=== PATIENT | male | born 1935 | race Caucasian/White ===

== ENCOUNTER → 2017-09-01 14:10 | Outpatient (CLI) | payer MEDICARE, BC, OTHER, SELFPAY | PROVIDERS: Family Provider Family Medicine Geriatric Medicine; PCP Family Medicine Geriatric Medicine; Visit Provider Family Medicine Geriatric Medicine | DX: R50.9 Fever, unspecified (principal) | CPT/HCPCS: 87633 ==

== ENCOUNTER → 2017-11-22 16:39 | Outpatient (CLI) | payer MEDICARE, BC, OTHER, SELFPAY | PROVIDERS: Family Provider Family Medicine Geriatric Medicine; PCP Family Medicine Geriatric Medicine; Visit Provider Family Medicine Geriatric Medicine | DX: J01.90 Acute sinusitis, unspecified (principal) | CPT/HCPCS: 87633 ==

== ENCOUNTER → 2017-12-08 14:29 | Outpatient (CLI) | payer MEDICARE, BC, OTHER, SELFPAY ==
[2017-12-08 17:02] LABS: Absolute Lymphocyte Count 1.64 X10^3/ul (0.83-4.51); Absolute Neutrophil Count 9.6 X10^3/uL (2.0-7.7); Basophil# 0.01 X10^3/uL; Basophil% 0.1 % (0-1); Eosinophils% 0.8 % (0-5); Hematocrit 41.6 % (40-54); Hemoglobin 13.4 g/dl (13.0-16.5); Lymphocyte # 1.64 X10^3/ul (4.0); Lymphocyte % 13.5 % (19-41); Mean Corp Hgb Conc 32.2 g/gl (32-36); Mean Corpuscular Hgb 31.5 pg (27.0-32.0); Mean Corpuscular Volume 97.7 fL (80-94); Mean Platelet Vol. 10.6 fl (6.2-12.0); Monocyte# 0.81 X10^3/uL; Monocyte% 6.7 % (0-10); Neutrophil # 9.55 X10^3/uL (2.7-7.7); Neutrophil % 78.7 % (47-70); Platelet Count 267 K/mm3 (150-450); RBC Distribution Width CV 14.9 % (11.6-14.6); RBC Distribution Width SD 51.2 fl (35.1-43.9); Red Blood Count 4.26 M/mm3 (4.6-6.2); White Blood Count 12.1 K/mm3 (4.4-11.0)
[2017-12-08 17:03] LABS: POSITIVE COUNT NO; POSITIVE DIFFERENTIAL NO; POSITIVE MORPHOLOGY NO
[2017-12-08 17:27] LABS: ALB/GLOB Ratio 0.8 RATIO (0.9-2.4); AST(SGOT) 31 U/L (15-37); Alanine Aminotransfer ALT/SGPT 46 U/L (16-61); Albumin, Serum 3.2 g/dL (3.2-5.0); Alkaline Phosphatase 54 U/L (45-117); Anion Gap 7 (5-15); BUN 33 mg/dL (7-18); BUN/Creat Ratio 30.6 RATIO (10-20); Calcium,Total 8.9 mg/dL (8.5-10.1); Chloride 106 mmol/L (98-107); Creatinine, Serum 1.08 mg/dL (0.70-1.30); EST Glomerular Filtration Rate 70 mL/min (>60); Est Glom Filt Rate - Afr Amer 84 mL/min (>60); Glucose 128 mg/dL (74-106); Potassium 5.3 mmol/L (3.5-5.1); Protein, Total 7.2 g/dL (6.4-8.2); Sodium Level 141 mmol/L (136-145); Thyroid Stim Hormone (TSH) 1.91 uIU/mL (0.358-3.74)
[2017-12-08 17:55] LABS: Vitamin D,25 Hydroxy 24.8 ng/mL (29.95-100.01)
== END ==
PROVIDERS: Family Provider Family Medicine Geriatric Medicine; PCP Family Medicine Geriatric Medicine; Visit Provider Family Medicine Geriatric Medicine
DX: I10 Essential (primary) hypertension (principal); E55.9 Vitamin D deficiency, unspecified
CPT/HCPCS: 36415; 80053; 82306; 84443; 85025

== ENCOUNTER → 2017-12-20 09:27 | Outpatient (CLI) | payer MEDICARE, BC, OTHER, SELFPAY ==
[2017-12-20 12:45] LABS: Anion Gap 6 (5-15); BUN 23 mg/dL (7-18); BUN/Creat Ratio 20.2 RATIO (10-20); Calcium,Total 9.2 mg/dL (8.5-10.1); Chloride 106 mmol/L (98-107); Creatinine, Serum 1.14 mg/dL (0.70-1.30); EST Glomerular Filtration Rate 65 mL/min (>60); Est Glom Filt Rate - Afr Amer 79 mL/min (>60); Glucose 148 mg/dL (74-106); Potassium 5.4 mmol/L (3.5-5.1); Sodium Level 143 mmol/L (136-145)
== END ==
PROVIDERS: Family Provider Family Medicine Geriatric Medicine; PCP Family Medicine Geriatric Medicine; Visit Provider Family Medicine Geriatric Medicine
DX: E87.6 Hypokalemia (principal)
CPT/HCPCS: 36415; 80048

== ENCOUNTER → 2018-04-07 13:47 | Outpatient (CLI) | payer MEDICARE, BC, OTHER, SELFPAY ==
[2018-04-07 17:37] LABS: ALB/GLOB Ratio 0.8 RATIO (0.9-2.4); AST(SGOT) 30 U/L (15-37); Alanine Aminotransfer ALT/SGPT 33 U/L (16-61); Albumin, Serum 3.5 g/dL (3.2-5.0); Alkaline Phosphatase 65 U/L (45-117); Anion Gap 9 (5-15); BUN 19 mg/dL (7-18); BUN/Creat Ratio 15.8 RATIO (10-20); Chloride 101 mmol/L (98-107); EST Glomerular Filtration Rate 62 mL/min (>60); Est Glom Filt Rate - Afr Amer 74 mL/min (>60); Globulin 4.6 g/dL (2.2-4.2); Glucose 99 mg/dL (74-106); Potassium 4.6 mmol/L (3.5-5.1); Protein, Total 8.1 g/dL (6.4-8.2); Sodium Level 136 mmol/L (136-145); Thyroid Stim Hormone (TSH) 5.07 uIU/mL (0.358-3.74)
[2018-04-07 18:37] LABS: Absolute Lymphocyte Count 2.36 X10^3/ul (0.83-4.51); Absolute Neutrophil Count 6.6 X10^3/uL (2.0-7.7); Basophil# 0.03 X10^3/uL; Basophil% 0.3 % (0-1); Eosinophil# 0.16 X10^3/uL; Eosinophils% 1.6 % (0-5); Hematocrit 43.1 % (40-54); Hemoglobin 13.7 g/dl (13.0-16.5); Lymphocyte # 2.36 X10^3/ul (4.0); Lymphocyte % 23.6 % (19-41); Mean Corp Hgb Conc 31.8 g/gl (32-36); Mean Corpuscular Hgb 31.7 pg (27.0-32.0); Mean Corpuscular Volume 99.8 fL (80-94); Mean Platelet Vol. 10.7 fl (6.2-12.0); Monocyte# 0.79 X10^3/uL; Monocyte% 7.9 % (0-10); Neutrophil # 6.63 X10^3/uL (2.7-7.7); Neutrophil % 66.4 % (47-70); POSITIVE COUNT NO; POSITIVE DIFFERENTIAL NO; POSITIVE MORPHOLOGY NO; Platelet Count 237 K/mm3 (150-450); RBC Distribution Width SD 54.2 fl (35.1-43.9); Red Blood Count 4.32 M/mm3 (4.6-6.2)
[2018-04-07 20:16] LABS: BNP,B-Type NATRIURETIC PEPTIDE 339.5 pg/mL (0-100)
== END ==
PROVIDERS: Family Provider Family Medicine Geriatric Medicine; PCP Family Medicine Geriatric Medicine; Visit Provider Family Medicine Geriatric Medicine
DX: R60.0 Localized edema (principal); R06.02 Shortness of breath; R60.9 Edema, unspecified
CPT/HCPCS: 36415; 80053; 83880; 84443; 85025; 93970

== ENCOUNTER → 2018-05-26 16:18 | Outpatient (CLI) | payer MEDICARE, BC, OTHER, SELFPAY ==
[2018-05-26 18:06] LABS: ALB/GLOB Ratio 0.8 RATIO (0.9-2.4); AST(SGOT) 35 U/L (15-37); Alanine Aminotransfer ALT/SGPT 32 U/L (16-61); Albumin, Serum 3.4 g/dL (3.2-5.0); Alkaline Phosphatase 70 U/L (45-117); Anion Gap 7 (5-15); BUN 24 mg/dL (7-18); BUN/Creat Ratio 18.3 RATIO (10-20); Calcium,Total 8.9 mg/dL (8.5-10.1); Chloride 103 mmol/L (98-107); Creatinine, Serum 1.31 mg/dL (0.70-1.30); EST Glomerular Filtration Rate 56 mL/min (>60); Est Glom Filt Rate - Afr Amer 67 mL/min (>60); Globulin 4.2 g/dL (2.2-4.2); Glucose 132 mg/dL (74-106); Potassium 5.4 mmol/L (3.5-5.1); Protein, Total 7.6 g/dL (6.4-8.2); Sodium Level 140 mmol/L (136-145); Thyroid Stim Hormone (TSH) 4.14 uIU/mL (0.358-3.74)
[2018-05-26 18:14] LABS: Hematocrit 40.8 % (40-54); Mean Corp Hgb Conc 31.9 g/gl (32-36); Mean Corpuscular Hgb 31.3 pg (27.0-32.0); Mean Corpuscular Volume 98.3 fL (80-94); POSITIVE COUNT NO; POSITIVE DIFFERENTIAL NO; POSITIVE MORPHOLOGY NO; Platelet Count 205 K/mm3 (150-450); RBC Distribution Width CV 14.9 % (11.6-14.6); RBC Distribution Width SD 52.4 fl (35.1-43.9); Red Blood Count 4.15 M/mm3 (4.6-6.2); White Blood Count 8.8 K/mm3 (4.4-11.0)
[2018-05-26 18:15] LABS: Absolute Lymphocyte Count 1.94 X10^3/ul (0.83-4.51); Absolute Neutrophil Count 5.6 X10^3/uL (2.0-7.7); Basophil# 0.04 X10^3/uL; Basophil% 0.5 % (0-1); Eosinophil# 0.22 X10^3/uL; Eosinophils% 2.5 % (0-5); Lymphocyte # 1.94 X10^3/ul (4.0); Lymphocyte % 21.9 % (19-41); Monocyte# 1.06 X10^3/uL; Neutrophil # 5.56 X10^3/uL (2.7-7.7); Neutrophil % 62.9 % (47-70)
== END ==
PROVIDERS: Family Provider Family Medicine Geriatric Medicine; PCP Family Medicine Geriatric Medicine; Visit Provider Family Medicine Geriatric Medicine
DX: I50.9 Heart failure, unspecified (principal)
CPT/HCPCS: 36415; 80053; 84443; 85025

== ENCOUNTER → 2018-05-29 11:50 | Outpatient (CLI) | payer MEDICARE, BC, OTHER, SELFPAY ==
[2018-05-29 12:43] LABS: Anion Gap 5 (5-15); BUN 21 mg/dL (7-18); BUN/Creat Ratio 18.9 RATIO (10-20); Calcium,Total 8.8 mg/dL (8.5-10.1); Chloride 106 mmol/L (98-107); Creatinine, Serum 1.11 mg/dL (0.70-1.30); EST Glomerular Filtration Rate 67 mL/min (>60); Est Glom Filt Rate - Afr Amer 81 mL/min (>60); Glucose 108 mg/dL (74-106); Potassium 4.3 mmol/L (3.5-5.1); Sodium Level 142 mmol/L (136-145)
== END ==
PROVIDERS: Family Provider Family Medicine Geriatric Medicine; PCP Family Medicine Geriatric Medicine; Visit Provider Family Medicine Geriatric Medicine
DX: E87.6 Hypokalemia (principal)
CPT/HCPCS: 36415; 80048

== ENCOUNTER → 2018-06-02 10:57 | Outpatient (CLI) | payer MEDICARE, BC, OTHER, SELFPAY ==
[2018-06-02 13:14] LABS: Digoxin Level 0.49 ng/mL (0.80-2.00)
== END ==
PROVIDERS: Family Provider Family Medicine Geriatric Medicine; PCP Family Medicine Geriatric Medicine; Visit Provider Family Medicine Geriatric Medicine
DX: E03.9 Hypothyroidism, unspecified (principal); F05 Delirium due to known physiological condition; F22 Delusional disorders
CPT/HCPCS: 36415; 80162

== ENCOUNTER → 2018-06-21 14:46 | Outpatient (CLI) | payer MEDICARE, BC, OTHER, SELFPAY ==
[2018-06-21 17:33] LABS: Anion Gap 7 (5-15); BUN 24 mg/dL (7-18); BUN/Creat Ratio 19.5 RATIO (10-20); Calcium,Total 8.8 mg/dL (8.5-10.1); Chloride 105 mmol/L (98-107); Creatinine, Serum 1.23 mg/dL (0.70-1.30); EST Glomerular Filtration Rate 60 mL/min (>60); Est Glom Filt Rate - Afr Amer 72 mL/min (>60); Glucose 109 mg/dL (74-106); Potassium 4.3 mmol/L (3.5-5.1); Sodium Level 138 mmol/L (136-145)
== END ==
PROVIDERS: Family Provider Family Medicine Geriatric Medicine; PCP Family Medicine Geriatric Medicine; Visit Provider Family Medicine Geriatric Medicine
DX: E87.5 Hyperkalemia (principal)
CPT/HCPCS: 36415; 80048

== ENCOUNTER → 2018-07-01 11:12 | Outpatient (CLI) | payer MEDICARE, BC, OTHER, SELFPAY ==
[2018-07-01 12:16] LABS: Absolute Lymphocyte Count 1.15 X10^3/ul (0.83-4.51); Absolute Neutrophil Count 4.8 X10^3/uL (2.0-7.7); Basophil# 0.03 X10^3/uL; Basophil% 0.4 % (0-1); Eosinophil# 0.23 X10^3/uL; Eosinophils% 3.3 % (0-5); Hematocrit 37.2 % (40-54); Hemoglobin 11.9 g/dl (13.0-16.5); Lymphocyte # 1.15 X10^3/ul (4.0); Lymphocyte % 16.7 % (19-41); Mean Corpuscular Hgb 30.1 pg (27.0-32.0); Mean Corpuscular Volume 94.2 fL (80-94); Mean Platelet Vol. 10.3 fl (6.2-12.0); Monocyte# 0.64 X10^3/uL; Monocyte% 9.3 % (0-10); Neutrophil # 4.82 X10^3/uL (2.7-7.7); Neutrophil % 70.2 % (47-70); Platelet Count 234 K/mm3 (150-450); RBC Distribution Width CV 14.9 % (11.6-14.6); RBC Distribution Width SD 49.8 fl (35.1-43.9); Red Blood Count 3.95 M/mm3 (4.6-6.2); White Blood Count 6.9 K/mm3 (4.4-11.0)
[2018-07-01 12:26] LABS: POSITIVE COUNT NO; POSITIVE DIFFERENTIAL NO; POSITIVE MORPHOLOGY NO
[2018-07-01 12:30] LABS: Vitamin D,25 Hydroxy 26.6 ng/mL (29.95-100.01)
[2018-07-01 12:44] LABS: ALB/GLOB Ratio 0.7 RATIO (0.9-2.4); AST(SGOT) 26 U/L (15-37); Alanine Aminotransfer ALT/SGPT 26 U/L (16-61); Albumin, Serum 3.3 g/dL (3.2-5.0); Alkaline Phosphatase 82 U/L (45-117); Anion Gap 8 (5-15); BUN 26 mg/dL (7-18); BUN/Creat Ratio 19.8 RATIO (10-20); Calcium,Total 9.1 mg/dL (8.5-10.1); Chloride 103 mmol/L (98-107); Creatinine, Serum 1.31 mg/dL (0.70-1.30); EST Glomerular Filtration Rate 56 mL/min (>60); Est Glom Filt Rate - Afr Amer 67 mL/min (>60); Globulin 4.8 g/dL (2.2-4.2); Glucose 98 mg/dL (74-106); Potassium 4.3 mmol/L (3.5-5.1); Protein, Total 8.1 g/dL (6.4-8.2); Sodium Level 139 mmol/L (136-145); Thyroid Stim Hormone (TSH) 2.79 uIU/mL (0.358-3.74)
--- OUTSIDE RECORDS SUMMARY | 2018-08-26 09:14 | XMS RPT_ITS ---
:1935 Author Organization OHIP Support Name Relationship Address Phone JACKIE FERREIRA Unavailable [address] + [place] [address] R Unavailable Unavailable Unavailable PB, ABHI Unavailable [address] + [place] [address] PINNICKS, JACKIE Unavailable Unavailable + PINNICKS, JACKIE Unavailable Unavailable + PINNICKS, JACKIE Unavailable [address] + [place] [address] R Unavailable Unavailable Unavailable PB, ABHI Unavailable [address] + [place] [address] PINNICKS, JACKIE Unavailable [address] + [place] [address] R Unavailable Unavailable Unavailable PB, ABHI Unavailable [address] + [place] [address] PINNICKS, JACKIE Unavailable Unavailable + PINNICKS, JACKIE Unavailable Unavailable + PINNICKS, JACKIE Unavailable [address] + [place] [address] R Unavailable Unavailable Unavailable PB, ABHI Unavailable [address] + [place] [address] PINNICKS, JACKIE Unavailable [address] + [place] [address] R Unavailable Unavailable Unavailable PB, ABHI Unavailable [address] + [place] [address] PINNICKS, JACKIE Unavailable [address] + [place] [address] R Unavailable Unavailable Unavailable PB, ABHI Unavailable [address] + [place] [address] PINNICKS, JACKIE Unavailable Unavailable + PINNICKS, JACKIE Unavailable Unavailable + PINNICKS, JACKIE Unavailable [address] + [place] [address] R Unavailable Unavailable Unavailable PB, ABHI Unavailable [address] + [place] [address] PINNICKS, JACKIE Unavailable [address] + [place] [address] R Unavailable Unavailable Unavailable PB, ABHI Unavailable [address] + [place] [address] PINNICKS, JACKIE Unavailable [address] + [place] [address] R Unavailable Unavailable Unavailable PB, ABHI Unavailable [address] + [place] [address] PINNICKS, JACKIE Unavailable [address] + [place] [address] R Unavailable Unavailable Unavailable PB, ABHI Unavailable [address] + [place] [address] PINNICKS, JACKIE Unavailable Unavailable + PINNICKS, JACKIE Unavailable Unavailable + PINNICKS, JACKIE Unavailable [address] + [place] [address] R Unavailable Unavailable Unavailable PB, ABHI Unavailable [address] + [place] [address] Care Team Providers Name Role Phone BANG ROSE, DR. MONTE Primary Care Unavailable FISH MARKETING SALES CONSULTANT BEATRICE Attending Unavailable BABAR RUIZ MD Referring Unavailable FISH MICHELA BEATRICE Attending Unavailable BANG ROSE, DR. MONTE Primary Care Unavailable FISH MICHELA BEATRICE Attending Unavailable BANG ROSE, DR. MONTE Primary Care Unavailable FISH MARKETING SALES CONSULTANT BEATRICE Attending Unavailable BANG ROSE, DR. MONTE Primary Care Unavailable FISH MARKETING SALES CONSULTANT BEATRICE Attending Unavailable BANG ROSE, DR. ALEC-CHI Primary Care Unavailable FISH MARKETING SALES CONSULTANT, BEATRICE Attending Unavailable BANG ROSE, DR. MICHAEL-LIAT Primary Care Unavailable Bang, Alec Chi Attending Unavailable Bang, Alec Chi Referring Unavailable Bang, Alec Chi Primary Care Unavailable Bang, Alec Chi Attending Unavailable Bang, Alec Chi Primary Care Unavailable Bang, Alec Chi Attending Unavailable Bang, Alec Chi Primary Care Unavailable Bang, Alec Chi Attending Unavailable Bang, Alec Chi Primary Care Unavailable Bang, Alec Chi Attending Unavailable Bang, Alec Chi Referring Unavailable Bang, Alec Chi Primary Care Unavailable Bang, Alec Chi Attending Unavailable Bang, Alec Chi Primary Care Unavailable Bang, Alec Chi Attending Unavailable Bang, Alec Chi Primary Care Unavailable Bang, Alec Chi Attending Unavailable Bang, Alec Chi Primary Care Unavailable Bang, Alec Chi Attending Unavailable Bang, Alec Chi Primary Care Unavailable Bang, Alec Chi Attending Unavailable Bang, Alec Chi Primary Care Unavailable Bang, Alec Chi Attending Unavailable Bang, Alec Chi Primary Care Unavailable PROBLEMS PROBLEMS DATE TYPE CONDITION / CODE ATTENDING STATUS SOURCE 05/27/2018 Unknown E87.6 - Bang, Alec Chi Active [facility] Hypokalemia / Community E87.6(ICD-10) Hospital Repository 05/26/2018 Unknown I50.9 - Heart Bang, Alec Chi Active [facility]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, Community unspecified / Hospital I50.9(ICD-10) Repository 09/01/2017 Unknown R50.9 - Fever, Bang, Alec Chi Active [facility] unspecified / Community R50.9(ICD-10) Hospital Repository PROCEDURES PROCEDURES No Procedure Records FoundRESULTS RESULTS CBC W/DIFF, AUTOMATED Collected: 07/01/2018 Status: F Source: [place] 11:15 AM REPLACED BY [facility] REPOSITORY TYPE CODE TESTS RESULT OUT OF RANGE REFERENCE UNITS LAB L100.1000 4.4-11.0 K/mm3 Normal WBC 6.9 LAB L100.1200 4.6-6.2 M/mm3 Low RBC 3.95 LAB L100.1300 13.0-16.5 g/dl Low HGB 11.9 LAB L100.1400 40-54 % Low HCT 37.2 LAB L100.1500 80-94 fL High MCV 94.2 LAB L100.1600 27.0-32.0 pg Normal MCH 30.1 LAB L100.1700 32-36 g/gl Normal MCHC 32.0 LAB L100.1810 11.6-14.6 % High RDW CV 14.9 LAB L100.1820 35.1-43.9 fl High RDW SD 49.8 LAB L100.1900 150-450 K/mm3 Normal PLT 234 LAB L100.2000 6.2-12.0 fl Normal MPV 10.3 LAB L100.2100 47-70 % High NEUT% 70.2 LAB L100.2200 19-41 % Low LY% 16.7 LAB L100.2300 0-10 % Normal MONO% 9.3 LAB L100.2400 0-5 % Normal EO% 3.3 LAB L100.2500 0-1 % Normal BASO% 0.4 LAB L100.2550 0.0-0.9 % Normal IM GRAN % 0.100 Result Comment: IG% - Immature Granulocytes (promyelocytes, myelocytes and metamyelocytes) > 1% indicates that a LEFT SHIFT is Present. LAB L100.2620 2.0-7.7 X10 3/uL Normal Absolute Neut 4.8 LAB L100.2720 0.83-4.51 X10 3/ul Normal Absolute Lymph 1.15 Performed By: #### L100.0100 #### [facility] [address] [place], [place], [address] VITAMIN D,25 HYDROXY Collected: 07/01/2018 Status: F Source: [place] 11:15 AM [facility] REPOSITORY TYPE CODE TESTS RESULT OUT OF REFERENCE UNITS RANGE LAB L506.1000 29.95-100.01 ng/mL Low Vitamin D 26.6 25-OH Result Comment: Vitamin D 25(OH) Status Range Deficiency <20 ng/mL (50nmol/L) Insuffciency 20 - 30 ng/mL (50 - 75 nmol/L) Sufficiency 30 - 100 ng/mL (75 - 250 nmol/L) Toxicity >100 ng/mL (>250 nmol/L) Performed By: #### L506.1000 #### [facility] [address] [place], [address] COMPREHENSIVE METABOLIC Collected: 07/01/2018 Status: F Source: [facility] 11:15 AM [facility] REPOSITORY TYPE CODE TESTS RESULT OUT OF RANGE REFERENCE UNITS LAB L501.0100 74-106 mg/dL Normal GLU 98 Result Comment: Please note revised GLUCOSE reference range effective 2017. LAB L501.1000 7-18 mg/dL High BUN 26 LAB L501.1100 0.70-1.30 mg/dL High CREAT,SERUM 1.31 Result Comment: The validity of the calculated GFR AND GFRAA in patients over 70 years has not been determined. Clinical correlation is essential. LAB L501.1110 >60 mL/min Low EST GFR 56 Result Comment: Non- GFR Calc LAB L501.1115 >60 mL/min Normal EST GFR - AA 67 Result Comment: GFR Calc LAB L501.1300 10-20 RATIO Normal BUN/CRE 19.8 LAB L501.1500 6.4-8.2 g/dL T Normal PROT 8.1 LAB L501.1800 3.2-5.0 g/dL Normal ALB 3.3 LAB L501.1950 2.2-4.2 g/dL High GLOB 4.8 LAB L501.2000 0.9-2.4 RATIO Low A/G 0.7 LAB L501.2200 8.5-10.1 mg/dL CA Normal 9.1 LAB L501.4100 15-37 U/L Normal AST 26 LAB L501.4305 45-117 U/L Normal ALK P 82 LAB L501.4405 16-61 U/L Normal ALT 26 LAB L501.4600 0.20-1.00 mg/dL T Normal BILI 0.40 LAB L501.5300 136-145 mmol/L NA Normal 139 LAB L501.5600 3.5-5.1 mmol/L K Normal 4.3 LAB L501.5900 98-107 mmol/L CL Normal 103 LAB L501.6100 21.0-32.0 mmol/L Normal CO2 28.0 LAB L501.6200 5-15 Normal GAP 8 Performed By: #### L500.4050, L501.9520 #### [facility] [address] [place], [address] THYROID STIM HORMONE Collected: 07/01/2018 Status: F Source: [place] (TSH) 11:15 AM [facility] REPOSITORY TYPE CODE TESTS RESULT OUT OF RANGE REFERENCE UNITS LAB L501.9520 0.358-3.74 uIU/mL Normal TSH 2.79 Performed By: #### L500.4050, L501.9520 #### [facility] [address] [place], [address] CT HEAD OR BRAIN W/O Observed: 06/24/2018 Status: F Source: [facility] CONTRAST 10:45 AM [facility] REPOSITORY ORIGINAL Head CT, 06/24/2018 10:48 AM INDICATION: CHANGE IN MENTAL STATUS COMPARISON: No TECHNIQUE: Routine non-contrast head CT. This exam was performed according to our departmental dose optimization program, and includes the following measures where applicable: automated exposure control, adjustment of the mAs and/or kVp accord ing to patient size and/or exam, and an iterative reconstruction algorithm. FINDINGS: The ventricles and sulci are mildly to moderately enlarged. There is no shift of midline structures. There are no abnormal intra or extra-axial fluid collections. There is moderate irregular d ecreased attenuation in the white matter of the reveles radiata and centrum semiovale. Robledo-white matter differentiation is maintained. The paranasal sinuses and mastoid air cells are clear. The calvaria and the bones of the base of the skull are intact. IMPRESSION: Volume loss and white matter changes; no acute findings. Interpreted By: Papito Davenport MD Preliminary Report By: Papito Davenport MD Electronically Signed By: Papito Davenport MD Dictated Date: 06/24/2018 10:49:15 AM Prelim Date: 06/24/2018 10:49:15 AM Sign Date: 06/24/2018 10:50:13 AM BASIC METABOLIC Collected: 06/21/2018 Status: F Source: [place] PROFILE (BMP) 2:47 PM [facility] REPOSITORY TYPE CODE TESTS RESULT OUT OF RANGE REFERENCE UNITS LAB L501.0100 74-106 mg/dL High GLU 109 Result Comment: Fasting Glucose result from 100 to 125 mg/dL suggests IMPAIRED HOMEOSTASIS per A.D.A. criteria. Please note revised GLUCOSE reference range effective 2017. LAB L501.1000 7-18 mg/dL High BUN 24 LAB L501.1100 0.70-1.30 mg/dL Normal CREAT,SERUM 1.23 Result Comment: The validity of the calculated GFR AND GFRAA in patients over 70 years has not been determined. Clinical correlation is essential. LAB L501.1110 >60 mL/min Normal EST GFR 60 Result Comment: Non- GFR Calc LAB L501.1115 >60 mL/min Normal EST GFR - AA 72 Result Comment: GFR Calc LAB L501.1300 10-20 RATIO Normal BUN/CRE 19.5 LAB L501.2200 8.5-10.1 mg/dL CA Normal 8.8 LAB L501.5300 136-145 mmol/L NA Normal 138 LAB L501.5600 3.5-5.1 mmol/L K Normal 4.3 Result Comment: Slight Hemolysis, Result may be falsely increased. LAB L501.5900 98-107 mmol/L Normal CL 105 LAB L501.6100 21.0-32.0 mmol/L Normal CO2 26.0 LAB L501.6200 5-15 Normal 7 GAP Performed By: #### L500.2500 #### [facility] [address], [place], [address] DIGOXIN LEVEL Collected: 06/02/2018 Status: F Source: [place] 11:05 AM [facility] REPOSITORY TYPE CODE TESTS RESULT OUT OF RANGE REFERENCE UNITS LAB L501.7510 0.80-2.00 ng/mL Low DIG 0.49 Performed By: #### L501.7510 #### [facility] [address] [place], [address] AMIOD Collected: 05/30/2018 Status: F Source: [facility] 11:49 AM [facility] REPOSITORY TYPE CODE TESTS RESULT OUT OF REFERENCE UNITS RANGE LAB DESAM(STEFANIA 1.5-2.5 UG/ML NC) Desethylamiodarone Low 0.5 Result Comment: Reference ranges and high/low indicator flags are provided as general guidelines only. The treating physician must determine appropriate target levels/dosing based on the specific clinical situation. Performed By: [facility] [address] [place] [address] Typewriter Tester: Michael Schuler#: [id number] Phone#: LAB AM(LOINC) 1.5-2.5 UG/ML Amiodarone Low Lvl 0.5 Result Comment: Reference ranges and high/low indicator flags are provided as general guidelines only. The treating physician must determine appropriate target levels/dosing based on the specific clinical situation. This test was developed and its performance characteristics determined by [facility] [place] ([facility]). It has not been cleared or approved by the FDA. -[facility] is regulated under CLIA as qualified to perform high-complexity testing. This test is used for clinical purposes. It should not be regarded as investigational or for research. Performed By: [facility] [address] [place] [address] Typewriter Tester: Cherie Gomez M.D. CLIA#: [id number] Phone#: Performed By: #### AMIOD #### [facility] [address] [address] BASIC METABOLIC Collected: 05/29/2018 Status: F Source: [place] PROFILE ([facility]) 11:59 AM [facility] REPOSITORY TYPE CODE TESTS RESULT OUT OF RANGE REFERENCE UNITS LAB L501.0100 74-106 mg/dL High GLU 108 Result Comment: Fasting Glucose result from 100 to 125 mg/dL suggests IMPAIRED HOMEOSTASIS per A.D.A. criteria. Please note revised GLUCOSE reference range effective 2017. LAB L501.1000 7-18 mg/dL High BUN 21 LAB L501.1100 0.70-1.30 mg/dL Normal CREAT,SERUM 1.11 Result Comment: The validity of the calculated GFR AND GFRAA in patients over 70 years has not been determined. Clinical correlation is essential. LAB L501.1110 >60 mL/min Normal EST GFR 67 Result Comment: Non- GFR Calc LAB L501.1115 >60 mL/min Normal EST GFR - AA 81 Result Comment: GFR Calc LAB L501.1300 10-20 RATIO Normal BUN/CRE 18.9 LAB L501.2200 8.5-10.1 mg/dL CA Normal 8.8 LAB L501.5300 136-145 mmol/L NA Normal 142 LAB L501.5600 3.5-5.1 mmol/L K Normal 4.3 LAB L501.5900 98-107 mmol/L CL Normal 106 LAB L501.6100 21.0-32.0 mmol/L Normal CO2 31.0 LAB L501.6200 5-15 Normal GAP 5 Performed By: #### L500.2500 #### [facility] [address] [place], [address] COMPREHENSIVE METABOLIC Collected: 05/26/2018 Status: F Source: [place] [facility] 4:19 PM [facility] REPOSITORY TYPE CODE TESTS RESULT OUT OF RANGE REFERENCE UNITS LAB L501.0100 74-106 mg/dL High GLU 132 Result Comment: Fasting Glucose result greater than or equal to 126 mg/dL suggests DIABETES MELLITUS per A.D.A. criteria. Please note revised GLUCOSE reference range effective 2017. LAB L501.1000 7-18 mg/dL High BUN 24 LAB L501.1100 0.70-1.30 mg/dL High CREAT,SERUM 1.31 Result Comment: The validity of the calculated GFR AND GFRAA in patients over 70 years has not been determined. Clinical correlation is essential. LAB L501.1110 >60 mL/min Low EST GFR 56 Result Comment: Non- GFR Calc LAB L501.1115 >60 mL/min Normal EST GFR - AA 67 Result Comment: GFR Calc LAB L501.1300 10-20 RATIO Normal BUN/CRE 18.3 LAB L501.1500 6.4-8.2 g/dL T Normal PROT 7.6 LAB L501.1800 3.2-5.0 g/dL Normal ALB 3.4 LAB L501.1950 2.2-4.2 g/dL Normal GLOB 4.2 LAB L501.2000 0.9-2.4 RATIO Low A/G 0.8 LAB L501.2200 8.5-10.1 mg/dL CA Normal 8.9 LAB L501.4100 15-37 U/L Normal AST 35 LAB L501.4305 45-117 U/L Normal ALK P 70 LAB L501.4405 16-61 U/L Normal ALT 32 LAB L501.4600 0.20-1.00 mg/dL T Normal BILI 0.40 LAB L501.5300 136-145 mmol/L NA Normal 140 LAB L501.5600 3.5-5.1 mmol/L High K 5.4 LAB L501.5900 98-107 mmol/L CL Normal 103 LAB L501.6100 21.0-32.0 mmol/L Normal CO2 30.0 LAB L501.6200 5-15 Normal GAP 7 Performed By: #### L500.4050, L501.9520 #### [facility] [address] [facility] [place], [place], [address] THYROID STIM HORMONE Collected: 05/26/2018 Status: F Source: [place] (TSH) 4:19 PM [facility] REPOSITORY TYPE CODE TESTS RESULT OUT OF RANGE REFERENCE UNITS LAB L501.9520 0.358-3.74 uIU/mL High TSH 4.14 Performed By: #### L500.4050, L501.9520 #### [facility] [address] [place], [address] CBC W/DIFF, AUTOMATED Collected: 05/26/2018 Status: F Source: [place] 4:19 PM [facility] REPOSITORY TYPE CODE TESTS RESULT OUT OF RANGE REFERENCE UNITS LAB L100.1000 4.4-11.0 K/mm3 Normal WBC 8.8 LAB L100.1200 4.6-6.2 M/mm3 Low RBC 4.15 LAB L100.1300 13.0-16.5 g/dl Normal HGB 13.0 LAB L100.1400 40-54 % Normal HCT 40.8 LAB L100.1500 80-94 fL High MCV 98.3 LAB L100.1600 27.0-32.0 pg Normal MCH 31.3 LAB L100.1700 32-36 g/gl Low MCHC 31.9 LAB L100.1810 11.6-14.6 % High RDW CV 14.9 LAB L100.1820 35.1-43.9 fl High RDW SD 52.4 LAB L100.1900 150-450 K/mm3 Normal PLT 205 LAB L100.2000 6.2-12.0 fl Normal MPV 11.0 LAB L100.2100 47-70 % Normal NEUT% 62.9 LAB L100.2200 19-41 % Normal LY% 21.9 LAB L100.2300 0-10 % High MONO% 12.0 LAB L100.2400 0-5 % Normal EO% 2.5 LAB L100.2500 0-1 % Normal BASO% 0.5 LAB L100.2550 0.0-0.9 % Normal IM GRAN % 0.200 Result Comment: IG% - Immature Granulocytes (promyelocytes, myelocytes and metamyelocytes) > 1% indicates that a LEFT SHIFT is Present. LAB L100.2620 2.0-7.7 X10 3/uL Normal Absolute Neut 5.6 LAB L100.2720 0.83-4.51 X10 3/ul Normal Absolute Lymph 1.94 Performed By: #### L100.0100 #### [facility] [address] [place], [address] PRO Collected: 05/10/2018 Status: F Source: [facility] 11:20 AM [facility] REPOSITORY TYPE CODE TESTS RESULT OUT OF REFERENCE UNITS RANGE LAB PT(LOINC) 9.3-14.6 seconds Protime High 18.1 LAB INR(LOINC) 0.9-1.2 ratio PT High International 1.8 Ratio Result Comment: Standard Dose 2.0 - 3.0 High Dose 2.5 - 3.5 The recommended therapeutic range for oral anticoagulant therapy is: LOW RISK: Prophylaxis of venous thrombosis INR: 2.0 - 3.0 Treatment of pulmonary embolism 2.0 - 3.0 Prevention of systemic embolism 2.0 - 3.0 HIGH RISK: Mechanical prosthetic valves 2.5 - 3.5 Performed By: #### PRO #### [address] [place], [place] [address] VENOUS DUPLEX LOWER Observed: 04/08/2018 Status: F Source: [place] EXTREMITY 6:07 PM [facility] REPOSITORY [facility] [address] [place] [address] Venous Duplex US - Isidro Extrem 04/07/18 1352 MR#: [id number] Acct: [id number] Name: SIRI FERREIRA Rep #: [id number] : [id number] 82 From: Randall Koroma MD Attending Dr: Bang BENITEZ,Alec Ayala Status: REG CLI Ordering Dr: Alec Luna MD Date: 04/07/18 Location: CVS Sex: M C Admitted: Reason For Study: EDEMA RIGHT LEFT GSV is normal. GSV is normal. CFV is compressible, spontaneous, competent CFV is compressible, spontaneous, competent, and demonstrates pulsatile venous flow. and demonstrates pulsatile venous flow. FV is compressible, spontaneous, competent FV is compressible, spontaneous, competent and demonstrates pulsatile venous flow. and demonstrates pulsatile venous flow. POP V is compressible, spontaneous, POP V is compressible, spontaneous, phasic, competent and demonstrates pulsatile venous competent and demonstrates normal flow. augmentation. T/P Trunk is compressible. T/P Trunk is compressible. PTV is compressible. PTV is compressible. RT PerV is compressible. LT PerV is compressible. Procedure Exam performed in department. A preliminary report was called and/or faxed to Dr. Luna. Interpretation Summary Deep veins of the lower extremities are bilaterally patent and compressible segmentally. There is no evidence of deep vein thrombosis on either side. Valvular competence appears intact within the proximal deep venous systems bilaterally. The greater saphenous veins appear bilaterally patent and compressible segmentally. Pulsatile flow is noted in the deep venous system bilaterally, which may be indicative of elevated central venous pressure (i.e. congestive heart failure, tricuspid valve insufficiency, etc.). Clinical correlation is advised. Ordering Physician: Alec Luna Referring Physician: Alec Luna Chi Performed By: Neeta Regan RVT and Student 04/08/18 180 Date Randall Koroma MD CC: Alec Luna MD Date Dictated: 04/07/18 1352 Date Transcribed: 04/08/181805 Adobe Block Maker: Signed COMPREHENSIVE METABOLIC Collected: 04/07/2018 Status: F Source: [place] PROFIL 2:20 PM [facility] REPOSITORY TYPE CODE TESTS RESULT OUT OF RANGE REFERENCE UNITS LAB L501.0100 74-106 mg/dL Normal GLU 99 Result Comment: Please note revised GLUCOSE reference range effective 2017. LAB L501.1000 7-18 mg/dL High BUN 19 LAB L501.1100 0.70-1.30 mg/dL Normal CREAT,SERUM 1.20 Result Comment: The validity of the calculated GFR AND GFRAA in patients over 70 years has not been determined. Clinical correlation is essential. LAB L501.1110 >60 mL/min Normal EST GFR 62 Result Comment: Non- GFR Calc LAB L501.1115 >60 mL/min Normal EST GFR - AA 74 Result Comment: GFR Calc LAB L501.1300 10-20 RATIO Normal BUN/CRE 15.8 LAB L501.1500 6.4-8.2 g/dL T Normal PROT 8.1 LAB L501.1800 3.2-5.0 g/dL Normal ALB 3.5 LAB L501.1950 2.2-4.2 g/dL High GLOB 4.6 LAB L501.2000 0.9-2.4 RATIO Low A/G 0.8 LAB L501.2200 8.5-10.1 mg/dL CA Normal 9.0 LAB L501.4100 15-37 U/L Normal AST 30 LAB L501.4305 45-117 U/L Normal ALK P 65 LAB L501.4405 16-61 U/L Normal ALT 33 LAB L501.4600 0.20-1.00 mg/dL T Normal BILI 0.40 LAB L501.5300 136-145 mmol/L NA Normal 136 LAB L501.5600 3.5-5.1 mmol/L K Normal 4.6 LAB L501.5900 98-107 mmol/L CL Normal 101 LAB L501.6100 21.0-32.0 mmol/L Normal CO2 26.0 LAB L501.6200 5-15 Normal GAP 9 Performed By: #### L500.4050, L501.9520 #### [facility] [address] [place], [place], [address] THYROID STIM HORMONE Collected: 04/07/2018 Status: F Source: [place] (TSH) 2:20 PM [facility] REPOSITORY TYPE CODE TESTS RESULT OUT OF RANGE REFERENCE UNITS LAB L501.9520 0.358-3.74 uIU/mL High TSH 5.07 Performed By: #### L500.4050, L501.9520 #### [facility] [address] [place], [address] CBC W/DIFF, AUTOMATED Collected: 04/07/2018 Status: F Source: [place] 2:20 PM [facility] REPOSITORY TYPE CODE TESTS RESULT OUT OF RANGE REFERENCE UNITS LAB L100.1000 4.4-11.0 K/mm3 Normal WBC 10.0 LAB L100.1200 4.6-6.2 M/mm3 Low RBC 4.32 LAB L100.1300 13.0-16.5 g/dl Normal HGB 13.7 LAB L100.1400 40-54 % Normal HCT 43.1 LAB L100.1500 80-94 fL High MCV 99.8 LAB L100.1600 27.0-32.0 pg Normal MCH 31.7 LAB L100.1700 32-36 g/gl Low MCHC 31.8 LAB L100.1810 11.6-14.6 % High RDW CV 15.0 LAB L100.1820 35.1-43.9 fl High RDW SD 54.2 LAB L100.1900 150-450 K/mm3 Normal PLT 237 LAB L100.2000 6.2-12.0 fl Normal MPV 10.7 LAB L100.2100 47-70 % Normal NEUT% 66.4 LAB L100.2200 19-41 % Normal LY% 23.6 LAB L100.2300 0-10 % Normal MONO% 7.9 LAB L100.2400 0-5 % Normal EO% 1.6 LAB L100.2500 0-1 % Normal BASO% 0.3 LAB L100.2550 0.0-0.9 % Normal IM GRAN % 0.200 Result Comment: IG% - Immature Granulocytes (promyelocytes, myelocytes and metamyelocytes) > 1% indicates that a LEFT SHIFT is Present. LAB L100.2620 2.0-7.7 X10 3/uL Normal Absolute Neut 6.6 LAB L100.2720 0.83-4.51 X10 3/ul Normal Absolute Lymph 2.36 Performed By: #### L100.0100 #### [facility] [address] [place], [address] BNP,B-TYPE NATRIURETIC Collected: 04/07/2018 Status: F Source: [place] PEPTIDE 2:20 PM [facility] REPOSITORY TYPE CODE TESTS RESULT OUT OF RANGE REFERENCE UNITS LAB L503.6620 0-100 pg/mL High B-TYPE 339.5 ROLANDO PEP Performed By: #### L503.6620 #### [facility] [address] [place], [address] PRO Collected: 03/22/2018 Status: F Source: LACLEDE Evolv 11:24 AM [facility] REPOSITORY TYPE CODE TESTS RESULT OUT OF REFERENCE UNITS RANGE LAB PT(LOINC) 9.3-14.6 seconds Protime High 20.1 LAB INR(LOINC) 0.9-1.2 ratio PT High International 2.0 Ratio Result Comment: Standard Dose 2.0 - 3.0 High Dose 2.5 - 3.5 The recommended therapeutic range for oral anticoagulant therapy is: LOW RISK: Prophylaxis of venous thrombosis INR: 2.0 - 3.0 Treatment of pulmonary embolism 2.0 - 3.0 Prevention of systemic embolism 2.0 - 3.0 HIGH RISK: Mechanical prosthetic valves 2.5 - 3.5 Performed By: #### PRO #### [address] [address] PRO Collected: 03/15/2018 Status: F Source: MILLYSoukboard 10:30 AM [facility] REPOSITORY TYPE CODE TESTS RESULT OUT OF REFERENCE UNITS RANGE LAB PT(LOINC) 9.3-14.6 seconds Protime High 24.2 LAB INR(LOINC) 0.9-1.2 ratio PT High International 2.4 Ratio Result Comment: Standard Dose 2.0 - 3.0 High Dose 2.5 - 3.5 The recommended therapeutic range for oral anticoagulant therapy is: LOW RISK: Prophylaxis of venous thrombosis INR: 2.0 - 3.0 Treatment of pulmonary embolism 2.0 - 3.0 Prevention of systemic embolism 2.0 - 3.0 HIGH RISK: Mechanical prosthetic valves 2.5 - 3.5 Performed By: #### PRO #### [address] [address] PRO Collected: 03/07/2018 Status: F Source: [facility] 11:52 AM [facility] [place] REPOSITORY TYPE CODE TESTS RESULT OUT OF REFERENCE UNITS RANGE LAB PT(LOINC) 9.3-14.6 seconds Protime High 40.0 LAB INR(LOINC) 0.9-1.2 ratio PT High International 4.1 Ratio Result Comment: Standard Dose 2.0 - 3.0 High Dose 2.5 - 3.5 The recommended therapeutic range for oral anticoagulant therapy is: LOW RISK: Prophylaxis of venous thrombosis INR: 2.0 - 3.0 Treatment of pulmonary embolism 2.0 - 3.0 Prevention of systemic embolism 2.0 - 3.0 HIGH RISK: Mechanical prosthetic valves 2.5 - 3.5 Performed By: #### PRO #### [address] [address] PRO Collected: 02/15/2018 Status: F Source: [facility] 10:28 AM [facility] [place] REPOSITORY TYPE CODE TESTS RESULT OUT OF REFERENCE UNITS RANGE LAB PT(LOINC) 9.3-14.6 seconds Protime High 24.7 LAB INR(LOINC) 0.9-1.2 ratio PT High International 2.5 Ratio Result Comment: Standard Dose 2.0 - 3.0 High Dose 2.5 - 3.5 The recommended therapeutic range for oral anticoagulant therapy is: LOW RISK: Prophylaxis of venous thrombosis INR: 2.0 - 3.0 Treatment of pulmonary embolism 2.0 - 3.0 Prevention of systemic embolism 2.0 - 3.0 HIGH RISK: Mechanical prosthetic valves 2.5 - 3.5 Performed By: #### PRO #### [address] [address] BASIC METABOLIC Collected: 12/20/2017 Status: F Source: [place] PROFILE (BMP) 9:29 AM [facility] REPOSITORY TYPE CODE TESTS RESULT OUT OF RANGE REFERENCE UNITS LAB L501.0100 74-106 mg/dL High GLU 148 Result Comment: Fasting Glucose result greater than or equal to 126 mg/dL suggests DIABETES MELLITUS per A.D.A. criteria. Please note revised GLUCOSE reference range effective 2017. LAB L501.1000 7-18 mg/dL High BUN 23 LAB L501.1100 0.70-1.30 mg/dL Normal CREAT,SERUM 1.14 Result Comment: The validity of the calculated GFR AND GFRAA in patients over 70 years has not been determined. Clinical correlation is essential. LAB L501.1110 >60 mL/min Normal EST GFR 65 Result Comment: Non- GFR Calc LAB L501.1115 >60 mL/min Normal EST GFR - AA 79 Result Comment: GFR Calc LAB L501.1300 10-20 RATIO High BUN/CRE 20.2 LAB L501.2200 8.5-10.1 mg/dL CA Normal 9.2 LAB L501.5300 136-145 mmol/L NA Normal 143 LAB L501.5600 3.5-5.1 mmol/L High K 5.4 LAB L501.5900 98-107 mmol/L CL Normal 106 LAB L501.6100 21.0-32.0 mmol/L Normal CO2 31.0 LAB L501.6200 5-15 Normal GAP 6 Performed By: #### L500.2500 #### [facility] [address] [place], [address] PRO Collected: 12/16/2017 Status: F Source: [facility] 11:00 AM [facility] [place] REPOSITORY TYPE CODE TESTS RESULT OUT OF REFERENCE UNITS RANGE LAB PT(LOINC) 9.3-14.6 seconds Protime High 27.8 LAB INR(LOINC) 0.9-1.2 ratio PT High International 2.8 Ratio Result Comment: Standard Dose 2.0 - 3.0 High Dose 2.5 - 3.5 The recommended therapeutic range for oral anticoagulant therapy is: LOW RISK: Prophylaxis of venous thrombosis INR: 2.0 - 3.0 Treatment of pulmonary embolism 2.0 - 3.0 Prevention of systemic embolism 2.0 - 3.0 HIGH RISK: Mechanical prosthetic valves 2.5 - 3.5 Performed By: #### PRO #### [address] [address] CBC W/DIFF, AUTOMATED Collected: 12/08/2017 Status: F Source: [place] 2:34 PM [facility] REPOSITORY TYPE CODE TESTS RESULT OUT OF RANGE REFERENCE UNITS LAB L100.1000 4.4-11.0 K/mm3 High WBC 12.1 LAB L100.1200 4.6-6.2 M/mm3 Low RBC 4.26 LAB L100.1300 13.0-16.5 g/dl Normal HGB 13.4 LAB L100.1400 40-54 % Normal HCT 41.6 LAB L100.1500 80-94 fL High MCV 97.7 LAB L100.1600 27.0-32.0 pg Normal MCH 31.5 LAB L100.1700 32-36 g/gl Normal MCHC 32.2 LAB L100.1810 11.6-14.6 % High RDW CV 14.9 LAB L100.1820 35.1-43.9 fl High RDW SD 51.2 LAB L100.1900 150-450 K/mm3 Normal PLT 267 LAB L100.2000 6.2-12.0 fl Normal MPV 10.6 LAB L100.2100 47-70 % High NEUT% 78.7 LAB L100.2200 19-41 % Low LY% 13.5 LAB L100.2300 0-10 % Normal MONO% 6.7 LAB L100.2400 0-5 % Normal EO% 0.8 LAB L100.2500 0-1 % Normal BASO% 0.1 LAB L100.2550 0.0-0.9 % Normal IM GRAN % 0.200 Result Comment: IG% - Immature Granulocytes (promyelocytes, myelocytes and metamyelocytes) > 1% indicates that a LEFT SHIFT is Present. LAB L100.2620 2.0-7.7 X10 3/uL High Absolute Neut 9.6 LAB L100.2720 0.83-4.51 X10 3/ul Normal Absolute Lymph 1.64 Performed By: #### L100.0100 #### [facility] [address] [place], [address] COMPREHENSIVE METABOLIC Collected: 12/08/2017 Status: F Source: [facility] 2:34 PM [facility] REPOSITORY TYPE CODE TESTS RESULT OUT OF RANGE REFERENCE UNITS LAB L501.0100 74-106 mg/dL High GLU 128 Result Comment: Fasting Glucose result greater than or equal to 126 mg/dL suggests DIABETES MELLITUS per A.D.A. criteria. Please note revised GLUCOSE reference range effective 2017. LAB L501.1000 7-18 mg/dL High BUN 33 LAB L501.1100 0.70-1.30 mg/dL Normal CREAT,SERUM 1.08 Result Comment: The validity of the calculated GFR AND GFRAA in patients over 70 years has not been determined. Clinical correlation is essential. LAB L501.1110 >60 mL/min Normal EST GFR 70 Result Comment: Non- GFR Calc LAB L501.1115 >60 mL/min Normal EST GFR - AA 84 Result Comment: GFR Calc LAB L501.1300 10-20 RATIO High BUN/CRE 30.6 LAB L501.1500 6.4-8.2 g/dL T Normal PROT 7.2 LAB L501.1800 3.2-5.0 g/dL Normal ALB 3.2 LAB L501.1950 2.2-4.2 g/dL Normal GLOB 4.0 LAB L501.2000 0.9-2.4 RATIO Low A/G 0.8 LAB L501.2200 8.5-10.1 mg/dL CA Normal 8.9 LAB L501.4100 15-37 U/L Normal AST 31 LAB L501.4305 45-117 U/L Normal ALK P 54 LAB L501.4405 16-61 U/L Normal ALT 46 LAB L501.4600 0.20-1.00 mg/dL T Normal BILI 0.30 LAB L501.5300 136-145 mmol/L NA Normal 141 LAB L501.5600 3.5-5.1 mmol/L High K 5.3 LAB L501.5900 98-107 mmol/L CL Normal 106 LAB L501.6100 21.0-32.0 mmol/L Normal CO2 28.0 LAB L501.6200 5-15 Normal GAP 7 Performed By: #### L500.4050, L501.9520 #### [facility] [address] [place], [address] THYROID STIM HORMONE Collected: 12/08/2017 Status: F Source: [place] (TSH) 2:34 PM [facility] REPOSITORY TYPE CODE TESTS RESULT OUT OF RANGE REFERENCE UNITS LAB L501.9520 0.358-3.74 uIU/mL Normal TSH 1.91 Performed By: #### L500.4050, L501.9520 #### [facility] [address] [place], [address] VITAMIN D,25 HYDROXY Collected: 12/08/2017 Status: F Source: [place] 2:34 PM [facility] REPOSITORY TYPE CODE TESTS RESULT OUT OF REFERENCE UNITS RANGE LAB L506.1000 29.95-100.01 ng/mL Low Vitamin D 24.8 25-OH Result Comment: Vitamin D 25(OH) Status Range Deficiency <20 ng/mL (50nmol/L) Insuffciency 20 - 30 ng/mL (50 - 75 nmol/L) Sufficiency 30 - 100 ng/mL (75 - 250 nmol/L) Toxicity >100 ng/mL (>250 nmol/L) Performed By: #### L506.1000 #### [facility] [address] [place], [address] Observed: 11/22/2017 Status: F Source: [place] RESPIRATORY PANEL 4:20 PM [facility] MOLECULAR REPOSITORY RP PANEL Normal Reference Range = Not Detected ADENOVIRUS Not Detected HUMAN METAPHNEUMO Not Detected INFLUENZA A Not Detected INFLUENZA A (SUBTYPE H1) Not Detected INFLUENZA A (SUBTYPE H3) Not Detected INFLUENZA B Not Detected PARAINFLUENZA 1 Not Detected PARAINFLUENZA 2 Not Detected PARAINFLUENZA 3 Not Detected PARAINFLUENZA 4 Not Detected RHINOVIRUS Not Detected RSV A Not Detected RSV B Not Detected NAAT METHOD Testing was performed using nucleic acid amplification Performed By: #### M100.638 #### [facility] [address] [facility] [place], [address] PRO Collected: 11/17/2017 Status: F Source: [facility] 11:27 AM [facility] REPOSITORY TYPE CODE TESTS RESULT OUT OF REFERENCE UNITS RANGE LAB PT(LOINC) 9.8-13.5 seconds Protime High 26.9 LAB INR(LOINC) 0.9-1.2 ratio PT High International 2.6 Ratio Result Comment: Standard Dose 2.0 - 3.0 High Dose 2.5 - 3.5 The recommended therapeutic range for oral anticoagulant therapy is: LOW RISK: Prophylaxis of venous thrombosis INR: 2.0 - 3.0 Treatment of pulmonary embolism 2.0 - 3.0 Prevention of systemic embolism 2.0 - 3.0 HIGH RISK: Mechanical prosthetic valves 2.5 - 3.5 Performed By: #### PRO #### [address] [address] PRO Collected: 10/18/2017 Status: F Source: LACLEDE [facility] 10:51 AM [facility] REPOSITORY TYPE CODE TESTS RESULT OUT OF REFERENCE UNITS RANGE LAB PT(LOINC) 9.8-13.5 seconds Protime High 25.3 LAB INR(LOINC) 0.9-1.2 ratio PT High International 2.5 Ratio Result Comment: Standard Dose 2.0 - 3.0 High Dose 2.5 - 3.5 The recommended therapeutic range for oral anticoagulant therapy is: LOW RISK: Prophylaxis of venous thrombosis INR: 2.0 - 3.0 Treatment of pulmonary embolism 2.0 - 3.0 Prevention of systemic embolism 2.0 - 3.0 HIGH RISK: Mechanical prosthetic valves 2.5 - 3.5 Performed By: #### PRO #### [address] [address] PRO Collected: 09/14/2017 Status: F Source: MILLY [facility] 11:12 AM [facility] REPOSITORY TYPE CODE TESTS RESULT OUT OF REFERENCE UNITS RANGE LAB PT(LOINC) 9.8-13.5 seconds Protime High 29.9 LAB INR(LOINC) 0.9-1.2 ratio PT High International 2.9 Ratio Result Comment: Standard Dose 2.0 - 3.0 High Dose 2.5 - 3.5 The recommended therapeutic range for oral anticoagulant therapy is: LOW RISK: Prophylaxis of venous thrombosis INR: 2.0 - 3.0 Treatment of pulmonary embolism 2.0 - 3.0 Prevention of systemic embolism 2.0 - 3.0 HIGH RISK: Mechanical prosthetic valves 2.5 - 3.5 Performed By: #### PRO #### [address] [address] PRO Collected: 09/07/2017 Status: F Source: MILLYSoukboard 11:06 AM [facility] REPOSITORY TYPE CODE TESTS RESULT OUT OF REFERENCE UNITS RANGE LAB PT(LOINC) 9.8-13.5 seconds Protime High 34.6 LAB INR(LOINC) 0.9-1.2 ratio PT High International 3.4 Ratio Result Comment: Standard Dose 2.0 - 3.0 High Dose 2.5 - 3.5 The recommended therapeutic range for oral anticoagulant therapy is: LOW RISK: Prophylaxis of venous thrombosis INR: 2.0 - 3.0 Treatment of pulmonary embolism 2.0 - 3.0 Prevention of systemic embolism 2.0 - 3.0 HIGH RISK: Mechanical prosthetic valves 2.5 - 3.5 Performed By: #### PRO #### [address] [place], [place] [address] Observed: 09/01/2017 Status: F Source: [place] RESPIRATORY PANEL 2:19 PM [facility] MOLECULAR REPOSITORY Results called on 09/02/17-1003 by DCANNON to /NURSE LINE [phone]. RP PANEL Normal Reference Range = Not Detected RESULTS CALLED TO /MESSAGE 09/02/17 1004 Ama Brown. Copy of report sent to Infection Control Printer [id number] 09/02/17 1008 DCANNON. 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 [place], [place], [address] ALLERGIES ALLERGIES DATE TYPE / CODE NAME / CODE REACTION SEVERITY SOURCE 07/30/2013 Drug No Known Unknown [facility] Allergy/4160 Allergies/F00 Hospital 16699(SNOMED 5424327(RXNOR Repository CT) M) ENCOUNTERS ENCOUNTERS ADMIT/DISCHARGE ACCOUNT NUMBER ADMITTING ENCOUNTER LOCATION SOURCE CLASS 07/01/2018 [id number] Ambulatory [facility] Hospital ding:POLAB3 Repository 06/29/2018 [id number] Ambulatory BBuilding:RA Milly Nielsen [facility] Repository 06/24/2018/06/24/20 [id number] Ambulatory BBuilding:RA Milly Rahman [facility] Repository 06/21/2018 [id number] Ambulatory [facility] Hospital ding:POLAB3 Repository 06/15/2018 [id number] Ambulatory BBuilding: Milyl Nielsen [facility] Repository 06/02/2018 [id number] Ambulatory [facility] ding:POLAB3 Repository 05/30/2018/05/30/20 [id number] Ambulatory [address] ding:OLAB [facility] Repository 05/29/2018 [id number] Ambulatory [facility] ding:LAB.FUT Repository URE 05/27/2018 [id number] Ambulatory [facility] Hospital ding:LAB.FUT Repository URE 05/26/2018 [id number] Ambulatory [facility] ding:POLAB3 Repository 05/10/2018 [id number] Ambulatory BBuilding:LAMINE MillyFormerly [facility] Repository 04/07/2018 [id number] Ambulatory [facility] ding:CVS Repository 12/20/2017 [id number] Ambulatory [facility] ding:POLAB3 Repository 12/08/2017 [id number] Ambulatory [facility] Hospital ding:POLAB3 Repository 11/22/2017 [id number] Ambulatory [facility] ding:PSN Repository 11/17/2017 [id number] Ambulatory BBuilding:LAMINE [place] [facility] Repository 09/01/2017 [id number] Ambulatory [facility] ding:PSN Repository PAYERS PAYERS ENCOUNTER GUARANTOR PAYER SUBSCRIBER SOURCE 07/01/2018 Siri Deluna Primary [place] [id number] Insurance:MEDICARE PinnicksDOB: [facility] PART A olicy Number: [id number], [place] [id number] Repository [address]Jpl: (330) Date:2018-07-01 [phone] (HP) 07/01/2018 Secondary Siri W [place] [facility]EM[facility]olic[facility] HospitalnicksDOB: Community Number: [id number] Hospital [id number] Repository Date:8574-34-76[address], [place] [address]YK: 07/01/2018 Tertiary Siri W [place] Insurance:MUTUAL OF PinnicksDOB: [facility] Number: [id number] Hospital [id number] Repository Date:1856-11-31BSSPPP OF [place], [place] [address]AC: 07/01/2018 Tertiary NOT GIVENUNK [place] Insurance:SELF PAY [facility] Number: Effective Repository Date:2018-07-01 06/24/2018 [facility] PINNICKSDOB: Insurance:MEDICARE PINNICKSDOB: [facility] [id number] Repository [place] Number: CARINECARMITA [place] [id number] [place], [place] Date:2018-06-15 [place], [place] [address]Gvj: [phone] [id number] 365[address]Feb: (HP) Name:[facility] [phone] [facility] ()Tel: 000) [address] [address], [place] [phone] (WP) [address]SH: 06/24/2018 Secondary [facility] Insurance:MUTUAL OF PINNICKSDOB: [facility] [id number] Repository Number: MARIELY [id number] CIRCLE[place]LE Date:2018-06-15 [place], [place] 9451-27-98Wujt [address]Nqz: 330) Name:CMUTUAL [facility] [address] [place] ()Tel: [phone]: (WP) [phone] 06/24/2018 Tertiary [facility] Insurance:ANTHPAT BLUE PINNICKSDOB: [facility] [id number] Repository Number: MARIELY [id number] [place]CLE[place]LE Date:2018-06-15 - [place], [place] 3082-65-22Hoyb [address]Qhf: ([phone]) Name:[facility] [phone] 162326VowmohqPHILOMENA [place] ()Tel: [phone]: () [phone] 06/21/2018 Siri W Primary [place]i [place] [id number] Insurance:MEDICARE PinnicksDOB: Community [place] PART A BPolicy Number: [id number], [place] [id number] Repository [address]Lsa: (330) Date:2018-06-21 [phone] () 06/21/2018 Secondary Siri W [place] Insurance:ANTHEMPolicy PinnicksDOB: Community Number: [id number] Hospital [id number] Repository Date:7469-74-26[address] [place] [address]JM: 06/21/2018 Tertiary Siri W [place] Insurance:MUTUAL OF PinnicksDOB: Community [facility] Number: [id number] Hospital [id number] Repository Date:3619-52-40HNTORBELIZABETH CITY, [place] [address]WV: 06/21/2018 Tertiary NOT GIVENUNK [place] Insurance:SELF PAY [facility] Number: Effective Repository Date:2018-06-21 06/02/2018 Siri W Primary Siri W [place] [id number] Insurance:MEDICARE PinnicksDOB: Community [place] PART A BPolicy Number: [id number], [place] [id number] Repository [address]Pac: (330) Date:2018-04-22 [phone] () 06/02/2018 Secondary Siri W [place] Insurance:ANTHEMPolicy PinnicksDOB: Community Number: [id number] Hospital [id number] Repository Date:0160-68-76DT[address] [place] [address]AQ: 06/02/2018 Tertiary Siri W [place] Insurance:MUTUAL OF PinnicksDOB: [facility] Number: [id number] Hospital [id number] Repository Date:0136-06-60ZQTLAS OF N[place]KE[place], [place] [address]GN: 06/02/2018 Tertiary NOT GIVENUNK [place] Insurance:SELF PAY [facility] Hospital Number: Effective Repository Date:2018-04-22 05/30/2018 SIRI W Primary [facility] PINNICKSDOB: Insurance:MEDICARE PINNICKSDOB: [facility] PART BPolicy Number: [id number] Repository MARIELY [id number] MAR[place]CLE[place]LE Date:2018-05-30 - [facility], [place] 0572-21-48Agnk [place], [place] [address]Jet: ([phone]) Name:[facility] [address]Xpo: () [facility] [phone] ()Tel: [phone]: (WP) [phone] 05/30/2018 Secondary [facility] Insurance:MUTUAL OF PINNICKSDOB: [facility] [id number] Repository Number: MARIELY [id number] CIRCLEAPPLE Date:2018-05-30[place], [place] 8660-78-49Nydt [address]Ejq: (330) Name:CMUTUAL OF NANW[place]K [address] [place], [place] ()Tel: [phone]: (WP) [phone] 05/30/2018 Tertiary [facility] Insurance:ANTHEM BLUE PINNICKSDOB: [facility] [id number] Repository Number: MARIELY [id number] [place]CLE[place]LE Date:2018-05-30[place], [place] 0562-58-70Higu [address]Cei: (330) Name:[facility] [phone] [address], [place] ()Tel: [phone]: () [phone] 05/29/2018 Siri W Primary Siri W [place] [id number] Insurance:MEDICARE PinnicksDOB: Community [place] PART A BPolicy Number: [id number], [place] [id number] Repository [address]Nfg: (330) Date:2018-05-26 [phone] () 05/29/2018 Secondary Siri W [place] Insurance:ANTHEMPolicy PinnicksDOB: Community Number: [id number] Hospital [id number] Repository Date:3355-39-78[address] [address]WZ: 05/29/2018 Tertiary Siri W [place] Insurance:MUTUAL OF PinnicksDOB: [facility] Number: [id number] Hospital [id number] Repository Date:0075-38-47PEQVUQ OF [place], [place] [address]EC: 05/29/2018 Tertiary NOT GIVENUNK [place] Insurance:SELF PAY [facility] Hospital Number: Effective Repository Date:2018-05-26 05/27/2018 Siri W Primary Siri W [place] [id number] Insurance:MEDICARE PinnicksDOB: [facility] [place] CirApple PART A BPolicy Number: [id number], [place] [id number] Repository [address]Vhi: (330) Date:2018-05-27 [phone] () 05/27/2018 Secondary Siri [place] Insurance:ANTHEMPolicy PinnicksDOB: Community Number: [id number] Hospital [id number] Repository Date:9083-80-36[address], [place] [address]SS: 05/27/2018 Tertiary Siri W [place] Insurance:MUTUAL OF PinnicksDOB: [facility] Number: [id number] Hospital [id number] Repository Date:2987-76-86CZILZTCOLORADO SPRINGS, [place] [address]UQ: 05/27/2018 Tertiary NOT GIVENUNK [place] Insurance:SELF PAY [facility] Hospital Number: Effective Repository Date:2018-05-27 05/26/2018 Siri W Primary Siri W [place] [id number] Insurance:MEDICARE PinnicksDOB: [facility] [place] CirApple PART A BPolicy Number: [id number], [place] [id number] Repository [address]Cnf: 330) Date:2018-05-26 [phone] () 05/26/2018 Secondary Siri W [place] Insurance:ANTHEMPolicy PinnicksDOB: Community Number: [id number] Hospital [id number] Repository Date:9544-65-35EE[address] [address]KO: 05/26/2018 Tertiary Siri W [place] Insurance:MUTUAL OF PinnicksDOB: [facility] Number: [id number] Hospital [id number] Repository Date:6249-13-10WYZRFMELIZABETH CITY, [place] [address]OP: 05/26/2018 Tertiary NOT GIVENUNK [place] Insurance:SELF PAY [facility] Number: Effective Repository Date:2018-05-26 05/10/2018 SIRI W Primary [facility] PINNICKSDOB: Insurance:MEDICARE PINNICKSDOB: [facility] PART BPolicy Number: [id number] Repository [facility] [id number] [place] Date:2017-12-16 - [place], [place] 7494-78-92Wmkl[address] [place] [address]Qhp: ([phone]) Name:[facility] [address]Okd: () Administrators [facility] [phone] [address] [address]Acuekyugq, [place] ()Tel: [phone]: () [phone] 05/10/2018 Secondary [facility] Insurance:MUTUAL OF PINNICKSDOB: [facility] Number: [id number] Repository [id number] [place] Date:2017-12-16 [place] 0937-85-60[place], [place] Name:CMUTUAL OF NAN[place]K [address]Kfl: (854) SHONDA MANZANO [phone]: ([phone]) () [phone] (WP) 05/10/2018 Tertiary SIRI W [facility] Insurance:ANTHEM BLUE PINNICKSDOB: [facility] [id number] Repository Number: [facility] [id number] CIRCLE[place]LE Date:2017-12-16 [place], [place] 0469-56-19Jqot [address]Glg: (330) Name:[facility] [phone] [place] [address] ()Tel: [phone]: (WP) [phone] 04/07/2018 Siri W Primary Siri W [place] [id number] Insurance:MEDICARE PinnicksDOB: [facility] [place] CirApple PART A BPolicy Number: [id number], [place] [id number] Repository [address]Svm: (330) Date:2018-04-07 [phone] () 04/07/2018 Secondary Siri W [place] Insurance:ANTHEMPolicy PinnicksDOB: Community Number: [id number] Hospital [id number] Repository Date:0929-01-42CX[address] [address]TT: 04/07/2018 Tertiary Siri W [place] Insurance:MUTUAL OF PinnicksDOB: [facility] Number: [id number] Hospital [id number] Repository Date:0196-43-25ZMNIEQ OF [place] [address]WD: 04/07/2018 Tertiary NOT GIVENUNK [place] Insurance:SELF PAY [facility] Hospital Number: Effective Repository Date:2018-04-07 12/20/2017 Siri W Primary Siri W [place] [id number] Insurance:MEDICARE PinnicksDOB: Community [place] [facility] PART A BPolicy Number: [id number], [place] [id number] Repository [address]Kpd: (330) Date:2017-12-14 [phone] () 12/20/2017 Secondary Siri W [place] Insurance:ANTHEMPolicy PinnicksDOB: Community Number: [id number] Hospital [id number] Repository Date:0649-74-94TC [address] [place] [address]RV: 12/20/2017 Tertiary Siri W [place] Insurance:MUTUAL OF PinnicksDOB: [facility] Number: [id number] Hospital [id number] Repository Date:0136-53-23FCCNXM OF [place], [place] [address]EE: 12/20/2017 Tertiary NOT GIVENUNK [place] Insurance:SELF PAY [facility] Number: Effective Repository Date:2017-12-14 12/08/2017 Siri W Primary Siri W [place] [id number] Insurance:MEDICARE PinnicksDOB[place] [facility] [place] [address] PART A BPolicy Number: [id number] [id number] Repository [id number]: (330) Date:2017-12-08 [id number] () 12/08/2017 Secondary Siri W [place] Insurance:ANTHEMPolicy PinnicksDOB: Community Number: [id number] [id number] Repository Date:[id number], [place] [address]CI: 12/08/2017 Tertiary Siri W Kelsey Insurance:MUTUAL OF PinnicksDOB: [facility] Number: [id number] Hospital [id number] Repository Date:[id number] CITY, [place] [address]UE: 12/08/2017 Tertiary NOT GIVENUNK Kelsey Insurance:SELF PAY [facility] Number: Effective Repository Date:2017-12-08 11/22/2017 Siri W Primary Siri W Kelsey [id number] Insurance:MEDICARE PinnicksDOB: [facility] [place] [place] CirApple PART A BPolicy Number: [id number], [place] [id number] Repository [address]Bti: (330) Date:2017-11-22 [phone] (HP) 11/22/2017 Secondary Siri W Hope Insurance:ANTHEMPolicy PinnicksDOB: Community Number: [id number] Hospital [id number] Repository Date:[id number], [place] [address]BI: 11/22/2017 Tertiary Siri W Kelsey Insurance:MUTUAL OF PinnicksDOB: [facility] Number: [id number] Hospital [id number] Repository Date:[id number] [place] [address]KI: 11/22/2017 Tertiary NOT GIVENUNK Kelsey Insurance:SELF PAY [facility] Number: Effective Repository Date:2017-11-22 11/17/2017 SIRI W Primary [facility] PINNICKSDOB: Insurance:MEDICARE PINNICKSDOB: [facility] PART BPolicy Number: [id number] Repository [place] [id number] [facility] CIRCLE[facility]LE Date:2017-02-16 - [place], [place] [id number] [place] [address]Mjy: (330) Name:[facility] [id number]: (HP) Administrators [facility] [phone] [place] [address] ()Tel: [phone]: [phone] 11/17/2017 Secondary [facility] Insurance:MUTUAL OF PINNICKSDOB: [facility] Number: [id number] Repository [id number] [place] Date:2017-02-16 - [place] [id number] [place] [address] Name:[place] [id number]: (330) SHONDA MANZANO [phone]: [phone]) (HP) [phone] (WP) 11/17/2017 Tertiary SIRI W [facility] Insurance:ANTHEM BLUE PINNICKSDOB: [facility] [id number] Repository Number[id number] CIRCLEAPPLE Date:2017-02-16 - [place], [place] [id number] [address]Oij: (330) Name:[facility] [phone] [place] [address] ()Tel: [phone]: (WP) [phone] 09/01/2017 Siri W Primary Siri W Kelsey [id number] Insurance:MEDICARE PinnicksDOB: [facility] PART A olicy Number: [id number], [place] [id number] Repository [address]Yeh: ([phone]) Date:2017-09-01 [phone] (HP) 09/01/2017 Secondary Siri W Kelsey Insurance:ANTHEMPolicy PinnicksDOB: Community Number: [id number] Hospital [id number] Repository Date:[id number] [address]FI: 09/01/2017 Tertiary Siri W Hope Insurance:MUTUAL OF PinnicksDOB: [facility] Number: [id number] Hospital [id number] Repository Date:[id number] OF [place] [address]FI: 09/01/2017 Tertiary NOT GIVENUNK Kelsey Insurance:SELF PAY [facility] Hospital Number: Effective Repository Date:2017-09-01
== END ==
PROVIDERS: Family Provider Family Medicine Geriatric Medicine; PCP Family Medicine Geriatric Medicine; Visit Provider Family Medicine Geriatric Medicine
DX: I10 Essential (primary) hypertension (principal); E55.9 Vitamin D deficiency, unspecified
CPT/HCPCS: 36415; 80053; 82306; 84443; 85025

== ENCOUNTER → 2018-11-21 14:35 | Outpatient (CLI) | payer MEDICARE, BC, OTHER, SELFPAY ==
--- NOTE | 2018-11-21 14:47 | CT_ITS ---
STUDY: CT BRAIN WITHOUT CONTRAST REASON FOR EXAM: Male, 83 years old. Fall one week ago with laceration to the top of the head. Confusion. RADIATION DOSAGE (If Supplied By Facility): CTDIvol = ( 60.81 ) mGy, DLP = ( 1089.89 ) mGycm TECHNIQUE: Transaxial CT imaging of the brain was performed without administration of intravenous contrast material. Sagittal and coronal 2-D MPR Individualized dose optimization techniques were used for this CT. COMPARISON: None. FINDINGS: Paranasal sinuses clear. Mastoid air cells clear. Craniofacial osseous structures intact. Extra cranial soft tissues including orbital contents exhibit no acute unreality. The reported scalp laceration is not clearly visible. There is no apparent radiodense foreign body of the scalp soft tissues. There is no apparent cephalhematoma. Moderate symmetric expansion of lateral ventricles and extra axial spaces consistent with endometrial atrophy. Prominent partially confluent chronic low-density changes of the deep white matter consistent with chronic microvascular ischemic disease. Old left occipital infarct. No acute intracranial bleed, mass or mass effect nor any specific evidence of acute territorial infarct. CT/Brain/Head without Contrast IMPRESSION: No evidence of acute traumatic injury. No acute intracranial process. Chronic involutional features of the brain as described above. Electronically Signed: Maximiliano Castro MD at 15:55 EDT Tel , Service support ,
--- NOTE | 2018-11-21 15:14 | RAD_ITS ---
STUDY: X-RAY - ABDOMEN/PELVIS REASON FOR EXAM: Male, 83 years old. Constipation, abdominal pain. TECHNIQUE: 4 images, abdomen/pelvis KUB, right and left lateral decubitus images COMPARISON: None. FINDINGS: Multiple surgical clips in the pelvis. Prominent lumbar spondylosis L4-L5 and L5-S1. Slight distal lumbar scoliosis. Osteopenia. Moderate stool burden of large bowel, not excessive. Mild gaseous distention of the transverse colon. Unremarkable small bowel pattern. No free air. Grossly normal size and position of the solid organs of the abdomen. Tiny radiodensities overlying the left renal silhouettes suspicious for the presence of tiny nonobstructing calyceal calculi. Cardiomegaly, mild. Pacer wires. Large sliding hiatal hernia. RAD/Abd Inc Decub and/or Erect IMPRESSION: No acute intra-abdominal process is evident. Unremarkable bowel pattern. Large sliding hilum hernia. Electronically Signed: Maximiliano Castro MD at 17:10 EDT Tel , Service support ,
== END ==
PROVIDERS: Family Provider Family Medicine Geriatric Medicine; PCP Family Medicine Geriatric Medicine; Referring Provider Family Medicine Geriatric Medicine; Visit Provider Family Medicine Geriatric Medicine
DX: S09.90XA Unspecified injury of head, initial encounter (principal); X58.XXXA Exposure to other specified factors, initial encounter; Y93.9 Activity, unspecified; Y92.9 Unspecified place or not applicable; Y99.9 Unspecified external cause status
CPT/HCPCS: 70450; 74019

== ENCOUNTER → 2018-12-05 13:05 | Outpatient (CLI) | payer MEDICARE, BC, OTHER, SELFPAY ==
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
--- NOTE | 2018-12-05 13:12 | RAD_ITS ---
STUDY: SWALLOWING STUDY REASON FOR EXAM: Male, 83 years old. Dysphagia. TECHNIQUE: The examination was performed with Speech Pathology in attendance. Under fluoroscopic observation, the patient ingested various density barium and barium coated foods. FLUOROSCOPY TIME: 2:16 minutes/seconds RADIOLOGIST INVOLVEMENT: Radiologist was present and providing direct supervision. COMPARISON: None. FINDINGS: On all phases, there was appropriate coordination of swallow. No vestibular penetration. No rosa aspiration. Incidental note of multilevel mid and inferior cervical spine degenerative change RAD/Swallowing Function w/Video IMPRESSION: No evidence of increased risk for aspiration. The swallow study findings were discussed with the patient by the speech pathologist at the conclusion of the examination. Please see speech pathology report for more information and recommendations. Comment: Fluoroscopy services provided for clinical procedure. Please refer to operating physician's procedure note for additional detail. Electronically Signed: Eleazar Robles MD at 14:03 EDT , Service support ,
== END ==
PROVIDERS: Family Provider Family Medicine Geriatric Medicine; PCP Family Medicine Geriatric Medicine; Referring Provider Family Medicine Geriatric Medicine; Visit Provider Family Medicine Geriatric Medicine
DX: R13.10 Dysphagia, unspecified (principal)
CPT/HCPCS: 74230; 92611

== ENCOUNTER → 2019-01-03 12:03 | Outpatient (CLI) | payer MEDICARE, BC, OTHER, SELFPAY ==
[2019-01-03 12:40] LABS: Absolute Lymphocyte Count 1.61 X10^3/ul (0.83-4.51); Absolute Neutrophil Count 4.1 X10^3/uL (2.0-7.7); Basophil# 0.02 X10^3/uL; Basophil% 0.3 % (0-1); Eosinophil# 0.13 X10^3/uL; Hemoglobin 13.9 g/dl (13.0-16.5); Lymphocyte # 1.61 X10^3/ul (4.0); Lymphocyte % 24.9 % (19-41); Mean Corp Hgb Conc 33.1 g/gl (32-36); Mean Corpuscular Hgb 30.5 pg (27.0-32.0); Mean Corpuscular Volume 92.1 fL (80-94); Mean Platelet Vol. 10.5 fl (6.2-12.0); Monocyte# 0.56 X10^3/uL; Monocyte% 8.7 % (0-10); Neutrophil # 4.13 X10^3/uL (2.7-7.7); Neutrophil % 63.9 % (47-70); POSITIVE COUNT NO; POSITIVE DIFFERENTIAL NO; POSITIVE MORPHOLOGY NO; Platelet Count 215 K/mm3 (150-450); RBC Distribution Width CV 15.9 % (11.6-14.6); RBC Distribution Width SD 51.9 fl (35.1-43.9); Red Blood Count 4.56 M/mm3 (4.6-6.2); White Blood Count 6.5 K/mm3 (4.4-11.0)
[2019-01-03 13:09] LABS: Vitamin D,25 Hydroxy 24.4 ng/mL (29.95-100.01)
[2019-01-03 13:16] LABS: ALB/GLOB Ratio 0.8 RATIO (0.9-2.4); AST(SGOT) 30 U/L (15-37); Alanine Aminotransfer ALT/SGPT 23 U/L (16-61); Albumin, Serum 3.6 g/dL (3.2-5.0); Alkaline Phosphatase 99 U/L (45-117); Anion Gap 8 (5-15); BUN 21 mg/dL (7-18); BUN/Creat Ratio 17.9 RATIO (10-20); Calcium,Total 10.2 mg/dL (8.5-10.1); Chloride 99 mmol/L (98-107); Creatinine, Serum 1.17 mg/dL (0.70-1.30); EST Glomerular Filtration Rate 63 mL/min (>60); Est Glom Filt Rate - Afr Amer 77 mL/min (>60); Globulin 4.3 g/dL (2.2-4.2); Glucose 109 mg/dL (74-106); Potassium 4.9 mmol/L (3.5-5.1); Protein, Total 7.9 g/dL (6.4-8.2); Sodium Level 138 mmol/L (136-145); Thyroid Stim Hormone (TSH) 3.76 uIU/mL (0.358-3.74)
== END ==
PROVIDERS: Family Provider Family Medicine Geriatric Medicine; PCP Family Medicine Geriatric Medicine; Visit Provider Family Medicine Geriatric Medicine
DX: I10 Essential (primary) hypertension (principal); E55.9 Vitamin D deficiency, unspecified
CPT/HCPCS: 36415; 80053; 82306; 84443; 85025

== ENCOUNTER → 2019-08-04 09:06 | Outpatient (CLI) | payer MEDICARE, BC, OTHER, SELFPAY ==
[2019-08-04 12:43] LABS: Absolute Lymphocyte Count 1.37 X10^3/uL (0.83-4.51); Absolute Neutrophil Count 5.6 X10^3/uL (2.0-7.7); Basophil# 0.03 X10^3/uL; Basophil% 0.4 % (0-1); Eosinophil# 0.24 X10^3/uL; Hematocrit 38.1 % (40-54); Hemoglobin 12.2 g/dL (13.0-16.5); Lymphocyte # 1.37 X10^3/ul (4.0); Lymphocyte % 17.2 % (19-41); Mean Corpuscular Hgb 30.5 pg (27.0-32.0); Mean Corpuscular Volume 95.3 fL (80-94); Monocyte# 0.66 X10^3/uL; Monocyte% 8.3 % (0-10); NRBC Flagged by Analyzer 0 % (0-5); Neutrophil # 5.63 X10^3/uL (2.7-7.7); Neutrophil % 70.8 % (47-70); Platelet Count 223 K/mm3 (150-450); RBC Distribution Width CV 14.2 % (11.6-14.6); RBC Distribution Width SD 49.2 fl (35.1-43.9)
[2019-08-04 13:04] LABS: Vitamin D,25 Hydroxy 24.5 ng/mL (29.95-100.01)
[2019-08-04 13:06] LABS: ALB/GLOB Ratio 0.8 RATIO (0.9-2.4); AST(SGOT) 23 U/L (15-37); Alanine Aminotransfer ALT/SGPT 25 U/L (16-61); Albumin, Serum 3.5 g/dL (3.2-5.0); Alkaline Phosphatase 116 U/L (45-117); Anion Gap 4 (5-15); BUN 25 mg/dL (7-18); BUN/Creat Ratio 23.8 RATIO (10-20); Calcium,Total 9.4 mg/dL (8.5-10.1); Chloride 105 mmol/L (98-107); Creatinine, Serum 1.05 mg/dL (0.70-1.30); EST Glomerular Filtration Rate 72 mL/min (>60); Est Glom Filt Rate - Afr Amer 87 mL/min (>60); Globulin 4.5 g/dL (2.2-4.2); Glucose 86 mg/dL (74-106); Potassium 4.7 mmol/L (3.5-5.1); Sodium Level 138 mmol/L (136-145); Thyroid Stim Hormone (TSH) 2.26 uIU/mL (0.358-3.74); Uric Acid 3.5 mg/dL (3.5-7.2)
== END ==
PROVIDERS: Family Provider Family Medicine Geriatric Medicine; PCP Family Medicine Geriatric Medicine; Visit Provider Family Medicine Geriatric Medicine
DX: I10 Essential (primary) hypertension (principal); E55.9 Vitamin D deficiency, unspecified; M10.9 Gout, unspecified
CPT/HCPCS: 36415; 80053; 82306; 84443; 84550; 85025

== ENCOUNTER 2019-09-05 09:39 | Outpatient (RCR) | payer MEDICARE, BC, OTHER, SELFPAY ==
[2019-09-05 12:38] LABS: International Normalized Ratio 2.1; Prothrombin Time (Protime)PT. 23.2 SECONDS (11.7-14.9)
== END 2019-09-05 18:00 | disposition home or self-care (01) ==
LOC: MTLAB 09:39
PROVIDERS: Family Provider Family Medicine Geriatric Medicine; PCP Family Medicine Geriatric Medicine; Referring Provider Family Medicine Geriatric Medicine; Visit Provider Family Medicine Geriatric Medicine
DX: I48.0 Paroxysmal atrial fibrillation (principal)
CPT/HCPCS: 36415; 85610

== ENCOUNTER → 2019-10-09 16:06 | Outpatient (CLI) | payer MEDICARE, BC, OTHER, SELFPAY ==
[2019-10-09 17:47] LABS: Absolute Lymphocyte Count 1.51 X10^3/uL (0.83-4.51); Absolute Neutrophil Count 5.7 X10^3/uL (2.0-7.7); Basophil# 0.04 X10^3/uL; Basophil% 0.5 % (0-1); Eosinophil# 0.32 X10^3/uL; Eosinophils% 3.9 % (0-5); Hematocrit 42.5 % (40-54); Hemoglobin 13.7 g/dL (13.0-16.5); Lymphocyte # 1.51 X10^3/ul (4.0); Lymphocyte % 18.3 % (19-41); Mean Corp Hgb Conc 32.2 g/dL (32-36); Mean Corpuscular Hgb 31.1 pg (27.0-32.0); Mean Corpuscular Volume 96.4 fL (80-94); Mean Platelet Vol. 10.2 fl (6.2-12.0); Monocyte# 0.71 X10^3/uL; Monocyte% 8.6 % (0-10); NRBC Flagged by Analyzer 0 % (0-5); Neutrophil # 5.65 X10^3/uL (2.7-7.7); Neutrophil % 68.3 % (47-70); Platelet Count 286 K/mm3 (150-450); RBC Distribution Width CV 14.6 % (11.6-14.6); RBC Distribution Width SD 51.1 fl (35.1-43.9); Red Blood Count 4.41 M/mm3 (4.6-6.2); White Blood Count 8.3 K/mm3 (4.4-11.0)
[2019-10-09 17:55] LABS: Anion Gap 8 (5-15); BUN 59 mg/dL (7-18); BUN/Creat Ratio 29.6 RATIO (10-20); Calcium,Total 9.5 mg/dL (8.5-10.1); Chloride 107 mmol/L (98-107); Creatinine, Serum 1.99 mg/dL (0.70-1.30); EST Glomerular Filtration Rate 34 mL/min (>60); Est Glom Filt Rate - Afr Amer 41 mL/min (>60); Glucose 124 mg/dL (74-106); Potassium 4.5 mmol/L (3.5-5.1); Sodium Level 141 mmol/L (136-145)
== END ==
PROVIDERS: PCP Family Medicine Geriatric Medicine; Visit Provider Family Medicine Geriatric Medicine
DX: R06.89 Other abnormalities of breathing (principal)
CPT/HCPCS: 36415; 80048; 85025

== ENCOUNTER → 2019-10-23 10:01 | Outpatient (CLI) | payer MEDICARE, BC, OTHER, SELFPAY ==
[2019-10-23 12:59] LABS: Prothrombin Time (Protime)PT. 22.9 SECONDS (11.7-14.9)
== END ==
PROVIDERS: PCP Family Medicine Geriatric Medicine; Referring Provider Family Medicine Geriatric Medicine; Visit Provider Family Medicine Geriatric Medicine
DX: I48.91 Unspecified atrial fibrillation (principal)
CPT/HCPCS: 36415; 85610

== ENCOUNTER 2019-11-22 10:17 | Outpatient (RCR) | payer MEDICARE, BC, OTHER, SELFPAY ==
[2019-11-22 12:38] LABS: International Normalized Ratio 2.2; Prothrombin Time (Protime)PT. 24.1 SECONDS (11.7-14.9)
== END 2019-11-30 18:00 | disposition home or self-care (01) ==
LOC: MTLAB 10:17
PROVIDERS: Family Provider Family Medicine Geriatric Medicine; PCP Family Medicine Geriatric Medicine; Referring Provider Family Medicine Geriatric Medicine; Visit Provider Family Medicine Geriatric Medicine
DX: I48.0 Paroxysmal atrial fibrillation (principal)
CPT/HCPCS: 36415; 85610

== ENCOUNTER 2020-01-01 10:06 | Outpatient (RCR) | payer MEDICARE, BC, OTHER, SELFPAY ==
[2020-01-01 12:36] LABS: International Normalized Ratio 2.6; Prothrombin Time (Protime)PT. 27.1 SECONDS (11.7-14.9)
== END 2020-01-01 18:00 | disposition home or self-care (01) ==
LOC: MTLAB 10:06
PROVIDERS: Family Provider Family Medicine Geriatric Medicine; PCP Family Medicine Geriatric Medicine; Referring Provider Family Medicine Geriatric Medicine; Visit Provider Family Medicine Geriatric Medicine
DX: I48.0 Paroxysmal atrial fibrillation (principal)
CPT/HCPCS: 36415; 85610

== ENCOUNTER → 2020-02-02 10:07 | Outpatient (CLI) | payer MEDICARE, BC, OTHER, SELFPAY ==
[2020-02-02 11:02] LABS: Absolute Lymphocyte Count 1.76 X10^3/uL (0.83-4.51); Absolute Neutrophil Count 4.2 X10^3/uL (2.0-7.7); Basophil# 0.03 X10^3/uL; Basophil% 0.4 % (0-1); Eosinophil# 0.31 X10^3/uL; Eosinophils% 4.4 % (0-5); Hematocrit 40.7 % (40-54); Lymphocyte # 1.76 X10^3/ul (4.0); Lymphocyte % 25.1 % (19-41); Mean Corp Hgb Conc 31.9 g/dL (32-36); Mean Corpuscular Hgb 31.6 pg (27.0-32.0); Mean Platelet Vol. 10.4 fl (6.2-12.0); Monocyte# 0.67 X10^3/uL; Monocyte% 9.6 % (0-10); NRBC Flagged by Analyzer 0 % (0-5); Neutrophil # 4.21 X10^3/uL (2.7-7.7); Neutrophil % 60.1 % (47-70); Platelet Count 219 K/mm3 (150-450); RBC Distribution Width CV 15.9 % (11.6-14.6); RBC Distribution Width SD 56.8 fl (35.1-43.9); Red Blood Count 4.11 M/mm3 (4.6-6.2)
[2020-02-02 11:26] LABS: Albumin, Serum 3.5 g/dL (3.2-5.0); BUN 29 mg/dL (7-18); BUN/Creat Ratio 21.2 RATIO (10-20); Creatinine, Serum 1.37 mg/dL (0.70-1.30); EST Glomerular Filtration Rate 53 mL/min (>60); Est Glom Filt Rate - Afr Amer 64 mL/min (>60); Globulin 4.9 g/dL (2.2-4.2); Glucose 90 mg/dL (74-106); Protein, Total 8.4 g/dL (6.4-8.2)
[2020-02-02 11:27] LABS: ALB/GLOB Ratio 0.7 RATIO (0.9-2.4); AST(SGOT) 29 U/L (15-37); Alanine Aminotransfer ALT/SGPT 26 U/L (16-61); Alkaline Phosphatase 113 U/L (45-117); Anion Gap 7 (5-15); Calcium,Total 9.1 mg/dL (8.5-10.1); Chloride 103 mmol/L (98-107); Potassium 4.5 mmol/L (3.5-5.1); Sodium Level 140 mmol/L (136-145); Thyroid Stim Hormone (TSH) 3.65 uIU/mL (0.358-3.74)
[2020-02-02 11:38] LABS: Vitamin D,25 Hydroxy 36.1 ng/mL
== END ==
PROVIDERS: PCP Family Medicine Geriatric Medicine; Visit Provider Family Medicine Geriatric Medicine
DX: I10 Essential (primary) hypertension (principal); E55.9 Vitamin D deficiency, unspecified
CPT/HCPCS: 36415; 80053; 82306; 84443; 85025

== ENCOUNTER 2020-02-13 09:43 | Outpatient (RCR) | payer MEDICARE, BC, OTHER, SELFPAY ==
[2020-02-13 13:13] LABS: International Normalized Ratio 2.8
== END 2020-02-13 18:00 | disposition home or self-care (01) ==
LOC: MTLAB 09:43
PROVIDERS: Family Provider Family Medicine Geriatric Medicine; PCP Family Medicine Geriatric Medicine; Referring Provider Family Medicine Geriatric Medicine; Visit Provider Family Medicine Geriatric Medicine
DX: I48.0 Paroxysmal atrial fibrillation (principal)
CPT/HCPCS: 36415; 85610

== ENCOUNTER 2020-04-01 09:49 | Outpatient (RCR) | payer MEDICARE, BC, OTHER, SELFPAY ==
[2020-03-26 12:09] LABS: Prothrombin Time (Protime)PT. 39.6 SECONDS (11.7-14.9)
[2020-03-26 12:15] LABS: International Normalized Ratio 4.1
[2020-04-01 12:09] LABS: International Normalized Ratio 1.9
== END 2020-04-01 18:00 | disposition home or self-care (01) ==
LOC: MTLAB 09:49
PROVIDERS: Family Provider Family Medicine Geriatric Medicine; PCP Family Medicine Geriatric Medicine; Referring Provider Family Medicine Geriatric Medicine; Visit Provider Family Medicine Geriatric Medicine
DX: I48.0 Paroxysmal atrial fibrillation (principal)
CPT/HCPCS: 36415; 85610

== ENCOUNTER 2020-04-29 11:28 | Outpatient (RCR) | payer MEDICARE, BC, OTHER, SELFPAY ==
[2020-04-29 15:34] LABS: International Normalized Ratio 1.7; Prothrombin Time (Protime)PT. 19.6 SECONDS (11.7-14.9)
== END 2020-04-29 18:00 | disposition home or self-care (01) ==
LOC: MTLAB 11:28
PROVIDERS: Family Provider Family Medicine Geriatric Medicine; PCP Family Medicine Geriatric Medicine; Referring Provider Family Medicine Geriatric Medicine; Visit Provider Family Medicine Geriatric Medicine
DX: I48.0 Paroxysmal atrial fibrillation (principal)
CPT/HCPCS: 36415; 85610

== ENCOUNTER 2020-05-24 09:49 | Inpatient (IN) | payer MEDICARE, BC, OTHER, SELFPAY ==
[2020-05-24] VITALS (8 sets, daily range): BP systolic 98–128; BP diastolic 58–88; PULSE 69–92; RESP 16–18; TEMP 36.1–37; O2SAT 90–100; BMI 26.0; BMI 24.8
--- NOTE | 2020-05-24 10:01 | EKG12_ITS ---
Test Reason : Blood Pressure : / mmHG Vent. Rate : 070 BPM Atrial Rate : 086 BPM P-R Int : 000 ms QRS Dur : 164 ms QT Int : 458 ms P-R-T Axes : 000 003 014 degrees QTc Int : 494 ms Ventricular-paced rhythm Abnormal ECG When compared with ECG of 24-MAY-2020 10:23, MANUAL COMPARISON REQUIRED, DATA IS UNCONFIRMED Confirmed by AMANDA BENITEZ, KRYS ([id number]), editor map TAYLOR ZARATE ([id number]) on 05/28/2020 10:50:54 AM Referred By: ANABELL Confirmed By:KRYS PATEL MD
--- NOTE | 2020-05-24 10:01 | CT_ITS ---
STUDY: CT THORACIC SPINE WITHOUT CONTRAST REASON FOR EXAM: Male, 84 years old. FALL 6 DAYS AGO, LOW BACK PAIN, WORSENING RADIATION DOSAGE (If Supplied By Facility): CTDIvol = ( 19.60 ) mGy, DLP = ( 657.58 ) mGycm TECHNIQUE: The patient was scanned in a multi detector CT scanner. High resolution imaging was performed. Images were obtained from to . Sagittal and coronal images were reconstructed. Individualized dose optimization techniques were used for this CT. COMPARISON: None. FINDINGS: Mild degree of increased markings along the dependent portions of both upper lobes suggestive of atelectasis. Normal kyphosis of the thoracic spine. There is no substantial scoliosis. There is a demineralization of the thoracic vertebrae. There is multilevel degenerative disc disease with loss of the disc space heights. Calcified plaques of the descending thoracic aorta. Calcified left hilar lymph nodes. Moderate-sized hiatal hernia. CT/Spine Thoracic without Contras IMPRESSION: The mineralization of the thoracic vertebrae. No acute abnormality is seen. Electronically Signed: Ye Braswell, at 12:08 EDT , Service support ,
--- NOTE | 2020-05-24 10:01 | CT_ITS ---
STUDY: CT LUMBAR SPINE WITHOUT CONTRAST REASON FOR EXAM: Male, 84 years old. FALL 6 DAYS AGO, LOW BACK PAIN, WORSENING RADIATION DOSAGE (If Supplied By Facility): CTDIvol = ( 24.86 ) mGy, DLP = ( 610.50 ) mGycm TECHNIQUE: The patient was scanned in a multi detector CT scanner. High resolution transaxial imaging was performed. Images were obtained from L1 to S1 vertebral level. Sagittal and coronal images were reconstructed. Individualized dose optimization techniques were used for this CT. COMPARISON: None FINDINGS: Normal lumbar lordosis. There is no substantial scoliosis. There is evidence of a nondisplaced compression fracture of the L1 vertebrae involving its mid and inferior aspects. This causes approximately 10% loss of height. L1-2: Normal endplates. Normal disc height and morphology. Normal bilateral facet joints. Normal central canal and bilateral lateral recesses. Normal bilateral intervertebral neural foramina. L2-3: Normal endplates. Normal disc height and morphology. Normal bilateral facet joints. Normal central canal and bilateral lateral recesses. Normal bilateral intervertebral neural foramina. L3-4: Normal endplates. Normal disc height and morphology. Normal bilateral facet joints. Normal central canal and bilateral lateral recesses. Normal bilateral intervertebral neural foramina. L4-5: Moderate degree of disc space narrowing and disc degeneration with subchondral sclerosis. L5-S1: Minimal anterior listhesis of L5 on S1 due to facet joint osteoarthritis and hypertrophy. Mild degree of bilateral neural foraminal stenosis. Small retroperitoneal lymph nodes. Aortic calcification. CT/Spine Lumbar without Contrast IMPRESSION: Nondisplaced compression fracture of the L1 vertebra with loss of height of approximately 10%. Displaced narrowing and disc degeneration at the L4-L5 level. Electronically Signed: Ye Braswell, at 12:06 EDT , Service support ,
--- NOTE | 2020-05-24 10:03 | ED.DCSUM_ITS ---
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 He fell in the bathroom 5 days ago. He landed on his back. He states that he was not having any prodromal dizziness or lightheadedness but he is not entirely sure why he fell. He is unsure if he hit his head. He did not lose consciousness. He is on Coumadin for history of A. fib. Since that time he has been having too much pain in his back to really get up and move around and do anything. His states he is mostly been sitting in the recliner. She is been giving him Tylenol without improvement of his back pain. He is not having any pain that radiates into his legs. He has not lost control of his bowel or bladder function. He has not had any difficulty urinating. He has not had a fever or chills. No vomiting or diarrhea. No cough congestion chest pain or shortness of breath. He is not lightheaded or dizzy. He has not had a headache or neck pain. Tetanus Immunization: Unknown Prior similar symptoms: No Recent Illness/Hospitalization: No <Alok Calabrese - Last Filed: 05/24/20 12:32> <Jamaal Marshall - Last Filed: 05/24/20 15:57> Chief Complaint: Back Past Medical History Prior records reviewed: Yes Past Medical History: - - Afib, HTN, HPL, aortic valve disease, CHF, Parkinson's disease Surgical History: - - Pacemaker Lives: With Family Smoking Status: Never smoker Alcohol: None Drugs: None <Alok Calabrese - Last Filed: 05/24/20 12:32> - Family History Paternal Family History: Reports: Heart Disease, - - Not pertinent to the patient admission <Jamaal Marshall - Last Filed: 05/24/20 15:57> - Allergies and Home Meds Allergies/Adverse Reactions: Allergies No Known Allergies Allergy (Verified 05/24/20 09:53) Review of Systems All systems negative except as indicated General: Denies: Chills, Fever, Sweats Eyes: Denies: Visual changes - bilaterally, Diplopia ENT: Denies: Rhinorrhea, Sore throat Cardiovascular: Denies: Chest pain, Palpitations Respiratory: Denies: Dyspnea, Cough, Dyspnea on exertion Gastrointestinal: Denies: Abdominal pain, Nausea, Vomiting, Diarrhea, Melena, Hematochezia Genitourinary: Denies: Dysuria, Hematuria, Frequency Musculoskeletal: Reports: Back pain. Denies: Swelling, Extremity Pain Skin: Denies: Rash, Wounds Neurological: Denies: Headache, Weakness, Numbness <Alok Calabrese - Last Filed: 05/24/20 12:32> Physical Exam Vital Signs/Narrative: Vital Signs Temp Pulse Resp BP Pulse Ox 05/24/20 09:50 98.6 F 92 18 126/77 H 98 Inital Vital Signs reviewed: Yes General: Well nourished, Well developed Head: Normocephalic, Atraumatic Eyes: Perrl, EOMI ENT: TM's clear, No hemotympanum or drainage, No trauma Neck: Nontender, Full ROM Cardiovascular: Regular rate, Regular rhythm, No murmurs Respiratory: No distress, CTA bilaterally, Chest nontender Abdomen: Soft, Nontender, Nondistended, Normal bowel sounds Back: Spinal Tenderness - Thoracic and lumbar spinal tenderness on palpation. Normal inspection. 5 out of 5 strength testing of both upper and lower extremities. Normal upper and lower extremity pulses and sensation. Skin: Normal color, No rash Neurological: Alert, Oriented x3, Cranial nerves II-XII grossly intact, Normal Strength, Normal Sensation Psychological: Normal affect, Normal Mood <Alok Calabrese - Last Filed: 05/24/20 12:32> Vital Signs/Narrative: Vital Signs Pulse Resp BP Pulse Ox 05/24/20 13:00 78 18 111/69 97 <Jamaal Marshall - Last Filed: 05/24/20 15:57> Diagnostic/Tx/Re-eval Chest X-Ray - ED: 1 View, Read by ED Physician, Read by Radiologist, No Acute Disease Impressions Lumbar Spine CT 05/24/20 10:01 IMPRESSION: Nondisplaced compression fracture of the L1 vertebra with loss of height of approximately 10%. Displaced narrowing and disc degeneration at the L4-L5 level. Electronically Signed: Ye Braswell, at 12:06 EDT , Service support , Thoracic Spine CT 05/24/20 10:01 IMPRESSION: The mineralization of the thoracic vertebrae. No acute abnormality is seen. Electronically Signed: Ye Nevarezsagar, at 12:08 EDT , Service support , Brain CT 05/24/20 10:05 IMPRESSION: Chronic involutional changes of the brain. Electronically Signed: Ye Nevarezsagar, at 12:00 EDT , Service support , Chest X-Ray 05/24/20 10:50 IMPRESSION: Mild degree of increased markings at the left lung base suggests linear atelectasis and/or scarring. Electronically Signed: Ye Nevarezsagar, at 11:27 EDT , Service support , 05/24/20 10:01 CT Thoracic [Spine Thoracic without Contras] [CT] Stat Spine Lumbar without Contrast [CT] Stat 05/24/20 10:05 CT Head [Brain/Head without Contrast] [CT] Stat 05/24/20 10:50 Chest 1 View (Portable) [RAD] Stat Laboratory Results 05/24/20 05/24/20 05/24/20 10:20 10:20 10:20 WBC 11.1 H RBC 4.02 L Hgb 12.6 L Hct 39.9 L MCV 99.3 H MCH 31.3 MCHC 31.6 L RDW Std Deviation 54.7 H RDW Coeff of Radha 15.0 H Plt Count 207 MPV 10.6 Immature Gran % (Auto) 0.400 Neut % (Auto) 76.3 H Lymph % (Auto) 13.6 L [place] % (Auto) 6.8 Eos % (Auto) 2.7 Baso % (Auto) 0.2 Absolute Neuts (auto) 8.5 H Absolute Lymphs (auto) 1.51 Nucleated RBC % 0 PT 43.1 H INR 4.6 H* Sodium 140 Potassium 4.2 Chloride 103 Carbon Dioxide 32.0 Anion Gap 5 BUN 52 H Creatinine 1.88 H Estim Creat Clear Calc 23.54 Est GFR (MDRD) Af Amer 44 L Est GFR (MDRD) Non-Af 36 L BUN/Creatinine Ratio 27.7 H Glucose 98 Calcium 9.7 Troponin I < 0.015 Urine Color Urine Clarity Urine pH Ur Specific [place] Urine Protein Urine Glucose (UA) Urine Ketones Urine Occult Blood Urine Nitrite Urine Bilirubin Urine Urobilinogen Ur Leukocyte Esterase Urine RBC Urine WBC Ur Squamous Epith Cells Urine Bacteria Urine Mucus 05/24/20 10:45 WBC RBC Hgb Hct MCV MCH MCHC RDW Std Deviation RDW Coeff of Radha Plt Count MPV Immature Gran % (Auto) Neut % (Auto) Lymph % (Auto) [place] % (Auto) Eos % (Auto) Baso % (Auto) Absolute Neuts (auto) Absolute Lymphs (auto) Nucleated RBC % PT INR Sodium Potassium Chloride Carbon Dioxide Anion Gap BUN Creatinine Estim Creat Clear Calc Est GFR (MDRD) Af Amer Est GFR (MDRD) Non-Af BUN/Creatinine Ratio Glucose Calcium Troponin I Urine Color Yellow Urine Clarity Sl. Cloudy Urine pH 8.0 Ur Specific [place] 1.010 Urine Protein 15 H Urine Glucose (UA) Normal Urine Ketones Negative Urine Occult Blood Negative Urine Nitrite Negative Urine Bilirubin Negative Urine Urobilinogen Normal Ur Leukocyte Esterase Negative Urine RBC 0 SEEN Urine WBC 0 SEEN Ur Squamous Epith Cells 0-5 SEEN Urine Bacteria 0 SEEN Urine Mucus 0 SEEN - Rhythm Strip Rhythm Strip: Sinus Rhythm Rate: 70 Ectopy: None - EKG Initial EKG Interpretation: - - AV-Paced Prior: Unchanged - Medical Decision Making Patient presents with back pain and difficulty ambulating after a fall several days ago. Vital signs stable. His pain was treated with morphine. His laboratory work-up shows a creatinine of 1.88 which is above his baseline. The rest of his labs are unremarkable other than his INR being 4.1. He was given IV fluids. His states he is not really been able to get up and move at all or eat and drink since his fall. We obtained a CT scan of his brain which was unremarkable, CT scan of the thoracic and lumbar spine is remarkable for an L1 compression fracture. Patient does not have significant improvement of his pain after 1 dose of morphine. He was given a second dose. We feel he would benefit from admission secondary to his dehydration and compression fracture with intractable pain and difficulty ambulating. Family was agreeable with plan as was patient. I spoke with the hospitalist for admission <Alok Calabrese - Last Filed: 05/24/20 12:32> - Medical Decision Making Patient was seen and evaluated in concert with physician assistant professor of psychology. Agree with above. Patient appears well but is having significant pain. Evidence of L1 compression fracture. Patient also has acute renal insufficiency. Patient was given 1 L of normal saline. Patient also has supratherapeutic INR. CT brain shows no acute cranial process. Patient was given some morphine which did not control his pain and was given a second dose. Given the patient's continued back pain and inability to ambulate he will be admitted for further evaluation and treatment. Stable at time of admission. <Jamaal Marshall - Last Filed: 05/24/20 15:57> ED Disposition <Alok Calabrese - Last Filed: 05/24/20 12:32> <Jamaal Marshall - Last Filed: 05/24/20 15:57> - Plan for ED Patient: Disposition: Acute Care Hospital [facility] Diagnosis: Compression fracture of L1 vertebra, JAYANT (acute kidney injury), Dehydration, Elevated INR, Atrial fibrillation, Hx of cardiac pacemaker
--- NOTE | 2020-05-24 10:05 | CT_ITS ---
STUDY: CT BRAIN WITHOUT CONTRAST REASON FOR EXAM: Male, 84 years old. FALL 6 DAYS AGO, LOW BACK PAIN, WORSENING RADIATION DOSAGE (If Supplied By Facility): CTDIvol = ( 44.99 ) mGy, DLP = ( 779.24 ) mGycm TECHNIQUE: Transaxial CT imaging of the brain was performed without administration of intravenous contrast material. Individualized dose optimization techniques were used for this CT. COMPARISON: Comparison is made with prior study dated 11/21/2018. FINDINGS: Normal soft tissue structures. Normal calvarium. There is moderate cerebral atrophy with widening of the extra-axial spaces and ventricular dilatation. There are areas of decreased attenuation within the white matter tracts of the supratentorial brain, consistent with microvascular disease changes. Stable encephalomalacia in the left occipital lobe. Normal basal ganglia and thalami. Normal brainstem. Normal cerebellum. There is no intracranial hemorrhage. There are no findings of an acute ischemic infarction. Atherosclerotic calcific plaques of the vertebral arteries and cavernous portions of the internal carotid arteries bilaterally. Normal visualized paranasal sinuses. CT/Brain/Head without Contrast IMPRESSION: Chronic involutional changes of the brain. Electronically Signed: Ye Braswell, at 12:00 EDT , Service support ,
[2020-05-24 10:27] LABS: Absolute Lymphocyte Count 1.51 X10^3/uL (0.83-4.51); Absolute Neutrophil Count 8.5 X10^3/uL (2.0-7.7); Basophil# 0.02 X10^3/uL; Basophil% 0.2 % (0-1); Eosinophils% 2.7 % (0-5); Hematocrit 39.9 % (40-54); Hemoglobin 12.6 g/dL (13.0-16.5); Lymphocyte # 1.51 X10^3/ul (4.0); Lymphocyte % 13.6 % (19-41); Mean Corp Hgb Conc 31.6 g/dL (32-36); Mean Corpuscular Hgb 31.3 pg (27.0-32.0); Mean Corpuscular Volume 99.3 fL (80-94); Mean Platelet Vol. 10.6 fl (6.2-12.0); Monocyte# 0.76 X10^3/uL; Monocyte% 6.8 % (0-10); NRBC Flagged by Analyzer 0 % (0-5); Neutrophil # 8.48 X10^3/uL (2.7-7.7); Neutrophil % 76.3 % (47-70); Platelet Count 207 K/mm3 (150-450); RBC Distribution Width SD 54.7 fl (35.1-43.9); Red Blood Count 4.02 M/mm3 (4.6-6.2); White Blood Count 11.1 K/mm3 (4.4-11.0)
[2020-05-24 10:35] LABS: Prothrombin Time (Protime)PT. 43.1 SECONDS (11.7-14.9)
[2020-05-24 10:38] LABS: International Normalized Ratio 4.6
--- NOTE | 2020-05-24 10:39 | ED.RN ---
lab called inr of 4.6. dr [email or web address]
[2020-05-24 10:43] LABS: Anion Gap 5 (5-15); BUN 52 mg/dL (7-18); BUN/Creat Ratio 27.7 RATIO (10-20); Calcium,Total 9.7 mg/dL (8.5-10.1); Chloride 103 mmol/L (98-107); Creatinine, Serum 1.88 mg/dL (0.70-1.30); EST Glomerular Filtration Rate 36 mL/min (>60); Est Glom Filt Rate - Afr Amer 44 mL/min (>60); Estimated Creatinine Clearance 23.54 ml/min; Glucose 98 mg/dL (74-106); Potassium 4.2 mmol/L (3.5-5.1); Sodium Level 140 mmol/L (136-145)
--- NOTE | 2020-05-24 10:50 | RAD_ITS ---
STUDY: X-RAY CHEST REASON FOR EXAM: Male, 84 years old. Fell on sun day night. low back pain getting worse TECHNIQUE: Single AP portable view of the chest. COMPARISON: Comparison is made with prior study dated 06/13/2011. FINDINGS: EKG electrodes are seen. Mild increased markings at the left lung base suggestive of left basilar scarring and/or atelectasis. There is no demonstrated pleural abnormality. There is moderate cardiac enlargement. A left-sided dual-chamber pacemaker is seen. Normal mediastinum and jarod. Normal visualized pulmonary arteries. There is atherosclerotic calcification of the aortic arch with tortuosity. Normal visualized thoracic spine. Normal visualized ribs, clavicles, and shoulders. Hiatal hernia. RAD/Chest 1 View (Portable) IMPRESSION: Mild degree of increased markings at the left lung base suggests linear atelectasis and/or scarring. Electronically Signed: Ye Braswell, at 11:27 EDT , Service support ,
[2020-05-24 10:52] LABS: Bacteria 0 SEEN /hpf (None Seen); Mucous, Urine 0 SEEN /hpf (<or=2+); Red Blood Cells-Urine 0 SEEN /hpf (0-5); White Blood Cells 0 SEEN /hpf (0-5)
[2020-05-24 10:53] LABS: Color, Urine Yellow (Yellow); Glucose, Dipstick Normal (Normal); Ketone-Dipstick Negative (Negative); Leukocyte Esterase-Dipstick Negative /ul (Negative); Nitrite-Dipstick Negative (Negative); Occult Blood-Urine Negative /ul (Negative); Protein-Dipstick 15 mg/dl (Negative); Urine Bilirubin Dipstick Negative (Negative); Urine Clarity Sl. Cloudy (Clear); Urine Urobilinogen Normal (Normal)
[2020-05-24 10:59] LABS: Squamous Epithelial Cells - UA 0-5 SEEN /hpf (0-5)
[2020-05-24] MEDS: Morphine 4 MG/ML Syringe IV ×2 (11:13→13:31)
[2020-05-24] MEDS: Ondansetron 4 MG/2 ML Vial IV (11:13)
--- NOTE | 2020-05-24 13:00 | HP.PCM_ITS ---
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 He fell on his back on the floor but pain has been gradually getting worse since then. He denies loss of consciousness, hitting head, dizzy, lightheadedness, chest pain, shortness of breath or arrhythmia at that time. 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 He also has chronic urinary incontinence after prostate surgery 1995 and had sphincter bladder surgery in 2009. Patient has history of significant heart murmur, most probably severe aortic stenosis and cardiac pacemaker and follows outside skirt panel assembler. He denies any Covid related symptoms fever, shortness of breath or chills and was tested negative about 4 to 5 days ago. Currently complains of back pain 8/10 intensity most severe on the lumbar side without radiation to lower extremities. Denies any numbness or tingling. No new change in bladder or bowel function. In ED, lumbar spine CT shows nondisplaced compression fracture of L1 with loss of height of a proximal 10%. Displaced narrowing and degeneration of L4-L5. No acute abnormality in thoracic spine CT. CT brain and chest x-ray no new finding or abnormality. 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) Benign essential HTN (Chronic) Atrial fibrillation (Chronic) Allergies No Known Allergies Allergy (Verified 05/24/20 09:53) Home Medications: Ambulatory Orders Medication Instructions Recorded Digoxin [Digox] 125 mcg PO DAILY 07/30/13 Furosemide [Lasix] 20 mg PO DAILY 07/30/13 Metoprolol Tartrate [Lopressor] 100 mg PO BID 07/30/13 Tolterodine Tartrate [Detrol LA] 4 mg PO DAILY 07/30/13 Warfarin [Coumadin] 2.5 mg PO DAILY 07/30/13 Allopurinol [Zyloprim] 300 mg PO DAILY 09/02/15 Dofetilide [Tikosyn] 500 mcg PO BID 09/02/15 Linaclotide [Linzess] 290 mcg PO TID 09/02/15 Magnesium 400 mg PO DAILY 09/02/15 Potassium Chloride [K-Dur] 20 meq PO DAILY 09/02/15 Ropinirole HCl [Requip] 0.25 mg PO QHS 09/02/15 Simvastatin [Zocor] 20 mg PO QHS 09/02/15 Surgical History: - - Pacemaker Lives: With Family Smoking Status: Never smoker Alcohol: None Drugs: None - *Family History Paternal History Items: Heart Disease, - - Not pertinent to the patient admission Review of Systems Constitutional: Denies: Chills, Fever, Weight Change HEENT: Denies: Head Aches, Sinus Congestion, Sinus Drainage Cardiovascular: Denies: Chest Pain, Palpitations Respiratory: Denies: Cough, Shortness of breath at rest, Sputum production Gastrointestinal: Denies: Abdominal Pain, Nausea, Vomiting Genitourinary: Denies: Dysuria Musculoskeletal: Reports: Back Pain, Joint Pain, Joint stiffness. Denies: Joint Tenderness Skin: Denies: Rash, Wounds Neurological: Reports: Balance problems - Chronic in nature, Focal weakness - Chronic bilateral lower extremity weakness, Incoordination. Denies: Numbness, Tingling Psychiatric: Denies: Anxiety, Depression, Homicidal Ideations, Suicidal Ideations Hematologic/ Lymphatic: Denies: Easy Bruising, Easy Bleeding VTE Information - Inpt Only VTE Present on Admission: No VTE Mechan Device Prophylaxis: None Reason prophylaxis not ordered:: Procedure Not Indicated - INR supratherapeutic Patient Problems: Active and Suspected Problems Compression fracture of L1 vertebra (Acute) JAYANT (acute kidney injury) (Acute) Dehydration (Acute) Elevated INR (Acute) Objective: Physical exam General: Alert, Oriented x3, Cooperative, not able to sit up or turn around due to severe back pain HEENT: Atraumatic, PERRLA, EOMI, Normocephalic Oral: No Gingival or Mucosal Lesions/ Ulcerations Neck: Supple, No JVD, Negative Carotid Bruits Lungs: Air entry diminished in bilateral lung bases. No crepitation/rhonchi Cardiovascular: Pacemaker rhythm, Normal S1, Normal S2, grade 5/6 ejection systolic murmur over left second ICS with radiation to carotids. Pansystolic over cardiac apex with radiation to left axilla Abdomen: Bowel Sounds Present, Soft, Non Tender, Non-Distended : No renal angle tenderness. No suprapubic tenderness. Extremities: No edema, Capillary Refill Less than 3 Seconds Skin: No rashes, No breakdown Musculoskeletal: No Tenderness to Palpation of Joints or Extremities Neurological: Cranial nerves II-XII grossly intact, Deep Tendon Reflexes 2+/4 and Symmetrical, gross symmetrical touch sensation in both lower extremity. No new bowel incontinence. Chronic bladder incontinence after prostate surgery his bladder and sphincter. Bilateral lower extremity weakness, 4/5 at knee and hip and ankle joints. Psych/Mental Status: Normal Affect, Appropriate. - Physical Exam Vitals/I&O's: Vital Signs Temp Pulse Resp BP Pulse Ox 98.6 F 70 18 127/60 H 98 05/24/20 09:50 05/24/20 11:16 05/24/20 09:50 05/24/20 11:16 05/24/20 09:50 Oxygen Delivery Method Room Air Weight: 147 lb 0.773 oz Body Mass Index (BMI) 26.0 Laboratory Results 05/24/20 10:20: WBC 11.1 H, RBC 4.02 L, Hgb 12.6 L, Hct 39.9 L, MCV 99.3 H, MCH 31.3, MCHC 31.6 L, RDW Std Deviation 54.7 H, RDW Coeff of Radha 15.0 H, Plt Count 207, MPV 10.6, Immature Gran % (Auto) 0.400, Neut % (Auto) 76.3 H, Lymph % (Aut o) 13.6 L, [place] % (Auto) 6.8, Eos % (Auto) 2.7, Baso % (Auto) 0.2, Absolute Neuts (auto) 8.5 H, Absolute Lymphs (auto) 1.51, Nucleated RBC % 0 05/24/20 10:20: PT 43.1 H, INR 4.6 H* 05/24/20 10:20: Sodium 140, Potassium 4.2, Chloride 103, Carbon Dioxide 32.0, Anion Gap 5, BUN 52 H, Creatinine 1.88 H, Estim Creat Clear Calc 23.54, Est GFR (MDRD) Af Amer 44 L, Est GFR (MDRD) Non-Af 36 L, BUN/Creatinine Ratio 27.7 H, Glucose 98, Calcium 9.7, Troponin I < 0.015 05/24/20 10:45: Urine Color Yellow, Urine Clarity Sl. Cloudy, Urine pH 8.0, Ur Specific [place] 1.010, Urine Protein 15 H, Urine Glucose (UA) Normal, Urine Ketones Negative, Urine Occult Blood Negative, Urine Nitrite Negative, Urine Bilirubin Negative, Urine Urobilinogen Normal, Ur Leukocyte Esterase Negative, Urine RBC 0 SEEN, Urine WBC 0 SEEN, Ur Squamous Epith Cells 0-5 SEEN, Urine Bacteria 0 SEEN, Urine Mucus 0 SEEN Assessment/Plan All Active Problems Compression fracture of L1 vertebra (Acute) JAYANT (acute kidney injury) (Acute) Dehydration (Acute) Elevated INR (Acute) The patient is a 84 year old M with multiple comorbidities and he fell on Wednesday night with resultant L1 fracture at that time and severe back pain. 1. Acute nondisplaced compression fracture of L1 vertebra with loss of height, pathological from osteoporosis: Patient fell down from standing height. Patient is being admitted to MedSurg floor. IV fluid as patient is dehydrated. Pain control. Muscle relaxant. PT OT. Patient's refused for going to SNF but agreed for home health aide. body shop manager consult. Advised to follow-up pain management as an outpatient. Patient has intact perineal sensation. There is no acute neurovascular compromise. 2. JAYANT from CKD stage III: Patient last BUN/creatinine was 29/1.January. Currently 52/1.88. IV fluid normal saline at 100 mL/h for 2 L. 3. Cardiac conditions: Patient follows outside skirt panel assembler and does not have previous echo or stress or cardiac cath in our system. Valvular heart disease, most likely aortic stenosis, MR. Chronic A. fib status post pacemaker. Patient denies history of coronary artery disease. As this is not the admitting diagnosis, we will not pursue any diagnostic work-up but continue his home medications and advised to follow-up with his skirt panel assembler. Patient does not have chest pain, shortness of breath, dizziness or syncope. INR is supratherapeutic and hold Coumadin. 4. BPH with prostate surgery in 1995, chronic urinary incontinence status post bladder sphincter surgery in 2010: Continue tolterodine. 5. 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 Other chronic comorbidities include hypertension, history of mild ischemic stroke/TIA: Continue home medication. VTE prophylaxis: INR supratherapeutic. Monitor INR daily and resume once INR therapeutic. Living will/advanced directive/end of life care: Patient does have living will or advanced directive. is power of lpn instructor for health. After discussion of procedures involved with full code, DNR CC arrest and DNR CC, the patient opted for DNR-CC Arrest with no intubation Patient does not want artificial life support including intubation, tube feed, ventilator and/chest compression, central venous catheter, vasopressor and DC shock if needed Total time spent in [id number] encounter in discussion of advanced directive 16 minutes. Clinical Impression(s) from Imaging Studies Lumbar Spine CT 05/24/20 10:01 IMPRESSION: Nondisplaced compression fracture of the L1 vertebra with loss of height of approximately 10%. Displaced narrowing and disc degeneration at the L4-L5 level. Electronically Signed: Ye Braswell, at 12:06 EDT , Service support , Thoracic Spine CT 05/24/20 10:01 IMPRESSION: The mineralization of the thoracic vertebrae. No acute abnormality is seen. Electronically Signed: Ye Braswell, at 12:08 EDT , Service support , Brain CT 05/24/20 10:05 IMPRESSION: Chronic involutional changes of the brain. Electronically Signed: Ye Braswell, at 12:00 EDT , Service support , Chest X-Ray 05/24/20 10:50 IMPRESSION: Mild degree of increased markings at the left lung base suggests linear atelectasis and/or scarring. Electronically Signed: Ye Braswell, at 11:27 EDT , Service support , Inpatient E&M: 74859 Init Hosp L3 Procedures: 24786 Advncd Care Plan 30 Min
[2020-05-24 14:57] LABS: Magnesium 2.6 mg/dL (1.6-2.6)
[2020-05-24] MEDS: 0.9% Normal Saline 1,000 ML 100 ML IV (14:59)
[2020-05-24] MEDS: 0.9% Saline Lock 10 ML Syringe IV (15:01)
[2020-05-24] MEDS: Metoprolol Tartrate 100 MG Tablet PO (20:52)
[2020-05-24] MEDS: Atorvastatin Calcium 20 MG Tablet PO (20:53)
[2020-05-24] MEDS: Dofetilide 125 MCG Capsule PO (20:53)
[2020-05-24] MEDS: Pramipexole Di-HCl 0.125 MG Tablet PO (20:53)
[2020-05-24] MEDS: Senna/Docusate Sodium 1 Tablet 2 TABLET PO (20:53)
[2020-05-25] VITALS (12 sets, daily range): BP systolic 104–121; BP diastolic 40–61; PULSE 68–70; RESP 16–18; TEMP 36.6–37.1; O2SAT 83–99
[2020-05-25] MEDS: 0.9% Normal Saline 1,000 ML 100 ML IV (00:57)
[2020-05-25 06:24] LABS: Absolute Lymphocyte Count 1.42 X10^3/uL (0.83-4.51); Absolute Neutrophil Count 5.3 X10^3/uL (2.0-7.7); Basophil# 0.02 X10^3/uL; Basophil% 0.3 % (0-1); Eosinophil# 0.56 X10^3/uL; Eosinophils% 7.3 % (0-5); Hematocrit 36.7 % (40-54); Hemoglobin 11.4 g/dL (13.0-16.5); Lymphocyte # 1.42 X10^3/ul (4.0); Lymphocyte % 18.4 % (19-41); Mean Corp Hgb Conc 31.1 g/dL (32-36); Mean Corpuscular Hgb 31.8 pg (27.0-32.0); Mean Corpuscular Volume 102.2 fL (80-94); Mean Platelet Vol. 10.5 fl (6.2-12.0); Monocyte# 0.35 X10^3/uL; Monocyte% 4.5 % (0-10); NRBC Flagged by Analyzer 0 % (0-5); Neutrophil # 5.32 X10^3/uL (2.7-7.7); Platelet Count 175 K/mm3 (150-450); RBC Distribution Width CV 14.9 % (11.6-14.6); RBC Distribution Width SD 55.6 fl (35.1-43.9); Red Blood Count 3.59 M/mm3 (4.6-6.2); White Blood Count 7.7 K/mm3 (4.4-11.0)
[2020-05-25 06:36] LABS: Prothrombin Time (Protime)PT. 46.6 SECONDS (11.7-14.9)
[2020-05-25 07:34] LABS: Anion Gap 5 (5-15); BUN 50 mg/dL (7-18); BUN/Creat Ratio 29.9 RATIO (10-20); Calcium,Total 8.2 mg/dL (8.5-10.1); Chloride 108 mmol/L (98-107); Creatinine, Serum 1.67 mg/dL (0.70-1.30); EST Glomerular Filtration Rate 42 mL/min (>60); Est Glom Filt Rate - Afr Amer 51 mL/min (>60); Glucose 89 mg/dL (74-106); Potassium 4.6 mmol/L (3.5-5.1); Sodium Level 139 mmol/L (136-145)
[2020-05-25 08:25] LABS: Digoxin Level 0.14 ng/mL (0.80-2.00)
[2020-05-25] MEDS: Tolterodine Tartrate 4 MG CAP.SA PO (08:54)
[2020-05-25] MEDS: Metoprolol Tartrate 100 MG Tablet PO ×2 (08:54→22:29)
[2020-05-25] MEDS: Allopurinol 300 MG Tablet PO (08:55)
[2020-05-25] MEDS: Dofetilide 125 MCG Capsule PO ×2 (08:55→22:28)
[2020-05-25] MEDS: Digoxin 125 MCG Tablet PO (08:56)
[2020-05-25] MEDS: Acetaminophen 325 MG Tablet 650 MG PO (08:56)
[2020-05-25] MEDS: oxyCODONE 5 MG Tablet PO (08:57)
--- NOTE | 2020-05-25 09:38 | PN_ITS ---
Patient Problems: Active and Suspected Problems Compression fracture of L1 vertebra (Acute) JAYANT (acute kidney injury) (Acute) Dehydration (Acute) Elevated INR (Acute) Reason for Visit: Follow-up for back pain Objective: Patient vital signs are stable. Patient still has significant back pain 8/10 intensity. Not able to sit up. Has difficulty even on rolling to one side. Physical exam General: Alert, Oriented x3, Cooperative HEENT: Atraumatic, PERRLA, EOMI, Normocephalic Oral: No Gingival or Mucosal Lesions/ Ulcerations Neck: Supple, No JVD, Negative Carotid Bruits Lungs: Air entry diminished in bilateral lung bases. No crepitation/rhonchi Cardiovascular: Pacemaker rhythm, Normal S1, Normal S2, grade 5/6 ejection systolic murmur over left second ICS with radiation to carotids. Pansystolic over cardiac apex with radiation to left axilla Abdomen: Bowel Sounds Present, Soft, Non Tender, Non-Distended : No renal angle tenderness. No suprapubic tenderness. Extremities: No edema, Capillary Refill Less than 3 Seconds Skin: No rashes, No breakdown Musculoskeletal: No Tenderness to Palpation of Joints or Extremities. Tenderness over lumbar spine is mainly around T12-L1 area. Muscle stiffness and tenderness present. Neurological: Cranial nerves II-XII grossly intact, Deep Tendon Reflexes 2+/4 and Symmetrical, gross symmetrical touch sensation in both lower extremity. No bowel incontinence. Chronic bladder incontinence after prostate surgery his bladder and sphincter. Bilateral lower extremity weakness, 4/5 at knee and hip and ankle joints. Psych/Mental Status: Normal Affect, Appropriate. Vitals/I&O's: Vital Signs Temp Pulse Resp BP Pulse Ox 98 F 70 18 112/40 L 93 05/25/20 08:44 05/25/20 08:56 05/25/20 08:44 05/25/20 08:44 05/25/20 08:44 Oxygen Flow Rate (L/min) 2 Oxygen Delivery Method Nasal Cannula Weight: 139 lb 8.842 oz Body Mass Index (BMI) 24.8 Intake and Output for Last 24 Hours 05/23/20 05/24/20 05/25/20 23:59 23:59 23:59 Intake Total 900 / 1100 1296.67 / 1296.67 Output Total 100 / 200 200 / 200 Balance 800 / 900 1096.67 / 1096.67 Laboratory Results 05/24/20 10:20: WBC 11.1 H, RBC 4.02 L, Hgb 12.6 L, Hct 39.9 L, MCV 99.3 H, MCH 31.3, MCHC 31.6 L, RDW Std Deviation 54.7 H, RDW Coeff of Radha 15.0 H, Plt Count 207, MPV 10.6, Immature Gran % (Auto) 0.400, Neut % (Auto) 76.3 H, Lymph % (Auto) 13.6 L, [place] % (Auto) 6.8, Eos % (Auto) 2.7, Baso % (Auto) 0.2, Absolute Neuts (auto) 8.5 H, Absolute Lymphs (auto) 1.51, Nucleated RBC % 0 05/24/20 10:20: PT 43.1 H, INR 4.6 H* 05/24/20 10:20: Sodium 140, Potassium 4.2, Chloride 103, Carbon Dioxide 32.0, Anion Gap 5, BUN 52 H, Creatinine 1.88 H, Estim Creat Clear Calc 23.54, Est GFR (MDRD) Af Amer 44 L, Est GFR (MDRD) Non-Af 36 L, BUN/Creatinine Ratio 27.7 H, Glucose 98, Calcium 9.7, Troponin I < 0.015 05/24/20 10:20: Magnesium 2.6 05/24/20 10:45: Urine Color Yellow, Urine Clarity Sl. Cloudy, Urine pH 8.0, Ur Specific [place] 1.010, Urine Protein 15 H, Urine Glucose (UA) Normal, Urine Ketones Negative, Urine Occult Blood Negative, Urine Nitrite Negative, Urine Bilirubin Negative, Urine Urobilinogen Normal, Ur Leukocyte Esterase Negative, Urine RBC 0 SEEN, Urine WBC 0 SEEN, Ur Squamous Epith Cells 0-5 SEEN, Urine Bacteria 0 SEEN, Urine Mucus 0 SEEN 05/25/20 05:40: Magnesium Pending 05/25/20 05:40: WBC 7.7, RBC 3.59 L, Hgb 11.4 L, Hct 36.7 L, MCV 102.2 H, MCH 31.8, MCHC 31.1 L, RDW Std Deviation 55.6 H, RDW Coeff of Radha 14.9 H, Plt Count 175, MPV 10.5, Immature Gran % (Auto) 0.500, Neut % (Auto) 69.0, Lymph % (Auto) 18.4 L, [place] % (Auto) 4.5, Eos % (Auto) 7.3 H, Baso % (Auto) 0.3, Absolute Neuts (auto) 5.3, Absolute Lymphs (auto) 1.42, Nucleated RBC % 0 05/25/20 05:40: PT 46.6 H, INR 5.0 H* 05/25/20 05:40: Sodium 139, Potassium 4.6, Chloride 108 H, Carbon Dioxide 26.0, Anion Gap 5, BUN 50 H, Creatinine 1.67 H, Estim Creat Clear Calc 26.50, Est GFR (MDRD) Af Amer 51 L, Est GFR (MDRD) Non-Af 42 L, BUN/Creatinine Ratio 29.9 H, Glucose 89, Calcium 8.2 L 05/25/20 05:40: Digoxin 0.14 L Current Medications Acetaminophen (Acetaminophen 325 Mg Tablet) 650 mg PO Q6H PRN PRN PRN Reason: Pain Score 1-10/Temp > 100.7 F Last Admin: 05/25/20 08:56 Dose: 650 mg Documented by: Al Hydroxide/Mg Hydroxide (Mag Hydrox/Al Hydrox/Simeth 30 Ml Udc) 30 ml PO Q6H PRN PRN PRN Reason: Gastric Burning Albuterol Sulfate (Albuterol 2.5 Mg/3 Ml Vial.Neb.) 2.5 mg INHALATION Q2H PRN PRN PRN Reason: Shortness of Breath/Wheezing Allopurinol (Allopurinol 300 Mg Tablet) 300 mg PO DAILY [facility] Last Admin: 05/25/20 08:55 Dose: 300 mg Documented by: Atorvastatin Calcium (Atorvastatin Calcium 20 Mg Tablet) 20 mg PO QHS [facility] Last Admin: 05/24/20 20:53 Dose: 20 mg Documented by: Cyclobenzaprine HCl (Cyclobenzaprine Hcl 10 Mg Tablet) 10 mg PO TID [facility] Digoxin (Digoxin 125 Mcg Tablet) 125 mcg PO DAILY [facility] Last Admin: 05/25/20 08:56 Dose: 125 mcg Documented by: Dofetilide (Dofetilide 125 Mcg Capsule) 125 mcg PO BID [facility] Last Admin: 05/25/20 08:55 Dose: 125 mcg Documented by: Hydromorphone HCl (Hydromorphone 0.5 Mg/0.5 Ml Syringe) 0.5 mg IV Q4H PRN PRN Reason: Pain Score 8-10 Sodium Chloride () 250 mls @ 15 mls/hr IV .[id number] PRN PRN Reason: Saline Flush Sodium Chloride () 250 mls @ 15 mls/hr IV .[id number] PRN PRN Reason: Additional IVPB Infusion Sodium Chloride () 1,000 mls @ 75 mls/hr IV .[id number] [facility] Stop: 05/25/20 17:07 Last Admin: 05/25/20 00:57 Dose: 100 mls/hr Documented by: Metoprolol Tartrate (Metoprolol Tartrate 100 Mg Tablet) 100 mg PO BID [facility] Last Admin: 05/25/20 08:54 Dose: 100 mg Documented by: Nitroglycerin (Nitroglycerin (Inpatient Use) 0.4 Mg Tab.Subl) 0.4 mg SUBLINGUAL Q5M PRN PRN Reason: CARDIAC/CHEST PAIN Oxycodone HCl (Oxycodone 5 Mg Tablet) 5 mg PO Q4H PRN PRN PRN Reason: Pain Score 4-5 Last Admin: 05/25/20 08:57 Dose: 5 mg Documented by: Oxycodone HCl (Oxycodone 5 Mg Tablet) 10 mg PO Q4H PRN PRN PRN Reason: Pain Score 6-10 Oxycodone HCl (Oxycodone Cr 15 Mg Tablet) 15 mg PO BID [facility] Potassium Chloride (Potassium Chlor[facility] 20 Meq [facility]t) [facility] Last Admin: 05/25/20 08:54 Dose: 20 meq Documented by: Pramipexole Dihydrochloride (Pramipexole Di-Hcl 0.125 Mg Tablet) 0.125 mg PO QHS [facility] Last Admin: 05/24/20 20:53 Dose: 0.125 mg Documented by: Prochlorperazine Edisylate (Prochlorperazine 10 Mg/2 Ml Vial) 5 mg IV Q4H PRN PRN PRN Reason: Breakthrough nausea/vomiting Psyllium Hydrophilic Mucilloid (Psyllium 1 Packet) 1 packet PO DAILY [facility] Last Admin: 05/25/20 08:56 Dose: Not Given Documented by: Senna/Docusate Sodium (Senna/Docusate Sodium 1 Tablet) 2 tablet PO BID [facility] Last Admin: 05/25/20 08:56 Dose: Not Given Documented by: Sodium Chloride (0.9% Saline Lock 10 Ml Syringe) 10 - 40 ml IV UD PRN PRN Reason: SALINE FLUSH Last Admin: 05/24/20 15:01 Dose: 10 ml Documented by: Tolterodine Tartrate (Tolterodine Tartrate 4 Mg Cap.Sa) 4 mg PO DAILY [facility] Last Admin: 05/25/20 08:54 Dose: 4 mg Documented by: STROKE Vital Signs/Narrative: Vital Signs Temp Pulse Resp BP Pulse Ox 05/25/20 08:56 70 05/25/20 08:54 70 05/25/20 08:44 98 F 70 18 112/40 L 93 05/25/20 08:40 83 05/25/20 08:02 70 05/25/20 07:17 98 Medical Necessity - Tobacco Use Smoking Status: Never smoker Assessment/Plan All Active Problems Compression fracture of L1 vertebra (Acute) JAYANT (acute kidney injury) (Acute) Dehydration (Acute) Elevated INR (Acute) The patient is a 84 year old M with multiple comorbidities and he fell on Wednesday night with resultant L1 fracture at that time and severe back pain. 1. Acute nondisplaced compression fracture of L1 vertebra with loss of height, pathological from osteoporosis: Patient fell down from standing height. Patient is being admitted to MedSurg floor. IV fluid as patient is dehydrated. Pain control. Muscle relaxant. PT OT. Patient's refused for going to SNF but agreed for home health aide. manager of investigations consult. Advised to follow-up pain management as an outpatient. Patient has intact perineal sensation. There is no acute neurovascular compromise. 05/25: Oxycodone 15 mg p.o. controlled release added. 2. JAYANT from CKD stage III: Patient last BUN/creatinine was 30/08.January. Continue IV fluid normal saline at 75 mill per hour BUN/creatinine is improving but not at baseline. Lungs are clear. 3. Cardiac conditions: Patient follows outside bb shot packer and does not have pr evious echo or stress or cardiac cath in our system. Valvular heart disease, most likely aortic stenosis, MR. Chronic A. fib status post pacemaker. Patient denies history of coronary artery disease. As this is not the admitting diagnosis, we will not pursue any diagnostic work-up but continue his home medications and advised to follow-up with his bb shot packer. Patient does not have chest pain, shortness of breath, dizziness or syncope. INR is supratherapeutic and hold Coumadin. 05/25: INR 5.0. Tikosyn and digoxin adjusted to the creatinine clearance at the time of admission. Discussed with the pharmacist.. 4. BPH with prostate surgery in 1995, chronic urinary incontinence status post bladder sphincter surgery in 2009: Continue tolterodine. 5. 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 Other chronic comorbidities include hypertension, history of mild ischemic s troke/TIA: Continue home medication. VTE prophylaxis: INR supratherapeutic. Monitor INR daily and resume once INR therapeutic. Living will/advanced directive/end of life care: Patient does have living will or advanced directive. is power of district attorney for health. After discussion of procedures involved with full code, DNR CC arrest and DNR CC, the patient opted for DNR-CC Arrest with no intubation Patient does not want artificial life support including intubation, tube feed, ventilator and/chest compression, central venous catheter, vasopressor and DC shock if needed Total time spent in [id number] encounter in discussion of advanced directive 16 minutes. Clinical Impression(s) from Imaging Studies Lumbar Spine CT 05/24/20 10:01 IMPRESSION: Nondisplaced compression fracture of the L1 vertebra with loss of height of approximately 10%. Displaced narrowing and disc degeneration at the L4-L5 level. Electronically Signed: Ye Braswell at 12:06 EDT , Service support , Thoracic Spine CT 05/24/20 10:01 IMPRESSION: The mineralization of the thoracic vertebrae. No acute abnormality is seen. Electronically Signed: Ye Braswell at 12:08 EDT , Service support , Brain CT 05/24/20 10:05 IMPRESSION: Chronic involutional changes of the brain. Electronically Signed: Ye Braswell at 12:00 EDT , Service support , Chest X-Ray 05/24/20 10:50 IMPRESSION: Mild degree of increased markings at the left lung base suggests linear atelectasis and/or scarring. Electronically Signed: Ye Braswell, at 11:27 EDT , Service support , Inpatient E&M: [id number] Subs Hosp L2
[2020-05-25] MEDS: 0.9% Normal Saline 1,000 ML 75 ML IV (10:58)
[2020-05-25] MEDS: oxyCODONE CR 15 MG Tablet PO ×2 (11:02→22:34)
[2020-05-25] MEDS: cycloBENZAPRine HCl 10 MG Tablet PO ×3 (11:02→22:29)
--- NOTE | 2020-05-25 14:03 | CASEMGMT ---
SW met w/pt and in room in regard to prior level of care and discharge plan. Pt very tired, answered some questions, but then fell asleep. SW then spoke w/, and then daughter in regard to prior level of care, and plan. PCP: Dr. Luna Specialists: Yamini Rose, daycare director in [place] Insurance: Medicare, [place], [facility]: [facility] [place] LW/POA: brought, she is POA, daughters are alternates. Copies made and placed on chart. LNOK: , two daughters and their families Prior level of function: Pt and live in a one level home. Pt has been independent with bathing and some dressing, using bathroom. hsa been helping with lower body dressing, organizing meds, cooking, cleaning, driving. DME: Pt uses a walker and raised toilet seat HX HHC and SNF: Pt has had [facility] in the past, went to a [facility] back in 2002, can't remember name of facility. SW spoke w/pt and then just about plan, did provide a list of nursing homes to with the Medicare star ratings. is concerned about sending pt to SNF due to visitation and COVID risk. We discussed options, home health vs SNF. SW explained that SW/CM can revisit w/pt and on Wednesday to see what makes sense and is appropriate. We discussed whether or not home care would be enough, SW inquired if they would be able to hire extra help at home if needed. is not sure, states would need to look into it. She then called her daughter Marcia, and SW reviewed with Marcia the discharge options as well, and the concerns for safety for pt to return home, if he can manage safely at home or not. Daughter states understanding, asked when they need to make a decision. SW explained by Wednesday they should have an idea of what they would like to do, can see how pt does with therapy tomorrow and then decide. SW explained that pt may do better tomorrow but this SW is concerned that he may not, and if he were to go home may need extra help. Daughter states understanding. SW/CM to follow up on Wednesday. RANDY Venegas
[2020-05-25 14:49] LABS: Magnesium 2.4 mg/dL (1.6-2.6)
[2020-05-25] MEDS: Atorvastatin Calcium 20 MG Tablet PO (22:29)
[2020-05-25] MEDS: Pramipexole Di-HCl 0.125 MG Tablet PO (22:29)
[2020-05-25] MEDS: Senna/Docusate Sodium 1 Tablet 2 TABLET PO (22:29)
[2020-05-26] VITALS (46 sets, daily range): BP systolic 73–123; BP diastolic 30–91; PULSE 69–97; RESP 12–23; TEMP 36.7–39; O2SAT 94–100
--- NOTE | 2020-05-26 05:50 | RAD_ITS ---
STUDY: X-RAY CHEST REASON FOR EXAM: Male, 84 years old. FEVER AND RATTLES WITH BREATHING TECHNIQUE: Single AP portable view of the chest. COMPARISON: 05/24/2020 FINDINGS: Left subclavian dual-lead pacemaker which is unchanged. The lungs are clear and expanded. There is no demonstrated pleural abnormality. There is moderate cardiac enlargement. Normal mediastinum and jarod. Normal visualized pulmonary arteries. Normal visualized aortic arch and descending thoracic aorta. Normal visualized thoracic spine. Normal visualized ribs, clavicles, and shoulders. There is no demonstrated abnormality of the visualized soft tissue structures of the upper abdomen. RAD/Chest 1 View (Portable) IMPRESSION: No active disease. Electronically Signed: Maximiliano Oneal MD at 6:14 EDT Tel , Service support ,
[2020-05-26] MEDS: Albuterol 2.5 MG/3 ML VIAL.NEB. INHALATION (06:06)
--- NOTE | 2020-05-26 06:28 | PCM.PN.BLA ---
Progress Note Notified by nurse that patient temperature is 101.2. Patient less responsive and with sputum on. gown. Chest x-ray was ordered. Patient was seen at the bedside. Patient with nonrebreather mask on. Patient obtunded. Screamed with movement. Heart sounds S1-S2 present. Lungs clear to auscultate. Impression fever of unclear source. Chest x-ray is unremarkable. Blood culture and urine culture ordered. Vancomycin and Zosyn ordered. CBC and BMP ordered. Of note patient is a DNR CCA without intubation. DisContinue all pain medications. STROKE Vital Signs/Narrative: Vital Signs Temp Pulse Resp BP Pulse Ox 05/26/20 06:20 101.7 F H 73 18 123/91 H 97 05/26/20 05:50 73 20 H 104/70 100 05/26/20 05:45 102/89 H 05/26/20 05:20 101.2 F H 77 16 100/57 L
[2020-05-26 06:32] LABS: Prothrombin Time (Protime)PT. 52.4 SECONDS (11.7-14.9)
[2020-05-26] MEDS: 0.9% Normal Saline 1,000 ML 999 ML IV ×2 (06:40→08:33)
--- NOTE | 2020-05-26 06:47 | PCM.PN.BLA ---
Progress Note Severe sepsis no etiology. T-max of 102.1 Fahrenheit. Blood pressure 73/58. Blood culture urine culture already ordered. Lactic acid ordered. Chest x-ray unremarkable. Vancomycin and Zosyn already ordered. 30 MLS per kilogram bolus of normal saline ordered. Patient is obtunded. Discontinue all p.o. medications at this time. Of note patient is a DNR CCA without intubation. We will keep out MedSurg unit. STROKE Vital Signs/Narrative: Vital Signs Temp Pulse Resp BP BP Pulse Ox 05/26/20 06:35 71 73/58 L 98 05/26/20 06:28 102.1 F H 75 16 90/73 98 05/26/20 06:20 101.7 F H 73 18 123/91 H 97 05/26/20 05:50 73 20 H 104/70 100 05/26/20 05:45 102/89 H 05/26/20 05:20 101.2 F H 77 16 100/57 L
[2020-05-26] MEDS: Acetaminophen 650 MG Suppository RECTAL (06:48)
[2020-05-26] MEDS: 0.9% Saline Lock 10 ML Syringe IV ×3 (06:50→12:56)
[2020-05-26 07:11] LABS: International Normalized Ratio 5.8
[2020-05-26 07:31] LABS: Absolute Neutrophil Count 4.9 X10^3/uL (2.0-7.7); Basophil# 0.02 X10^3/uL; Basophil% 0.3 % (0-1); Eosinophil# 0.18 X10^3/uL; Eosinophils% 2.7 % (0-5); Hematocrit 37.5 % (40-54); Hemoglobin 11.6 g/dL (13.0-16.5); Lymphocyte % 14.8 % (19-41); Mean Corp Hgb Conc 30.9 g/dL (32-36); Mean Corpuscular Hgb 32.1 pg (27.0-32.0); Mean Corpuscular Volume 103.9 fL (80-94); Mean Platelet Vol. 10.6 fl (6.2-12.0); Monocyte# 0.66 X10^3/uL; Monocyte% 9.8 % (0-10); NRBC Flagged by Analyzer 0 % (0-5); Neutrophil # 4.88 X10^3/uL (2.7-7.7); Neutrophil % 72.1 % (47-70); Platelet Count 201 K/mm3 (150-450); RBC Distribution Width CV 14.9 % (11.6-14.6); RBC Distribution Width SD 57.3 fl (35.1-43.9); Red Blood Count 3.61 M/mm3 (4.6-6.2); White Blood Count 6.8 K/mm3 (4.4-11.0)
--- NOTE | 2020-05-26 07:44 | NURSING ---
Dr. Carson paged stat via security control center operator.
--- NOTE | 2020-05-26 07:45 | NURSING ---
Dr. Carson at bedside with this RN and discharge rn to examine patient.
[2020-05-26 07:46] LABS: Anion Gap 5 (5-15); BUN 63 mg/dL (7-18); BUN/Creat Ratio 36.2 RATIO (10-20); Calcium,Total 8.5 mg/dL (8.5-10.1); Chloride 111 mmol/L (98-107); Creatinine, Serum 1.74 mg/dL (0.70-1.30); EST Glomerular Filtration Rate 40 mL/min (>60); Est Glom Filt Rate - Afr Amer 48 mL/min (>60); Estimated Creatinine Clearance 25.43 ml/min; Glucose 87 mg/dL (74-106); Potassium 5.7 mmol/L (3.5-5.1); Sodium Level 139 mmol/L (136-145)
--- NOTE | 2020-05-26 07:55 | NURSING ---
clerical warehouse worker updated at this time
--- NOTE | 2020-05-26 08:02 | CT_ITS ---
STUDY: CT BRAIN WITHOUT CONTRAST REASON FOR EXAM: Male, 84 years old. FACIAL DROOP? PRIOR OLD CVA. SEPSIS RADIATION DOSAGE (If Supplied By Facility): CTDIvol = ( 44.99 ) mGy, DLP = ( 863.60 ) mGycm TECHNIQUE: Transaxial CT imaging of the brain was performed without administration of intravenous contrast material. Individualized dose optimization techniques were used for this CT. COMPARISON: 05/24/2020 FINDINGS: Normal soft tissue structures. Normal calvarium. There is moderate cerebral atrophy with widening of the extra-axial spaces and ventricular dilatation. There are areas of decreased attenuation within the white matter tracts of the supratentorial brain, consistent with microvascular disease changes. Normal basal ganglia and thalami. Normal brainstem. Normal cerebellum. There is no intracranial hemorrhage. Encephalomalacia in the posterior left parietal lobe consistent with a prior infarct. Normal visualized paranasal sinuses. CT/Brain/Head without Contrast IMPRESSION: Chronic involutional changes of the brain. Electronically Signed: Maximiliano Oneal MD at 9:49 EDT Tel , Service support ,
--- NOTE | 2020-05-26 08:17 | NURSING ---
this RN went to pts room at 0510 to obtain vitals. pt more lethargic. lab was in room attempting to draw labs. this RN sternal rubbed pt, and pt opened his eyes and went right back to sleep. pts pulse ox was checked and it was 91% at 2L NC at this time. lung sounds rhonchi throughout, weak moist cough, notified Dr Khan and asked him to come see pt. notified respiratory- nonrebreather 15L applied 100% spO2. Dr Khan came to the floor. see new orders.
--- NOTE | 2020-05-26 08:17 | NURSING ---
notified of change in patient condition at this time
--- NOTE | 2020-05-26 08:22 | PN_ITS ---
Patient Problems: Active and Suspected Problems Compression fracture of L1 vertebra (Acute) JAYANT (acute kidney injury) (Acute) Dehydration (Acute) Elevated INR (Acute) Reason for Visit: Follow-up for hypertension, severe sepsis, altered mental status and acute respiratory failure Objective: I was called in the telecommunications analyst that patient blood pressure is low, 90/73. Temperature is 102.2 T-max at 747. Patient was seen by nighttime hospitalist and started on IV fluid normal saline bolus, vancomycin and Zosyn. Patient was put on nonrebreather. Patient INR was high, digoxin level 0.4. Chest x-ray and CT scan was done. Chest x-ray shows atelectasis and pulmonary congestion. CT head does not show acute bleed but chronic involutional changes. Discussed with fire battalion chief and regional extension service specialist consult requested. Patient blood pressure subsequently improved patient mental status also follows simple command. Subsequently, patient moved to PCU as deemed appropriate per cut off saw set up operator, patient is DNR CC arrest with no intubation. Nam catheter inserted Physical exam General: Lethargic, drowsy but later on woke up, follows simple command. HEENT: Atraumatic, PERRLA, EOMI, Normocephalic Oral: No Gingival or Mucosal Lesions/ Ulcerations Neck: Supple, No JVD, Negative Carotid Bruits Lungs: Air entry severely diminished in both lungs. Bilateral coarse crepitation and rhonchi present. Shallow breathing, respiratory rate 12-14. Cardiovascular: Pacemaker rhythm, Normal S1, Normal S2, grade 5/6 ejection systolic murmur over left second ICS with radiation to carotids cardiac apex. Abdomen: Bowel Sounds Present, Soft, Non Tender, Non-Distended : No renal angle tenderness. No suprapubic tenderness. Extremities: No edema, Capillary Refill Less than 3 Seconds Skin: No rashes, No breakdown Musculoskeletal: No Tenderness to Palpation of Joints or Extremities. Tenderness over lumbar spine is mainly around T12-L1 area. Muscle stiffness and tenderness present. Neurological: Cranial nerves II-XII grossly intact, No bowel incontinence. Chronic bladder incontinence after prostate surgery his bladder and sphincter. Psych/Mental Status: Lethargic admission above monitor on awake. Vitals/I&O's: Vital Signs Temp Pulse Resp BP Pulse Ox 101.5 F H 70 12 94/65 97 05/26/20 08:06 05/26/20 08:06 05/26/20 08:06 05/26/20 08:19 05/26/20 08:06 Oxygen Flow Rate (L/min) 15 Oxygen Delivery Method Non-Rebreather Weight: 139 lb 8.842 oz Body Mass Index (BMI) 24.8 Intake and Output for Last 24 Hours 05/24/20 05/25/20 05/26/20 23:59 23:59 23:59 Intake Total 900 / 1100 4356.67 / 4356.67 1000 / 1000 Output Total 100 / 200 200 / 200 550 / 550 Balance 800 / 900 4156.67 / 4156.67 450 / 450 Laboratory Results 05/25/20 05:40: Magnesium 2.4 05/25/20 05:40: Digoxin 0.14 L 05/26/20 05:10: PT 52.4 H, INR 5.8 H* 05/26/20 07:13: WBC 6.8, RBC 3.61 L, Hgb 11.6 L, Hct 37.5 L, MCV 103.9 H, MCH 32.1 H, MCHC 30.9 L, RDW Std Deviation 57.3 H, RDW Coeff of Radha 14.9 H, Plt Count 201, MPV 10.6, Immature Gran % (Auto) 0.300, Neut % (Auto) 72.1 H, Lymph % (Auto) 14.8 L, Caldwell % (Auto) 9.8, Eos % (Auto) 2.7, Baso % (Auto) 0.3, Absolute Neuts (auto) 4.9, Absolute Lymphs (auto) 1.00, Nucleated RBC % 0 05/26/20 07:13: Sodium 139, Potassium 5.7 H, Chloride 111 H, Carbon Dioxide 23.0, Anion Gap 5, BUN 63 H, Creatinine 1.74 H, Estim Creat Clear Calc 25.43, Est GFR (MDRD) Af Amer 48 L, Est GFR (MDRD) Non-Af 40 L, BUN/Creatinine Ratio 36.2 H, Glucose 87, Calcium 8.5 05/26/20 07:13: Lactic Acid 1.0 05/26/20 07:37: COVID-19 (EZ) Pending Current Medications Acetaminophen (Acetaminophen 325 Mg Tablet) 650 mg PO Q6H PRN PRN PRN Reason: Pain Score 1-10/Temp > 100.7 F Last Admin: 05/25/20 08:56 Dose: 650 mg Documented by: Acetaminophen (Acetaminophen 650 Mg Suppository) 650 mg RECTAL Q4H PRN PRN PRN Reason: FEVER OF > 100.4F Last Admin: 05/26/20 06:48 Dose: 650 mg Documented by: Albuterol Sulfate (Albuterol 2.5 Mg/3 Ml Vial.Neb.) 2.5 mg INHALATION Q2H PRN PRN PRN Reason: Shortness of Breath/Wheezing Last Admin: 05/26/20 06:06 Dose: 2.5 mg Documented by: Digoxin (Digoxin 250 Mcg/Ml Ampul) 500 mcg IV X1 ONE Stop: 05/26/20 08:03 Sodium Chloride () 250 mls @ 15 mls/hr IV .[id number] PRN PRN Reason: Saline Flush Sodium Chloride () 250 mls @ 15 mls/hr IV .[id number] PRN PRN Reason: Additional IVPB Infusion Piperacillin Sod/Tazobactam (Sod 3.375 gm/ Sodium Chloride) 50 mls @ 12.5 mls/hr IV Q12 DOUG Last Admin: 05/26/20 07:44 Dose: 12.5 mls/hr Documented by: Sodium Chloride () 1,000 mls @ 999 mls/hr IV .[id number] ONE Stop: 05/26/20 08:40 Vancomycin IV Pharmacy to Dose (1 ea/ Sodium Chloride) 500 mls @ 250 mls/hr IV X1 PRN; Protocol PRN Reason: Rx to Dose Nitroglycerin (Nitroglycerin (Inpatient Use) 0.4 Mg Tab.Subl) 0.4 mg SUBLINGUAL Q5M PRN PRN Reason: CARDIAC/CHEST PAIN Prochlorperazine Edisylate (Prochlorperazine 10 Mg/2 Ml Vial) 5 mg IV Q4H PRN PRN PRN Reason: Breakthrough nausea/vomiting Sodium Chloride (0.9% Saline Lock 10 Ml Syringe) 10 - 40 ml IV UD PRN PRN Reason: SALINE FLUSH Last Admin: 05/26/20 06:50 Dose: 30 ml Documented by: STROKE Vital Signs/Narrative: Vital Signs Temp Pulse Resp BP BP Pulse Ox 05/26/20 08:19 94/65 05/26/20 08:10 78/33 L 10/25/20 08:06 101.5 F H 70 12 97/77 97 05/26/20 08:00 99.7 F H 70 14 87/46 L 97 05/26/20 07:47 102.2 F H 70 12 105/69 99 05/26/20 07:46 96 05/26/20 06:54 69 16 95/65 97 05/26/20 06:35 71 73/58 L 98 05/26/20 06:28 102.1 F H 75 16 90/73 98 05/26/20 06:20 101.7 F H 73 18 123/91 H 97 05/26/20 05:50 73 20 H 104/70 100 05/26/20 05:45 102/89 H 05/26/20 05:20 101.2 F H 77 16 100/57 L 05/26/20 05:10 100 Medical Necessity - Tobacco Use Smoking Status: Never smoker Assessment/Plan All Active Problems Severe sepsis (Acute) Compression fracture of L1 vertebra (Acute) JAYANT (acute kidney injury) (Acute) Dehydration (Acute) Elevated INR (Acute) The patient is a 84 year old M with multiple comorbidities and he fell on Wednesday night with resultant L1 fracture at that time and severe back pain. Initially patient was admitted on MedSur but transferred to PCU 1. Acute hypoxic respiratory failure: There is priority of possible acute aspiration or pulmonary edema although chest x-ray favors more aspiration and patient is also on opioids for pain control. Patient was given Lasix total 60 mg IV. Patient breathing improved and currently on 5 L of oxygen. Patient blood pressure has improved 106/46, map more than 65. Butadiene Compressor Operator consult reviewed. Keep patient n.p.o. Initiate BiPAP for respiratory support. Incentive spirometry, pep. Hold opioids. 2. severe sepsis, probably from aspiration: Discussed with patient . Patient has sometimes difficulty in swallowing. On IV Zosyn and vancomycin. DC vancomycin when MRSA nasal screen is negative. Fever improved currently 98.1, heart rate 70. Lactic acid normal. Blood cultures x2 and urine culture are pending. COVID-19 PCR negative. 3. Acute encephalopathy most probably metabolic secondary to hypoxia/severe sepsis: ABG is ordered. Underlying condition. 4. Acute nondisplaced compression fracture of L1 vertebra with loss of height, pathological from osteoporosis: Patient fell down from standing height. Continue PT OT. Patient's refused for going to SNF but agreed for home health aide. commercial finance manager consult. Discussed with spine surgeon Dr. Infante advised follow-up as an outpatient. Follow-up pain management Dr. Caruso as an outpatient. Patient has intact perineal sensation. There is no acute neurovascular compromise. No need for MRI of lumbar spine as per Dr. Infante. 05/25: Oxycodone 15 mg p.o. controlled release added. 2. JAYANT from CKD stage III: Patient last BUN/creatinine was 30/08.January. Slight worsening of BUN/creatinine as compared to yesterday. IV fluid was discontinued after initial resuscitation. Lasix as per intake and output and hemodynamics. 3. Cardiac conditions: Patient follows outside regional extension service specialist, Dr Gatica, in [facility]. Try to get previous echo or stress or other cardiac work-up. Medical record requested. 2D echo is ordered. Camera Maker consult requested. Valvular heart disease, most likely aortic stenosis, MR. Chronic A. fib status post pacemaker. Patient denies history of coronary artery disease. INR is supratherapeutic and hold Coumadin. Vitamin K 5 mg IV given. Digoxin 0.14 digoxin 0.5 mg IV given. 4. BPH with prostate surgery in 1995, chronic urinary incontinence status post bladder sphincter surgery in 2009: Continue tolterodine. Nam catheter inserted. Urine clear. Monitor intake and output. 5. 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 Other chronic comorbidities include hypertension, history of mild ischemic stroke/TIA: Continue home medication. VTE prophylaxis: INR supratherapeutic. Monitor INR daily and resume once INR therapeutic. Today's clinical condition and duration discussed with the patient , Mrs. Analy Tapia and daughter Marry on the phone in the presence of patient's nurse, Jil. I said patient was hypoxic, nonrebreather mask, his blood pressure decreased and there is concern of severe sepsis probably secondary to aspiration with possible pulmonary congestion. Rest as mentioned above. Total time of the visit including total time spent in counseling or coordination of care, (more than 50% of the total time, spent in obtaining medical information from nurses and other ancillary care providers), discussion with consultants, review of labs and imaging is 45 minutes. Living will/advanced directive/end of life care: Patient does have living will o r advanced directive. is power of sports attorney for health. After discussion of procedures involved with full code, DNR CC arrest and DNR CC, the patient opted for DNR-CC Arrest with no intubation Patient does not want artificial life support including intubation, tube feed, ventilator and/chest compression, central venous catheter, vasopressor and DC shock if needed Clinical Impression(s) from Imaging Studies Lumbar Spine CT 05/24/20 10:01 IMPRESSION: Nondisplaced compression fracture of the L1 vertebra with loss of height of approximately 10%. Displaced narrowing and disc degeneration at the L4-L5 level. Electronically Signed: Ye Braswell, at 12:06 EDT , Service support , Thoracic Spine CT 05/24/20 10:01 IMPRESSION: The mineralization of the thoracic vertebrae. No acute abnormality is seen. Electronically Signed: Ye Braswell at 12:08 EDT , Service support , Brain CT 05/24/20 10:05 IMPRESSION: Chronic involutional changes of the brain. Electronically Signed: Ye Braswell at 12:00 EDT , Service support , Chest X-Ray 05/24/20 10:50 IMPRESSION: Mild degree of increased markings at the left lung base suggests linear atelectasis and/or scarring. Electronically Signed: Ye Braswell at 11:27 EDT , Service support , Chest X-Ray 05/26/20 05:50 IMPRESSION: No active disease. Electronically Signed: Maximiliano Oneal MD at 6:14 EDT Tel , Service support , Brain CT 05/26/20 08:02 IMPRESSION: Chronic involutional changes of the brain. Electronically Signed: Maximiliano Oneal MD at 9:49 EDT Tel , Service support , Chest X-Ray 05/26/20 09:20 IMPRESSION: Left lower lobe atelectasis Inpatient E&M: [id number] Subs Hosp L3
--- NOTE | 2020-05-26 08:22 | NURSING ---
Called and ask MD if we could take to CT as wait for ICU, order for digoxin given.
[2020-05-26] MEDS: Vancomycin IV 1,000 MG/200 ML BAG 200 MG IV (08:31)
[2020-05-26] MEDS: Digoxin 250 MCG/ML Ampul 500 MCG IV (08:33)
[2020-05-26] MEDS: Furosemide 20 MG/2 ML VIAL IV ×3 (08:44→12:56)
--- NOTE | 2020-05-26 08:44 | NURSING ---
aware Jil ARCHIBALD stopped IVF bolus, verbal order from Dr. Carson, aware 1st dose of Lasix IV given.
--- NOTE | 2020-05-26 08:46 | NURSING ---
CT called, Dr. Carson at bedside, ok to transport to CT with BP after Digoxin and lasix 20mg sivp by Jil ARCHIBALD.
--- NOTE | 2020-05-26 09:20 | RAD_ITS ---
STUDY: X-RAY CHEST REASON FOR EXAM: Male, 84 years old. SOB AND T[place]NEA. HX OF LUMBAR COMPRESSION FX, FILM DONE @ AP 50 and quot; SEMI-UP PORTABLE. TECHNIQUE: Single AP portable view of the chest. COMPARISON: 05/26/2005 51 FINDINGS: Left subclavian dual-lead pacemaker which is unchanged. Interval development of alveolar opacity in the lower left lung consistent with left lower lobe atelectasis. There is no demonstrated pleural abnormality. There is moderate cardiac enlargement. Normal mediastinum and jarod. Normal visualized pulmonary arteries. Normal visualized aortic arch and descending thoracic aorta. Normal visualized thoracic spine. Normal visualized ribs, clavicles, and shoulders. There is no demonstrated abnormality of the visualized soft tissue structures of the upper abdomen. RAD/Chest 1 View (Portable) IMPRESSION: Left lower lobe atelectasis Electronically Signed: Maximiliano Oneal MD at 9:50 EDT Tel , Service support ,
--- NOTE | 2020-05-26 09:28 | NURSING ---
pt transported back to unit as per agricultural engineering technicians Maria M room not ready. portable xray completed. pt open eyes to verbal stimulation, only verbal mumbles noted response. Audible moist upper airway. yankar suctioned. maintained 15L NRB. spo2 98% RR 15 prolonged exporatory phase noted. HR 70, 117/53
--- NOTE | 2020-05-26 09:33 | NURSING ---
Dr. Carson called, updated given.
--- NOTE | 2020-05-26 09:40 | NURSING ---
lasix 20mg sivp given as verified w/ Jil ARCHIBALD
--- NOTE | 2020-05-26 09:45 | NURSING ---
Addendum entered by Radha Mcgraw 05/26/20 11:08: late entry: occurred at 0755 Original Note: Chute Operator updated on patient, Dr. Carson at bedside, aware not to call STROKE alert, aware orders to transfer patient to ICU. aware order for stat CT and verbal order given may transport patient to CT first only if SBP over 110. CT called and updated. This nurse and Emily Chawla RN attempting 3rd IV site so can initiate antibiotics while getting an addition 1lbolus NS. Pharmacy [facility] called requesting zosyn be changed to 30minute dose. Dr. Carson continues at bedside.
--- NOTE | 2020-05-26 09:50 | NURSING ---
aware per claims adjuster supervisor patient is now going to PCU instead of ICU as improved BP
--- NOTE | 2020-05-26 10:03 | NURSING ---
aware per lab 1hr. 20min left on COVID test results. aware per supervisor unloading patient to remain on [id number] until COVID results are final. Pts is in unit lounge. aWare Primary RN went to talk w/ her and text Dr. Carson requesting he come talk with her.
--- NOTE | 2020-05-26 10:14 | CON.PCM_ITS ---
Reason for Consult Date of Consultation: 05/26/20 Reason for Consultation: Acute respiratory failure History of Present Illness: The patient is an 84-year-old male, with a history as outlined below, who initially presented to the emergency department on May 24 after sustaining a fall. 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 On presentation to the emergency department, the patient was noted to be afebrile and hemodynamically stable. He was initially documented to be saturating 98% on room air. Laboratory evaluation revealed a white blood cell count of 11,000. INR was supratherapeutic at 4.6. Chemistry profile was notable for a creatinine of 1.88. Urine analysis was unremarkable. Head CT revealed chronic involutional changes of the brain. CT L-spine revealed a n ondisplaced compression fracture of L1 vertebra. The patient was subsequently admitted to the medical surgical floor for further management. The patient's hospital course has been complicated by an increasing INR, noted to be 5.8 this morning. Creatinine has improved to 1.74 this morning. Troponin was negative. However, the patient went from a 2 L/min supplemental oxygen requirement on May 25 to now requiring a nonrebreather mask. His CODE STATUS was confirmed to be DNR CCA without intubation. The patient is currently documented to be overall net +5.3 L for the hospital admission. On the morning of May 26, the patient was noted to have spiked a fever. He was less responsive than previous as well. Cultures were sent and the patient was placed on broad-spectrum antimicrobials. 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) Benign essential HTN (Chronic) Atrial fibrillation (Chronic) Allergies No Known Allergies Allergy (Verified 05/24/20 09:53) Home Medications: Ambulatory Orders Medication Instructions Recorded Digoxin [Digox] 125 mcg PO DAILY 07/30/13 Furosemide [Lasix] 20 mg PO DAILY 07/30/13 Metoprolol Tartrate [Lopressor] 100 mg PO BID 07/30/13 Tolterodine Tartrate [Detrol LA] 4 mg PO DAILY 07/30/13 Warfarin [Coumadin] 2.5 mg PO DAILY 07/30/13 Allopurinol [Zyloprim] 300 mg PO DAILY 09/02/15 Dofetilide [Tikosyn] 500 mcg PO BID 09/02/15 Linaclotide [Linzess] 290 mcg PO TID 09/02/15 Magnesium 400 mg PO DAILY 09/02/15 Potassium Chloride [K-Dur] 20 meq PO DAILY 09/02/15 Ropinirole HCl [Requip] 0.25 mg PO QHS 09/02/15 Simvastatin [Zocor] 20 mg PO QHS 09/02/15 Surgical History: - - Pacemaker Lives: With Family Smoking Status: Never smoker Alcohol: None Drugs: None - *Family History Paternal History Items: Heart Disease, - - Not pertinent to the patient admission Review of Systems Unable to obtain accurate/complete ROS d/t: Due to level of encephalopathy Patient Problems: Active and Suspected Problems Aspiration pneumonia (Acute) Encephalopathy (Acute) Hypotension (Acute) Compression fracture of L1 vertebra (Acute) JAYANT (acute kidney injury) (Acute) Dehydration (Acute) Elevated INR (Acute) Objective: The patient's most recent lab work, culture data and imaging studies have all been personally reviewed. Coronavirus PCR was negative. Blood and urine cultures are pending. - Physical Exam Vitals/I&O's: Vital Signs Temp Pulse Resp BP Pulse Ox 99.5 F H 84 14 105/41 L 98 05/26/20 10:03 05/26/20 10:03 05/26/20 10:03 05/26/20 10:03 05/26/20 10:03 Oxygen Flow Rate (L/min) 15 Oxygen Delivery Method Non-Rebreather Weight: 139 lb 8.842 oz Body Mass Index (BMI) 24.8 Intake and Output for Last 24 Hours 05/24/20 05/25/20 05/26/20 23:59 23:59 23:59 Intake Total 900 / 1100 4356.67 / 4356.67 1000 / 1000 Output Total 100 / 200 200 / 200 650 / 650 Balance 800 / 900 4156.67 / 4156.67 350 / 350 General: Lethargic HEENT: Atraumatic, Normocephalic Oral: Moist Mucosa Neck: Supple, No Nodes, Trachea Midline Lungs: Diminished, Rhonchi Cardiovascular: Normal S1, Normal S2, Irregular Rate, Murmur Abdomen: Bowel Sounds Present, Soft, Non Tender Extremities: No clubbing, No cyanosis Musculoskeletal: No Tenderness to Palpation of Joints or Extremities Neurological: - - Chronic lower extremity weakness Psych/Mental Status: Flat Affect Labs (Last 48 Hours) 05/24/20 05/24/20 05/24/20 10:20 10:20 10:20 WBC 11.1 H RBC 4.02 L Hgb 12.6 L Hct 39.9 L MCV 99.3 H MCH 31.3 MCHC 31.6 L RDW Std Deviation 54.7 H RDW Coeff of Radha 15.0 H Plt Count 207 MPV 10.6 Immature Gran % (Auto) 0.400 Neut % (Auto) 76.3 H Lymph % (Auto) 13.6 L [place] % (Auto) 6.8 Eos % (Auto) 2.7 Baso % (Auto) 0.2 Absolute Neuts (auto) 8.5 H Absolute Lymphs (auto) 1.51 Nucleated RBC % 0 PT 43.1 H INR 4.6 H* Sodium 140 Potassium 4.2 Chloride 103 Carbon Dioxide 32.0 Anion Gap 5 BUN 52 H Creatinine 1.88 H Estim Creat Clear Calc 23.54 Est GFR (MDRD) Af Amer 44 L Est GFR (MDRD) Non-Af 36 L BUN/Creatinine Ratio 27.7 H Glucose 98 Lactic Acid Calcium 9.7 Magnesium Troponin I < 0.015 Urine Color Urine Clarity Urine pH Ur Specific [place] Urine Protein Urine Glucose (UA) Urine Ketones Urine Occult Blood Urine Nitrite Urine Bilirubin Urine Urobilinogen Ur Leukocyte Esterase Urine RBC Urine WBC Ur Squamous Epith Cells Urine Bacteria Urine Mucus Digoxin COVID-19 (EZ) 05/24/20 05/24/20 05/25/20 10:20 10:45 05:40 WBC RBC Hgb Hct MCV MCH MCHC RDW Std Deviation RDW Coeff of Radha Plt Count MPV Immature Gran % (Auto) Neut % (Auto) Lymph % (Auto) [place] % (Auto) Eos % (Auto) Baso % (Auto) Absolute Neuts (auto) Absolute Lymphs (auto) Nucleated RBC % PT INR Sodium Potassium Chloride Carbon Dioxide Anion Gap BUN Creatinine Estim Creat Clear Calc Est GFR (MDRD) Af Amer Est GFR (MDRD) Non-Af BUN/Creatinine Ratio Glucose Lactic Acid Calcium Magnesium 2.6 2.4 Troponin I Urine Color Yellow Urine Clarity Sl. Cloudy Urine pH 8.0 Ur Specific [place] 1.010 Urine Protein 15 H Urine Glucose (UA) Normal Urine Ketones Negative Urine Occult Blood Negative Urine Nitrite Negative Urine Bilirubin Negative Urine Urobilinogen Normal Ur Leukocyte Esterase Negative Urine RBC 0 SEEN Urine WBC 0 SEEN Ur Squamous Epith Cells 0-5 SEEN Urine Bacteria 0 SEEN Urine Mucus 0 SEEN Digoxin COVID-19 (EZ) 05/25/20 05/25/20 05/25/20 05:40 05:40 05:40 WBC 7.7 RBC 3.59 L Hgb 11.4 L Hct 36.7 L MCV 102.2 H MCH 31.8 MCHC 31.1 L RDW Std Deviation 55.6 H RDW Coeff of Radha 14.9 H Plt Count 175 MPV 10.5 Immature Gran % (Auto) 0.500 Neut % (Auto) 69.0 Lymph % (Auto) 18.4 L [place] % (Auto) 4.5 Eos % (Auto) 7.3 H Baso % (Auto) 0.3 Absolute Neuts (auto) 5.3 Absolute Lymphs (auto) 1.42 Nucleated RBC % 0 PT 46.6 H INR 5.0 H* Sodium 139 Potassium 4.6 Chloride 108 H Carbon Dioxide 26.0 Anion Gap 5 BUN 50 H Creatinine 1.67 H Estim Creat Clear Calc 26.50 Est GFR (MDRD) Af Amer 51 L Est GFR (MDRD) Non-Af 42 L BUN/Creatinine Ratio 29.9 H Glucose 89 Lactic Acid Calcium 8.2 L Magnesium Troponin I Urine Color Urine Clarity Urine pH Ur Specific [place] Urine Protein Urine Glucose (UA) Urine Ketones Urine Occult Blood Urine Nitrite Urine Bilirubin Urine Urobilinogen Ur Leukocyte Esterase Urine RBC Urine WBC Ur Squamous Epith Cells Urine Bacteria Urine Mucus Digoxin COVID-19 (EZ) 05/25/20 05/26/20 05/26/20 05:40 05:10 07:13 WBC 6.8 RBC 3.61 L Hgb 11.6 L Hct 37.5 L MCV 103.9 H MCH 32.1 H MCHC 30.9 L RDW Std Deviation 57.3 H RDW Coeff of Radha 14.9 H Plt Count 201 MPV 10.6 Immature Gran % (Auto) 0.300 Neut % (Auto) 72.1 H Lymph % (Auto) 14.8 L [place] % (Auto) 9.8 Eos % (Auto) 2.7 Baso % (Auto) 0.3 Absolute Neuts (auto) 4.9 Absolute Lymphs (auto) 1.00 Nucleated RBC % 0 PT 52.4 H INR 5.8 H* Sodium Potassium Chloride Carbon Dioxide Anion Gap BUN Creatinine Estim Creat Clear Calc Est GFR (MDRD) Af Amer Est GFR (MDRD) Non-Af BUN/Creatinine Ratio Glucose Lactic Acid Calcium Magnesium Troponin I Urine Color Urine Clarity Urine pH Ur Specific [place] Urine Protein Urine Glucose (UA) Urine Ketones Urine Occult Blood Urine Nitrite Urine Bilirubin Urine Urobilinogen Ur Leukocyte Esterase Urine RBC Urine WBC Ur Squamous Epith Cells Urine Bacteria Urine Mucus Digoxin 0.14 L COVID-19 (EZ) 05/26/20 05/26/20 05/26/20 07:13 07:13 07:37 WBC RBC Hgb Hct MCV MCH MCHC RDW Std Deviation RDW Coeff of Radha Plt Count MPV Immature Gran % (Auto) Neut % (Auto) Lymph % (Auto) [place] % (Auto) Eos % (Auto) Baso % (Auto) Absolute Neuts (auto) Absolute Lymphs (auto) Nucleated RBC % PT INR Sodium 139 Potassium 5.7 H Chloride 111 H Carbon Dioxide 23.0 Anion Gap 5 BUN 63 H Creatinine 1.74 H Estim Creat Clear Calc 25.43 Est GFR (MDRD) Af Amer 48 L Est GFR (MDRD) Non-Af 40 L BUN/Creatinine Ratio 36.2 H Glucose 87 Lactic Acid 1.0 Calcium 8.5 Magnesium Troponin I Urine Color Urine Clarity Urine pH Ur Specific [place] Urine Protein Urine Glucose (UA) Urine Ketones Urine Occult Blood Urine Nitrite Urine Bilirubin Urine Urobilinogen Ur Leukocyte Esterase Urine RBC Urine WBC Ur Squamous Epith Cells Urine Bacteria Urine Mucus Digoxin COVID-19 (EZ) Pending Clinical Impression(s) from Imaging Studies Lumbar Spine CT 05/24/20 10:01 IMPRESSION: Nondisplaced compression fracture of the L1 vertebra with loss of height of approximately 10%. Displaced narrowing and disc degeneration at the L4-L5 level. Electronically Signed: Ye Braswell, at 12:06 EDT , Service support , Thoracic Spine CT 05/24/20 10:01 IMPRESSION: The mineralization of the thoracic vertebrae. No acute abnormality is seen. Electronically Signed: Ye Nevarezsagar, at 12:08 EDT , Service support , Brain CT 05/24/20 10:05 IMPRESSION: Chronic involutional changes of the brain. Electronically Signed: Ye French, at 12:00 EDT , Service support , Chest X-Ray 05/24/20 10:50 IMPRESSION: Mild degree of increased markings at the left lung base suggests linear atelectasis and/or scarring. Electronically Signed: Ye French, at 11:27 EDT , Service support , Chest X-Ray 05/26/20 05:50 IMPRESSION: No active disease. Electronically Signed: Maximiliano Oneal MD at 6:14 EDT Tel , Service support , Brain CT 05/26/20 08:02 IMPRESSION: Chronic involutional changes of the brain. Electronically Signed: Maximiliano Oneal MD at 9:49 EDT Tel , Service support , Chest X-Ray 05/26/20 09:20 IMPRESSION: Left lower lobe atelectasis Electronically Signed: Maximiliano Oneal MD at 9:50 EDT Tel , Service support , Current Medications Acetaminophen (Acetaminophen 325 Mg Tablet) 650 mg PO Q6H PRN PRN PRN Reason: Pain Score 1-10/Temp > 100.7 F Last Admin: 05/25/20 08:56 Dose: 650 mg Documented by: Acetaminophen (Acetaminophen 650 Mg Suppository) 650 mg RECTAL Q4H PRN PRN PRN Reason: FEVER OF > 100.4F Last Admin: 05/26/20 06:48 Dose: 650 mg Documented by: Albuterol Sulfate (Albuterol 2.5 Mg/3 Ml Vial.Neb.) 2.5 mg INHALATION Q2H PRN PRN PRN Reason: Shortness of Breath/Wheezing Last Admin: 05/26/20 06:06 Dose: 2.5 mg Documented by: Sodium Chloride () 250 mls @ 15 mls/hr IV .[id number] PRN PRN Reason: Saline Flush Sodium Chloride () 250 mls @ 15 mls/hr IV .[id number] PRN PRN Reason: Additional IVPB Infusion Vancomycin IV Pharmacy to Dose (1 ea/ Sodium Chloride) 500 mls @ 250 mls/hr IV X1 PRN; Protocol PRN Reason: Rx to Dose Piperacillin Sod/Tazobactam (Sod 3.375 gm/ Sodium Chloride) 50 mls @ 100 mls/hr IV Q12 DOUG Nitroglycerin (Nitroglycerin (Inpatient Use) 0.4 Mg Tab.Subl) 0.4 mg SUBLINGUAL Q5M PRN PRN Reason: CARDIAC/CHEST PAIN Prochlorperazine Edisylate (Prochlorperazine 10 Mg/2 Ml Vial) 5 mg IV Q4H PRN PRN PRN Reason: Breakthrough nausea/vomiting Sodium Chloride (0.9% Saline Lock 10 Ml Syringe) 10 - 40 ml IV UD PRN PRN Reason: SALINE FLUSH Last Admin: 05/26/20 08:34 Dose: 10 ml Documented by: Assessment/Plan All Active Problems Aspiration pneumonia (Acute) Encephalopathy (Acute) Hypotension (Acute) Severe sepsis (Acute) Compression fracture of L1 vertebra (Acute) JAYANT (acute kidney injury) (Acute) Dehydration (Acute) Elevated INR (Acute) RECOMMENDATIONS: 1. Initiate BiPAP therapy and titrate FiO2 to maintain oxygen saturations at or above 90%. 2. Obtain arterial blood gas. 3. Aggressive bronchopulmonary hygiene. 4. Agree with starting antimicrobials empirically. 5. Attempts at diuresis as tolerated by hemodynamics and renal function. 6. Avoid sedating medications. IMPRESSIONS: 1. Acute hypoxemic respiratory failure Clinical concern for possible acute aspiration event leading to respiratory decompensation. Patient to remain n.p.o. for now. Initiate BiPAP and titrate FiO2 to maintain oxygen saturations at or above 90%. The patient is DNR CCA without intubation. Agree with starting the patient empirically on broad- spectrum antimicrobials. I would strongly avoid any potential sedating medications. 2. Encephalopathy Concern for metabolic etiology. CT head was unremarkable. Recommend obtaining arterial blood gas. Continue to address potential infectious etiologies with antimicrobials as noted above. Avoid sedating medications. 3. Chronic atrial fibrillation/valvular heart disease/BPH/history of [place] Driscoll? syndrome/history of stroke/generalized debility Complicates care, management, recovery and prognosis. Recommend reevaluation by speech therapy prior to advancing any diet. Cardiology has been consulted to evaluate the patient as well. This note was generated with [employer] dictation software. It may contain incorrect words, spelling, and punctuation that were not noted in checking the note before signing. Inpatient E&M: 24365 Init Hosp L3
--- NOTE | 2020-05-26 10:36 | NURSING ---
This RN has spoken with in person and also relayed the same information to both daughters via speaker phone on the 's cell phone.
--- NOTE | 2020-05-26 11:36 | NURSING ---
at bedside assisted with catheter placement
--- NOTE | 2020-05-26 11:59 | EKG12_ITS ---
Test Reason : Blood Pressure : / mmHG Vent. Rate : 070 BPM Atrial Rate : 065 BPM P-R Int : 000 ms QRS Dur : 160 ms QT Int : 476 ms P-R-T Axes : 000 111 061 degrees QTc Int : 514 ms Ventricular-paced rhythm Abnormal ECG Confirmed by IESHA BENITEZ, HEDY ([id number]), primer expeditor and drier TAYLOR ZARATE ([id number]) on 05/27/2020 11:28:43 AM Referred By: MAGALY/JILL Confirmed By:HEDY JULIAN MD
--- NOTE | 2020-05-26 12:00 | NURSING ---
pt transported to PCU 109 by Primary RN Jil and CLOUD OPERATIONS ENGINEER Corrine. MP5-vitals machine, [place] w/ cspo2, and [id number] on patient for transport.
[2020-05-26 12:10] LABS: Bedside Glucose 82 mg/dL (70-110)
--- NOTE | 2020-05-26 12:27 | NURSING ---
Bedside nurse to nurse handoff to Enedina U
--- NOTE | 2020-05-26 12:35 | NURSING ---
pt's Analy located, update given to her and pt's daughter Marcia (Marcia via phone) Analy escorted to pt's bedside
--- NOTE | 2020-05-26 12:44 | CON.PCM_ITS ---
Problem List (1) Atrial fibrillation Status: Chronic (2) Hx of cardiac pacemaker Status: Chronic (3) Hypotension Status: Acute (4) Murmur Status: Chronic (5) Benign essential HTN Status: Chronic (6) Aspiration pneumonia Status: Acute (7) Encephalopathy Status: Acute (8) JAYANT (acute kidney injury) Status: Acute (9) Elevated INR Status: Acute Reason for Consult Date of Consultation: 05/26/20 History of Present Illness: The patient is a 84 year old white male with a past cardiovascular history of underlying atrial fibrillation and permanent pacemaker placement (details unknown as he is cardiovascular diagnosis and care has been performed at an outside institution) superimposed upon history of hypertension, 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 The patient was reported as having a mechanical fall at home and presented to the hospital for further evaluation and care. Since his hospitalization there have been concerns of fever and possible aspiration leading to aspiration pneumonia and encephalopathic changes as well as findings of acute renal insufficiency and an elevated INR level-despite not receiving anticoagulation since his hospitalization. These findings have necessitated the patient being transferred from the medical surgical floor to the PCU for ongoing evaluation and care. At the present time the patient does appear to respond to verbal stimuli by opening his eyes and answering simple questions. He appears to deny any ongoing chest discomfort. He is wearing an O2 facemask. There has been no report of syncope. He has had cardiac enzymes performed. His cardiac enzymes have been negative. His ECG is demonstrated an underlying electronic ventricular paced rhythm. Chest x-ray has demonstrated the appearance of a dual-chamber pacemaker, diminished inspiratory effort, possible increased pulmonary vascularity versus infiltrate. A bedside hand-held quick look transthoracic echocardiogram was performed. This was a technically difficult study. However, based on the images obtained, it appeared the patient had grossly normal right and left ventricular systolic function, the appearance of a thickened/calcified aortic valve, an element of aortic valve insufficiency, no obvious pericardial effusion, and pacemaker wires noted in the right atrium and right ventricle for. He has been treated with IV fluids for his hypotension. There was subsequent concerns of alteration in his respiratory status. He subsequently has received IV diuretics. He has been reported as having overall improvement in his blood pressure and his respiratory status and his level of consciousness. [] Past Medical History Allergies/Adverse Reactions: Allergies No Known Allergies Allergy (Verified 05/24/20 09:53) Home Medications: Ambulatory Orders Medication Instructions Recorded Digoxin [Digox] 125 mcg PO DAILY 07/30/13 Furosemide [Lasix] 20 mg PO DAILY 07/30/13 Metoprolol Tartrate [Lopressor] 100 mg PO BID 07/30/13 Tolterodine Tartrate [Detrol LA] 4 mg PO DAILY 07/30/13 Warfarin [Coumadin] 2.5 mg PO DAILY 07/30/13 Allopurinol [Zyloprim] 300 mg PO DAILY 09/02/15 Dofetilide [Tikosyn] 500 mcg PO BID 09/02/15 Linaclotide [Linzess] 290 mcg PO TID 09/02/15 Magnesium 400 mg PO DAILY 09/02/15 Potassium Chloride [K-Dur] 20 meq PO DAILY 09/02/15 Ropinirole HCl [Requip] 0.25 mg PO QHS 09/02/15 Simvastatin [Zocor] 20 mg PO QHS 09/02/15 Past Medical History (Chronic Problems): Chronic Problems Murmur (Chronic) ischemic stroke (Chronic) Hx of cardiac pacemaker (Chronic) Hx of malignant neoplasm of prostate (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 Denies: Fatigue, Night Sweats Cardiovascular: Reports: Shortness of Breath. Denies: Chest Discomfort, Orthopnea, PND, Peripheral Edema, Palpitations, Lightheadedness, Dizziness, Near Syncope, Syncope Respiratory: Reports: Shortness of Breath. Denies: Cough, Sputum Production, Hemoptysis Gastrointestinal: Denies: Hematemesis, Hematochezia, Melena Genitourinary: Denies: Dysuria, Hematuria Neurological: Reports: Confusion, Falls Subjectve: This is a frail-appearing 84-year-old white male with an O2 facemask in place who does appear to respond to verbal stimuli by opening his eyes and answering simple questions. Objective: Vital Signs Temp Pulse Resp BP Pulse Ox 98.1 F 70 12 106/46 L 100 05/26/20 12:25 05/26/20 12:25 05/26/20 12:25 05/26/20 12:25 05/26/20 12:25 Oxygen Flow Rate (L/min) 5 Oxygen Delivery Method Nasal Cannula Weight: 139 lb 8.842 oz Body Mass Index (BMI) 24.8 Intake and Output for Last 24 Hours 05/24/20 05/25/20 05/26/20 23:59 23:59 23:59 Intake Total 900 / 1100 4356.67 / 4356.67 1700.50 / 1700.50 Output Total 100 / 200 200 / 200 1150 / 1150 Balance 800 / 900 4156.67 / 4156.67 550.50 / 550.50 General: Lethargic Neck: No JVD Lungs: Rhonchi Cardiovascular: Regular Rhythm, Normal S1, Normal S2 Murmur Murmur: Grade 3/6, Harsh, Mid Systolic, LLSB, LVOT, Sternal Notch Abdomen: Bowel Sounds Present, Soft Extremities: Trace RLE Edema, Trace LLE Edema Psych/Mental Status: Dementia 05/25/20 05:40: Magnesium 2.4 05/26/20 05:10: PT 52.4 H, INR 5.8 H* 05/26/20 07:13: WBC 6.8, RBC 3.61 L, Hgb 11.6 L, Hct 37.5 L, MCV 103.9 H, MCH 32.1 H, MCHC 30.9 L, Plt Count 201, MPV 10.6, Immature Gran % (Auto) 0.300, Neut % (Auto) 72.1 H, Lymph % (Auto) 14.8 L, [place] % (Auto) 9.8, Eos % (Auto) 2.7, Baso % (Auto) 0.3, Absolute Neuts (auto) 4.9, Nucleated RBC % 0 05/26/20 07:13: Sodium 139, Potassium 5.7 H, Chloride 111 H, Carbon Dioxide 23.0, Anion Gap 5, BUN 63 H, Creatinine 1.74 H, Est GFR (MDRD) Af Amer 48 L, Est GFR (MDRD) Non-Af 40 L, BUN/Creatinine Ratio 36.2 H, Glucose 87, Calcium 8.5 05/26/20 07:13: Lactic Acid 1.0 Rhythm: Electronic ventricular paced rhythm EKG: Electronic ventricular pacemaker ECHO: As noted above CXR: As noted above Assessment/Plan 1. Atrial fibrillation The patient has a history of atrial fibrillation. The details are unknown. It appears he has been on medical management with rate control therapy, antiarrhythmic therapy, and anticoagulant therapy. At the moment based upon his ongoing clinical course his medications, such as his beta-blockers, for rate control are being placed on hold to avoid hypotension. Also as his INR has been elevated his anticoagulation has been placed on hold as well. 2. Permanent pacemaker It is unclear, other than being a dual-chamber pacemaker, as to the mosaic technician of his permanent pacemaker and whether it was placed because of concerns of an underlying bradycardia tacky/sick sinus syndrome with his atrial dysrhythmia, etc. It has been followed by an outside cardiovascular group. An attempt will be made to obtain previous medical records for continuity of care. Depending upon his clinical course his pacemaker can be interrogated as deemed appropriate. 3. Hypotension The patient was reported as being hypotensive. Based upon his cardiovascular evaluation thus far he has had no acute troponin I level changes, no acute ECG changes, and based upon the bedside hand-held quick look transthoracic echocardiogram the appearance of [place] normal right and left ventricular systolic function. Thus his hypotension may be related to concerns of aspiration pneumonia as well as the possibility of sepsis. He is being evaluated for such. He has received IV antibiotic therapy. 4. Cardiac murmur He does have a cardiac murmur. Based upon his examination and the aforementioned echocardiographic studies there would be concerned that this may be related to underlying aortic valve stenosis. A formal echocardiogram can be requested to further evaluate the patient. 5. Hypertension The patient reportedly has a history of hypertension. At the present time his antihypertensive therapy is on hold. 6. Aspiration pneumonia The patient is being evaluated for concerns of aspiration pneumonia and subsequently possibly a sepsis syndrome. At the moment he has been placed in the PCU. He is continuing supportive care with O2 facemask. He is undergoing medical therapy with IV antibiotics. 7. Acute renal insufficiency The patient has had alteration in his creatinine level. There was concern this was related to dehydration. He has been receiving IV fluids. His renal function will need to be followed through his multiple medical issues and changes in fluid status and medication status. 8. Elevated INR The patient's elevated INR raises concern as to whether or not this could be related to alteration of his underlying albumin/protein levels and/or hepatic function. His laboratory studies regarding such concerns are pending at this time. Of note the patient was tested for COVID-19. This was reported as nondetected. For all, at the present time, this is an 84-year-old white male with multiple medical issues including dementia who is undergoing evaluation care for concerns of possible aspiration pneumonia/sepsis with subsequent hypotension with IV fluids and concerns of subsequent volume overload now requiring facemask O2 as well as diuretic therapy to assist with his underlying pulmonary status. From a cardiac standpoint he is going to continue conservative medical management at this time. A formal echocardiogram can be requested to assist in his ongoing cardiovascular evaluation and care. There are no immediate plans for invasive cardiovascular evaluation/care at this time. Comment: The patient's case has been discussed and reviewed with Dr. Carson and Dr. Reyna. Thank you for allowing me to participate in the care of your patient. Please don't hesitate to call if any issues arise.
--- NOTE | 2020-05-26 12:44 | PCM.RX.CS ---
Consult Pharmacy has been consulted to manage selected antiobiotic: Vancomycin Type of Consult: New start Suspected Infection: Sepsis Prior Doses of Antibiotics Received/Current Regimen: Received 1gm iv x 1 on 05.26.20. Labs: Sodium 139 mmol/L (136-145) 05/26/20 07:13 Potassium 5.7 mmol/L (3.5-5.1) H 05/26/20 07:13 Chloride 111 mmol/L (98-107) H 05/26/20 07:13 Carbon Dioxide 23.0 mmol/L (21.0-32.0) 05/26/20 07:13 Anion Gap 5 (5-15) 05/26/20 07:13 BUN 63 mg/dL (7-18) H 05/26/20 07:13 Creatinine 1.74 mg/dL (0.70-1.30) H 05/26/20 07:13 Est GFR (MDRD) Af Amer 48 mL/min (>60) L 05/26/20 07:13 Est GFR (MDRD) Non-Af 40 mL/min (>60) L 05/26/20 07:13 BUN/Creatinine Ratio 36.2 RATIO (-) H 05/26/20 07:13 Glucose 87 mg/dL (74-106) 05/26/20 07:13 Weight used for dosin.3 kg Estimated Creatinine Clearance: ~25ml/min Goal Trough: 15-20 mcg/mL Pharmacy Plan for Drug Dosing: Will begin 750mg iv q24h starting 24hrs post 1 gm dose. Trough level ordered for 05.28.20. Pharmacy Service will continue to monitor and adjust dosing as required. Follow-Up Labs: Trough Vancomycin - 05.28.20 @0730 before 0800 dose
[2020-05-26 13:10] LABS: AST(SGOT) 27 U/L (15-37); Alanine Aminotransfer ALT/SGPT 13 U/L (16-61); Albumin, Serum 2.5 g/dL (3.2-5.0); Alkaline Phosphatase 99 U/L (45-117); Bilirubin, Direct 0.12 mg/dL (0.00-0.30); Globulin 4.2 g/dL (2.2-4.2); Phosphorus 3.5 mg/dL (2.5-4.9); Protein, Total 6.7 g/dL (6.4-8.2)
[2020-05-26 13:11] LABS: Base Excess -3 mmol/L (-2 to +2); Bicarbonate 23.7 mmol/L (22-26); Blood Gas Specimen Type ART; O2 Delivery Device Cannula; PO2 104 mmHG (75-100); SITE R Radial; SO2 97 % (95-99); Total Carbon Dioxide 25 mmol/L; pCO2 49.8 mmHg (35-45); pH 7.29 (7.35-7.45)
[2020-05-26 15:53] LABS: M R Staph aureus DNA By PCR Negative (Negative); Probe Check PASS; Specimen Processing Control PASS
--- NOTE | 2020-05-26 22:14 | NURSING ---
NIH DIFFICULT TO SCORE, DUE TO PATIENT BEING DROWSY, PT WILL WAKE UP AND RESPOND APPROPRIATELY, BUT NEEDS A LOT OF ENCOURAGEMENT TO PERFORM THE TASKS.
[2020-05-27] VITALS (27 sets, daily range): BP systolic 101–148; BP diastolic 40–62; PULSE 69–72; RESP 12–32; TEMP 36.9–37.7; O2SAT 90–100
[2020-05-27] MEDS: Acetaminophen 325 MG Tablet 650 MG PO (05:16)
[2020-05-27] MEDS: 0.9% Saline Lock 10 ML Syringe IV ×4 (05:23→21:24)
--- NOTE | 2020-05-27 05:55 | ECHOD_ITS ---
Reason For Study: HYPOTENSION Procedure This was a 2D Doppler, Color Flow transthoracic echocardiogram. The study was technically difficult. Exam performed in department. Left Ventricle Normal LV size. Left ventricular systolic function is normal. The estimated ejection fraction is 65 %. No regional wall motion abnormalities noted. Right Ventricle Normal RV size. Normal systolic function. Atria The left atrium is moderately enlarged. The right atrium is moderately enlarged. Tricuspid Valve Normal tricuspid valve. Moderate (2+) tricuspid valve insufficiency. Pulmonary artery systolic pressure is 65 mmHg. Aortic Valve Trisinus/trileaflet aortic valve. Mild focal aortic valve calcification. Peak aortic valve gradient 98 mmHg. Mean aortic valve gradient 60 mmHg. Severe aortic stenosis. Mild (1+) aortic valve insufficiency. Pulmonic Valve Normal pulmonic valve. Great Vessels Normal aortic root. The pulmonary artery is normal size. Normal inferior vena cava. Pericardium/Pleural No pericardial effusion. Medication Definity deferred d/t elevated PAP. MMode/2D Measurements & Calculations LVIDd: 3.8 cm IVSd: 1.5 cm LVOT diam: 2.0 cm LVIDs: 2.6 cm LVPWd: 1.1 cm LVOT area: 3.1 cm2 RVDd: 3.3 cm FS: 31.3 % Ao root diam: 3.1 cm LAV(MOD-bp): 95.6 ml Aortic Valve Planimetry: 0.74 cm2 LAV(MOD-bp) Indexed: 57.2 ml/m2 LAV(MOD-sp2): 98.3 ml LAV(MOD-sp4): 85.4 ml LA dimension(2D): 5.0 cm LA A4 area: 26.3 cm2 RA A4 area: 25.2 cm2 Time Measurements MV dec time: 0.17 sec Doppler Measurements & Calculations MV E max steve: 116.0 cm/sec Lat Peak E' Steve: 8.6 cm/sec Med Peak E' Steve: 6.8 cm/sec MV A max steve: 60.0 cm/sec E/E' lat: 13.4 E/E' med: 17.0 MV E/A: 1.9 Ao V2 max: 492.7 cm/sec AI max steve: 410.3 cm/sec LV V1 max: 115.8 cm/sec Ao max P.6 mmHg AI max P.5 mmHg LV V1 max P.4 mmHg Ao V2 mean: 366.9 cm/sec AI dec slope: 310.3 cm/sec2 LV V1 mean P.1 mmHg Ao mean P.9 mmHg AI P1/2t: 387.2 msec LV V1 mean: 82.5 cm/sec Ao V2 VTI: 88.6 cm LV V1 VTI: 21.4 cm BREANNA(I,D): 0.75 cm2 BREANNA(V,D): 0.73 cm2 SV(LVOT): 66.8 ml PA V2 max: 166.0 cm/sec TR max steve: 392.2 cm/sec TR max P.5 mmHg Interpretation Summary Pulmonary artery systolic pressure is 65 mmHg. Mild focal aortic valve calcification. Mean aortic valve gradient 60 mmHg. Mild (1+) aortic valve insufficiency. Severe aortic stenosis. Normal LV size. Left ventricular systolic function is normal. The estimated ejection fraction is 65 %. Ordering Physician: Jason Carson Referring Physician: ALEC CUENCA Performed By: Yasmin Ghosh RDCS, RVT
[2020-05-27 06:05] LABS: Basophil# 0.02 X10^3/uL; Basophil% 0.3 % (0-1); Eosinophil# 0.14 X10^3/uL; Hematocrit 32.1 % (40-54); Lymphocyte % 15.8 % (19-41); Mean Corp Hgb Conc 31.2 g/dL (32-36); Mean Corpuscular Hgb 32.1 pg (27.0-32.0); Mean Corpuscular Volume 102.9 fL (80-94); Mean Platelet Vol. 10.1 fl (6.2-12.0); Monocyte# 0.65 X10^3/uL; Monocyte% 9.4 % (0-10); NRBC Flagged by Analyzer 0 % (0-5); Neutrophil # 5.02 X10^3/uL (2.7-7.7); Neutrophil % 72.2 % (47-70); Platelet Count 181 K/mm3 (150-450); RBC Distribution Width CV 14.6 % (11.6-14.6); RBC Distribution Width SD 55.5 fl (35.1-43.9); Red Blood Count 3.12 M/mm3 (4.6-6.2)
[2020-05-27 06:33] LABS: AST(SGOT) 25 U/L (15-37); Alanine Aminotransfer ALT/SGPT 12 U/L (16-61); Albumin, Serum 2.2 g/dL (3.2-5.0); Alkaline Phosphatase 89 U/L (45-117); Anion Gap 10 (5-15); BUN 61 mg/dL (7-18); BUN/Creat Ratio 38.1 RATIO (10-20); Bilirubin, Direct 0.23 mg/dL (0.00-0.30); Calcium,Total 8.7 mg/dL (8.5-10.1); Chloride 112 mmol/L (98-107); EST Glomerular Filtration Rate 44 mL/min (>60); Est Glom Filt Rate - Afr Amer 53 mL/min (>60); Estimated Creatinine Clearance 27.66 ml/min; Globulin 4.2 g/dL (2.2-4.2); Glucose 64 mg/dL (74-106); Potassium 4.1 mmol/L (3.5-5.1); Protein, Total 6.4 g/dL (6.4-8.2); Sodium Level 142 mmol/L (136-145)
[2020-05-27 06:40] LABS: International Normalized Ratio 1.6; Prothrombin Time (Protime)PT. 18.4 SECONDS (11.7-14.9)
--- NOTE | 2020-05-27 08:54 | PN_ITS ---
Patient Problems: Active and Suspected Problems Aspiration pneumonia (Acute) Encephalopathy (Acute) Hypotension (Acute) Compression fracture of L1 vertebra (Acute) JAYANT (acute kidney injury) (Acute) Dehydration (Acute) Elevated INR (Acute) Subjective: Patient did okay overnight. Patient was on BiPAP with sleep and tolerated well. Patient was able to be weaned to 2 L nasal cannula this morning. Patient has not been using an incentive spirometer. Patient continues to report lumbar back pain. - Physical Exam Vitals/I&O's: Vital Signs Temp Pulse Resp BP Pulse Ox 36.9 C 70 24 H 112/51 L 93 05/27/20 08:00 05/27/20 08:00 05/27/20 08:00 05/27/20 08:00 05/27/20 08:00 Oxygen Flow Rate (L/min) 3 Oxygen Delivery Method Room Air Weight: 64.5 kg Body Mass Index (BMI) 24.8 Intake and Output for Last 24 Hours 05/25/20 05/26/20 05/27/20 23:59 23:59 23:59 Intake Total 4356.67 / 4356.67 1775.00 / 1775.00 50 / 50 Output Total 200 / 200 2000 / 2650 950 / 950 Balance 4156.67 / 4156.67 -225.00 / -875.00 -900 / -900 General: Alert, Cooperative, No apparent distress, - - Slightly slow to respond, but appropriate HEENT: Atraumatic, PERRLA, EOMI, Normocephalic, - - No scleral icterus or i njection noted Oral: Moist Mucosa, No Gingival or Mucosal Lesions/ Ulcerations Neck: Supple, No JVD, No Nodes, Trachea Midline Lungs: No wheeze, No rales, Diminished, Rhonchi - Left base, - - Fair effort Cardiovascular: Normal S1, Normal S2, Irregular Rate, Murmur, No rub noted, No Gallop Abdomen: Bowel Sounds Present, Soft, Non Tender, Non-Distended Extremities: No clubbing, No cyanosis, Edema Musculoskeletal: Tenderness - Flank palpation Lymphatic: No Cervical, Supraclavicular, or Inguinal Adenopathy Neurological: - - Some contractures of the upper extremities with chronic lower extremity weakness Psych/Mental Status: Flat Affect Laboratory Results 05/26/20 07:13: Phosphorus 3.5, Magnesium 2.0, Total Bilirubin 0.30, Direct Bilirubin 0.12, AST 27, ALT 13 L, Alkaline Phosphatase 99, Total Protein 6.7, Albumin 2.5 L, Globulin 4.2 05/26/20 07:37: COVID-19 (EZ) Not Detected 05/26/20 07:50: POC Glucose 82 05/26/20 12:04: Specimen Type ART, Sample Site R Radial, pH 7.29 L, Bicarbonate Actual 23.7, Total CO2 25, Base Excess -3 L, O2 Saturation 97, ABG pCO2 49.8 H, ABG pO2 104 H, O2 Delivery Device Cannula, Liter Flow 3.0 05/26/20 13:00: MRSA (PCR) Negative 05/27/20 05:54: PT 18.4 H, INR 1.6 05/27/20 05:54: Sodium 142, Potassium 4.1, Chloride 112 H, Carbon Dioxide 20.0 L , Anion Gap 10, BUN 61 H, Creatinine 1.60 H, Estim Creat Clear Calc 27.66, Est GFR (MDRD) Af Amer 53 L, Est GFR (MDRD) Non-Af 44 L, BUN/Creatinine Ratio 38.1 H , Glucose 64 L, Calcium 8.7, Total Bilirubin 0.70, Direct Bilirubin 0.23, AST 25, ALT 12 L, Alkaline Phosphatase 89, Total Protein 6.4, Albumin 2.2 L, Globulin 4.2 05/27/20 05:54: Digoxin 1.50 05/27/20 05:54: WBC 7.0, RBC 3.12 L, Hgb 10.0 L, Hct 32.1 L, MCV 102.9 H, MCH 32.1 H, MCHC 31.2 L, RDW Std Deviation 55.5 H, RDW Coeff of [place] 14.6, Plt Count 181, MPV 10.1, Immature Gran % (Auto) 0.300, Neut % (Auto) 72.2 H, Lymph % (Auto) 15.8 L, [place] % (Auto) 9.4, Eos % (Auto) 2.0, Baso % (Auto) 0.3, Absolute Neuts (auto) 5.0, Absolute Lymphs (auto) 1.10, Nucleated RBC % 0 Current Medications Acetaminophen (Acetaminophen 325 Mg Tablet) 650 mg PO Q6H PRN PRN PRN Reason: Pain Score 1-10/Temp > 100.7 F Last Admin: 05/27/20 05:16 Dose: 650 mg Documented by: Acetaminophen (Acetaminophen 650 Mg Suppository) 650 mg RECTAL Q4H PRN PRN PRN Reason: FEVER OF > 100.4F Last Admin: 05/26/20 06:48 Dose: 650 mg Documented by: Albuterol Sulfate (Albuterol 2.5 Mg/3 Ml Vial.Neb.) 2.5 mg INHALATION Q2H PRN PRN PRN Reason: Shortness of Breath/Wheezing Last Admin: 05/26/20 06:06 Dose: 2.5 mg Documented by: Atorvastatin Calcium (Atorvastatin Calcium 40 Mg Tablet) 40 mg PO QHS DOUG Last Admin: 05/26/20 21:19 Dose: Not Given Documented by: Sodium Chloride () 250 mls @ 15 mls/hr IV .[id number] PRN PRN Reason: Saline Flush Last Infusion: 05/26/20 22:57 Dose: 0 mls/hr Documented by: Sodium Chloride () 250 mls @ 15 mls/hr IV .[id number] PRN PRN Reason: Additional IVPB Infusion Piperacillin Sod/Tazobactam (Sod 3.375 gm/ Sodium Chloride) 50 mls @ 100 mls/hr IV Q12 DOUG Last Infusion: 05/26/20 21:55 Dose: Infused Documented by: Nitroglycerin (Nitroglycerin (Inpatient Use) 0.4 Mg Tab.Subl) 0.4 mg SUBLINGUAL Q5M PRN PRN Reason: CARDIAC/CHEST PAIN Prochlorperazine Edisylate (Prochlorperazine 10 Mg/2 Ml Vial) 5 mg IV Q4H PRN PRN PRN Reason: Breakthrough nausea/vomiting Sodium Chloride (0.9% Saline Lock 10 Ml Syringe) 10 - 40 ml IV UD PRN PRN Reason: SALINE FLUSH Last Admin: 05/27/20 05:23 Dose: 20 ml Documented by: Clinical Impression(s) from Imaging Studies Brain CT 05/26/20 08:02 IMPRESSION: Chronic involutional changes of the brain. Electronically Signed: Maximiliano Oneal MD at 9:49 EDT Tel , Service support , Chest X-Ray 05/26/20 09:20 IMPRESSION: Left lower lobe atelectasis Electronically Signed: Maximiliano Oneal MD at 9:50 EDT Tel , Service support , Medical Necessity - Tobacco Use Smoking Status: Never smoker Assessment/Plan All Active Problems Aspiration pneumonia (Acute) Encephalopathy (Acute) Hypotension (Acute) Severe sepsis (Acute) Compression fracture of L1 vertebra (Acute) JAYANT (acute kidney injury) (Acute) Dehydration (Acute) Elevated INR (Acute) RECOMMENDATIONS: 1. BiPAP rescue as needed and titrate FiO2 to maintain oxygen saturations at or above 90%. 2. Aggressive pain control 3. Aggressive bronchopulmonary hygiene. 4. Continue empiric antibiotics pending culture results 5. Attempts at diuresis as tolerated by hemodynamics and renal function. 6. Avoid sedating medications. IMPRESSIONS: 1. Acute hypoxemic respiratory failure Clinical concern for possible acute aspiration event leading to respiratory decompensation versus atelectasis secondary to splinting with lumbar fracture. Patient to remain n.p.o. for now. Tolerated BiPAP well with probable recruitment. Titrate FiO2 to maintain oxygen saturations at or above 90%. The patient is DNR CCA without intubation. Agree with starting the patient empirically on broad-spectrum antimicrobials. ABG did show an element of respiratory acidosis on 3 L nasal cannula. Avoid sedating medications if possible. Patient would not be a candidate for vest therapy for pulmonary recruitment given lumbar fractures 2. Encephalopathy Concern for metabolic etiology. CT head was unremarkable. Continue to address potential infectious etiologies with antimicrobials as noted above. Avoid sedating medications. 3. Chronic atrial fibrillation/valvular heart disease/BPH/history of [place] Driscoll? syndrome/history of stroke/generalized debility Complicates care, management, recovery and prognosis. Recommend reevaluation by speech therapy prior to advancing any diet. Cardiology has been consulted to evaluate the patient as well. Inpatient E&M: 83944 Subs Hosp L2
--- NOTE | 2020-05-27 09:26 | PCM.PN.CARD ---
Subjectve: The patient is in the PCU and not currently requiring O2 support. He appears to be somewhat more awake although he appears to be not totally alert and oriented x3. Objective: Vital Signs Temp Pulse Resp BP Pulse Ox 99.0 F 70 28 H 104/40 L 92 05/27/20 08:59 05/27/20 08:59 05/27/20 08:59 05/27/20 08:59 05/27/20 08:59 Oxygen Flow Rate (L/min) 3 Oxygen Delivery Method Room Air Weight: 142 lb 3.17 oz Body Mass Index (BMI) 24.8 Intake and Output for Last 24 Hours 05/25/20 05/26/20 05/27/20 23:59 23:59 23:59 Intake Total 4356.67 / 4356.67 1775.00 / 1775.00 50 / 50 Output Total 200 / 200 2000 / 2650 950 / 950 Balance 4156.67 / 4156.67 -225.00 / -875.00 -900 / -900 General: Awake, No Acute Distress HEENT: Atraumatic, Normocephalic, PERRL, EOMI, Sclera Non Icteric Neck: No JVD Lungs: Rhonchi Cardiovascular: Regular Rhythm, Normal S1, Normal S2 Murmur Murmur: Grade 3/6, Harsh, Mid Systolic, LLSB, LVOT, Sternal Notch Abdomen: Bowel Sounds Present, Soft Extremities: No edema Psych/Mental Status: Dementia 05/26/20 07:13: Phosphorus 3.5, Magnesium 2.0, Total Bilirubin 0.30, Direct Bilirubin 0.12 05/26/20 12:04: pH 7.29 L, Bicarbonate Actual 23.7, Base Excess -3 L, O2 Saturation 97, ABG pCO2 49.8 H, ABG pO2 104 H 05/27/20 05:54: PT 18.4 H, INR 1.6 05/27/20 05:54: Sodium 142, Potassium 4.1, Chloride 112 H, Carbon Dioxide 20.0 L, Anion Gap 10, BUN 61 H, Creatinine 1.60 H, Est GFR (MDRD) Af Amer 53 L, Est GFR (MDRD) Non-Af 44 L, BUN/Creatinine Ratio 38.1 H, Glucose 64 L, Calcium 8.7, Total Bilirubin 0.70, Direct Bilirubin 0.23 05/27/20 05:54: Digoxin 1.50 05/27/20 05:54: WBC 7.0, RBC 3.12 L, Hgb 10.0 L, Hct 32.1 L, MCV 102.9 H, MCH 32.1 H, MCHC 31.2 L, Plt Count 181, MPV 10.1, Immature Gran % (Auto) 0.300, Neut % (Auto) 72.2 H, Lymph % (Auto) 15.8 L, [place] % (Auto) 9.4, Eos % (Auto) 2.0, Baso % (Auto) 0.3, Absolute Neuts (auto) 5.0, Nucleated RBC % 0 Rhythm: Electronic ventricular paced rhythm Medical Necessity - Tobacco Use Smoking Status: Never smoker Assessment/Plan 1. Atrial fibrillation The patient has a history of atrial fibrillation. The details are unknown. It appears he has been on medical management with rate control therapy, antiarrhythmic therapy, and anticoagulant therapy. At the moment based upon his ongoing clinical course his medications, such as his beta-blockers, for rate control are being placed on hold to avoid hypotension. Also, based upon his fluctuating renal status his antiarrhythmic therapy with Tikosyn has been placed on hold. Also as his INR appears to be normalizing at this time. Thus he will need to be considered for alternative anticoagulant therapy barring obvious contraindications. 2. Permanent pacemaker It is unclear, other than being a dual-chamber pacemaker, as to the well driller helper of his permanent pacemaker and whether it was placed because of concerns of an underlying bradycardia tacky/sick sinus syndrome with his atrial dysrhythmia, etc. It has been followed by an outside cardiovascular group. An attempt will be made to obtain previous medical records for continuity of care. Depending upon his clinical course his pacemaker can be interrogated as deemed appropriate. 3. Hypotension The patient was reported as being hypotensive. Based upon his cardiovascular evaluation thus far he has had no acute troponin I level changes, no acute ECG changes, and based upon the bedside hand-held quick look transthoracic echocardiogram the appearance of [place] normal right and left ventricular systolic function. Thus his hypotension may be related to concerns of aspiration pneumonia as well as the possibility of sepsis. He is being evaluated for such. He has received IV antibiotic therapy. His blood pressure has improved overall. 4. Cardiac murmur He does have a cardiac murmur. Based upon his examination and the aforementioned echocardiographic studies there would be concerned that this may be related to underlying aortic valve stenosis. A formal echocardiogram can be requested to further evaluate the patient. 5. Hypertension The patient reportedly has a history of hypertension. At the present time his antihypertensive therapy is on hold. 6. Aspiration pneumonia The patient is being evaluated for concerns of aspiration pneumonia and subsequently possibly a sepsis syndrome. At the moment he has been placed in the PCU. He is currently wearing O2 support. He is undergoing medical therapy with IV antibiotics. 7. Acute renal insufficiency The patient has had alteration in his creatinine level. There was concern this was related to dehydration. He has been receiving IV fluids. His renal function will need to be followed through his multiple medical issues and changes in fluid status and medication status. 8. Elevated INR The patient's elevated INR raises concern as to whether or not this could be related to alteration of his underlying albumin/protein levels and/or hepatic function. His laboratory studies demonstrate that his albumin level is low. Of note the patient was tested for COVID-19. This was reported as nondetected. At the present time, this is an 84-year-old white male with multiple medical issues including dementia who is undergoing evaluation care for concerns of possible aspiration pneumonia/sepsis with subsequent hypotension with IV fluids and concerns of subsequent volume overload now requiring facemask O2 as well as diuretic therapy to assist with his underlying pulmonary status. From a cardiac standpoint he is going to continue conservative medical management at this time. A formal echocardiogram has been requested to assist in his ongoing cardiovascular evaluation and care. There are no immediate plans for invasive cardiovascular evaluation/care at this time. Comment: The patient's case has been discussed and reviewed with Dr. Ahmadi. Thank you for allowing me to participate in the care of your patient. Please don't hesitate to call if any issues arise.
--- NOTE | 2020-05-27 11:56 | CASEMGMT ---
Addendum entered by Laurence Hernandez 05/27/20 13:52: TCU is able to take patient when he is medically ready and as long as family is still in agreement. Laurence CONNELL Original Note: Physician spoke with patient and her daughter Sonia over the phone. They are in agreement with TCU. SW spoke with patient's and their daughter, Sonia over the phone. Patient's is in agreement with TCU, however Sonia would like to talk as a family before committing. She is in agreement with SW putting his name on the TCU list. SW called Ines on [facility] post acute referral line and made referral. Laurence CONNELL
[2020-05-27] MEDS: Furosemide 20 MG/2 ML VIAL IV (13:05)
[2020-05-27] MEDS: Lidocaine 5% Patch 2 PATCH TOPICAL (13:07)
[2020-05-27] MEDS: Acetaminophen 650 MG Suppository RECTAL ×2 (13:08→21:24)
[2020-05-27] MEDS: Aspirin 300 MG Suppository RECTAL (13:15)
--- NOTE | 2020-05-27 15:58 | CT_ITS ---
STUDY: CT BRAIN WITHOUT CONTRAST REASON FOR EXAM: Male, 84 years old. ENCEPHALOPATHY RADIATION DOSAGE (If Supplied By Facility): CTDIvol = ( 44.99 ) mGy, DLP = ( 829.85 ) mGycm TECHNIQUE: Transaxial CT imaging of the brain was performed without administration of intravenous contrast material. Individualized dose optimization techniques were used for this CT. COMPARISON: 05/26/2020 FINDINGS: Normal soft tissue structures. Normal calvarium. There is moderate cerebral atrophy with widening of the extra-axial spaces and ventricular dilatation. There are areas of decreased attenuation within the white matter tracts of the supratentorial brain, consistent with microvascular disease changes. Normal basal ganglia and thalami. Normal brainstem. Normal cerebellum. There is no intracranial hemorrhage. 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 Normal visualized paranasal sinuses. CT/Brain/Head without Contrast IMPRESSION: Chronic involutional changes of the brain. Electronically Signed: Maximiliano Oneal MD at 16:48 EDT Tel , Service support ,
--- NOTE | 2020-05-27 17:50 | PCM.PN.HOSP ---
Patient Problems: Active and Suspected Problems Aspiration pneumonia (Acute) Encephalopathy (Acute) Hypotension (Acute) Compression fracture of L1 vertebra (Acute) JAYANT (acute kidney injury) (Acute) Dehydration (Acute) Elevated INR (Acute) Reason for Visit: Follow-up on acute metabolic encephalopathy/hypoxia/severe sepsis Subjective: Patient was seen and examined. He appears very weak and lethargic. He failed bedside evaluation with speech therapy. He has been made n.p.o. I had a long discussion with nursing staff and also with the at the bedside with her daughter drooling on phone. Updated them. Repeat CT scan of the brain was negative for acute stroke. Patient is a 2 person assist per therapy evaluation. Objective: Physical exam: General: Lethargic, awakes when spoken to, alert oriented x3 HEENT: Atraumatic, PERRLA, EOMI, Normocephalic Oral: No Gingival or Mucosal Lesions/ Ulcerations Neck: Supple, No JVD, Negative Carotid Bruits Lungs: Air entry severely diminished in both lungs. Bilateral coarse crepitation and rhonchi present. Shallow breathing, respiratory rate 12-14. Cardiovascular: Pacemaker rhythm, Normal S1, Normal S2, grade 5/6 ejection systolic murmur over left second ICS with radiation to carotids cardiac apex. Abdomen: Bowel Sounds Present, Soft, Non Tender, Non-Distended, urine in Nam catheter is cloudy, : No renal angle tenderness. No suprapubic tenderness. Extremities: Lateral leg edema +1 Skin: No rashes, No breakdown Vitals/I&O's: Vital Signs Temp Pulse Resp BP Pulse Ox 99.1 F 70 26 H 133/48 H 97 05/27/20 17:32 05/27/20 17:32 05/27/20 17:32 05/27/20 17:32 05/27/20 17:32 Oxygen Flow Rate (L/min) 2 Oxygen Delivery Method Nasal Cannula Weight: 64.5 kg Body Mass Index (BMI) 24.8 Intake and Output for Last 24 Hours 05/25/20 05/26/20 05/27/20 23:59 23:59 23:59 Intake Total 4356.67 / 4356.67 1775.00 / 1775.00 141 / 141 Output Total 200 / 200 2000 / 2650 1550 / 1550 Balance 4156.67 / 4156.67 -225.00 / -875.00 -1409 / -1409 Microbiology Past 72 Hours 05/26/20 11:30 Urine, Catheterized Urine Culture - Preliminary Culture exhibits no growth. Laboratory Results 05/27/20 05:54: PT 18.4 H, INR 1.6 05/27/20 05:54: Sodium 142, Potassium 4.1, Chloride 112 H, Carbon Dioxide 20.0 L, Anion Gap 10, BUN 61 H, Creatinine 1.60 H, Estim Creat Clear Calc 27.66, Est GFR (MDRD) Af Amer 53 L, Est GFR (MDRD) Non-Af 44 L, BUN/Creatinine Ratio 38.1 H, Glucose 64 L, Calcium 8.7, Total Bilirubin 0.70, Direct Bilirubin 0.23, AST 25, ALT 12 L, Alkaline Phosphatase 89, Total Protein 6.4, Albumin 2.2 L, Globulin 4.2 05/27/20 05:54: Digoxin 1.50 05/27/20 05:54: WBC 7.0, RBC 3.12 L, Hgb 10.0 L, Hct 32.1 L, MCV 102.9 H, MCH 32.1 H, MCHC 31.2 L, RDW Std Deviation 55.5 H, RDW Coeff of Radha 14.6, Plt Count 181, MPV 10.1, Immature Gran % (Auto) 0.300, Neut % (Auto) 72.2 H, Lymph % (Auto) 15.8 L, [place] % (Auto) 9.4, Eos % (Auto) 2.0, Baso % (Auto) 0.3, Absolute Neuts (auto) 5.0, Absolute Lymphs (auto) 1.10, Nucleated RBC % 0 Current Medications Acetaminophen (Acetaminophen 650 Mg Suppository) 650 mg RECTAL TID [facility] Last Admin: 05/27/20 13:08 Dose: 650 mg Documented by: Albuterol Sulfate (Albuterol 2.5 Mg/3 Ml Vial.Neb.) 2.5 mg INHALATION Q2H PRN PRN PRN Reason: Shortness of Breath/Wheezing Last Admin: 05/26/20 06:06 Dose: 2.5 mg Documented by: Aspirin (Aspirin 300 Mg Suppository) 300 mg RECTAL DAILY [facility] Last Admin: 05/27/20 13:15 Dose: 300 mg Documented by: Furosemide (Furosemide 20 Mg/2 Ml Vial) 20 mg IV DAILY [facility] Last Admin: 05/27/20 13:05 Dose: 20 mg Documented by: Sodium Chloride () 250 mls @ 15 mls/hr IV .[id number] PRN PRN Reason: Saline Flush Last Infusion: 05/27/20 16:14 Dose: 0 mls/hr Documented by: Sodium Chloride () 250 mls @ 15 mls/hr IV .[id number] PRN PRN Reason: Additional IVPB Infusion Piperacillin Sod/Tazobactam (Sod 3.375 gm/ Sodium Chloride) 50 mls @ 100 mls/hr IV Q8 DOUG Last Infusion: 05/27/20 13:40 Dose: Infused Documented by: Lidocaine (Lidocaine 5% Patch) 2 patch TOPICAL DAILY [facility]; Protocol Last Admin: 05/27/20 13:07 Dose: 2 patch Documented by: Nitroglycerin (Nitroglycerin (Inpatient Use) 0.4 Mg Tab.Subl) 0.4 mg SUBLINGUAL Q5M PRN PRN Reason: CARDIAC/CHEST PAIN Prochlorperazine Edisylate (Prochlorperazine 10 Mg/2 Ml Vial) 5 mg IV Q4H PRN PRN PRN Reason: Breakthrough nausea/vomiting Sodium Chloride (0.9% Saline Lock 10 Ml Syringe) 10 - 40 ml IV UD PRN PRN Reason: SALINE FLUSH Last Admin: 05/27/20 13:08 Dose: 10 ml Documented by: STROKE Vital Signs/Narrative: Vital Signs Temp Pulse Resp BP Pulse Ox 05/27/20 17:32 99.1 F 70 26 H 133/48 H 97 05/27/20 16:37 99.3 F H 70 23 H 128/46 H 95 Medical Necessity - Tobacco Use Smoking Status: Never smoker Assessment/Plan All Active Problems Aspiration pneumonia (Acute) Encephalopathy (Acute) Hypotension (Acute) Severe sepsis (Acute) Compression fracture of L1 vertebra (Acute) JAYANT (acute kidney injury) (Acute) Dehydration (Acute) Elevated INR (Acute) 1. Acute hypoxic respiratory insufficiency secondary to aspiration pneumonitis Chest x-ray yesterday shows possible left lower lobe atelectasis I strongly suspect patient is developing pneumonia Continue with breathing treatments, IV steroids, encourage use of incentive spirometer. Wean off oxygen for SPO2 more than 94% 2. Severe sepsis likely secondary to aspiration pneumonitis Continue on IV Zosyn 3. Acute metabolic encephalopathy likely secondary to hypoxia and severe sepsis We will continue to monitor 4. Acute nondisplaced compression fracture of L1, patient will follow-up in the outpatient Continue with scheduled Tylenol rectally as well as Lidoderm patch 5. JAYANT on CKD stage III, creatinine improved to baseline We will continue to monitor 6. Supratherapeutic INR, INR is currently 1.6 Hold off on anticoagulation for now, repeat INR in a.m. 7. Hypertension/history of stroke, unable to take medication by mouth, will continue with Lasix 20 mg IV twice daily, rectal aspirin Repeat blood work in a.m. 8. History of Guillain-Driscoll?, progressive weakness Family is receptive to patient going for subacute rehab Social work consulted for discharge planning 9. DVT prophylaxis?with SCDs as INR was recently supratherapeutic Time spent discussing patient's overall prognosis, plan of care, discharge planning was about 40 minutes with questions from and daughter and said to their satisfaction. I also discussed in detail with nursing staff about patient's plan of care. Inpatient E&M: 12723 Subs Hosp L3 Procedures: 01277 Prolonged InPt Service; first hour
[2020-05-27 18:31] LABS: Magnesium 2.1 mg/dL (1.6-2.6)
[2020-05-28] VITALS (13 sets, daily range): BP systolic 118–145; BP diastolic 54–70; PULSE 69–75; RESP 16–20; TEMP 36.5–37.2; O2SAT 25–100
[2020-05-28] MEDS: Acetaminophen 650 MG Suppository RECTAL ×3 (05:25→21:22)
[2020-05-28 06:19] LABS: Absolute Neutrophil Count 6.4 X10^3/uL (2.0-7.7); Basophil# 0.01 X10^3/uL; Basophil% 0.1 % (0-1); Eosinophil# 0.25 X10^3/uL; Eosinophils% 2.9 % (0-5); Hematocrit 32.1 % (40-54); Hemoglobin 10.1 g/dL (13.0-16.5); Lymphocyte % 12.9 % (19-41); Mean Corp Hgb Conc 31.5 g/dL (32-36); Mean Corpuscular Volume 101.6 fL (80-94); Mean Platelet Vol. 10.3 fl (6.2-12.0); Monocyte# 0.69 X10^3/uL; Monocyte% 8.1 % (0-10); NRBC Flagged by Analyzer 0 % (0-5); Neutrophil # 6.37 X10^3/uL (2.7-7.7); Neutrophil % 75.1 % (47-70); Platelet Count 196 K/mm3 (150-450); RBC Distribution Width CV 14.6 % (11.6-14.6); RBC Distribution Width SD 54.2 fl (35.1-43.9); Red Blood Count 3.16 M/mm3 (4.6-6.2); White Blood Count 8.5 K/mm3 (4.4-11.0)
[2020-05-28 06:26] LABS: International Normalized Ratio 1.8
[2020-05-28 06:48] LABS: ALB/GLOB Ratio 0.5 RATIO (0.9-2.4); AST(SGOT) 27 U/L (15-37); Alanine Aminotransfer ALT/SGPT 13 U/L (16-61); Albumin, Serum 2.1 g/dL (3.2-5.0); Alkaline Phosphatase 96 U/L (45-117); Anion Gap 10 (5-15); BUN 46 mg/dL (7-18); BUN/Creat Ratio 35.1 RATIO (10-20); Calcium,Total 8.7 mg/dL (8.5-10.1); Chloride 113 mmol/L (98-107); Creatinine, Serum 1.31 mg/dL (0.70-1.30); EST Glomerular Filtration Rate 55 mL/min (>60); Est Glom Filt Rate - Afr Amer 67 mL/min (>60); Estimated Creatinine Clearance 33.78 ml/min; Globulin 4.5 g/dL (2.2-4.2); Glucose 65 mg/dL (74-106); Potassium 3.4 mmol/L (3.5-5.1); Protein, Total 6.6 g/dL (6.4-8.2); Sodium Level 146 mmol/L (136-145)
--- NOTE | 2020-05-28 07:05 | PCM.PN.PUL ---
Patient Problems: Active and Suspected Problems Aspiration pneumonia (Acute) Encephalopathy (Acute) Hypotension (Acute) Compression fracture of L1 vertebra (Acute) JAYANT (acute kidney injury) (Acute) Dehydration (Acute) Elevated INR (Acute) Subjective: Patient did okay overnight. Patient remains n.p.o. secondary to swallow concerns. Patient continues to report back pain, but feels dyspnea is improved. Oxygenation continues to improve. - Physical Exam Vitals/I&O's: Vital Signs Temp Pulse Resp BP Pulse Ox 36.8 C 75 18 126/60 H 100 05/28/20 05:15 05/28/20 05:15 05/28/20 05:15 05/28/20 05:15 05/28/20 05:15 Oxygen Flow Rate (L/min) 2 Oxygen Delivery Method Nasal Cannula Weight: 62.5 kg Body Mass Index (BMI) 24.8 Intake and Output for Last 24 Hours 05/26/20 05/27/20 05/28/20 23:59 23:59 23:59 Intake Total 1775.00 / 1775.00 266 / 266 Output Total 1999 / 2649 225 / 225 Balance -225.00 / -875.00 -1784 / -1784 -225 / -225 General: Alert, Cooperative, - - Some difficulty with understanding vocalization. HEENT: Atraumatic, PERRLA, EOMI, Normocephalic, - - No scleral icterus or injection noted Oral: Moist Mucosa, No Gingival or Mucosal Lesions/ Ulcerations Neck: Supple, No JVD, No Nodes, Trachea Midline Lungs: No rhonchi, No wheeze, Diminished, Rales - Left base, - - Symmetric expansion Cardiovascular: Normal S1, Normal S2, Irregular Rate, Murmur, No rub noted, No Gallop Abdomen: Bowel Sounds Present, Soft, Non Tender, Non-Distended Extremities: No clubbing, No cyanosis, Edema - Trace Musculoskeletal: No Tenderness to Palpation of Joints or Extremities Lymphatic: No Cervical, Supraclavicular, or Inguinal Adenopathy Neurological: - - Unchanged from previous Psych/Mental Status: Flat Affect Microbiology Past 72 Hours 05/26/20 11:30 Urine, Catheterized Urine Culture - Preliminary Culture exhibits no growth. Laboratory Results 05/27/20 05:54: Magnesium 2.1 05/27/20 05:54: Vit D 1,25-Dihydroxy Pending 05/28/20 05:40: PT 20.0 H, INR 1.8 05/28/20 05:40: WBC 8.5, RBC 3.16 L, Hgb 10.1 L, Hct 32.1 L, MCV 101.6 H, MCH 32.0, MCHC 31.5 L, RDW Std Deviation 54.2 H, RDW Coeff of Radha 14.6, Plt Count 196, MPV 10.3, Immature Gran % (Auto) 0.900, Neut % (Auto) 75.1 H, Lymph % (Auto) 12.9 L, [place] % (Auto) 8.1, Eos % (Auto) 2.9, Baso % (Auto) 0.1, Absolute Neuts (auto) 6.4, Absolute Lymphs (auto) 1.10, Nucleated RBC % 0 05/28/20 05:40: Sodium 146 H, Potassium 3.4 L, Chloride 113 H, Carbon Dioxide 23.0, Anion Gap 10, BUN 46 H, Creatinine 1.31 H, Estim Creat Clear Calc 33.78, Est GFR (MDRD) Af Amer 67, Est GFR (MDRD) Non-Af 55 L, BUN/Creatinine Ratio 35.1 H, Glucose 65 L, Calcium 8.7, Total Bilirubin 0.70, AST 27, ALT 13 L, Alkaline Phosphatase 96, Total Protein 6.6, Albumin 2.1 L, Globulin 4.5 H, Albumin/Globulin Ratio 0.5 L Current Medications Acetaminophen (Acetaminophen 650 Mg Suppository) 650 mg RECTAL TID [facility] Last Admin: 05/28/20 05:25 Dose: 650 mg Documented by: Albuterol Sulfate (Albuterol 2.5 Mg/3 Ml Vial.Neb.) 2.5 mg INHALATION Q2H PRN PRN PRN Reason: Shortness of Breath/Wheezing Last Admin: 05/26/20 06:06 Dose: 2.5 mg Documented by: Aspirin (Aspirin 300 Mg Suppository) 300 mg RECTAL DAILY [facility] Last Admin: 05/27/20 13:15 Dose: 300 mg Documented by: Furosemide (Furosemide 20 Mg/2 Ml Vial) 20 mg IV DAILY [facility] Last Admin: 05/27/20 13:05 Dose: 20 mg Documented by: Sodium Chloride () 250 mls @ 15 mls/hr IV .[id number] PRN PRN Reason: Saline Flush Last Infusion: 05/27/20 16:14 Dose: 0 mls/hr Documented by: Sodium Chloride () 250 mls @ 15 mls/hr IV .[id number] PRN PRN Reason: Additional IVPB Infusion Piperacillin Sod/Tazobactam (Sod 3.375 gm/ Sodium Chloride) 50 mls @ 100 mls/hr IV Q8 DOUG Last Admin: 05/28/20 05:27 Dose: 100 mls/hr Documented by: Lidocaine (Lidocaine 5% Patch) 2 patch TOPICAL DAILY [facility]; Protocol Last Admin: 05/27/20 13:07 Dose: 2 patch Documented by: Nitroglycerin (Nitroglycerin (Inpatient Use) 0.4 Mg Tab.Subl) 0.4 mg SUBLINGUAL Q5M PRN PRN Reason: CARDIAC/CHEST PAIN Prochlorperazine Edisylate (Prochlorperazine 10 Mg/2 Ml Vial) 5 mg IV Q4H PRN PRN PRN Reason: Breakthrough nausea/vomiting Sodium Chloride (0.9% Saline Lock 10 Ml Syringe) 10 - 40 ml IV UD PRN PRN Reason: SALINE FLUSH Last Admin: 05/27/20 21:24 Dose: 10 ml Documented by: Clinical Impression(s) from Imaging Studies Brain CT 05/27/20 15:58 IMPRESSION: Chronic involutional changes of the brain. Electronically Signed: Maximiliano Oneal MD at 16:48 EDT Tel , Service support , Medical Necessity - Tobacco Use Smoking Status: Never smoker Assessment/Plan All Active Problems Aspiration pneumonia (Acute) Encephalopathy (Acute) Hypotension (Acute) Severe sepsis (Acute) Compression fracture of L1 vertebra (Acute) JAYANT (acute kidney injury) (Acute) Dehydration (Acute) Elevated INR (Acute) RECOMMENDATIONS: 1. OK to remove BiPAP and use supplemental oxygen as necessary 2. Aggressive pain control 3. Aggressive bronchopulmonary hygiene. 4. Continue empiric antibiotics to complete a 7-day course 5. Attempts at diuresis as tolerated by hemodynamics and renal function. 6. Avoid sedating medications. 7. Dynamically stable on minimal nasal cannula oxygen. Will sign off from a critical care/pulmonary perspective. Please call with further issues. IMPRESSIONS: 1. Acute hypoxemic respiratory failure Clinical concern for possible acute aspiration event leading to respiratory decompensation versus atelectasis secondary to splinting with lumbar fracture. Patient to remain n.p.o. for now. BiPAP likely function to recruit left lower lobe. Patient does have some rales on exam indicating continued atelectasis. Would benefit from the use of incentive spirometer. Titrate FiO2 to maintain oxygen saturations at or above 90%. The patient is DNR CCA without intubation. Agree with starting the patient empirically on broad-spectrum antimicrobials. Consider discussion about goals of therapy. Avoid sedating medications if possible. Patient would not be a candidate for vest therapy for pulmonary recruitment given lumbar fractures 2. Encephalopathy Concern for metabolic etiology. CT head was unremarkable. Continue to address potential infectious etiologies with antimicrobials as noted above. Avoid sedating medications. 3. 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 Recommend reevaluation by speech therapy prior to advancing any diet. Cardiology has been consulted to evaluate the patient as well. Inpatient E&M: 52084 Subs Hosp L2
--- NOTE | 2020-05-28 07:27 | CASEMGMT ---
Depending on when patient is medically ready for d/c TCU may not have a bed now due to issues with TCU discharges. SW will continue to follow as patient is not ready yet. Laurence ROBLERO MSW
[2020-05-28] MEDS: Furosemide 20 MG/2 ML VIAL IV (08:21)
[2020-05-28] MEDS: Aspirin 300 MG Suppository RECTAL (08:22)
[2020-05-28] MEDS: Lidocaine 5% Patch 2 PATCH TOPICAL (08:29)
--- NOTE | 2020-05-28 09:22 | RAD_ITS ---
STUDY: X-RAY CHEST REASON FOR EXAM: Male, 84 years old. ASPIRATION PNEUMONITIS, COMPRESSION FX TECHNIQUE: Single AP portable view of the chest. COMPARISON: 05/26/2020 FINDINGS: Left subclavian dual-lead pacemaker which is unchanged. The lungs are clear and expanded. There is no demonstrated pleural abnormality. There is moderate cardiac enlargement. Normal mediastinum and jarod. Normal visualized pulmonary arteries. Normal visualized aortic arch and descending thoracic aorta. Normal visualized thoracic spine. Normal visualized ribs, clavicles, and shoulders. There is no demonstrated abnormality of the visualized soft tissue structures of the upper abdomen. RAD/Chest 1 View (Portable) IMPRESSION: No active disease. Electronically Signed: Maximiliano Oneal MD at 11:31 EDT Tel , Service support ,
--- NOTE | 2020-05-28 09:22 | PCM.PN.HOSP ---
Patient Problems: Active and Suspected Problems Aspiration pneumonia (Acute) Encephalopathy (Acute) Hypotension (Acute) Compression fracture of L1 vertebra (Acute) JAYANT (acute kidney injury) (Acute) Dehydration (Acute) Elevated INR (Acute) Reason for Visit: Follow-up on acute metabolic encephalopathy/hypoxia/severe sepsis Subjective: Patient was seen and examined. He feels a little stronger. Denies any fever or chills. No acute events overnight. Objective: Physical exam: General: Lethargic, awakes when spoken to, alert oriented x3 HEENT: Atraumatic, PERRLA, EOMI, Normocephalic Oral: No Gingival or Mucosal Lesions/ Ulcerations Neck: Supple, No JVD, Negative Carotid Bruits Lungs: Air entry severely diminished in both lungs. Bilateral coarse crepitation and rhonchi present. Shallow breathing, respiratory rate 12-14. Cardiovascular: Pacemaker rhythm, Normal S1, Normal S2, grade 5/6 ejection systolic murmur over left second ICS with radiation to carotids cardiac apex. Abdomen: Bowel Sounds Present, Soft, Non Tender, Non-Distended, urine in Nam catheter is cloudy, : No renal angle tenderness. No suprapubic tenderness. Extremities: Bilateral leg edema +1 Skin: No rashes, No breakdown Vitals/I&O's: Vital Signs Temp Pulse Resp BP Pulse Ox 97.7 F L 70 18 129/55 H 100 05/28/20 08:06 05/28/20 08:06 05/28/20 08:06 05/28/20 08:06 05/28/20 08:06 Oxygen Flow Rate (L/min) 2 Oxygen Delivery Method Nasal Cannula Weight: 62.5 kg Body Mass Index (BMI) 24.8 Intake and Output for Last 24 Hours 05/26/20 05/27/20 05/28/20 23:59 23:59 23:59 Intake Total 1775.00 / 1775.00 266 / 266 50 / 50 Output Total 1999 / 2649 225 / 225 Balance -225.00 / -875.00 -1784 / -1784 -175 / -175 Microbiology Past 72 Hours 05/26/20 11:30 Urine, Catheterized Urine Culture - Preliminary Culture exhibits no growth. Laboratory Results 05/27/20 05:54: Magnesium 2.1 05/27/20 05:54: Vit D 1,25-Dihydroxy Pending 05/28/20 05:40: PT 20.0 H, INR 1.8 05/28/20 05:40: WBC 8.5, RBC 3.16 L, Hgb 10.1 L, Hct 32.1 L, MCV 101.6 H, MCH 32.0, MCHC 31.5 L, RDW Std Deviation 54.2 H, RDW Coeff of Radha 14.6, Plt Count 196, MPV 10.3, Immature Gran % (Auto) 0.900, Neut % (Auto) 75.1 H, Lymph % (Auto) 12.9 L, [place] % (Auto) 8.1, Eos % (Auto) 2.9, Baso % (Auto) 0.1, Absolute Neuts (auto) 6.4, Absolute Lymphs (auto) 1.10, Nucleated RBC % 0 05/28/20 05:40: Sodium 146 H, Potassium 3.4 L, Chloride 113 H, Carbon Dioxide 23.0, Anion Gap 10, BUN 46 H, Creatinine 1.31 H, Estim Creat Clear Calc 33.78, Est GFR (MDRD) Af Amer 67, Est GFR (MDRD) Non-Af 55 L, BUN/Creatinine Ratio 35.1 H, Glucose 65 L, Calcium 8.7, Total Bilirubin 0.70, AST 27, ALT 13 L, Alkaline Phosphatase 96, Total Protein 6.6, Albumin 2.1 L, Globulin 4.5 H, Albumin/Globulin Ratio 0.5 L Current Medications Acetaminophen (Acetaminophen 650 Mg Suppository) 650 mg RECTAL TID [facility] Last Admin: 05/28/20 05:25 Dose: 650 mg Documented by: Albuterol Sulfate (Albuterol 2.5 Mg/3 Ml Vial.Neb.) 2.5 mg INHALATION Q2H PRN PRN PRN Reason: Shortness of Breath/Wheezing Last Admin: 05/26/20 06:06 Dose: 2.5 mg Documented by: Aspirin (Aspirin 300 Mg Suppository) 300 mg RECTAL DAILY [facility] Last Admin: 05/28/20 08:22 Dose: 300 mg Documented by: Furosemide (Furosemide 20 Mg/2 Ml Vial) 20 mg IV DAILY [facility] Last Admin: 05/28/20 08:21 Dose: 20 mg Documented by: Sodium Chloride () 250 mls @ 15 mls/hr IV .[id number] PRN PRN Reason: Saline Flush Last Infusion: 05/27/20 16:14 Dose: 0 mls/hr Documented by: Sodium Chloride () 250 mls @ 15 mls/hr IV .[id number] PRN PRN Reason: Additional IVPB Infusion Piperacillin Sod/Tazobactam (Sod 3.375 gm/ Sodium Chloride) 50 mls @ 100 mls/hr IV Q8 DOUG Last Infusion: 05/28/20 08:33 Dose: Infused Documented by: Potassium Chloride 40 meq/ (Dextrose/Sodium Chloride) 1,020 mls @ 100 mls/hr IV .[id number] DOUG Lidocaine (Lidocaine 5% Patch) 2 patch TOPICAL DAILY DOUG; Protocol Last Admin: 05/28/20 08:29 Dose: 2 patch Documented by: Nitroglycerin (Nitroglycerin (Inpatient Use) 0.4 Mg Tab.Subl) 0.4 mg SUBLINGUAL Q5M PRN PRN Reason: CARDIAC/CHEST PAIN Sodium Chloride (0.9% Saline Lock 10 Ml Syringe) 10 - 40 ml IV UD PRN PRN Reason: SALINE FLUSH Last Admin: 05/27/20 21:24 Dose: 10 ml Documented by: STROKE Vital Signs/Narrative: Vital Signs Temp Pulse Resp BP Pulse Ox 05/28/20 08:06 97.7 F L 70 18 129/55 H 100 05/28/20 07:42 91 Medical Necessity - Tobacco Use Smoking Status: Never smoker Assessment/Plan All Active Problems Aspiration pneumonia (Acute) Encephalopathy (Acute) Hypotension (Acute) Severe sepsis (Acute) Compression fracture of L1 vertebra (Acute) JAYANT (acute kidney injury) (Acute) Dehydration (Acute) Elevated INR (Acute) 1. Acute hypoxic respiratory insufficiency secondary to aspiration pneumonitis Chest x-ray showed possible left lower lobe atelectasis. Repeat x-ray today shows no active disease. Continue with breathing treatments, encourage use of incentive spirometer. Wean off oxygen for SPO2 more than 94% 2. ?Severe sepsis likely secondary to aspiration pneumonitis We will discontinue IV Zosyn in the absence of active pulmonary disease 3. Acute metabolic encephalopathy likely secondary to hypoxia and ?severe sepsis Continue to monitor 4. Acute nondisplaced compression fracture of L1, patient will follow-up in the outpatient Continue with scheduled Tylenol rectally as well as Lidoderm patch 5. JAYANT on CKD stage III, improving Creatinine improved to baseline We will continue to monitor 6. Supratherapeutic INR, INR is currently 1.8 Hold off on anticoagulation for now, repeat INR in a.m. 7. Hypertension/history of stroke, unable to take medication by mouth, will continue with Lasix 20 mg IV twice daily, rectal aspirin Repeat blood work in a.m. 8. History of Guillain-Driscoll?, progressive weakness Family is receptive to patient going for subacute rehab Social work consulted for discharge planning 9. Hypokalemia, replace, recheck in a.m. 10. DVT prophylaxis?we will start patient on heparin subcu Inpatient E&M: 53084 Subs Hosp L2
[2020-05-28 09:54] LABS: Vitamin B12 880 pg/mL (211-911)
[2020-05-28] MEDS: Potassium Chloride 40 MEQ in Dext 5%-0.45% NS 1,000 ML 100 MEQ IV ×2 (10:20→22:36)
--- NOTE | 2020-05-28 13:42 | PN.CARD_ITS ---
Subjectve: The patient appears to be somewhat more awake today. He denies ongoing chest discomfort or worsening shortness of breath. The patient's is with him today. She states he looks better overall. Objective: Vital Signs Temp Pulse Resp BP Pulse Ox 97.8 F 70 18 118/59 L 95 05/28/20 12:05 05/28/20 12:05 05/28/20 12:05 05/28/20 12:05 05/28/20 12:05 Oxygen Flow Rate (L/min) 2 Oxygen Delivery Method Room Air Weight: 137 lb 12.623 oz Body Mass Index (BMI) 24.8 Intake and Output for Last 24 Hours 05/26/20 05/27/20 05/28/20 23:59 23:59 23:59 Intake Total 1775.00 / 1775.00 266 / 266 50 / 50 Output Total 1999 / 2649 2049 / 2049 675 / 675 Balance -225.00 / -875.00 -1784 / -1784 -625 / -625 General: Awake, Cooperative, No Acute Distress HEENT: Atraumatic, Normocephalic, PERRL, EOMI, Sclera Non Icteric Neck: Supple, Good ROM, No JVD Lungs: Rhonchi Cardiovascular: Regular Rhythm, Normal S1, Normal S2 Murmur Murmur: Grade 3/6, Harsh, Mid Systolic, LLSB, LVOT, Sternal Notch Abdomen: Bowel Sounds Present, Soft Extremities: No edema Psych/Mental Status: Dementia 05/27/20 05:54: Magnesium 2.1 05/28/20 05:40: PT 20.0 H, INR 1.8 05/28/20 05:40: WBC 8.5, RBC 3.16 L, Hgb 10.1 L, Hct 32.1 L, MCV 101.6 H, MCH 32.0, MCHC 31.5 L, Plt Count 196, MPV 10.3, Immature Gran % (Auto) 0.900, Neut % (Auto) 75.1 H, Lymph % (Auto) 12.9 L, [place] % (Auto) 8.1, Eos % (Auto) 2.9, Baso % (Auto) 0.1, Absolute Neuts (auto) 6.4, Nucleated RBC % 0 05/28/20 05:40: Sodium 146 H, Potassium 3.4 L, Chloride 113 H, Carbon Dioxide 23.0, Anion Gap 10, BUN 46 H, Creatinine 1.31 H, Est GFR (MDRD) Af Amer 67, Est GFR (MDRD) Non-Af 55 L, BUN/Creatinine Ratio 35.1 H, Glucose 65 L, Calcium 8.7, Total Bilirubin 0.70 Rhythm: Electronic ventricular paced rhythm Echocardiogram: Interpretation Summary Pulmonary artery systolic pressure is 65 mmHg. Mild focal aortic valve calcification. Mean aortic valve gradient 60 mmHg. Mild (1+) aortic valve insufficiency. Severe aortic stenosis. Normal LV size. Left ventricular systolic function is normal. The estimated ejection fraction is 65 %. Medical Necessity - Tobacco Use Smoking Status: Never smoker Assessment/Plan 1. Atrial fibrillation The patient has a history of atrial fibrillation. The details are unknown. It appears he has been on medical management with rate control therapy, antiarrhythmic therapy, and anticoagulant therapy. At the moment based upon his ongoing clinical course his medications, such as his beta-blockers, for rate control are being placed on hold to avoid hypotension. Also, based upon his fluctuating renal status his antiarrhythmic therapy with Tikosyn has been placed on hold. Also as his INR appears to be normalizing at this time. Thus he will need to be considered for alternative anticoagulant therapy barring obvious contraindications. 2. Permanent pacemaker It is unclear, other than being a dual-chamber pacemaker, as to the manufacturing operations manager of his permanent pacemaker and whether it was placed because of concerns of an underlying bradycardia tacky/sick sinus syndrome with his atrial dysrhythmia, etc. It has been followed by an outside cardiovascular group. An attempt will be made to obtain previous medical records for continuity of care. Depending upon his clinical course his pacemaker can be interrogated as deemed appropriate. 3. Cardiac murmur?aortic valve stenosis He does have a cardiac murmur. Based upon his examination and the aforementioned echocardiographic studies there would be concerned that this may be related to underlying aortic valve stenosis. His echocardiogram is reported as demonstrating severe aortic valve stenosis. This does need to be taken into consideration with respect to his medical management, etc. At the moment he does not appear to be an ideal patient for either a surgical based or a percutaneous-based aortic valve replacement procedure. 4. Hypertension The patient reportedly has a history of hypertension. At the present time his antihypertensive therapy is on hold can [place] to his hypotensive events. This will have to be readdressed as his clinical course progresses. 5. Aspiration pneumonia The patient is being evaluated for concerns of aspiration pneumonia and subsequently possibly a sepsis syndrome. At the moment he has been placed in the PCU. He is undergoing medical therapy with IV antibiotics. 6. Acute renal insufficiency The patient has had alteration in his creatinine level. There was concern this was related to dehydration. His renal function appears to be improving at this time. 7. Elevated INR The patient's elevated INR raises concern as to whether or not this could be related to alteration of his underlying albumin/protein levels and/or hepatic function. His laboratory studies demonstrate that his albumin level is low. Of note the patient was tested for COVID-19. This was reported as nondetected. Comment: The patient's case has been discussed and reviewed with the patient's . Thank you for allowing me to participate in the care of your patient. Please don't hesitate to call if any issues arise.
[2020-05-28] MEDS: Heparin Injection (Vial) 5,000 UNIT/ML VIAL 5000 UNIT SC (21:28)
[2020-05-29] VITALS (9 sets, daily range): BP systolic 142–149; BP diastolic 65–81; PULSE 69–78; RESP 16–18; TEMP 36.7–36.9; O2SAT 92–95
[2020-05-29] MEDS: Acetaminophen 650 MG Suppository RECTAL ×3 (06:29→21:36)
[2020-05-29] MEDS: Heparin Injection (Vial) 5,000 UNIT/ML VIAL 5000 UNIT SC ×3 (06:31→21:36)
[2020-05-29] MEDS: Potassium Chloride 40 MEQ in Dext 5%-0.45% NS 1,000 ML 100 MEQ IV (08:05)
[2020-05-29 09:55] LABS: Absolute Neutrophil Count 7.1 X10^3/uL (2.0-7.7); Basophil# 0.02 X10^3/uL; Basophil% 0.2 % (0-1); Eosinophil# 0.29 X10^3/uL; Eosinophils% 2.9 % (0-5); Hematocrit 33.9 % (40-54); Hemoglobin 10.8 g/dL (13.0-16.5); Lymphocyte % 17.1 % (19-41); Mean Corp Hgb Conc 31.9 g/dL (32-36); Mean Corpuscular Hgb 31.6 pg (27.0-32.0); Mean Corpuscular Volume 99.1 fL (80-94); Mean Platelet Vol. 9.8 fl (6.2-12.0); Monocyte# 0.79 X10^3/uL; Monocyte% 7.9 % (0-10); NRBC Flagged by Analyzer 0.3 % (0-5); Neutrophil % 71.2 % (47-70); Platelet Count 222 K/mm3 (150-450); RBC Distribution Width SD 54.5 fl (35.1-43.9); Red Blood Count 3.42 M/mm3 (4.6-6.2)
[2020-05-29 10:09] LABS: ALB/GLOB Ratio 0.4 RATIO (0.9-2.4); AST(SGOT) 29 U/L (15-37); Alanine Aminotransfer ALT/SGPT 15 U/L (16-61); Albumin, Serum 2.2 g/dL (3.2-5.0); Alkaline Phosphatase 111 U/L (45-117); Anion Gap 7 (5-15); BUN 26 mg/dL (7-18); BUN/Creat Ratio 24.3 RATIO (10-20); Calcium,Total 8.6 mg/dL (8.5-10.1); Chloride 118 mmol/L (98-107); Creatinine, Serum 1.07 mg/dL (0.70-1.30); EST Glomerular Filtration Rate 70 mL/min (>60); Est Glom Filt Rate - Afr Amer 85 mL/min (>60); Estimated Creatinine Clearance 41.36 ml/min; Globulin 4.9 g/dL (2.2-4.2); Glucose 145 mg/dL (74-106); Potassium 4.1 mmol/L (3.5-5.1); Protein, Total 7.1 g/dL (6.4-8.2); Sodium Level 148 mmol/L (136-145)
[2020-05-29 10:15] LABS: International Normalized Ratio 2.5; Prothrombin Time (Protime)PT. 26.7 SECONDS (11.7-14.9)
[2020-05-29] MEDS: Lidocaine 5% Patch 2 PATCH TOPICAL (10:28)
[2020-05-29] MEDS: Furosemide 20 MG/2 ML VIAL IV (10:28)
[2020-05-29] MEDS: 0.9% Saline Lock 10 ML Syringe IV (10:28)
[2020-05-29] MEDS: Aspirin 300 MG Suppository RECTAL (10:34)
--- NOTE | 2020-05-29 10:49 | PCM.PN.CARD ---
Subjectve: The patient is awake. He appears to remember some of his cardiovascular history but not all of it. He denies any ongoing chest discomfort. He does state that he feels his breathing has improved overall. Objective: Vital Signs Temp Pulse Resp BP Pulse Ox 98.3 F 70 18 144/65 H 92 05/29/20 10:25 05/29/20 10:25 05/29/20 10:25 05/29/20 10:25 05/29/20 10:25 Oxygen Flow Rate (L/min) 2 Oxygen Delivery Method Room Air Weight: 141 lb 8.588 oz Body Mass Index (BMI) 24.8 Intake and Output for Last 24 Hours 05/27/20 05/28/20 05/29/20 23:59 23:59 23:59 Intake Total 266 / 266 1120 / 1120 948.33 / 948.33 Output Total 2049 / 2049 1625 / 1625 200 / 200 Balance -1784 / -1784 -505 / -505 748.33 / 748.33 General: Awake, Cooperative, No Acute Distress HEENT: Atraumatic, Normocephalic, PERRL, EOMI, Sclera Non Icteric Neck: Supple, Good ROM, No JVD Lungs: - - No obvious rales or rhonchi at this time Cardiovascular: Regular Rhythm, Normal S1, Normal S2 Abdomen: Bowel Sounds Present, Soft Psych/Mental Status: Dementia 05/29/20 09:40: WBC 10.0, RBC 3.42 L, Hgb 10.8 L, Hct 33.9 L, MCV 99.1 H, MCH 31.6, MCHC 31.9 L, Plt Count 222, MPV 9.8, Immature Gran % (Auto) 0.700, Neut % (Auto) 71.2 H, Lymph % (Auto) 17.1 L, [place] % (Auto) 7.9, Eos % (Auto) 2.9, Baso % (Auto) 0.2, Absolute Neuts (auto) 7.1, Nucleated RBC % 0.3 05/29/20 09:40: PT 26.7 H, INR 2.5 05/29/20 09:40: Sodium 148 H, Potassium 4.1, Chloride 118 H, Carbon Dioxide 23.0, Anion Gap 7, BUN 26 H, Creatinine 1.07, Est GFR (MDRD) Af Amer 85, Est GFR (MDRD) Non-Af 70, BUN/Creatinine Ratio 24.3 H, Glucose 145 H, Calcium 8.6, Total Bilirubin 0.60 Rhythm: Electronic ventricular paced rhythm ECHO: Of note, the patient appears to have had a transthoracic echocardiogram performed at [facility] on 10-06-2019. At that time per the report the left ventricle was considered normal with an LVEF of 55 to 60%, the left atrium was markedly dilated, right atrium was dilated, the mitral valve annulus was moderately calcified and the leaflets were thickened and calcified, the aortic valve was considered to have severe aortic valve stenosis with moderate aortic valve regurgitation, the tricuspid valve had moderate TR, the estimated RV systolic pressure was 37 mmHg. PPM: The patient's PPM has been evaluated remotely. 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 Atrial fibrillation The patient has a history of atrial fibrillation. It appears he has been on medical management with rate control therapy, antiarrhythmic therapy, and anticoagulant therapy. At the moment based upon the patient's ongoing clinical concerns and status it would be reasonable for the patient to continue rate control as he is able with agents such as beta-blockers. Based upon his fluctuating renal status there is concern with respect to reinitiation of agents such as digitalis or Tikosyn. Thus these will be remaining on hold. Ideally the patient would be on anticoagulant therapy. However based upon evaluation in the hospital the patient requires multiple hospital staff to assist him with respect to getting out of bed, sitting in the chair, or any attempted ambulation it has been deemed a significant fall risk. Thus at this time he will remain without anticoagulant therapy. 2. Permanent pacemaker The patient's pacemaker information is as noted. 3. Cardiac murmur?aortic valve stenosis He does have a cardiac murmur. He has undergone echocardiogram earlier this year as well as at [facility]. Both of raise concerns of severe aortic valve stenosis. This does have to be taken into consideration with his medical management. Unfortunately, at this time, the patient does not appear to be an ideal patient for either a surgical based or a percutaneous-based aortic valve replacement procedure. 4. Hypertension The patient reportedly has a history of hypertension. His medications will be adjusted as needed. 5. Aspiration pneumonia The patient is being evaluated for concerns of aspiration pneumonia and subsequently possibly a sepsis syndrome. At the moment he has been placed in the PCU. He is undergoing medical therapy with IV antibiotics. 6. Acute renal insufficiency The patient has had alteration in his creatinine level. There was concern this was related to dehydration. His renal function appears to be improving at this time. 7. Elevated INR The patient's elevated INR raises concern as to whether or not this could be related to alteration of his underlying albumin/protein levels and/or hepatic function. His laboratory studies demonstrate that his albumin level is low. At this time based upon the concerns listed above, the patient is remaining without anticoagulant therapy. Of note the patient was tested for COVID-19. This was reported as nondetected. Comment: The patient's case has been discussed and reviewed with Dr. Ahmadi. Thank you for allowing me to participate in the care of your patient. Please don't hesitate to call if any issues arise.
--- NOTE | 2020-05-29 14:36 | CASEMGMT ---
GODFREY called patient's , Analy. GODFREY asked if she and her family discussed a plan for patient as he may be ready for discharge tomorrow. GODFREY asked if they are still okay with patient going to TCU. She said they are not. She does not like the idea she cannot see him for 14 days. GODFREY told her TCU is now not allowing any visitors even after 14 days. She said she does not want to go without seeing him. She said they are going to move in with their daughter. GODFREY did tell her that he is an assist of 2 people and asked if there will be 2 people at home. She said there will be. She wanted to know what equipment we recommend for home. GODFREY told her we can check with therapy. She asked SW to call her daughter Sonia. GODFREY explained above to Sonia. She confirmed her parents will be coming home with her and her . GODFREY made sure to tell her that he is still an assist of 2 people and he only went 6 feet today. She is aware. She would like [facility] nursing, PT, OT, and ST. GODFREY let her know Medicare covers home health at 100%. She is aware patient will likely be ready tomorrow. GODFREY obtained her address for home health and she would prefer home health call her to schedule an appointment. GODFREY called [place] with [facility] and made a referral for longterm, PT, OT and ST. GODFERY notified physician of the change in plans, however GODFREY is not taking patient's name off of the TCU list just in case something changes. Plan: at this time the plan is home with [facility] longterm, PT, OT, and ST Laurence ROBLERO MSW
--- NOTE | 2020-05-29 14:46 | PCM.PN.HOSP ---
Patient Problems: Active and Suspected Problems Aspiration pneumonia (Acute) Encephalopathy (Acute) Hypotension (Acute) Compression fracture of L1 vertebra (Acute) JAYANT (acute kidney injury) (Acute) Dehydration (Acute) Elevated INR (Acute) Reason for Visit: Follow-up on acute metabolic encephalopathy/hypoxia/severe sepsis Subjective: Patient was seen and examined. He appears stronger even more today. No acute events overnight. Discharge planning ongoing. Objective: Physical exam: General: Lethargic, awakes when spoken to, alert oriented x3 HEENT: Atraumatic, PERRLA, EOMI, Normocephalic Oral: No Gingival or Mucosal Lesions/ Ulcerations Neck: Supple, No JVD, Negative Carotid Bruits Lungs: Air entry severely diminished in both lungs. Bilateral coarse crepitation and rhonchi present. Shallow breathing, respiratory rate 12-14. Cardiovascular: Pacemaker rhythm, Normal S1, Normal S2, grade 5/6 ejection systolic murmur over left second ICS with radiation to carotids cardiac apex. Abdomen: Bowel Sounds Present, Soft, Non Tender, Non-Distended, urine in Nam catheter is cloudy, : No renal angle tenderness. No suprapubic tenderness. Extremities: Bilateral leg edema +1 Skin: No rashes, No breakdown Vitals/I&O's: Vital Signs Temp Pulse Resp BP Pulse Ox 98.3 F 70 18 144/65 H 92 05/29/20 10:25 05/29/20 10:25 05/29/20 10:25 05/29/20 10:25 05/29/20 10:25 Oxygen Flow Rate (L/min) 2 Oxygen Delivery Method Room Air Weight: 64.2 kg Body Mass Index (BMI) 24.8 Intake and Output for Last 24 Hours 05/27/20 05/28/20 05/29/20 23:59 23:59 23:59 Intake Total 266 / 266 1120 / 1120 948.33 / 948.33 Output Total 2049 / 2049 1625 / 1625 850 / 850 Balance -1784 / -1784 -505 / -505 98.33 / 98.33 Microbiology Past 72 Hours 05/26/20 07:10 Blood Culture (Wb) - Right Hand Blood Culture - Preliminary No growth in 48 hours. 05/26/20 07:13 Blood Culture (Wb) - Venous Blood Culture - Preliminary No growth in 48 hours. 05/26/20 11:30 Urine, Catheterized Urine Culture - Final Culture exhibits no growth. Laboratory Results 05/29/20 09:40: WBC 10.0, RBC 3.42 L, Hgb 10.8 L, Hct 33.9 L, MCV 99.1 H, MCH 31.6, MCHC 31.9 L, RDW Std Deviation 54.5 H, RDW Coeff of Radha 15.0 H, Plt Count 222, MPV 9.8, Immature Gran % (Auto) 0.700, Neut % (Auto) 71.2 H, Lymph % (Auto) 17.1 L, [place] % (Auto) 7.9, Eos % (Auto) 2.9, Baso % (Auto) 0.2, Absolute Neuts (auto) 7.1, Absolute Lymphs (auto) 1.70, Nucleated RBC % 0.3 05/29/20 09:40: PT 26.7 H, INR 2.5 05/29/20 09:40: Sodium 148 H, Potassium 4.1, Chloride 118 H, Carbon Dioxide 23.0, Anion Gap 7, BUN 26 H, Creatinine 1.07, Estim Creat Clear Calc 41.36, Est GFR (MDRD) Af Amer 85, Est GFR (MDRD) Non-Af 70, BUN/Creatinine Ratio 24.3 H, Glucose 145 H, Calcium 8.6, Total Bilirubin 0.60, AST 29, ALT 15 L, Alkaline Phosphatase 111, Total Protein 7.1, Albumin 2.2 L, Globulin 4.9 H, Albumin/Globulin Ratio 0.4 L Current Medications Acetaminophen (Acetaminophen 650 Mg Suppository) 650 mg RECTAL TID [facility] Last Admin: 05/29/20 14:33 Dose: 650 mg Documented by: Albuterol Sulfate (Albuterol 2.5 Mg/3 Ml Vial.Neb.) 2.5 mg INHALATION Q2H PRN PRN PRN Reason: Shortness of Breath/Wheezing Last Admin: 05/26/20 06:06 Dose: 2.5 mg Documented by: Aspirin (Aspirin 300 Mg Suppository) 300 mg RECTAL DAILY [facility] Last Admin: 05/29/20 10:34 Dose: 300 mg Documented by: Furosemide (Furosemide 20 Mg/2 Ml Vial) 20 mg IV DAILY [facility] Last Admin: 05/29/20 10:28 Dose: 20 mg Documented by: Heparin Sodium (Porcine) (Heparin Injection (Vial) 5,000 Unit/Ml Vial) 5,000 unit SC Q8 [facility] Last Admin: 05/29/20 14:32 Dose: 5,000 unit Documented by: Sodium Chloride () 250 mls @ 15 mls/hr IV .[id number] PRN PRN Reason: Saline Flush Last Infusion: 05/28/20 18:35 Dose: Infused Documented by: Sodium Chloride () 250 mls @ 15 mls/hr IV .[id number] PRN PRN Reason: Additional IVPB Infusion Potassium Chloride 40 meq/ (Dextrose/Sodium Chloride) 1,020 mls @ 100 mls/hr IV .[id number] [facility] Last Admin: 05/29/20 08:05 Dose: 100 mls/hr Documented by: Lidocaine (Lidocaine 5% Patch) 2 patch TOPICAL DAILY [facility]; Protocol Last Admin: 05/29/20 10:28 Dose: 2 patch Documented by: Nitroglycerin (Nitroglycerin (Inpatient Use) 0.4 Mg Tab.Subl) 0.4 mg SUBLINGUAL Q5M PRN PRN Reason: CARDIAC/CHEST PAIN Sodium Chloride (0.9% Saline Lock 10 Ml Syringe) 10 - 40 ml IV UD PRN PRN Reason: SALINE FLUSH Last Admin: 05/29/20 10:28 Dose: 10 ml Documented by: Medical Necessity - Tobacco Use Smoking Status: Never smoker Assessment/Plan All Active Problems Aspiration pneumonia (Acute) Encephalopathy (Acute) Hypotension (Acute) Severe sepsis (Acute) Compression fracture of L1 vertebra (Acute) JAYANT (acute kidney injury) (Acute) Dehydration (Acute) Elevated INR (Acute) 1. Acute hypoxic respiratory insufficiency secondary to aspiration pneumonitis Chest x-ray showed possible left lower lobe atelectasis. Repeat x-ray today shows no active disease. Continue with breathing treatments, encourage use of incentive spirometer. Wean off oxygen for SPO2 more than 94% 2. ?Severe sepsis likely secondary to aspiration pneumonitis We will discontinue IV Zosyn in the absence of active pulmonary disease 3. Acute metabolic encephalopathy likely secondary to hypoxia and ?severe sepsis Continue to monitor 4. Acute nondisplaced compression fracture of L1, patient will follow-up in the outpatient Continue with scheduled Tylenol rectally as well as Lidoderm patch 5. JAYANT on CKD stage III, improving Creatinine improved to baseline We will continue to monitor 6. Supratherapeutic INR, INR is currently 1.8 Hold off on anticoagulation for now, repeat INR in a.m. 7. Hypertension/history of stroke, unable to take medication by mouth, will continue with Lasix 20 mg IV twice daily, rectal aspirin Repeat blood work in a.m. 8. History of Guillain-Driscoll?, progressive weakness Family is receptive to patient going for subacute rehab Social work consulted for discharge planning 9. Hypokalemia, replace, recheck in a.m. 10. DVT prophylaxis?heparin subcu Inpatient E&M: 94265 Subs Hosp L2
[2020-05-30] VITALS (10 sets, daily range): BP systolic 133–151; BP diastolic 67–77; PULSE 69–73; RESP 16–18; TEMP 36.2–37.2; O2SAT 92–95
[2020-05-30] MEDS: Heparin Injection (Vial) 5,000 UNIT/ML VIAL 5000 UNIT SC ×2 (06:19→15:25)
[2020-05-30] MEDS: Acetaminophen 650 MG Suppository RECTAL (06:19)
[2020-05-30 07:10] LABS: International Normalized Ratio 3.3; Prothrombin Time (Protime)PT. 32.9 SECONDS (11.7-14.9)
[2020-05-30 08:08] LABS: Absolute Lymphocyte Count 1.58 X10^3/uL (0.83-4.51); Absolute Neutrophil Count 6.4 X10^3/uL (2.0-7.7); Basophil# 0.05 X10^3/uL; Basophil% 0.5 % (0-1); Eosinophil# 0.36 X10^3/uL; Eosinophils% 3.9 % (0-5); Hematocrit 31.7 % (40-54); Hemoglobin 10.2 g/dL (13.0-16.5); Lymphocyte # 1.58 X10^3/ul (4.0); Lymphocyte % 17.3 % (19-41); Mean Corp Hgb Conc 32.2 g/dL (32-36); Mean Corpuscular Hgb 32.2 pg (27.0-32.0); Mean Platelet Vol. 10.6 fl (6.2-12.0); Monocyte# 0.67 X10^3/uL; Monocyte% 7.3 % (0-10); NRBC Flagged by Analyzer 0.4 % (0-5); Neutrophil # 6.41 X10^3/uL (2.7-7.7); Neutrophil % 70.5 % (47-70); Platelet Count 242 K/mm3 (150-450); RBC Distribution Width CV 14.9 % (11.6-14.6); RBC Distribution Width SD 54.4 fl (35.1-43.9); Red Blood Count 3.17 M/mm3 (4.6-6.2); White Blood Count 9.1 K/mm3 (4.4-11.0)
[2020-05-30 08:18] LABS: ALB/GLOB Ratio 0.4 RATIO (0.9-2.4); AST(SGOT) 31 U/L (15-37); Alanine Aminotransfer ALT/SGPT 14 U/L (16-61); Albumin, Serum 2.1 g/dL (3.2-5.0); Alkaline Phosphatase 110 U/L (45-117); Anion Gap 5 (5-15); BUN 20 mg/dL (7-18); BUN/Creat Ratio 24.1 RATIO (10-20); Calcium,Total 8.8 mg/dL (8.5-10.1); Chloride 119 mmol/L (98-107); Creatinine, Serum 0.83 mg/dL (0.70-1.30); EST Glomerular Filtration Rate 94 mL/min (>60); Est Glom Filt Rate - Afr Amer 113 mL/min (>60); Estimated Creatinine Clearance 53.32 ml/min; Globulin 4.7 g/dL (2.2-4.2); Glucose 88 mg/dL (74-106); Potassium 3.8 mmol/L (3.5-5.1); Protein, Total 6.8 g/dL (6.4-8.2); Sodium Level 148 mmol/L (136-145)
[2020-05-30] MEDS: Dextrose 5%/0.9% NaCl 1,000 ML 100 ML IV ×2 (08:38→20:24)
[2020-05-30] MEDS: Lidocaine 5% Patch 2 PATCH TOPICAL (09:25)
[2020-05-30] MEDS: Aspirin 300 MG Suppository RECTAL (09:29)
--- NOTE | 2020-05-30 10:00 | SP.MBSS_ITS ---
Modified Barium Swallow - Patient Information Study Date: 05/30/20 Study Time: 10:00 Direct Billable Minutes: 125 Total Minutes procedure & reportin Diagnosis: Oropharyngeal Dysphagia Referring Physician: Lavinia Ahmadi Reason for Referral: Objective assessment of swallow function under fluoroscopy necessary to identify cause of swallow dysfunction and determine need for diet texture/liquid consistency modifications, efficacy of compensatory strategies and make recommendations for appropriate dysphagia intervention tailored to this patient's specific needs, as appropriate. Medical History: The patient is a 84 year old M with multiple comorbidities who was admitted to [facility] ED on 05/24/2020 s/p fall w/ resultant nondisplaced compression fracture of L1 with loss of height of a proximal 10% and displaced narrowing and degeneration of L4-L5. 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 He also has chronic urinary incontinence after prostate surgery 1995 and had sphincter bladder surgery in 2009. 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 ST consult due to pt and reporting pt having a difficulty with swallowing. Pt was evaluated 05/25/20 w/ mechanical soft/thin liquid diet recommended, was not picked up for additional skilled ST intervention. Patient had a change in status 05/26/20 w/ suspected aspiration event, was lethargic, spiked a fever and had increased O2 demands and was made NPO for TAKER OFF reassessment of swallow function at bedside and subsequent recommendation for evaluation under fluoroscopy. Chest X-Ray - 05/24/20 10:50 IMPRESSION: Mild degree of increased markings at the left lung base suggests linear atelectasis and/or scarring. CT Brain - 05/24/20 10:05 IMPRESSION: Chronic involutional changes of the brain. Chest X-Ray - 05/26/20 05:50 IMPRESSION: No active disease. Chest X-Ray - 05/26/20 09:20 IMPRESSION: Left lower lobe atelectasis. CT Brain - 05/27/2020 15:58 IMPRESSION: Chronic involutional changes of the brain. Chest X-ray - 05/28/20 09:22 IMPRESSION: No active disease. Current Diet Ordered: NPO pending assessment under fluoroscopy Dentition: Upper Dentures, Lower Dentures Mental Status: Impaired Respiratory Status: Oxygenating on Room Air - Study Findings Consistencies: Thin Liquid, [place] Thick Liquid, Pudding, Cookie - Penetration-Aspiration Scale Penetration-Aspiration Scale: OBJECTIVE ASSESSMENT OF SWALLOW FUNCTION (QUANTITATIVE ? PER TRIAL): PENETRATION / ASPIRATION SCALE (BARBOSA): 1 = does not enter airway 2 = enters airway/above vocal folds/ejected 3 = enters airway/above vocal folds/not ejected 4 = enters airway/contacts vocal folds/ejected 5 = enters airway/contacts vocal folds/not ejected 6 = enters airway/below vocal folds/ejected 7 = enters airway/below vocal folds/not ejected despite effort 8 = enters airway/below vocal folds/no effort VIDEOFLOROSCOPIC SCALE SCORE (BARBOSA): Grade I = aspiration of material that has penetrated into the laryngeal vestibule, intact cough reflex Grade II = aspiration < 10 % of the bolus, intact cough reflex Grade III = aspiration of < 10 % of the bolus, reduced cough reflex or aspiration of > 10 % of the bolus, intact cough reflex Grade IV = aspiration of > 10 % of the bolus, reduced cough reflex - Penetration-Aspiration Scale Score Thin Liquid via teaspoon Result: 1= does not enter airway Thin Liquid via teaspoon Trial 2 Result: 5= enters airways/contacts vocal folds/not ejected Thin Liquid via small single sip from cup Result: 2= enter airway/above vocal folds/ejected Thin Liquid via small single sip from cup Trial 2 Result: 1= does not enter airway Thin Liquid via single sip from straw Result: 1= does not enter airway Thin Liquid via single sip from straw Trial 2 Result: 1= does not enter airway Pudding Result: 1= does not enter airway Cookie Result: 1= does not enter airway Thin Liquid via single sip from straw Trial 3 Result: 5= enters airways/contacts vocal folds/not ejected Thin Liquid via small single sip from cup Trial 3 Result: 1= does not enter airway Thin Liquid via small single sip from cup Trial 4 Result: 8= enters airway/below vocal folds/no effort Comment: Grade III = aspiration of < 10% of the bolus, reduced cough reflex; initially silent aspiration w/ weak cough response > 60 seconds after aspiration event. [place] Thick Liquid via small single sip from cup Result: 1= does not enter airway [place] Thick Liquid via small single sip from cup Trial 2 Result: 1= does not enter airway [place] Thick Liquid via single sip from straw Result: 1= does not enter airway - Oral Phase Labial Seal: No Labial Escape Tongue Control During Bolus Hold: Escape to lateral buccal cavity/floor of mouth Bolus Preparation/Mastication: Disorganized chewing/mashing with solid pieces of bolus unchewed Bolus Transport/Lingual Motion: Repetitive/disorganized tongue motion Oral Residue: Majority of bolus remaining - Pharyngeal Phase Initiation of Pharyngeal Swallow: Bolus head in pyriforms Soft Palate Elevation: Trace column of contrast/air between soft palate and pharyngeal wall Laryngeal Elevation: Partial superior movement thyroid cart/partial apprx aryt- epig petiole Anterior Hyoid Excursion: Partial anterior movement Epiglottic Movement: Partial inversion Laryngeal Vestibule Closure at Height of Swallow: Incomplete; narrow column of air/contrast in laryngeal vestibule Pharyngeal Stripping Wave: Present - diminished Pharyngoesophageal Segment Opening: Parital distension and partial duration; parital obstruction of flow Tongue Base Retraction: Wide column of contrast between tongue base & post. pharyngeal wall Pharyngeal Residue: Collection of residue within or on pharyngeal structures - Esophageal Phase Esophageal Clearance: Esophageal retention - Treatment Strategies Effects of treatment strategies attemped:: Reducing liquid volume and increasing viscosity were effective to improve oral control w/ a lesser degree of premature pharyngeal bolus entry and reduced risk for aspiration. - Diagnosis/Impression Diagnosis: mod-severe oral dyspahgia, mod pharyngeal dysphagia Impression: This patient presents w/ moderate to severe oral dysphagia and moderate pharyngeal dysphagia. Oral swallow function is characterized by: * poor oral bolus cohesion w/ liquid spilling to the floor of mouth and buccal cavities prior to A-P bolus transfer * severely impaired bolus prep w/ prolonged and inefficient mastication of solids * consistently tossed head back w/ all boluses to assist w/ A-P transit * disordered A-P bolus transfer w/ multiple attempts to collect and transfer solid texture bolus resulting in a rocking motion from front of mouth to mid tongue w/ max cues requires and +1.5 minutes to chew and swallow 1/2 of a shortbread cookie * piecemeal degluttion pattern utilized w/ purees and solids; using 3-4 swallows to clar the oral cavity of 1 tsp pudding * oral residue remained post deglutition of pudding/solids, able to partially clear w/ cued additional swallows and/or liquid wash Pharyngeal swallow function is characterized by: * premature pharyngeal bolus entry w/ delayed swallow onset; suboptimal bolus location w/ contrast spilling to the pyriforms and into the laryngeal vestibule before/during the swallow * reduced base of tongue retraction w/ insufficient tongue base to posterior pharyngeal wall contact resulting in significant accumulation of residue on base of tongue * reduced hyolaryngeal excursion w/ incomplete arytenoid to epiglottic petiole contact and incomplete epiglottic inversion resulting in reduced airway protection during the swallow and increased vallecular residue post deglutition Pharyngo-esophageal swallow function is characterized by: * anterior cervical webbing noted w/ reduced PES distention; despite presence these findings did not significantly impact bolus clearance * referral to GI further assessment of esophageal function should be considered to evaluate for additional distal esophageal webbing and for continued monitoring of anterior cervical webbing (fairly benign at this time) as it can become larger and impact swallow function over time. . Presentation w/ prolonged mastication and disordered oral prep/bolus to transfer and initiate swallow onset is consistent w/ swallow pattern present w/ advanced dementia. Penetration/aspiration during MBS largely attributed to severe oral phase dysphagia impaired A-P transit and premature bolus entry/delayed swallow onset. All penetration/aspiration occurred d/t impaired coordination. Aspiration was silent w/ a weak and delayed (+60 seconds) response that was ineffective to expel aspirate from the trachea. Cued expectoration was not effective to clear penetration from the laryngeal vestibule. - Recommendations Diet: Puree Textures, [place]-thick Liquids Compensatory Strategies: Small Bites, Small Sips, Alternate bites/solids and sips/liquids, Sitting upright, Remain sitting upright for 30 minutes after PO intake Supervision: 1:1 Close Supervision Recommend Repeat Modified Barium Swallow: Yes Comment: Repeat MBS prior to advancement beyond mildly thick (nectar) liquids is recommended as aspiration identified under fluoroscopy was silent in nature w/ a delayed, weak and ineffective cough response and therefore reliance upon traditional overt s/s aspiration would not be effective to determine appropriateness for advancement to thin liquids. Skilled dysphagia intervention is recommended to target the following: * education re: diet texture/liquid consistency preparation & recommended aspiration precautions * instruction w/ oral and oropharyngeal strengthening exercises targeting oral control/coordination, base of tongue strength, swallow onset timing, laryngeal vestibule closure and respiratory muscle strengthening Need for Skilled Speech Therapy Services: Yes Recommended Referrals: GI Consult - anterior esophageal web evident, consider assessment of distal esophagus Education Completed: 1. Described result of evaluation., 2. Pt understands evaluation & agrees with goals and treatment plan., 7. Pt requires further edu cation on strategies & risks. Comment: Results and recommendations were reviewed w/ the patient following MBS conclusion w/ anticipated need for continued education/reinforcement. - Status Active ST Patient: Active - Contact Information [facility] Speech Therapy:: Mikayla Suarez M.A.,CCC-TAKER OFF [facility] Speech-Language Pathologist [email or web address] [phone]
--- NOTE | 2020-05-30 15:16 | CASEMGMT ---
GODFREY Rogers with [facility] know that patient is not being discharged today. Laurence ROBLERO MSW
[2020-05-30] MEDS: Acetaminophen 325 MG Tablet 650 MG PO ×2 (15:25→21:24)
--- NOTE | 2020-05-30 18:16 | PN_ITS ---
Patient Problems: Active and Suspected Problems Aspiration pneumonia (Acute) Encephalopathy (Acute) Hypotension (Acute) Compression fracture of L1 vertebra (Acute) JAYANT (acute kidney injury) (Acute) Dehydration (Acute) Elevated INR (Acute) Reason for Visit: Follow-up on acute metabolic encephalopathy/hypoxia/severe sepsis Subjective: Patient was seen and examined. He is much awake. He had a modified barium swallow that showed silent aspiration. Started on pureed diet Objective: Physical exam: General: Lethargic, awakes when spoken to, alert oriented x3 HEENT: Atraumatic, PERRLA, EOMI, Normocephalic Oral: No Gingival or Mucosal Lesions/ Ulcerations Neck: Supple, No JVD, Negative Carotid Bruits Lungs: Air entry severely diminished in both lungs. Bilateral coarse crepitation and rhonchi present. Shallow breathing, respiratory rate 12-14. Cardiovascular: Pacemaker rhythm, Normal S1, Normal S2, grade 5/6 ejection systolic murmur over left second ICS with radiation to carotids cardiac apex. Abdomen: Bowel Sounds Present, Soft, Non Tender, Non-Distended, urine in Nam catheter is cloudy, : No renal angle tenderness. No suprapubic tenderness. Extremities: Bilateral leg edema +1 Skin: No rashes, No breakdown Vitals/I&O's: Vital Signs Temp Pulse Resp BP Pulse Ox 98.9 F 71 18 145/77 H 92 05/30/20 14:18 05/30/20 17:00 05/30/20 14:18 05/30/20 14:18 05/30/20 14:18 Oxygen Flow Rate (L/min) 2 Oxygen Delivery Method Room Air Weight: 64.6 kg Body Mass Index (BMI) 24.8 Intake and Output for Last 24 Hours 05/28/20 05/29/20 05/30/20 23:59 23:59 23:59 Intake Total 1120 / 1120 1850.00 / 1850.00 0 / 0 Output Total 1625 / 1625 1700 / 1700 200 / 200 Balance -505 / -505 150.00 / 150.00 -200 / -200 Microbiology Past 72 Hours 05/26/20 07:10 Blood Culture (Wb) - Right Hand Blood Culture - Preliminary No growth in 48 hours. 05/26/20 07:13 Blood Culture (Wb) - Venous Blood Culture - Preliminary No growth in 48 hours. 05/26/20 11:30 Urine, Catheterized Urine Culture - Final Culture exhibits no growth. Laboratory Results 05/30/20 06:34: PT 32.9 H, INR 3.3 05/30/20 06:34: WBC 9.1, RBC 3.17 L, Hgb 10.2 L, Hct 31.7 L, MCV 100.0 H, MCH 32.2 H, MCHC 32.2, RDW Std Deviation 54.4 H, RDW Coeff of Radha 14.9 H, Plt Count 242, MPV 10.6, Immature Gran % (Auto) 0.500, Neut % (Auto) 70.5 H, Lymph % (Auto) 17.3 L, [place] % (Auto) 7.3, Eos % (Auto) 3.9, Baso % (Auto) 0.5, Absolute Neuts (auto) 6.4, Absolute Lymphs (auto) 1.58, Nucleated RBC % 0.4 05/30/20 06:34: Sodium 148 H, Potassium 3.8, Chloride 119 H, Carbon Dioxide 24.0, Anion Gap 5, BUN 20 H, Creatinine 0.83, Estim Creat Clear Calc 53.32, Est GFR (MDRD) Af Amer 113, Est GFR (MDRD) Non-Af 94, BUN/Creatinine Ratio 24.1 H, Glucose 88, Calcium 8.8, Total Bilirubin 0.60, AST 31, ALT 14 L, Alkaline Phosphatase 110, Total Protein 6.8, Albumin 2.1 L, Globulin 4.7 H, Albumin/Globulin Ratio 0.4 L Current Medications Acetaminophen (Acetaminophen 325 Mg Tablet) 650 mg PO TID [facility] Last Admin: 05/30/20 15:25 Dose: 650 mg Documented by: Albuterol Sulfate (Albuterol 2.5 Mg/3 Ml Vial.Neb.) 2.5 mg INHALATION Q2H PRN PRN PRN Reason: Shortness of Breath/Wheezing Last Admin: 05/26/20 06:06 Dose: 2.5 mg Documented by: Aspirin (Aspirin 325 Mg Tablet) 325 mg PO DAILY@0800 [facility] Heparin Sodium (Porcine) (Heparin Injection (Vial) 5,000 Unit/Ml Vial) 5,000 unit SC Q8 [facility] Last Admin: 05/30/20 15:25 Dose: 5,000 unit Documented by: Sodium Chloride () 250 mls @ 15 mls/hr IV .[id number] PRN PRN Reason: Saline Flush Last Infusion: 05/28/20 18:35 Dose: Infused Documented by: Sodium Chloride () 250 mls @ 15 mls/hr IV .[id number] PRN PRN Reason: Additional IVPB Infusion Dextrose/Sodium Chloride (Dextrose 5%/0.9% Nacl) 1,000 mls @ 100 mls/hr IV .Q10H [facility] Last Admin: 05/30/20 08:38 Dose: 100 mls/hr Documented by: Lidocaine (Lidocaine 5% Patch) 2 patch TOPICAL DAILY [facility]; Protocol Last Admin: 05/30/20 09:25 Dose: 2 patch Documented by: Nitroglycerin (Nitroglycerin (Inpatient Use) 0.4 Mg Tab.Subl) 0.4 mg SUBLINGUAL Q5M PRN PRN Reason: CARDIAC/CHEST PAIN Sodium Chloride (0.9% Saline Lock 10 Ml Syringe) 10 - 40 ml IV UD PRN PRN Reason: SALINE FLUSH Last Admin: 05/29/20 10:28 Dose: 10 ml Documented by: STROKE Vital Signs/Narrative: Vital Signs Temp Pulse Resp BP Pulse Ox 05/30/20 17:00 71 05/30/20 14:18 98.9 F 70 18 145/77 H 92 Medical Necessity - Tobacco Use Smoking Status: Never smoker Assessment/Plan All Active Problems Aspiration pneumonia (Acute) Encephalopathy (Acute) Hypotension (Acute) Severe sepsis (Acute) Compression fracture of L1 vertebra (Acute) JAYANT (acute kidney injury) (Acute) Dehydration (Acute) Elevated INR (Acute) 1. Acute hypoxic respiratory insufficiency secondary to aspiration pneumonitis Chest x-ray showed possible left lower lobe atelectasis. Repeat x-ray today shows no active disease. Continue with breathing treatments, encourage use of incentive spirometer. Wean off oxygen for SPO2 more than 94% 2. ?Severe sepsis likely secondary to aspiration pneumonitis We will discontinue IV Zosyn in the absence of active pulmonary disease 3. Dysphagia, s/p modified barium swallow today demonstrating prolonged mastication and disordered oral prep/bolus to transfer and initiate swallow onset, secondary to impaired co-ordination Started on purred diet. Will monitor 4. Acute metabolic encephalopathy likely secondary to hypoxia and ?severe sepsis Continue to monitor 5. Acute nondisplaced compression fracture of L1, patient will follow-up in the outpatient Continue with scheduled Tylenol rectally as well as Lidoderm patch 6. JAYANT on CKD stage III, resolved Creatinine improved to baseline We will continue to monitor 7. Supratherapeutic INR, INR is currently 3.3 Hold off on anticoagulation for now, repeat INR in a.m. 8. Hypertension/history of stroke Continue on aspirin will continue to monitor 9. History of Guillain-Driscoll?, progressive weakness Family is receptive to patient going for subacute rehab Social work consulted for discharge planning 10. Hypokalemia, replaced, recheck in a.m. 11. Hypernatremia, Na 148, on D5W fluids 12. DVT prophylaxis?heparin subcu Inpatient E&M: [id number] Subs Hosp L2
[2020-05-31] VITALS (7 sets, daily range): BP systolic 135–140; BP diastolic 70–74; PULSE 70–74; RESP 16–19; TEMP 36.6–36.8; O2SAT 92–96
[2020-05-31] MEDS: Acetaminophen 325 MG Tablet 650 MG PO ×2 (05:45→14:29)
[2020-05-31] MEDS: Dextrose 5%/0.9% NaCl 1,000 ML 100 ML IV (05:51)
[2020-05-31] MEDS: 0.9% Saline Lock 10 ML Syringe IV (05:51)
[2020-05-31 05:56] LABS: Bedside Glucose 104 mg/dL (70-110)
[2020-05-31 07:07] LABS: Absolute Lymphocyte Count 1.43 X10^3/uL (0.83-4.51); Absolute Neutrophil Count 6.8 X10^3/uL (2.0-7.7); Basophil# 0.03 X10^3/uL; Basophil% 0.3 % (0-1); Eosinophils% 4.3 % (0-5); Hematocrit 32.4 % (40-54); Hemoglobin 10.5 g/dL (13.0-16.5); Lymphocyte # 1.43 X10^3/ul (4.0); Lymphocyte % 15.5 % (19-41); Mean Corp Hgb Conc 32.4 g/dL (32-36); Mean Corpuscular Hgb 32.3 pg (27.0-32.0); Mean Corpuscular Volume 99.7 fL (80-94); Mean Platelet Vol. 10.6 fl (6.2-12.0); Monocyte# 0.51 X10^3/uL; Monocyte% 5.5 % (0-10); NRBC Flagged by Analyzer 0.3 % (0-5); Neutrophil # 6.79 X10^3/uL (2.7-7.7); Neutrophil % 73.6 % (47-70); Platelet Count 249 K/mm3 (150-450); RBC Distribution Width SD 54.7 fl (35.1-43.9); Red Blood Count 3.25 M/mm3 (4.6-6.2); White Blood Count 9.2 K/mm3 (4.4-11.0)
[2020-05-31 07:22] LABS: International Normalized Ratio 2.4; Prothrombin Time (Protime)PT. 25.5 SECONDS (11.7-14.9)
[2020-05-31 07:24] LABS: ALB/GLOB Ratio 0.4 RATIO (0.9-2.4); AST(SGOT) 33 U/L (15-37); Alanine Aminotransfer ALT/SGPT 15 U/L (16-61); Albumin, Serum 2.1 g/dL (3.2-5.0); Alkaline Phosphatase 115 U/L (45-117); Anion Gap 7 (5-15); BUN 18 mg/dL (7-18); BUN/Creat Ratio 21.6 RATIO (10-20); Calcium,Total 8.5 mg/dL (8.5-10.1); Chloride 120 mmol/L (98-107); Creatinine, Serum 0.83 mg/dL (0.70-1.30); EST Glomerular Filtration Rate 93 mL/min (>60); Est Glom Filt Rate - Afr Amer 113 mL/min (>60); Estimated Creatinine Clearance 53.32 ml/min; Globulin 4.7 g/dL (2.2-4.2); Glucose 110 mg/dL (74-106); Potassium 3.6 mmol/L (3.5-5.1); Protein, Total 6.8 g/dL (6.4-8.2); Sodium Level 149 mmol/L (136-145)
--- NOTE | 2020-05-31 07:42 | PCM.PN.HOSP ---
Patient Problems: Active and Suspected Problems Aspiration pneumonia (Acute) Encephalopathy (Acute) Hypotension (Acute) Compression fracture of L1 vertebra (Acute) JAYANT (acute kidney injury) (Acute) Dehydration (Acute) Elevated INR (Acute) Vitals/I&O's: Vital Signs Temp Pulse Resp BP Pulse Ox 97.8 F 74 16 140/70 H 95 05/31/20 02:30 05/31/20 05:01 05/31/20 02:30 05/31/20 02:30 05/31/20 02:30 Oxygen Flow Rate (L/min) 2 Oxygen Delivery Method Room Air Weight: 64.3 kg Body Mass Index (BMI) 24.8 Intake and Output for Last 24 Hours 05/29/20 05/30/20 05/31/20 23:59 23:59 23:59 Intake Total 1850.00 / 1850.00 1000 / 1120 1120 / 1120 Output Total 1700 / 1700 550 / 700 350 / 350 Balance 150.00 / 150.00 450 / 420 770 / 770 Microbiology Past 72 Hours 05/26/20 07:10 Blood Culture (Wb) - Right Hand Blood Culture - Preliminary No growth in 48 hours. 05/26/20 07:13 Blood Culture (Wb) - Venous Blood Culture - Preliminary No growth in 48 hours. 05/26/20 11:30 Urine, Catheterized Urine Culture - Final Culture exhibits no growth. Laboratory Results 05/30/20 06:34: WBC 9.1, RBC 3.17 L, Hgb 10.2 L, Hct 31.7 L, MCV 100.0 H, MCH 32.2 H, MCHC 32.2, RDW Std Deviation 54.4 H, RDW Coeff of Radha 14.9 H, Plt Count 242, MPV 10.6, Immature Gran % (Auto) 0.500, Neut % (Auto) 70.5 H, Lymph % (Auto) 17.3 L, [place] % (Auto) 7.3, Eos % (Auto) 3.9, Baso % (Auto) 0.5, Absolute Neuts (auto) 6.4, Absolute Lymphs (auto) 1.58, Nucleated RBC % 0.4 05/30/20 06:34: Sodium 148 H, Potassium 3.8, Chloride 119 H, Carbon Dioxide 24.0, Anion Gap 5, BUN 20 H, Creatinine 0.83, Estim Creat Clear Calc 53.32, Est GFR (MDRD) Af Amer 113, Est GFR (MDRD) Non-Af 94, BUN/Creatinine Ratio 24.1 H, Glucose 88, Calcium 8.8, Total Bilirubin 0.60, AST 31, ALT 14 L, Alkaline Phosphatase 110, Total Protein 6.8, Albumin 2.1 L, Globulin 4.7 H, Albumin/Globulin Ratio 0.4 L 05/31/20 05:49: POC Glucose 104 05/31/20 06:31: WBC 9.2, RBC 3.25 L, Hgb 10.5 L, Hct 32.4 L, MCV 99.7 H, MCH 32.3 H, MCHC 32.4, RDW Std Deviation 54.7 H, RDW Coeff of Radha 15.0 H, Plt Count 249, MPV 10.6, Immature Gran % (Auto) 0.800, Neut % (Auto) 73.6 H, Lymph % (Auto) 15.5 L, [place] % (Auto) 5.5, Eos % (Auto) 4.3, Baso % (Auto) 0.3, Absolute Neuts (auto) 6.8, Absolute Lymphs (auto) 1.43, Nucleated RBC % 0.3 05/31/20 06:31: Sodium 149 H, Potassium 3.6, Chloride 120 H, Carbon Dioxide 22.0, Anion Gap 7, BUN 18, Creatinine 0.83, Estim Creat Clear Calc 53.32, Est GFR (MDRD) Af Amer 113, Est GFR (MDRD) Non-Af 93, BUN/Creatinine Ratio 21.6 H, Glucose 110 H, Calcium 8.5, Total Bilirubin 0.60, AST 33, ALT 15 L, Alkaline Phosphatase 115, Total Protein 6.8, Albumin 2.1 L, Globulin 4.7 H, Albumin/Globulin Ratio 0.4 L 05/31/20 06:31: PT 25.5 H, INR 2.4 Current Medications Acetaminophen (Acetaminophen 325 Mg Tablet) 650 mg PO TID [facility] Last Admin: 05/31/20 05:45 Dose: 650 mg Documented by: Albuterol Sulfate (Albuterol 2.5 Mg/3 Ml Vial.Neb.) 2.5 mg INHALATION Q2H PRN PRN PRN Reason: Shortness of Breath/Wheezing Last Admin: 05/26/20 06:06 Dose: 2.5 mg Documented by: Aspirin (Aspirin 81 Mg Tab.Chew) 81 mg PO DAILY@0800 DOUG Sodium Chloride () 250 mls @ 15 mls/hr IV .[id number] PRN PRN Reason: Saline Flush Last Infusion: 05/28/20 18:35 Dose: Infused Documented by: Sodium Chloride () 250 mls @ 15 mls/hr IV .[id number] PRN PRN Reason: Additional IVPB Infusion Dextrose/Sodium Chloride (Dextrose 5%/0.9% Nacl) 1,000 mls @ 100 mls/hr IV .Q10H DOUG Last Admin: 05/31/20 05:51 Dose: 100 mls/hr Documented by: Lidocaine (Lidocaine 5% Patch) 2 patch TOPICAL DAILY [facility]; Protocol Last Admin: 05/30/20 09:25 Dose: 2 patch Documented by: Nitroglycerin (Nitroglycerin (Inpatient Use) 0.4 Mg Tab.Subl) 0.4 mg SUBLINGUAL Q5M PRN PRN Reason: CARDIAC/CHEST PAIN Sodium Chloride (0.9% Saline Lock 10 Ml Syringe) 10 - 40 ml IV UD PRN PRN Reason: SALINE FLUSH Last Admin: 05/31/20 05:51 Dose: 10 ml Documented by: STROKE Vital Signs/Narrative: Vital Signs Pulse 05/31/20 05:01 74 Medical Necessity - Tobacco Use Smoking Status: Never smoker Assessment/Plan All Active Problems Aspiration pneumonia (Acute) Encephalopathy (Acute) Hypotension (Acute) Severe sepsis (Acute) Compression fracture of L1 vertebra (Acute) JAYANT (acute kidney injury) (Acute) Dehydration (Acute) Elevated INR (Acute) 1. Acute hypoxic respiratory insufficiency secondary to aspiration pneumonitis Chest x-ray showed possible left lower lobe atelectasis. Repeat x-ray today shows no active disease. Continue with breathing treatments, encourage use of incentive spirometer. Wean off oxygen for SPO2 more than 94% 2. ?Severe sepsis likely secondary to aspiration pneumonitis We will discontinue IV Zosyn in the absence of active pulmonary disease 3. Dysphagia, s/p modified barium swallow today demonstrating prolonged mastication and disordered oral prep/bolus to transfer and initiate swallow onset, secondary to impaired co-ordination Started on purred diet. Will monitor 4. Acute metabolic encephalopathy likely secondary to hypoxia and ?severe sepsis Continue to monitor 5. Acute nondisplaced compression fracture of L1, patient will follow-up in the outpatient Continue with scheduled Tylenol rectally as well as Lidoderm patch 6. JAYANT on CKD stage III, resolved Creatinine improved to baseline We will continue to monitor 7. Supratherapeutic INR, INR is currently 3.3 Hold off on anticoagulation for now, repeat INR in a.m. 8. Hypertension/history of stroke Continue on aspirin will continue to monitor 9. History of Guillain-Driscoll?, progressive weakness Family is receptive to patient going for subacute rehab Social work consulted for discharge planning 10. Hypokalemia, replaced, recheck in a.m. 11. Hypernatremia, Na 148, on D5W fluids 12. DVT prophylaxis?heparin subcu Inpatient E&M: 57783 Subs Hosp L2
[2020-05-31 09:03] LABS: Partial Thromboplast Time 64.8 Seconds (24.1-36.2)
--- NOTE | 2020-05-31 09:42 | PCM.DC ---
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 Follow-up with instructions as outlined by speech therapy. You tend to aspirate silently and appear not to consistently cough or choke when food or liquid enters your airway. Please strictly follow the swallowing guidelines out outlined. You will be followed up with speech therapy, PT and OT in the outpatient. Continue to remain active. You should alternate small bites with small sips. Eat slowly, swallow as many times as needed for each bite. Reswallow if your voice is wet or gurgly. Continue with denture/oral hygiene after your medications. You have been referred to the osteoporosis clinic to discuss and further manage your chances of future fractures. You would need repeat blood work within a week to check on your kidney function. This can be done in your primary care doctor's office. You may choose to follow-up with your old fluid pump operator with Dr. Gayle who saw you in the hospital. This should be done within 2 weeks to check on your blood pressure and your cardiac function. Allergies/Adverse Reactions: Allergies No Known Allergies Allergy (Verified 05/24/20 09:53) Medications to take at Discharge Tolterodine Tartrate [Detrol LA] 4 mg PO DAILY 07/30/13 Allopurinol [Zyloprim] 300 mg PO DAILY 09/02/15 Linaclotide [Linzess] 290 mcg PO TID 09/02/15 Magnesium 400 mg PO DAILY 09/02/15 Potassium Chloride [K-Dur] 20 meq PO DAILY 09/02/15 Ropinirole HCl [Requip] 0.25 mg PO QHS 09/02/15 Simvastatin [Zocor] 20 mg PO QHS 09/02/15 Acetaminophen [Tylenol Tablet] 650 mg PO TID tab 05/31/20 Aspirin [Aspirin, Baby] 81 mg PO DAILY@0800 30 Days #30 tab.chew 05/31/20 Lidocaine [Lidoderm Patch] 2 patch TOPICAL DAILY 15 Days #30 patch 05/31/20 Metoprolol Tartrate 50 mg PO BID 30 Days #60 tab 05/31/20 The following prescriptions were given: Aspirin [Aspirin, Baby] 81 mg PO DAILY@0800 30 Days #30 tab.chew Transmission Status: Pending to [facility] Lidocaine [Lidoderm Patch] 2 patch TOPICAL DAILY 15 Days #30 patch Transmission Status: Pending to [facility] Metoprolol Tartrate 50 mg PO BID 30 Days #60 tab Transmission Status: Pending to [facility] Primary Care Physician: Theodore Luna Chi, MD [Primary Care Provider] - Please follow up with your Primary Care Physician in: within 2 weeks Test Results: Test results from this visit will be discussed in further detail at your follow-up appointment, if applicable. Please Follow Up With: Jesus Gayle MD When: within 2 weeks Please Follow Up With: Terence Talley MD When: call for appointment Please Follow Up With: Bi Infante DO When: within 1-2 weeks Proposed Discharge Date: 05/31/20
--- NOTE | 2020-05-31 09:53 | DS.PCM_ITS ---
Discharge Date and Diagnosis - Problem List Patient Problems: Active and Suspected Problems Aspiration pneumonia (Acute) Encephalopathy (Acute) Hypotension (Acute) Compression fracture of L1 vertebra (Acute) JAYANT (acute kidney injury) (Acute) Dehydration (Acute) Elevated INR (Acute) Date of Admission: 05/24/20 Date of Discharge: 06/02/20 - Primary Discharge Diagnosis Acute Problems: Active Problems Acute hypoxic respiratory insufficiency secondary to aspiration pneumonitis Probable severe sepsis likely secondary to aspiration pneumonitis Dysphagia Acute metabolic encephalopathy Acute nondisplaced compression fracture of L1 JAYANT on CKD stage III Supratherapeutic INR - Secondary Discharge Diagnosis Chronic Problems: Chronic Problems Murmur (Chronic) ischemic stroke (Chronic) Hx of cardiac pacemaker (Chronic) Hx of malignant neoplasm of prostate (Chronic) 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 Displaced narrowing and disc degeneration at the L4-L5 level. Electronically Signed: Ye Braswell, at 12:06 EDT , Service support , Thoracic Spine CT 05/24/20 10:01 IMPRESSION: The mineralization of the thoracic vertebrae. No acute abnormality is seen. Electronically Signed: Ye Braswell at 12:08 EDT , Service support , Brain CT 05/24/20 10:05 IMPRESSION: Chronic involutional changes of the brain. Electronically Signed: Ye Braswell at 12:00 EDT , Service support , Chest X-Ray 05/24/20 10:50 IMPRESSION: Mild degree of increased markings at the left lung base suggests linear atelectasis and/or scarring. Electronically Signed: Ye Braswell at 11:27 EDT , Service support , Chest X-Ray 05/26/20 05:50 IMPRESSION: No active disease. Electronically Signed: Maximiliano Oneal MD at 6:14 EDT Tel , Service support , Brain CT 05/26/20 08:02 IMPRESSION: Chronic involutional changes of the brain. Electronically Signed: Maximiliano Oneal MD at 9:49 EDT Tel , Service support , Chest X-Ray 05/26/20 09:20 IMPRESSION: Left lower lobe atelectasis Electronically Signed: Maximiliano Oneal MD at 9:50 EDT Tel , Service support , Brain CT 05/27/20 15:58 IMPRESSION: Chronic involutional changes of the brain. Electronically Signed: Maximiliano Oneal MD at 16:48 EDT Tel , Service support , Chest X-Ray 05/28/20 09:22 IMPRESSION: No active disease. Electronically Signed: Maximiliano Oneal MD at 11:31 EDT Tel , Service support , Cardiology Pulmonology Operations: None Procedures: 2-D Echocardiogram Summary of Care Provided: The patient is a 84 year old M with multiple medical comorbidities who presented to the hospital after a fall while standing at the sink. Patient fell on his back. He was seen in the emergency room and lumbar spine CT showed nondisplaced compression fracture of L1. CT of the brain and chest x-ray unremarkable. Also found to have JAYANT on CKD stage III. INR was therapeutic at 3.3. Patient was admitted to the [facility] floor for pain control. Hospitalist team discussed with neurosurgery who recommended outpatient follow-up. Patient was noted to have a fever of 102.1F, blood pressure 72/58. Lactic acid was elevated. Repeat imaging showed atelectasis and pulmonary congestion. Patient's blood pressure improved with IV fluids. It was thought that he had probable severe sepsis from aspiration pneumonia. He was subsequently moved to the PCU. Patient continued to improve. He was on BiPAP for short while. Later on transitioned to oxygen. He was eventually weaned off oxygen. Throughout his stay on the unit, repeat imaging of the chest x2 were negative for acute pneumonia. Blood cultures were negative. Patient had no more fever, no leukocytosis. Antibiotics were subsequently stopped. Patient was kept n.p.o. for a good part of the hospital stay by speech therapy. He eventually underwent modified barium swallow which showed moderate to severe oral dysphagia and moderate pharyngeal dysphagia. He was kept on a pur?ed diet, nectar thick liquids, he was asked to take small bites, small sips, alternate bites/solids and sips/liquids. This was communicated to the daughter and the family especially at discharge. Patient was seen by PT and OT and skilled for discharge to a intermediate facility. Initially his had wanted patient to go to TCU. With the increase in Covid cases and will start restrictions, the family elected to send patient home with home health. This was communicated in detail with the daughter who said they would organize help [id number] to assist with a father who are at time of discharge was a 2 person max assist. Her daughter understands clearly that there is a risk of falling deterioration. She however in conjunction with her mom want to bring patient home. Patient Problems: Active and Suspected Problems Aspiration pneumonia (Acute) Encephalopathy (Acute) Hypotension (Acute) Compression fracture of L1 vertebra (Acute) JAYANT (acute kidney injury) (Acute) Dehydration (Acute) Elevated INR (Acute) Subjective: On the day of discharge, patient was seen and examined. He is much awake. Sitting in the chair. I observed him eating his breakfast. No evidence of choking. Objective: Physical exam: General: Awake, alert oriented x3, looks much improved HEENT: Atraumatic, PERRLA, EOMI, Normocephalic Oral: No Gingival or Mucosal Lesions/ Ulcerations Neck: Supple, No JVD, Negative Carotid Bruits Lungs: Air entry severely diminished in both lungs Cardiovascular: Pacemaker rhythm, Normal S1, Normal S2, grade 5/6 ejection systolic murmur over left second ICS with radiation to carotids cardiac apex. Abdomen: Bowel Sounds Present, Soft, Non Tender, Non-Distended, urine in Nam catheter is cloudy, : No renal angle tenderness. No suprapubic tenderness. Extremities: Bilateral leg edema +1 Skin: No rashes, No breakdown - Physical Exam Vitals/I&O's: Vital Signs Temp Pulse Resp BP Pulse Ox 98.2 F 70 19 H 137/74 H 96 05/31/20 08:30 05/31/20 08:30 05/31/20 08:30 05/31/20 08:30 05/31/20 08:30 Oxygen Flow Rate (L/min) 2 Oxygen Delivery Method Room Air Weight: 64.3 kg Body Mass Index (BMI) 24.8 Intake and Output for Last 24 Hours 05/29/20 05/30/20 05/31/20 23:59 23:59 23:59 Intake Total 1850.00 / 1850.00 1000 / 1120 1465 / 1465 Output Total 1700 / 1700 550 / 700 350 / 350 Balance 150.00 / 150.00 450 / 420 1115 / 1115 Microbiology Past 72 Hours 05/26/20 07:10 Blood Culture (Wb) - Right Hand Blood Culture - Preliminary No growth in 48 hours. 05/26/20 07:13 Blood Culture (Wb) - Venous Blood Culture - Preliminary No growth in 48 hours. 05/26/20 11:30 Urine, Catheterized Urine Culture - Final Culture exhibits no growth. Laboratory Results 05/31/20 05:49: POC Glucose 104 05/31/20 06:31: WBC 9.2, RBC 3.25 L, Hgb 10.5 L, Hct 32.4 L, MCV 99.7 H, MCH 32.3 H, MCHC 32.4, RDW Std Deviation 54.7 H, RDW Coeff of Radha 15.0 H, Plt Count 249, MPV 10.6, Immature Gran % (Auto) 0.800, Neut % (Auto) 73.6 H, Lymph % (Auto) 15.5 L, [place] % (Auto) 5.5, Eos % (Auto) 4.3, Baso % (Auto) 0.3, Absolute Neuts (auto) 6.8, Absolute Lymphs (auto) 1.43, Nucleated RBC % 0.3 05/31/20 06:31: Sodium 149 H, Potassium 3.6, Chloride 120 H, Carbon Dioxide 22.0, Anion Gap 7, BUN 18, Creatinine 0.83, Estim Creat Clear Calc 53.32, Est GFR (MDRD) Af Amer 113, Est GFR (MDRD) Non-Af 93, BUN/Creatinine Ratio 21.6 H, Glucose 110 H, Calcium 8.5, Total Bilirubin 0.60, AST 33, ALT 15 L, Alkaline Phosphatase 115, Total Protein 6.8, Albumin 2.1 L, Globulin 4.7 H, Albumin/Globulin Ratio 0.4 L 05/31/20 06:31: PT 25.5 H, INR 2.4 05/31/20 06:31: APTT 64.8 H Current Medications Acetaminophen (Acetaminophen 325 Mg Tablet) 650 mg PO TID [facility] Last Admin: 05/31/20 05:45 Dose: 650 mg Documented by: Albuterol Sulfate (Albuterol 2.5 Mg/3 Ml Vial.Neb.) 2.5 mg INHALATION Q2H PRN PRN PRN Reason: Shortness of Breath/Wheezing Last Admin: 05/26/20 06:06 Dose: 2.5 mg Documented by: Aspirin (Aspirin 81 Mg Tab.Chew) 81 mg PO DAILY@0800 [facility] Sodium Chloride () 250 mls @ 15 mls/hr IV .[id number] PRN PRN Reason: Saline Flush Last Infusion: 05/28/20 18:35 Dose: Infused Documented by: Sodium Chloride () 250 mls @ 15 mls/hr IV .[id number] PRN PRN Reason: Additional IVPB Infusion Lidocaine (Lidocaine 5% Patch) 2 patch TOPICAL DAILY [facility]; Protocol Last Admin: 05/30/20 09:25 Dose: 2 patch Documented by: Nitroglycerin (Nitroglycerin (Inpatient Use) 0.4 Mg Tab.Subl) 0.4 mg SUBLINGUAL Q5M PRN PRN Reason: CARDIAC/CHEST PAIN Sodium Chloride (0.9% Saline Lock 10 Ml Syringe) 10 - 40 ml IV UD PRN PRN Reason: SALINE FLUSH Last Admin: 05/31/20 05:51 Dose: 10 ml Documented by: Discharge Diet: - - pureed diet Discharge Activity: Return to Normal Activity Home Medications: Medications to take at Discharge Tolterodine Tartrate [Detrol LA] 4 mg PO DAILY 07/30/13 Allopurinol [Zyloprim] 300 mg PO DAILY 09/02/15 Linaclotide [Linzess] 290 mcg PO TID 09/02/15 Magnesium 400 mg PO DAILY 09/02/15 Potassium Chloride [K-Dur] 20 meq PO DAILY 09/02/15 Ropinirole HCl [Requip] 0.25 mg PO QHS 09/02/15 Simvastatin [Zocor] 20 mg PO QHS 09/02/15 Acetaminophen [Tylenol Tablet] 650 mg PO TID tab 05/31/20 Aspirin [Aspirin, Baby] 81 mg PO DAILY@0800 30 Days #30 tab.chew 05/31/20 Lidocaine [Lidoderm Patch] 2 patch TOPICAL DAILY 15 Days #30 patch 05/31/20 Metoprolol Tartrate 50 mg PO BID 30 Days #60 tab 05/31/20 Following Prescriptions Were Given to Patient: Aspirin [Aspirin, Baby] 81 mg PO DAILY@0800 30 Days #30 tab.chew Transmission Status: Received by [facility] Lidocaine [Lidoderm Patch] 2 patch TOPICAL DAILY 15 Days #30 patch Transmission Status: Received by [facility] Metoprolol Tartrate 50 mg PO BID 30 Days #60 tab Transmission Status: Received by [facility] Primary Care Physician: Theodore Luna Chi, MD [Primary Care Provider] - Please follow up with your Primary Care Physician in: within 2 weeks Please Follow Up With: Jesus Gayle MD When: within 2 weeks Please Follow Up With: Terence Talley MD When: call for appointment Please Follow Up With: Bi Infante DO When: within 1-2 weeks Disposition: Home with Home Health Minutes spent on discharge:: 55 Patient Condition:: Fair Medical Necessity - Tobacco Use Smoking Status: Never smoker Meaningful Use Info Meaningful Use Diagnoses (Choose all that apply): None applicable Inpatient E&M: 65983 Disch Hosp
[2020-05-31] MEDS: Lidocaine 5% Patch 2 PATCH TOPICAL (11:01)
[2020-05-31] MEDS: Aspirin 81 MG TAB.CHEW PO (11:07)
--- NOTE | 2020-05-31 11:45 | CASEMGMT ---
GODFREY called patient's daughter, Chio. GODFREY let her know [facility] was set up. SW let her know retirement, PT,OT, and ST were all ordered. She asked if there will be help getting her dad in the care at d/c. GODFREY told her the aides can help him in the car. She said her is at home and will help get him into the home. She thanked GODFREY for the assistance. RN BRIDGET Ramirez notified Sue with [facility] that patient is discharged today. Plan: d/c home with his daughter Chio and his . Patient and his are temporarily moving in with their daughter Chio until patient is stronger. [facility] was set up for retirement, PT, OT, and ST. Laurnece CONNELL
--- NOTE | 2020-05-31 13:23 | NURSING ---
spoke with daughter reviewed all meds and follow up [facility] and have home health all meds understood and reviewedd
--- NOTE | 2020-05-31 13:54 | PCM.PN.CARD ---
Subjectve: Patient is a poor historian. He is unable to give good response to questions regarding any cardiac symptoms. He seems to be resting comfortably. Objective: Vital Signs Temp Pulse Resp BP Pulse Ox 98.2 F 70 19 H 137/74 H 96 05/31/20 08:30 05/31/20 08:30 05/31/20 08:30 05/31/20 08:30 05/31/20 08:30 Oxygen Flow Rate (L/min) 2 Oxygen Delivery Method Room Air Weight: 141 lb 12.116 oz Body Mass Index (BMI) 24.8 Intake and Output for Last 24 Hours 05/29/20 05/30/20 05/31/20 23:59 23:59 23:59 Intake Total 1850.00 / 1850.00 1000 / 1120 1465 / 1465 Output Total 1700 / 1700 550 / 700 350 / 350 Balance 150.00 / 150.00 450 / 420 1115 / 1115 General: Awake HEENT: Atraumatic Oral: Moist Mucosa 05/31/20 06:31: WBC 9.2, RBC 3.25 L, Hgb 10.5 L, Hct 32.4 L, MCV 99.7 H, MCH 32.3 H, MCHC 32.4, Plt Count 249, MPV 10.6, Immature Gran % (Auto) 0.800, Neut % (Auto) 73.6 H, Lymph % (Auto) 15.5 L, [place] % (Auto) 5.5, Eos % (Auto) 4.3, Baso % (Auto) 0.3, Absolute Neuts (auto) 6.8, Nucleated RBC % 0.3 05/31/20 06:31: Sodium 149 H, Potassium 3.6, Chloride 120 H, Carbon Dioxide 22.0, Anion Gap 7, BUN 18, Creatinine 0.83, Est GFR (MDRD) Af Amer 113, Est GFR (MDRD) Non-Af 93, BUN/Creatinine Ratio 21.6 H, Glucose 110 H, Calcium 8.5, Total Bilirubin 0.60 05/31/20 06:31: PT 25.5 H, INR 2.4 05/31/20 06:31: APTT 64.8 H Rhythm: EKG: ECHO: Stress Test: Cardiac Cath: PCI: CT Surgery: Holter monitor: EPS: PPM: CXR: Chest CT Scan: Medical Necessity - Tobacco Use Smoking Status: Never smoker Assessment/Plan 1. Atrial fibrillation The patient has a history of atrial fibrillation. It appears he has been on medical management with rate control therapy, antiarrhythmic therapy, and anticoagulant therapy. At the moment based upon the patient's ongoing clinical concerns and status it would be reasonable for the patient to continue rate control as he is able with agents such as beta-blockers. Based upon his fluctuating renal status there is concern with respect to reinitiation of agents such as digitalis or Tikosyn. Thus these will be remaining on hold. Ideally the patient would be on anticoagulant therapy. However based upon evaluation in the hospital the patient requires multiple hospital staff to assist him with respect to getting out of bed, sitting in the chair, or any attempted ambulation it has been deemed a significant fall risk. Thus at this time he will remain without anticoagulant therapy. 2. Permanent pacemaker The patient's pacemaker information is as noted. 3. Cardiac murmur?aortic valve stenosis He does have a cardiac murmur. He has undergone echocardiogram earlier this year as well as at [facility]. Both of raise concerns of severe aortic valve stenosis. This does have to be taken into consideration with his medical management. Unfortunately, at this time, the patient does not appear to be an ideal patient for either a surgical based or a percutaneous-based aortic valve replacement procedure. 4. Hypertension The patient reportedly has a history of hypertension. His medications will be adjusted as needed. 5. Aspiration pneumonia The patient is being evaluated for concerns of aspiration pneumonia and subsequently possibly a sepsis syndrome. At the moment he has been placed in the PCU. He is undergoing medical therapy with IV antibiotics. 6. Acute renal insufficiency The patient has had alteration in his creatinine level. There was concern this was related to dehydration. His renal function appears to be improving at this time. 7. Elevated INR The patient's elevated INR raises concern as to whether or not this could be related to alteration of his underlying albumin/protein levels and/or hepatic function. His laboratory studies demonstrate that his albumin level is low. At this time based upon the concerns listed above, the patient is remaining without anticoagulant therapy. Of note the patient was tested for COVID-19. This was reported as nondetected.
--- NOTE | 2020-05-31 15:23 | NURSING ---
Read and reviewed SN documentation
--- NOTE | 2020-06-03 17:14 | CASEMGMT ---
[facility] Discharge Follow-up Phone Call: DON: 13 Strata: 3 Call Date: 06/03/2020 Discharge Date: 05/31/2020 Time of Call: 1710 Admitting Diagnosis: Aspiration pneumonia, JYAANT, Sepsis, compression fx L1 Discharge follow-up call placed to pt's cell phone which went to an unidentified voicemail. Call placed to pt's daughter Francisca's phone and identifying voicemail received. Message left requesting a return call if home health had not answered any of their questions or concerns. Lesvia Dave RN CM
[2020-06-03 17:43] LABS: Vitamin D 1,25-Dihydroxy 13.6 pg/mL (19.9-79.3)
== END 2020-05-31 14:02 | disposition home health service (06) | DRG 542 ==
LOC: ED 12:34 → MS3 13:09 → PCU 05-26 12:01
PROVIDERS: Hospitalist; Internal Medicine Cardiovascular Disease; Admitting Provider Internal Medicine; Emergency Provider Physician Assistant Medical; PCP Family Medicine Geriatric Medicine; Visit Provider Internal Medicine
DX: M80.88XA Other osteoporosis with current pathological fracture, vertebra(e), initial encounter for fracture (principal); J96.01 Acute respiratory failure with hypoxia; G93.41 Metabolic encephalopathy; A41.9 Sepsis, unspecified organism; R65.20 Severe sepsis without septic shock; J96.02 Acute respiratory failure with hypercapnia; J69.0 Pneumonitis due to inhalation of food and vomit; E87.2 Acidosis; N17.9 Acute kidney failure, unspecified; I48.20 Chronic atrial fibrillation, unspecified; E87.0 Hyperosmolality and hypernatremia; G61.0 Guillain-Barre syndrome; I12.9 Hypertensive chronic kidney disease with stage 1 through stage 4 chronic kidney disease, or unspecified chronic kidney disease; N18.30 Chronic kidney disease, stage 3 unspecified; E87.6 Hypokalemia; I95.9 Hypotension, unspecified; G20 Parkinson's disease; F02.80 Dementia in other diseases classified elsewhere, unspecified severity, without behavioral disturbance, psychotic disturbance, mood disturbance, and anxiety; E86.0 Dehydration; E78.5 Hyperlipidemia, unspecified; R79.1 Abnormal coagulation profile; N40.1 Benign prostatic hyperplasia with lower urinary tract symptoms; N39.498 Other specified urinary incontinence; R13.13 Dysphagia, pharyngeal phase; R13.11 Dysphagia, oral phase; Z79.01 Long term (current) use of anticoagulants; Z79.899 Other long term (current) drug therapy; Z85.46 Personal history of malignant neoplasm of prostate; Z95.0 Presence of cardiac pacemaker; Z86.73 Personal history of transient ischemic attack (TIA), and cerebral infarction without residual deficits
CPT/HCPCS: 36415; 36600; 70450; 71045; 72128; 72131; 74230; 80048; 80053; 80076; 80162; 81001; 82607; 82652; 82746; 82803; 82962; 83605; 83735; 84100; 84484; 85025; 85610; 85730; 87040; 87086; 87635; 87641; 92526; 92610; 92611; 93005; 93306; 94002; 94003; 94762; 97110; 97116; 97162; 97166; 97530; 97535; 97803; 99251; 99285; J7030; J7040; J7050; A4216; G0463; J1940; J2405; J3490; J7799; U0002

== ENCOUNTER 2020-06-11 18:29 | Emergency (ER) | payer MEDICARE, BC, OTHER, SELFPAY ==
[2020-06-07 13:39] VITALS: BMI 25.1
[2020-06-11 18:33] VITALS: BP 157/81; PULSE 70; RESP 12; TEMP 36.7; O2SAT 99; BMI 24.0
--- NOTE | 2020-06-11 18:36 | EKG12_ITS ---
Test Reason : DYSRHYTHMIA Blood Pressure : / mmHG Vent. Rate : 071 BPM Atrial Rate : 072 BPM P-R Int : 000 ms QRS Dur : 158 ms QT Int : 458 ms P-R-T Axes : 000 -55 125 degrees QTc Int : 497 ms Ventricular-paced rhythm Abnormal ECG Confirmed by TAYO BENITEZ, KAYLEEN ([id number]), editorial project manager SUKHI MILLIGAN ([id number]) on 06/17/2020 1:02:05 PM Referred By: CL Confirmed By:EFRA CR MD
--- NOTE | 2020-06-11 18:36 | CT_ITS ---
STUDY: CT BRAIN WITHOUT CONTRAST REASON FOR EXAM: Male, 84 years old. STROKE,AMS, RADIATION DOSAGE (If Supplied By Facility): CTDIvol = ( 44.99 ) mGy, DLP = ( 796.11 ) mGycm TECHNIQUE: Transaxial CT imaging of the brain was performed without administration of intravenous contrast material. Individualized dose optimization techniques were used for this CT. COMPARISON: CT brain 05/27/2020 FINDINGS: Normal soft tissue structures. Normal calvarium. There is moderate cerebral atrophy with widening of the extra-axial spaces and ventricular dilatation. There are areas of decreased attenuation within the white matter tracts of the supratentorial brain, consistent with microvascular disease changes. Normal basal ganglia and thalami. Normal brainstem. Normal cerebellum. Encephalomalacia left occipital cortex. There is no intracranial hemorrhage. There are no findings of an acute ischemic infarction. Normal visualized paranasal sinuses. 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 Chronic involutional changes. Electronically Signed: Jonah Moore MD at 19:03 EST , Service support ,
--- NOTE | 2020-06-11 18:44 | ED.DCSUM_ITS ---
History of Present Illness Chief Complaint: Neuro S/Sx Informant: Patient Narrative: 84-year-old male with past medical history of dementia presents with concern for unresponsive episode. Patient brought in by EMS after being called for unresponsiveness. Initially completely unresponsive. This had resolved by the time EMS had arrived. Concern initially for focal weakness which present on arrival to the ER. Patient cannot provide accurate history of present illness given his significant dementia and is amnestic to the event. Past Medical History - Allergies and Home Meds Allergies/Adverse Reactions: Allergies No Known Allergies Allergy (Verified 06/07/20 13:39) Primary Care Physician: Theodore Luna Chi, MD [Primary Care Provider] - Prior records reviewed: Yes Past Medical History: - - afib, HTN, dementia Surgical History: - - Pacemaker Lives: With Family Smoking Status: Never smoker Alcohol: None Drugs: None - Family History Paternal Family History: Reports: Heart Disease, - - Not pertinent to the patient admission Review of Systems General: Denies: Chills, Fever, Sweats Eyes: Denies: Visual changes - bilaterally, Diplopia ENT: Denies: Rhinorrhea, Sore throat Cardiovascular: Denies: Chest pain, Palpitations Respiratory: Denies: Dyspnea, Cough, Dyspnea on exertion Gastrointestinal: Denies: Abdominal pain, Nausea, Vomiting, Diarrhea, Melena, Hematochezia Genitourinary: Denies: Dysuria, Hematuria, Frequency Musculoskeletal: Denies: Back pain, Extremity Pain Skin: Denies: Rash, Wounds Neurological: Denies: Headache, Weakness, Numbness Physical Exam Vital Signs/Narrative: Vital Signs Temp Pulse Resp BP Pulse Ox 06/11/20 18:33 98.1 F 70 12 157/81 H 99 General: Well nourished, Well developed, No Acute Distress Head: Normocephalic, Atraumatic Eyes: Perrl, EOMI ENT: Moist mucous membranes, No rhinorrhea Neck: Supple, Nontender Cardiovascular: Regular rate, Regular rhythm, No murmurs Respiratory: No distress, CTA bilaterally, Chest nontender Abdomen: Soft, Nontender, Nondistended, Normal bowel sounds Back: Nontender, Normal Inspection Extremities: Nontender, No edema Skin: Normal color, No rash Neurological: Alert, Oriented x3, Cranial nerves II-XII grossly intact, Normal Strength, Normal Sensation Psychological: Normal affect, Normal Mood Diagnostic/Tx/Re-eval Clinical Impression(s) from Imaging Studies Brain CT 06/11/20 18:36 IMPRESSION: 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 Chronic involutional changes. Electronically Signed: Jonah Moore MD at 19:03 EST , Service support , Chest X-Ray 06/11/20 19:15 IMPRESSION: No acute disease Electronically Signed: Jonah Moore MD at 20:33 EST , Service support , Laboratory Data 06/11/20 06/11/20 06/11/20 18:55 18:55 18:55 WBC 7.7 RBC 3.65 L Hgb 11.5 L Hct 36.6 L MCV 100.3 H MCH 31.5 MCHC 31.4 L RDW Std Deviation 57.8 H RDW Coeff of Radha 15.9 H Plt Count 493 H MPV 9.5 Immature Gran % (Auto) 0.600 Neut % (Auto) 88.5 H Lymph % (Auto) 9.4 L [place] % (Auto) 1.4 Eos % (Auto) 0.0 Baso % (Auto) 0.1 Absolute Neuts (auto) 6.8 Absolute Lymphs (auto) 0.73 L Nucleated RBC % 0 Sodium 138 Potassium 4.7 Chloride 101 Carbon Dioxide 30.0 Anion Gap 7 BUN 31 H Creatinine 1.33 H Estim Creat Clear Calc 33.27 Est GFR (MDRD) Af Amer 66 Est GFR (MDRD) Non-Af 54 L BUN/Creatinine Ratio 23.3 H Glucose 124 H Lactic Acid 2.6 H* Calcium 9.6 Total Bilirubin 0.30 AST 29 ALT 24 Alkaline Phosphatase 173 H Troponin I < 0.015 Total Protein 8.8 H Albumin 3.3 Globulin 5.5 H Albumin/Globulin Ratio 0.6 L Urine Color Urine Clarity Urine pH Ur Specific [place] Urine Protein Urine Glucose (UA) Urine Ketones Urine Occult Blood Urine Nitrite Urine Bilirubin Urine Urobilinogen Ur Leukocyte Esterase Urine RBC Urine WBC Ur Squamous Epith Cells Urine Bacteria Urine Mucus 06/11/20 23:00 WBC RBC Hgb Hct MCV MCH MCHC RDW Std Deviation RDW Coeff of Radha Plt Count MPV Immature Gran % (Auto) Neut % (Auto) Lymph % (Auto) [place] % (Auto) Eos % (Auto) Baso % (Auto) Absolute Neuts (auto) Absolute Lymphs (auto) Nucleated RBC % Sodium Potassium Chloride Carbon Dioxide Anion Gap BUN Creatinine Estim Creat Clear Calc Est GFR (MDRD) Af Amer Est GFR (MDRD) Non-Af BUN/Creatinine Ratio Glucose Lactic Acid Calcium Total Bilirubin AST ALT Alkaline Phosphatase Troponin I Total Protein Albumin Globulin Albumin/Globulin Ratio Urine Color Yellow Urine Clarity Clear Urine pH 7.0 Ur Specific [place] 1.005 Urine Protein 15 H Urine Glucose (UA) Normal Urine Ketones Negative Urine Occult Blood 250 H Urine Nitrite Negative Urine Bilirubin Negative Urine Urobilinogen Normal Ur Leukocyte Esterase Negative Urine RBC 5-10 SEEN Urine WBC 0 SEEN Ur Squamous Epith Cells 0 SEEN Urine Bacteria 0 SEEN Urine Mucus 0 SEEN - Rhythm Strip Rhythm Strip: Ventricular paced rhythm Rate: 71 Ectopy: None - EKG Initial EKG Interpretation: Paced - Paced rhythm at 71 bpm. QTC of 497 ms. - Medical Decision Making Patient appears well and nontoxic. No focal neurologic deficit. Lab work shows a slightly elevated lactic acid as well as acute renal insufficiency. Patient given 1 L of normal saline. Patient monitored in the department for multiple hours without any evidence of focal neurologic deficit. CT brain negative. EKG nonischemic. After extensive discussion with the patient's it sounds like he was not speaking for period of time which resolved. Patient does have significant dementia. Patient's does wish to take him home. He will be discharged home in stable condition. Impression: 1. Transient altered mental status 2. Volume depletion 3. History of dementia ED Disposition - Plan for ED Patient: Disposition: Home or Assisted Living Instructions: ED Confusion Referrals: Theodore Luna Chi, MD [Primary Care Provider] - 2 Days
--- NOTE | 2020-06-11 19:15 | RAD_ITS ---
STUDY: X-RAY CHEST REASON FOR EXAM: Male, 84 years old. pt had episode of confusion and weakness. sx resolved by arrival. c/o back discomfort. recent admit for the same. TECHNIQUE: Single frontal view of the chest. COMPARISON: 05/28/2020 FINDINGS: BIRADS Polar pacer on the left. The lungs are clear and expanded. There is no demonstrated pleural abnormality. Cardiac megaly. Normal mediastinum and jarod. Normal visualized pulmonary arteries. Normal visualized aortic arch and descending thoracic aorta. Normal visualized thoracic spine. Normal visualized ribs, clavicles, and shoulders. There is no demonstrated abnormality of the visualized soft tissue structures of the upper abdomen. RAD/Chest 1 View (Portable) IMPRESSION: No acute disease Electronically Signed: Jonah Moore MD at 20:33 EST , Service support ,
[2020-06-11 19:16] LABS: Absolute Lymphocyte Count 0.73 X10^3/uL (0.83-4.51); Absolute Neutrophil Count 6.8 X10^3/uL (2.0-7.7); Basophil# 0.01 X10^3/uL; Basophil% 0.1 % (0-1); Hematocrit 36.6 % (40-54); Hemoglobin 11.5 g/dL (13.0-16.5); Lymphocyte # 0.73 X10^3/ul (4.0); Lymphocyte % 9.4 % (19-41); Mean Corp Hgb Conc 31.4 g/dL (32-36); Mean Corpuscular Hgb 31.5 pg (27.0-32.0); Mean Corpuscular Volume 100.3 fL (80-94); Mean Platelet Vol. 9.5 fl (6.2-12.0); Monocyte# 0.11 X10^3/uL; Monocyte% 1.4 % (0-10); NRBC Flagged by Analyzer 0 % (0-5); Neutrophil # 6.83 X10^3/uL (2.7-7.7); Neutrophil % 88.5 % (47-70); Platelet Count 493 K/mm3 (150-450); RBC Distribution Width CV 15.9 % (11.6-14.6); RBC Distribution Width SD 57.8 fl (35.1-43.9); Red Blood Count 3.65 M/mm3 (4.6-6.2); White Blood Count 7.7 K/mm3 (4.4-11.0)
[2020-06-11 19:39] LABS: ALB/GLOB Ratio 0.6 RATIO (0.9-2.4); AST(SGOT) 29 U/L (15-37); Alanine Aminotransfer ALT/SGPT 24 U/L (16-61); Albumin, Serum 3.3 g/dL (3.2-5.0); Alkaline Phosphatase 173 U/L (45-117); Anion Gap 7 (5-15); BUN 31 mg/dL (7-18); BUN/Creat Ratio 23.3 RATIO (10-20); Calcium,Total 9.6 mg/dL (8.5-10.1); Chloride 101 mmol/L (98-107); Creatinine, Serum 1.33 mg/dL (0.70-1.30); EST Glomerular Filtration Rate 54 mL/min (>60); Est Glom Filt Rate - Afr Amer 66 mL/min (>60); Estimated Creatinine Clearance 33.27 ml/min; Globulin 5.5 g/dL (2.2-4.2); Glucose 124 mg/dL (74-106); Potassium 4.7 mmol/L (3.5-5.1); Protein, Total 8.8 g/dL (6.4-8.2); Sodium Level 138 mmol/L (136-145)
--- NOTE | 2020-06-11 19:44 | ED.RN ---
lactic of 2.6 reported to
[2020-06-11 19:45] LABS: Lactic Acid 2.6 mmol/L (0.4-1.9)
[2020-06-11 20:10] VITALS: PULSE 70; RESP 24; O2SAT 95; BMI 24.0
[2020-06-11 21:20] VITALS: BP 186/73; PULSE 74; RESP 24; O2SAT 95
[2020-06-11] MEDS: 0.9% Normal Saline 1,000 ML 999 ML IV (21:26)
[2020-06-11 22:35] VITALS: BP 171/80; PULSE 70; RESP 12; O2SAT 96
[2020-06-11 23:08] LABS: Reflex Lactate? Y
[2020-06-11 23:33] LABS: Bacteria 0 SEEN /hpf (None Seen); Mucous, Urine 0 SEEN /hpf (<or=2+); Squamous Epithelial Cells - UA 0 SEEN /hpf (0-5); White Blood Cells 0 SEEN /hpf (0-5)
[2020-06-11 23:35] LABS: Color, Urine Yellow (Yellow); Glucose, Dipstick Normal (Normal); Ketone-Dipstick Negative (Negative); Leukocyte Esterase-Dipstick Negative /ul (Negative); Nitrite-Dipstick Negative (Negative); Occult Blood-Urine 250 /ul (Negative); Protein-Dipstick 15 mg/dl (Negative); Specific Gravity, Urine 1.005 (1.002-1.030); Urine Bilirubin Dipstick Negative (Negative); Urine Clarity Clear (Clear); Urine Urobilinogen Normal (Normal)
[2020-06-11 23:40] LABS: Red Blood Cells-Urine 5-10 SEEN /hpf (0-5)
[2020-06-11 23:42] VITALS: BP 164/86
[2020-06-12 00:45] LABS: Lactic Acid 1.3 mmol/L (0.4-1.9)
== END 2020-06-12 00:38 | disposition home or self-care (01) ==
PROVIDERS: Emergency Provider Emergency Medicine; PCP Family Medicine Geriatric Medicine
DX: R41.82 Altered mental status, unspecified (principal); E86.9 Volume depletion, unspecified; F03.90 Unspecified dementia, unspecified severity, without behavioral disturbance, psychotic disturbance, mood disturbance, and anxiety; N28.9 Disorder of kidney and ureter, unspecified; I48.91 Unspecified atrial fibrillation; I10 Essential (primary) hypertension; Z79.01 Long term (current) use of anticoagulants; Z79.82 Long term (current) use of aspirin; Z79.52 Long term (current) use of systemic steroids; Z79.899 Other long term (current) drug therapy; Z95.0 Presence of cardiac pacemaker
CPT/HCPCS: 36415; 70450; 71045; 80053; 81001; 83605; 84484; 85025; 93005; 96360; 96361; 99285; J7030; J7040; A4216

== ENCOUNTER 2020-06-18 11:31 | Emergency (ER) | payer MEDICARE, BC, OTHER, SELFPAY ==
[2020-06-18 11:32] VITALS: BP 144/79; PULSE 74; RESP 18; TEMP 36.9; O2SAT 96; BMI 20.2
--- NOTE | 2020-06-18 12:31 | ED.RN ---
LAST PURPOSEFUL VOID AT 0600, PT HAS ARTIFICIAL SPHINCTER BUT HAS CONSTANT LEAKAGE OF URINE WELL. BLADDER SCANNED FOR 181 ML. AWARE.
--- NOTE | 2020-06-18 12:48 | ED.DCSUM_ITS ---
History of Present Illness Chief Complaint: Male Pain/Injury Detail of Chief Complaint: And testicles and difficulty urinating. 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 Patient was able to urinate this morning. He denies dysuria, frequency, urgency or hematuria. states there was blood yesterday. He presently does not have pain in his scrotum or testicles. He was recently admitted to the hospital. The patient and the are poor informant. They cannot give specifics to why he was admitted, along he was admitted or when he was discharged. 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 (7) Hx of cardiac pacemaker Status: Chronic (8) Hx of malignant neoplasm of prostate Status: Chronic (9) ischemic stroke Status: Chronic Past Medical History - Allergies and Home Meds Allergies/Adverse Reactions: Allergies No Known Allergies Allergy (Verified 06/18/20 11:38) Primary Care Physician: Theodore Luna Chi, MD [Primary Care Provider] - Surgical History: - - Pacemaker Lives: Spouse/ Significant Other Smoking Status: Never smoker Alcohol: None Drugs: None - Family History Paternal Family History: Reports: Heart Disease, - - Not pertinent to the patient admission Review of Systems General: Denies: Chills, Fever, Malaise, Subjective, Sweats, Weight loss Eyes: Denies: Visual changes - bilaterally, Blurred Vision - bilaterally ENT: Denies: Rhinorrhea, Sore throat Cardiovascular: Denies: Chest pain, Palpitations Respiratory: Denies: Dyspnea, Cough, Dyspnea on exertion Gastrointestinal: Denies: Abdominal pain, Nausea, Vomiting Genitourinary: Reports: -. Denies: Dysuria, Hematuria, Frequency Musculoskeletal: Denies: Myalgias, Arthralgias, Swelling, Extremity Pain Skin: Denies: Rash Physical Exam Vital Signs/Narrative: Vital Signs Temp Pulse Resp BP Pulse Ox 06/18/20 11:32 98.4 F 74 18 144/79 H 96 Inital Vital Signs reviewed: Yes General: Well nourished, Well developed, No Acute Distress Head: Normocephalic, Atraumatic Eyes: Perrl, EOMI. Negative for: Pale conjunctiva Cardiovascular: Regular rhythm, No murmurs, Irregular Respiratory: No distress, CTA bilaterally : - - Cough for prosthetic sphincter noted. Testes are centered bilaterally. There is atrophy of the testes. There is no tenderness, swelling of the testicles. There is no swelling of the scrotum. There is no inguinal lymph adenopathy. There is no penile lesion or discharge. He is uncircumcised. Back: Nontender Extremities: Nontender Skin: Normal color, No rash Neurological: Alert, Oriented x3, Cranial nerves II-XII grossly intact, Normal Strength, Normal Sensation Psychological: Depressed Diagnostic/Tx/Re-eval - Medical Decision Making Bladder scan reveals patient has less than 150 cc. This would be reason why he has no urge to urinate. Since he has no objective findings or subjective findings presently will discharge to home to follow-up with his urologist. ED Disposition - Plan for ED Patient: Disposition: Home or Assisted Living Diagnosis: Testicular pain Instructions: ED Testicular Pain [facility] Referrals: Theodore Luna Chi, MD [Primary Care Provider] - Himanshu Stuart MD [STAFF PHYSICIAN] - As Needed
--- NOTE | 2020-06-18 13:28 | CM.ED ---
Social Work Consult: Discharge Planning Informant: Dr. Kerr Met with patient and patient spouse in room. Introduced self and pediatric social worker role. Patient agreeable to speak with this pediatric social worker. Patient spouse states concern of being able to care for patient in the home. Patient was living with spouse and daughterSonia as Sonia's home. Patient spouse, Analy reports that plan will be for patient and Analy to discharge to own home today as there are steps at [facility]. This pediatric social worker inquiring about [facility] referral for private duty aides in the home. Analy and patient are not interested in [facility] referral or private duty aides in the home. Analy reports that patient is active with [facility]. Analy states that patient typically ambulates with a walker in the home. Analy reports concern for being able to care for patient as patient has not been up to walk today due to pain. Analy and patient aware that patient is cleared for discharge and unless patient is open to [facility] placement home is the only option and private duty aides could be set up by Analy/family/patient. Analy reports I will take him home. Patient states to think I can walk. Patient denies concerns with returning to home. Patient stomping feet on bed as if walking with them and smiling towards this pediatric social worker. Analy reports that daughterMarcia plans to come and sweet pickled fruit maker patient and Analy and will provide help in the home. After exploring multiple options with patient and Analy plan is for patient to return to home to prior level of functioning. Active support and listening provided. PLAN: Discharge to home with family. Marisela CONNELL, RANDY
== END 2020-06-18 14:01 | disposition home or self-care (01) ==
PROVIDERS: Emergency Provider Emergency Medicine; PCP Family Medicine Geriatric Medicine
DX: N50.811 Right testicular pain (principal); N50.812 Left testicular pain; I48.20 Chronic atrial fibrillation, unspecified; I10 Essential (primary) hypertension; G61.0 Guillain-Barre syndrome; Z79.01 Long term (current) use of anticoagulants; Z79.82 Long term (current) use of aspirin; Z79.52 Long term (current) use of systemic steroids; Z79.899 Other long term (current) drug therapy; Z86.73 Personal history of transient ischemic attack (TIA), and cerebral infarction without residual deficits; Z85.46 Personal history of malignant neoplasm of prostate; Z95.0 Presence of cardiac pacemaker
CPT/HCPCS: 99284

== ENCOUNTER 2020-07-06 08:41 | Observation (INO) | payer MEDICARE, BC, OTHER, SELFPAY ==
[2020-07-06] VITALS (11 sets, daily range): BP systolic 123–155; BP diastolic 56–78; PULSE 70–81; RESP 16–19; TEMP 36.2–36.9; O2SAT 94–100; BMI 24.2; BMI 23.3; BMI 23.4
--- NOTE | 2020-07-06 08:50 | EKG12_ITS ---
Test Reason : CP Blood Pressure : / mmHG Vent. Rate : 080 BPM Atrial Rate : 074 BPM P-R Int : 000 ms QRS Dur : 156 ms QT Int : 444 ms P-R-T Axes : 000 -40 065 degrees QTc Int : 512 ms Ventricular-paced rhythm Abnormal ECG Confirmed by IESHA BENITEZ, HEDY ([id number]), slot editor SUKHI MILLIGAN ([id number]) on 07/08/2020 1:32:15 PM Referred By: Confirmed By:HEDY JULIAN MD
--- NOTE | 2020-07-06 08:50 | RAD_ITS ---
STUDY: X-RAY CHEST REASON FOR EXAM: Male, 84 years old. CHEST PAIN TECHNIQUE: Single AP portable view of the chest. COMPARISON: Prior comparison studies are not available for review at this time. FINDINGS: The lungs are somewhat hyperinflated. No focal infiltrate is seen. There is no demonstrated pleural abnormality. Sternal cerclage wires and vascular clips are present from a prior sternotomy and coronary artery bypass graft procedure (CABG). Normal mediastinum and jarod. Normal visualized pulmonary arteries. There is atherosclerotic calcification of the aortic arch with tortuosity. The thoracic spine is obscured by the mediastinum. Normal visualized ribs, clavicles, and shoulders. There is no demonstrated abnormality of the visualized soft tissue structures of the upper abdomen. RAD/Chest 1 View (Portable) IMPRESSION: 1. Hyperinflation. 2. Status post CABG. 3. No active pulmonary disease. Electronically Signed: Mehdi Canales MD at 9:45 EST Tel , Service support ,
--- NOTE | 2020-07-06 09:05 | ED.DCSUM_ITS ---
- ER Visit Summary Date of Service: 07/06/20 Chief Complaint: Chest pain History of Present Illness: The patient is a 84 M presenting with chest pain. He states this started around 5 AM. He states at worst it was 4/10, currently 2 out of 10. He was given aspirin per EMS. He has associated shortness of b reath. He denies fever or cough. Denies nausea or vomiting. Denies recent exposure to Covid. Physical Examination: Vitals are stable. Patient is afebrile. Alert no acute distress. HEENT exam is unremarkable. Neck is supple. Lungs are clear and equal bilaterally. Heart is regular rate and rhythm. Systolic murmur Abdomen is soft nontender nondistended. Extremities are unremarkable. Skin is warm and dry. No focal neurologic deficit. Remainder of exam is unremarkable. Emergency Department Course and Treatment: EKG is paced at a rate of 80, similar to previous. Chest x-ray shows hyperinflation. Status post CABG. No active pulmonary disease. CBC shows hemoglobin 9.9, sodium 133. Alk phos 125. Troponin 0.045. INR 4.6. Covid is negative. Patient is a poor historian secondary to dementia. He is chest pain-free on reevaluation. Discussed with hospitalist for observation. Disposition: Observation Impression: Chest pain This note was generated with [employer] dictation software. It may contain incorrect words, spelling, and punctuation that were not noted in review of the chart prior to signing ED Disposition - Plan for ED Patient: Referrals: Theodore Luna Chi, MD [Primary Care Provider] -
[2020-07-06 09:24] LABS: Absolute Lymphocyte Count 1.25 X10^3/uL (0.83-4.51); Absolute Neutrophil Count 3.3 X10^3/uL (2.0-7.7); Basophil# 0.02 X10^3/uL; Basophil% 0.3 % (0-1); Eosinophil# 0.64 X10^3/uL; Eosinophils% 11.1 % (0-5); Hematocrit 29.9 % (40-54); Hemoglobin 9.9 g/dL (13.0-16.5); Lymphocyte # 1.25 X10^3/ul (4.0); Lymphocyte % 21.7 % (19-41); Mean Corp Hgb Conc 33.1 g/dL (32-36); Mean Corpuscular Hgb 32.5 pg (27.0-32.0); Mean Platelet Vol. 9.2 fl (6.2-12.0); Monocyte# 0.55 X10^3/uL; Monocyte% 9.5 % (0-10); NRBC Flagged by Analyzer 0 % (0-5); Neutrophil % 57.2 % (47-70); Platelet Count 359 K/mm3 (150-450); RBC Distribution Width CV 15.3 % (11.6-14.6); RBC Distribution Width SD 54.7 fl (35.1-43.9); Red Blood Count 3.05 M/mm3 (4.6-6.2); White Blood Count 5.8 K/mm3 (4.4-11.0)
[2020-07-06 09:35] LABS: Prothrombin Time (Protime)PT. 43.6 SECONDS (11.7-14.9)
[2020-07-06 09:43] LABS: International Normalized Ratio 4.6
[2020-07-06 09:51] LABS: ALB/GLOB Ratio 0.6 RATIO (0.9-2.4); AST(SGOT) 20 U/L (15-37); Alanine Aminotransfer ALT/SGPT 14 U/L (16-61); Albumin, Serum 2.9 g/dL (3.2-5.0); Alkaline Phosphatase 125 U/L (45-117); Anion Gap 7 (5-15); BUN 15 mg/dL (7-18); BUN/Creat Ratio 16.8 RATIO (10-20); Calcium,Total 9.1 mg/dL (8.5-10.1); Chloride 98 mmol/L (98-107); EST Glomerular Filtration Rate 86 mL/min (>60); Est Glom Filt Rate - Afr Amer 104 mL/min (>60); Estimated Creatinine Clearance 49.17 ml/min; Globulin 4.9 g/dL (2.2-4.2); Glucose 88 mg/dL (74-106); Potassium 4.4 mmol/L (3.5-5.1); Protein, Total 7.8 g/dL (6.4-8.2); Sodium Level 133 mmol/L (136-145)
--- NOTE | 2020-07-06 13:03 | CON.PCM_ITS ---
Problem List (1) Chest pain Status: Acute (2) Abnormal cardiac enzyme level Status: Acute (3) Atrial fibrillation Status: Chronic (4) Hx of cardiac pacemaker Status: Chronic (5) Aortic valve stenosis Status: Chronic Reason for Consult Date of Consultation: 07/06/20 History of Present Illness: The patient is a 84 year [id number] white male with multiple medical issues including dementia, aortic valve stenosis, atrial fibrillation, permanent pacemaker, history of anemia, who is referred for evaluation of chest discomfort. The patient stated earlier to the [facility] medical staff that he experienced chest discomfort which is the reason he presented to the hospital for further evaluation. Upon cardiovascular consultation the patient stated that he experienced palpitations and denied chest discomfort or any acute change in his respiratory status and subsequently presented for further evaluation. He denied any acute orthopnea or PND or worsening peripheral pitting edema. There has been no near syncope or syncope. The patient was previously evaluated [facility] during concerns of an underlying pneumonia and sepsis with hypotension, anemia, and renal insufficiency superimposed upon his history of atrial fibrillation and permanent pacemaker. At that time he was diagnosed with a cardiac murmur and subsequently underwent evaluation with a transthoracic echocardiogram. He was found to have evidence of severe aortic valve stenosis by an elevated mean gradient and a decreased aortic valve area. He was recommended for continued conservative medical management based upon his age, dementia, and multiple comorbidities. At the present time he appears to be resting comfortably. His initial troponin I level is negative. A subsequent troponin I level was noted to be indeterminate. [place] his previous studies are as noted below. [] Past Medical History Allergies/Adverse Reactions: Allergies No Known Allergies Allergy (Verified 07/06/20 08:42) Home Medications: Ambulatory Orders Medication Instructions Recorded Allopurinol [Zyloprim] 300 mg PO DAILY 09/02/15 Acetaminophen [Tylenol Tablet] 650 mg PO TID tab 05/31/20 calcium citrate 315 mg 1 tab PO DAILY 06/07/20 calcium-vitamin D3 6.25 mcg (250 unit) tablet esomeprazole magnesium 20 mg 20 mg PO DAILY 06/07/20 capsule,delayed release lamotrigine 25 mg tablet 25 tab PO DAILY 06/07/20 levothyroxine 25 mcg tablet 25 mcg PO DAILY tab 06/07/20 memantine 10 mg tablet 10 tab PO DAILY 06/07/20 metoprolol tartrate 50 mg tablet 100 mg PO BID tab 06/07/20 prednisone 10 mg tablet 1 tab PO DAILY 06/07/20 ropinirole 0.25 mg tablet 0.5 mg PO QHS tab 06/07/20 warfarin 3 mg tablet 2.5 mg PO DAILY tab 06/07/20 Past Medical History (Chronic Problems): Chronic Problems Murmur (Chronic) Aortic valve stenosis (Chronic) ischemic stroke (Chronic) Hx of cardiac pacemaker (Chronic) Hx of malignant neoplasm of prostate (Chronic) 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 Smoking Status: Never smoker Alcohol: None Drugs: None Review of Systems - Review of Systems General: Denies: Fever, Night Sweats, Fatigue Cardiovascular: Reports: Chest Discomfort, Palpitations. Denies: Shortness of Breath, Orthopnea, PND, Peripheral Edema, Lightheadedness, Dizziness, Near Syncope, Syncope Respiratory: Denies: Cough, Sputum Production, Hemoptysis Gastrointestinal: Denies: Hematemesis, Hematochezia, Melena Genitourinary: Denies: Dysuria, Hematuria Skin: Denies: Rash Subjectve: This is an 84-year-old white male appears be resting comfortably at this time in no acute distress. Objective: Vital Signs Temp Pulse Resp BP Pulse Ox 97.1 F L 70 16 155/78 H 97 07/06/20 11:25 07/06/20 11:25 07/06/20 11:25 07/06/20 11:25 07/06/20 11:25 Oxygen Delivery Method Room Air Weight: 136 lb 14.513 oz Body Mass Index (BMI) 24.2 Finger Stick Blood Glucose 124 General: Awake, Cooperative, No Acute Distress HEENT: Atraumatic, Normocephalic, PERRL, EOMI, Sclera Non Icteric Neck: No JVD Lungs: Clear to auscultation Cardiovascular: Regular Rhythm, Normal S1, Dimished A2 Murmur Murmur: Grade 3/6, Harsh, Crescendo-Decrescendo Vascular: No Carotid Bruits Abdomen: Bowel Sounds Present, Soft Extremities: No edema Neurological: No Focal Motor or Sensory Deficit Psych/Mental Status: Appropriate 07/06/20 09:17: WBC 5.8, RBC 3.05 L, Hgb 9.9 L, Hct 29.9 L, MCV 98.0 H, MCH 32.5 H, MCHC 33.1, Plt Count 359, MPV 9.2, Immature Gran % (Auto) 0.200, Neut % (Auto) 57.2, Lymph % (Auto) 21.7, Gage % (Auto) 9.5, Eos % (Auto) 11.1 H, Baso % (Auto) 0.3, Absolute Neuts (auto) 3.3, Nucleated RBC % 0 07/06/20 09:17: Sodium 133 L, Potassium 4.4, Chloride 98, Carbon Dioxide 28.0, Anion Gap 7, BUN 15, Creatinine 0.90, Est GFR (MDRD) Af Amer 104, Est GFR (MDRD) Non-Af 86, BUN/Creatinine Ratio 16.8, Glucose 88, Calcium 9.1, Total Bilirubin 0.50, Troponin I 0.045 07/06/20 09:17: PT 43.6 H, INR 4.6 H* Rhythm: Electronic ventricular paced rhythm EKG: Electronic ventricular paced rhythm ECHO: Interpretation Summary Pulmonary artery systolic pressure is 65 mmHg. Mild focal aortic valve calcification. Mean aortic valve gradient 60 mmHg. Mild (1+) aortic valve insufficiency. Severe aortic stenosis. Normal LV size. Left ventricular systolic function is normal. The estimated ejection fraction is 65 %. CXR: Preliminary evaluation: Status post dual-chamber permanent pacemaker: No acute cardiopulmonary disease process appreciated: Please see official report Assessment/Plan 1. Chest pain / Palpitations The patient appears to be resting comfortably at this time in no acute distress. He will continue to be followed for changes in his clinical status. His cardiac enzymes will be followed as well as his ECG. He has had recent noninvasive studies as noted. 2. Abnormal cardiac enzymes He does have abnormal cardiac enzymes. The etiology is unclear although it has raised concerns is whether or not he has had a non-STEMI either type I or type II. At the moment he appears to be without any acute symptoms. His enzymes will be followed as well as his ECG. Again he has had a recent noninvasive evaluation as noted. Depending upon his clinical course this can be reassessed if needed. He will continue medical therapy. However, based upon a combination of his age, his dementia, his multiple other comorbidities, he does not appear to be an ideal candidate for aggressive invasive evaluation or care. 3. Atrial fibrillation The patient has a history of atrial fibrillation. He has been on rate control therapy. He has been on anticoagulant therapy. 3. Permanent pacemaker The patient has a permanent pacemaker in place. It can be evaluated as needed. 4. Aortic valve stenosis The patient has a history of aortic valve stenosis based on examination and his echocardiogram. Based upon his echocardiogram it is severe. This was discussed with and reviewed with the patient during his previous hospitalization. The patient was not thought to be a candidate, as noted above, based upon, comb ination of his age, his dementia, his multiple other comorbidities, for aggressive invasive evaluation/intervention. Thus it was thought the patient would continue conservative medical management. 5. Dementia The patient does have dementia. He is given various histories to various members of the medical staff in his current admission. He does not seem to recall events of his most recent admission to the hospital or his cardiovascular evaluation. This does play a role with respect to additional evaluation and care of the patient. The patient's case was discussed and reviewed with Dr. Stiles. This note was generated using a voice recognition system and there may be incorrect words, spelling or punctuation that were not noted when reviewing the office note prior to saving.
--- NOTE | 2020-07-06 14:01 | PCM.HP.STD ---
Problem List (1) Murmur Status: Chronic (2) Aspiration pneumonia Status: Resolved (3) Chest pain Status: Acute (4) Aortic valve stenosis Status: Chronic (5) Compression fracture of L1 vertebra Status: Inactive (6) Elevated INR Status: Acute (7) ischemic stroke Status: Chronic (8) Hx of cardiac pacemaker Status: Chronic (9) Hx of malignant neoplasm of prostate Status: Chronic (10) Guillain-[place] syndrome Status: Chronic (11) Benign essential HTN Status: Chronic (12) Atrial fibrillation Status: Chronic History of Present Illness Date of Admission: 07/06/20 Chief Complaint: Chest pain. The patient is a 84 year old M who presents the emergency room due to chest pain. Patient reports chest pain began early this morning when he got up to go to the bathroom. He states pain was pulsing in nature. Denies associated shortness of breath, nausea, diaphoresis. Denies pain radiation. States pain lasted a few hours and resolved once in emergency room. Patient is tearful during assessment. Patient has underlying dementia and has difficulty giving medical history and HPI. Patient was recently admitted May 2020 due to compression fracture of L1 vertebra following a fall. Upon further questioning by RN, pain seems to be associated with patient's mid back. 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) Benign essential HTN (Chronic) Atrial fibrillation (Chronic) Allergies No Known Allergies Allergy (Verified 07/06/20 08:42) Home Medications: Ambulatory Orders Medication Instructions Recorded Allopurinol [Zyloprim] 300 mg PO DAILY 09/02/15 Acetaminophen [Tylenol Tablet] 650 mg PO TID tab 05/31/20 calcium citrate 315 mg 1 tab PO DAILY 06/07/20 calcium-vitamin D3 6.25 mcg (250 unit) tablet esomeprazole magnesium 20 mg 20 mg PO DAILY 06/07/20 capsule,delayed release lamotrigine 25 mg tablet 25 tab PO DAILY 06/07/20 levothyroxine 25 mcg tablet 25 mcg PO DAILY tab 06/07/20 memantine 10 mg tablet 10 tab PO DAILY 06/07/20 metoprolol tartrate 50 mg tablet 100 mg PO BID tab 06/07/20 prednisone 10 mg tablet 1 tab PO DAILY 06/07/20 ropinirole 0.25 mg tablet 0.5 mg PO QHS tab 06/07/20 warfarin 3 mg tablet 2.5 mg PO DAILY tab 06/07/20 Surgical History: - - Pacemaker Psychiatric History: No pertinent psych hx Lives: Spouse/ Significant Other Smoking Status: Never smoker Alcohol: None Drugs: None - *Family History Paternal History Items: Heart Disease Maternal History Items: - - Denies known maternal medical history including cardiac history. Review of Systems Constitutional: Denies: Chills, Fever, Weight Change HEENT: Denies: Head Aches, Sinus Congestion, Sinus Drainage Cardiovascular: Reports: Chest Pain Respiratory: Denies: Cough, Shortness of breath at rest, Sputum production Gastrointestinal: Denies: Abdominal Pain, Nausea, Vomiting Genitourinary: Denies: Dysuria Musculoskeletal: Reports: - - Back pain. Denies: Joint Pain, Joint Tenderness Skin: Denies: Rash, Wounds Neurological: Denies: Numbness, Tingling, Focal weakness Psychiatric: Denies: Anxiety, Depression, Homicidal Ideations, Suicidal Ideations Hematologic/ Lymphatic: Denies: Easy Bruising, Easy Bleeding VTE Information - Inpt Only VTE Present on Admission: No VTE Mechan Device Prophylaxis: None VTE Pharm Prophylaxis ordered?: Yes Patient Problems: Active and Suspected Problems Chest pain (Acute) - Physical Exam Vitals/I&O's: Vital Signs Temp Pulse Resp BP Pulse Ox 97.1 F L 70 16 155/78 H 97 07/06/20 11:25 07/06/20 11:25 07/06/20 11:25 07/06/20 11:25 07/06/20 11:25 Oxygen Delivery Method Room Air Weight: 132 lb Body Mass Index (BMI) 23.3 Finger Stick Blood Glucose 124 General: Alert, Cooperative, No apparent distress HEENT: Atraumatic, PERRLA, EOMI, Normocephalic Oral: Dry Mucosa Neck: Supple, No JVD, Negative Carotid Bruits Lungs: Clear to auscultation, Normal air movement Cardiovascular: Regular rate, Regular Rhythm, Murmur Abdomen: Bowel Sounds Present, Soft, Non Tender, Non-Distended Extremities: No clubbing, No cyanosis, No edema, Capillary Refill Less than 3 Seconds Skin: No rashes, No breakdown Musculoskeletal: No Tenderness to Palpation of Joints or Extremities Neurological: Cranial nerves II-XII grossly intact, Neuro grossly intact Psych/Mental Status: Flat Affect Microbiology Past 72 Hours 07/06/20 08:55 Mucosa - Nose SARS-CoV-2 Antigen (Rapid) - Final Laboratory Results 07/06/20 09:17: WBC 5.8, RBC 3.05 L, Hgb 9.9 L, Hct 29.9 L, MCV 98.0 H, MCH 32.5 H, MCHC 33.1, RDW Std Deviation 54.7 H, RDW Coeff of Radha 15.3 H, Plt Count 359, MPV 9.2, Immature Gran % (Auto) 0.200, Neut % (Auto) 57.2, Lymph % (Auto) 21.7, Mccormick % (Auto) 9.5, Eos % (Auto) 11.1 H, Baso % (Auto) 0.3, Absolute Neuts (auto) 3.3, Absolute Lymphs (auto) 1.25, Nucleated RBC % 0 07/06/20 09:17: Sodium 133 L, Potassium 4.4, Chloride 98, Carbon Dioxide 28.0, Anion Gap 7, BUN 15, Creatinine 0.90, Estim Creat Clear Calc 49.17, Est GFR (MDRD) Af Amer 104, Est GFR (MDRD) Non-Af 86, BUN/Creatinine Ratio 16.8, Glucose 88, Calcium 9.1, Total Bilirubin 0.50, AST 20, ALT 14 L, Alkaline Phosphatase 125 H, Troponin I 0.045, Total Protein 7.8, Albumin 2.9 L, Globulin 4.9 H, Albumin/Globulin Ratio 0.6 L 07/06/20 09:17: PT 43.6 H, INR 4.6 H* 07/06/20 13:30: Troponin I 0.062 H Current Medications Acetaminophen (Acetaminophen 325 Mg Tablet) 650 mg PO Q6H PRN PRN PRN Reason: Pain Score 1-10/Temp > 100.7 F Morphine Sulfate (Morphine 2 Mg/Ml Syringe) 2 mg IV Q3H PRN PRN PRN Reason: Pain Score 6-10 Ondansetron HCl (Ondansetron 4 Mg/2 Ml Vial) 4 mg IV Q8H PRN PRN PRN Reason: NAUSEA/VOMITING Sodium Chloride (0.9% Saline Lock 10 Ml Syringe) 10 - 40 ml IV UD PRN PRN Reason: SALINE FLUSH Assessment/Plan All Active Problems Chest pain (Acute) Elevated INR (Acute) Aspiration pneumonia (Resolved) 1. Chest pain, abnormal troponin-trend enzymes. Cardiology consulted. Daily aspirin. Repeat EKG in a.m. Suspect pain may be musculoskeletal in nature with recent fall and compression fracture however due to indeterminate troponins, will pursue further cardiac evaluation per cardiology recommendations. 2. Recent nondisplaced compression fracture of L1 following fall-05/24/2020. PT/OT. As needed pain regimen. 3. Atrial fibrillation status post pacemaker on anticoagulation with Coumadin-continue metoprolol. INR supratherapeutic. Coumadin on hold, trend INR. 4. Aortic valve stenosis-echo 05/27/2020 demonstrates an EF of 65%, mean aortic valve gradient 60 mmHg, severe aortic stenosis. 5. History of CVA-not on aspirin, statin. 6. Hypertension-stable, continue metoprolol. 7. Chronic macrocytic anemia-stable, trend CBC. 8. 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 9. Hypothyroidism-continue Synthroid regimen. 10. Dementia-on memantine. 11. GERD-continue PPI. 12. Gout-on allopurinol. 13. History of dysphagia with recent aspiration pneumonitis-speech therapy consult. DVT prophylaxis-Coumadin on hold due to supratherapeutic center. CODE STATUS: Discussed with patient in length including differences between full code, DNR CCA and DNR CC. Patient opts for DNR CCA no intubation. This patient was seen by VIRGIL Beverly under the supervision of Dr. Stiles.
[2020-07-06] MEDS: Pramipexole Di-HCl 0.25 MG Tablet PO (21:34)
[2020-07-06] MEDS: Metoprolol Tartrate 50 MG Tablet 100 MG PO (21:34)
[2020-07-06] MEDS: Lisinopril 5 MG Tablet PO (21:34)
[2020-07-07 02:51] VITALS: BP 155/65; PULSE 75; RESP 16; TEMP 36.6; O2SAT 97
[2020-07-07 03:00] VITALS: PULSE 73
[2020-07-07] MEDS: Acetaminophen 500 MG Tablet 1000 MG PO (03:00)
[2020-07-07] MEDS: Levothyroxine 25 MCG TABLET PO (06:04)
[2020-07-07 06:54] LABS: Hematocrit 28.4 % (40-54); Hemoglobin 9.1 g/dL (13.0-16.5); Mean Corpuscular Hgb 31.4 pg (27.0-32.0); Mean Corpuscular Volume 97.9 fL (80-94); Mean Platelet Vol. 9.4 fl (6.2-12.0); Platelet Count 375 K/mm3 (150-450); RBC Distribution Width CV 15.2 % (11.6-14.6); RBC Distribution Width SD 55.5 fl (35.1-43.9); White Blood Count 6.4 K/mm3 (4.4-11.0)
[2020-07-07 07:00] VITALS: PULSE 73
[2020-07-07 07:02] LABS: International Normalized Ratio 3.4
[2020-07-07 07:21] LABS: Anion Gap 6 (5-15); BUN 18 mg/dL (7-18); BUN/Creat Ratio 19.1 RATIO (10-20); Calcium,Total 9.2 mg/dL (8.5-10.1); Chloride 103 mmol/L (98-107); Creatinine, Serum 0.94 mg/dL (0.70-1.30); EST Glomerular Filtration Rate 81 mL/min (>60); Est Glom Filt Rate - Afr Amer 98 mL/min (>60); Estimated Creatinine Clearance 47.08 ml/min; Glucose 94 mg/dL (74-106); Potassium 4.3 mmol/L (3.5-5.1); Sodium Level 135 mmol/L (136-145)
[2020-07-07 08:30] VITALS: BP 124/66; PULSE 70; RESP 18; TEMP 36.7; O2SAT 98
[2020-07-07] MEDS: Allopurinol 300 MG Tablet PO (08:35)
[2020-07-07 08:36] VITALS: BP 124/66; PULSE 70
[2020-07-07] MEDS: Metoprolol Tartrate 50 MG Tablet 100 MG PO (08:36)
[2020-07-07] MEDS: Lisinopril 5 MG Tablet PO (08:36)
[2020-07-07] MEDS: Calcium Carb/Vitamin D 1 TABLET Tablet PO (08:36)
[2020-07-07] MEDS: Aspirin E.C. 81 MG Tablet PO (08:36)
[2020-07-07] MEDS: Pantoprazole Sodium 20 MG Tablet PO (08:37)
[2020-07-07] MEDS: lamoTRIgine 25 MG Tablet PO (08:37)
[2020-07-07] MEDS: Memantine Hydrochloride 10 MG Tablet PO (08:37)
--- NOTE | 2020-07-07 09:53 | PCM.PN.CARD ---
Subjectve: The patient remains awake. He states his main concern at this time appears to be with respect to difficulty swallowing and arthritic type discomfort in his lower extremities. He is not complaining of any ongoing chest discomfort or acute shortness of breath/dyspnea. Objective: Vital Signs Temp Pulse Resp BP Pulse Ox 98.0 F 70 18 124/66 H 98 07/07/20 08:30 07/07/20 08:36 07/07/20 08:30 07/07/20 08:36 07/07/20 08:30 Oxygen Delivery Method Room Air Weight: 132 lb Body Mass Index (BMI) 23.3 Finger Stick Blood Glucose 124 Intake and Output for Last 24 Hours 07/05/20 07/06/20 07/07/20 23:59 23:59 23:59 Intake Total 300 / 300 Output Total 300 / 300 Balance 0 / 0 General: Awake, Cooperative, No Acute Distress HEENT: Atraumatic, Normocephalic, PERRL, EOMI, Sclera Non Icteric Neck: Supple, Good ROM, No JVD Lungs: Clear to auscultation Cardiovascular: Regular Rhythm, Normal S1, Dimished A2 Murmur Murmur: Grade 3/6, Harsh, Crescendo-Decrescendo Abdomen: Bowel Sounds Present, Soft Extremities: No edema Psych/Mental Status: Appropriate 07/06/20 13:30: Troponin I 0.062 H 07/06/20 16:16: Troponin I 0.051 H 07/07/20 06:10: WBC 6.4, RBC 2.90 L, Hgb 9.1 L, Hct 28.4 L, MCV 97.9 H, MCH 31.4, MCHC 32.0, Plt Count 375, MPV 9.4 07/07/20 06:10: Sodium 135 L, Potassium 4.3, Chloride 103, Carbon Dioxide 26.0, Anion Gap 6, BUN 18, Creatinine 0.94, Est GFR (MDRD) Af Amer 98, Est GFR (MDRD) Non-Af 81, BUN/Creatinine Ratio 19.1, Glucose 94, Calcium 9.2 07/07/20 06:10: PT 34.0 H, INR 3.4 Rhythm: Electronic ventricular paced rhythm Medical Necessity - Tobacco Use Smoking Status: Never smoker Assessment/Plan 1. Chest pain / Palpitations The patient appears to be resting comfortably at this time in no acute distress. He will continue to be followed for changes in his clinical status. His cardiac enzymes have decreased. He has had recent noninvasive studies as noted. He is continuing conservative medical management. 2. Abnormal cardiac enzymes He does have abnormal cardiac enzymes. The etiology is unclear although it has raised concerns is whether or not he has had a non-STEMI either type I or type II. At the moment he appears to be without any acute symptoms. His cardiac enzymes have decreased. Again he has had a recent noninvasive evaluation as noted. He will continue medical therapy. However, based upon a combination of his age, his dementia, his multiple other comorbidities, he does not appear to be an ideal candidate for aggressive invasive evaluation or care. 3. Atrial fibrillation The patient has a history of atrial fibrillation. He has been on rate control therapy. He has been on anticoagulant therapy. His INR level was supratherapeutic. It is decreasing. Eventually he will need to be placed back on his anticoagulant therapy. 3. Permanent pacemaker The patient has a permanent pacemaker in place. It can be evaluated as needed. 4. Aortic valve stenosis The patient has a history of aortic valve stenosis based on examination and his echocardiogram. Based upon his echocardiogram it is severe. This was discussed with and reviewed with the patient during his previous hospitalization. The patient was not thought to be a candidate, as noted above, based upon, combination of his age, his dementia, his multiple other comorbidities, for aggressive invasive evaluation/intervention. Thus it was thought the patient would continue conservative medical management. 5. Dementia The patient does have dementia. He is given various histories to various members of the medical staff in his current admission. He does not seem to recall events of his most recent admission to the hospital or his cardiovascular evaluation. This does play a role with respect to additional evaluation and care of the patient. Also, the patient has had difficulty swallowing. He is being evaluated this morning with respect to this issue. He appears to remain on possibly thick liquids or pur?ed food upon his risk of recurrent aspiration and subsequent aspiration pneumonia. This note was generated using a voice recognition system and there may be incorrect words, spelling or punctuation that were not noted when reviewing the office note prior to saving.
--- NOTE | 2020-07-07 11:52 | PCM.DC ---
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) Benign essential HTN (Chronic) Atrial fibrillation (Chronic) You will use the following diet at home:: Cardiac Discharge Activity: Return to Normal Activity Call your doctor if you observe: Shortness of breath, Dizziness, Fainting spells, Chest pain Allergies/Adverse Reactions: Allergies No Known Allergies Allergy (Verified 07/06/20 08:42) Medications to take at Discharge Allopurinol [Zyloprim] 300 mg PO DAILY 09/02/15 Acetaminophen [Tylenol Tablet] 650 mg PO TID tab 05/31/20 calcium citrate 315 mg calcium-vitamin D3 6.25 mcg (250 unit) tablet 1 tab PO DAILY 06/07/20 esomeprazole magnesium 20 mg capsule,delayed release 20 mg PO DAILY 06/07/20 lamotrigine 25 mg tablet 25 tab PO DAILY 06/07/20 levothyroxine 25 mcg tablet 25 mcg PO DAILY tab 06/07/20 memantine 10 mg tablet 10 tab PO DAILY 06/07/20 metoprolol tartrate 50 mg tablet 100 mg PO BID tab 06/07/20 prednisone 10 mg tablet 1 tab PO DAILY 06/07/20 ropinirole 0.25 mg tablet 0.5 mg PO QHS tab 06/07/20 warfarin 3 mg tablet 2.5 mg PO DAILY tab 06/07/20 Aspirin E.C. [Ecotrin] 81 mg PO DAILY@0800 #30 tab 07/07/20 Lisinopril [Zestril] 5 mg PO BID #60 tab 07/07/20 The following prescriptions were given: Aspirin E.C. [Ecotrin] 81 mg PO DAILY@0800 #30 tab [facility]: [id number] Lisinopril [Zestril] 5 mg PO BID #60 tab Transmission Status: Pending to [id number] Primary Care Physician: Theodore Luna Chi, MD [Primary Care Provider] - Please follow up with your Primary Care Physician in: 3-5 Days Test Results: Test results from this visit will be discussed in further detail at your follow-up appointment, if applicable. Please Follow Up With: Jesus Gayle MD When: 2 Weeks
--- NOTE | 2020-07-07 11:59 | DS.PCM_ITS ---
Discharge Date and Diagnosis - Problem List Patient Problems: Active and Suspected Problems Chest pain (Acute) Abnormal cardiac enzyme level (Acute) Elevated INR (Acute) Date of Admission: 07/06/20 Date of Discharge: 07/07/20 - Primary Discharge Diagnosis Acute Problems: Active Problems 1. Chest pain, abnormal troponin-ACS ruled out 2. Recent nondisplaced compression fracture of L1 following fall-05/24/2020. 3. Atrial fibrillation status post pacemaker on anticoagulation with Coumadin 4. Aortic valve stenosis 5. History of CVA 6. Hypertension 7. Chronic macrocytic anemia 8. 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 Hypothyroidism 10. Dementia 11. GERD 12. Gout 13. 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 Hyperinflation. 2. Status post CABG. 3. No active pulmonary disease. Electronically Signed: Mehdi Canales MD at 9:45 EST Tel , Service support , ADDENDUM: 07/06/20 1219 ADDENDUM: 07/06/20 1422 IMPRESSION: The cardiac silhouette. Probable early infiltrates in right upper and lower lung zones.. Electronically Signed: Mehdi Canales MD at 14:15 EST Tel , Service support , Dr. Gayle- Cardiology Operations: None Procedures: None Summary of Care Provided: The patient is a 84 year old M admitted 07/06/2020 due to chest pain. 1. Chest pain, abnormal troponin-ACS ruled out. Cardiology consulted. Suspect pain may be musculoskeletal in nature with recent fall and compression fracture patient was noted to have indeterminate troponins. We will continue medical management. Continue aspirin, metoprolol, lisinopril added. Follow-up with cardiology in 2 weeks. 2. Recent nondisplaced compression fracture of L1 following fall-05/24/2020. Follow-up with PCP in 1 week. 3. Atrial fibrillation status post pacemaker on anticoagulation with Coumadin- continue metoprolol. Coumadin held during admission due to supratherapeutic INR. INR at discharge 3.4. Patient will need close following of INR by PCP at discharge. 4. Aortic valve stenosis-echo 05/27/2020 demonstrates an EF of 65%, mean aortic valve gradient 60 mmHg, severe aortic stenosis. 5. History of CVA-not on statin. Aspirin added. 6. Hypertension-stable, continue metoprolol. 7. Chronic macrocytic anemia-stable. 8. History of [place] Dr[place]coll? syndrome-chronic weakness/debility. 9. Hypothyroidism-continue Synthroid regimen. 10. Dementia-on memantine. 11. GERD-continue PPI. 12. Gout-on allopurinol. 13. History of dysphagia with recent aspiration pneumonitis-continue dietary modifications per speech therapy recommendations. General: Alert, Cooperative, No apparent distress HEENT: Atraumatic, PERRLA, EOMI, Normocephalic Oral: Dry Mucosa Neck: Supple, No JVD, Negative Carotid Bruits Lungs: Clear to auscultation, Normal air movement Cardiovascular: Regular rate, Regular Rhythm, Murmur Abdomen: Bowel Sounds Present, Soft, Non Tender, Non-Distended Extremities: No clubbing, No cyanosis, No edema, Capillary Refill Less than 3 Seconds Skin: No rashes, No breakdown Musculoskeletal: No Tenderness to Palpation of Joints or Extremities Neurological: Cranial nerves II-XII grossly intact, Neuro grossly intact Psych/Mental Status: Flat Affect Patient seen and examined prior to discharge. Physical assessment as noted above. Patient is stable for discharge with follow up recommendations as noted above. This patient was seen by VIRGIL Beverly under the supervision of Dr. Stiles. Patient Problems: Active and Suspected Problems Chest pain (Acute) Abnormal cardiac enzyme level (Acute) Elevated INR (Acute) - Physical Exam Vitals/I&O's: Vital Signs Temp Pulse Resp BP Pulse Ox 98.0 F 70 18 124/66 H 98 07/07/20 08:30 07/07/20 08:36 07/07/20 08:30 07/07/20 08:36 07/07/20 08:30 Oxygen Delivery Method Room Air Weight: 132 lb Body Mass Index (BMI) 23.3 Finger Stick Blood Glucose 124 Intake and Output for Last 24 Hours 07/05/20 07/06/20 07/07/20 23:59 23:59 23:59 Intake Total 300 / 300 Output Total 300 / 300 Balance 0 / 0 Microbiology Past 72 Hours 07/06/20 08:55 Mucosa - Nose SARS-CoV-2 Antigen (Rapid) - Final Laboratory Results 07/06/20 13:30: Troponin I 0.062 H 07/06/20 16:16: Troponin I 0.051 H 07/07/20 06:10: WBC 6.4, RBC 2.90 L, Hgb 9.1 L, Hct 28.4 L, MCV 97.9 H, MCH 31.4, MCHC 32.0, RDW Std Deviation 55.5 H, RDW Coeff of [place] 15.2 H, Plt Count 375, MPV 9.4 07/07/20 06:10: Sodium 135 L, Potassium 4.3, Chloride 103, Carbon Dioxide 26.0, Anion Gap 6, BUN 18, Creatinine 0.94, Estim Creat Clear Calc 47.08, Est GFR (MDRD) Af Amer 98, Est GFR (MDRD) Non-Af 81, BUN/Creatinine Ratio 19.1, Glucose 94, Calcium 9.2 07/07/20 06:10: PT 34.0 H, INR 3.4 Current Medications Acetaminophen (Acetaminophen 500 Mg Tablet) 1,000 mg PO Q8H PRN PRN PRN Reason: Pain Score 1-10 Last Admin: 07/07/20 03:00 Dose: 1,000 mg Documented by: [facility]opurin[facility] ([facility] 300 Mg Tablet) [facility] Admin: 07/07/20 08:35 Dose: 300 mg Documented by: Aspirin (Aspirin E.C. 81 Mg Tablet) 81 mg PO DAILY@0800 [facility] Last Admin: 07/07/20 08:36 Dose: 81 mg Documented by: Calcium/Vitamin D (Calcium Carb/Vitamin D 1 Tablet Tablet) [facility] Last Admin: 07/07/20 08:36 Dose: 1 tablet Documented by: Ketorolac Tromethamine (Ketorolac 15 Mg/Ml Vial) 15 mg IV Q8H PRN PRN PRN Reason: Pain Score 1-10 Stop: 07/11/20 14:29 Lamotrigine (Lamotrigine 25 Mg Tablet) 25 mg PO DAILY [facility] Last Admin: 07/07/20 08:37 Dose: 25 mg Documented by: Levothyroxine Sodium (Levothyroxine 25 Mcg Tablet) 25 mcg PO DAILY@0600 [facility] Last Admin: 07/07/20 06:04 Dose: 25 mcg Documented by: Lisinopril (Lisinopril 5 Mg Tablet) 5 mg PO BID [facility] Last Admin: 07/07/20 08:36 Dose: 5 mg Documented by: Memantine (Memantine Hydrochloride 10 Mg Tablet) 10 mg PO DAILY [facility] Last Admin: 07/07/20 08:37 Dose: 10 mg Documented by: Metoprolol Tartrate (Metoprolol Tartrate 50 Mg Tablet) 100 mg PO BID [facility] Last Admin: 07/07/20 08:36 Dose: 100 mg Documented by: Ondansetron HCl (Ondansetron 4 Mg/2 Ml Vial) 4 mg IV Q8H PRN PRN PRN Reason: NAUSEA/VOMITING Pantoprazole Sodium (Pantoprazole Sodium 20 Mg Tablet) 20 mg PO DAILY [facility] Last Admin: 07/07/20 08:37 Dose: 20 mg Documented by: Pramipexole Dihydrochloride (Pramipexole Di-Hcl 0.25 Mg Tablet) 0.25 mg PO QHS [facility] Last Admin: 07/06/20 21:34 Dose: 0.25 mg Documented by: Sodium Chloride (0.9% Saline Lock 10 Ml Syringe) 10 - 40 ml IV UD PRN PRN Reason: SALINE FLUSH Discharge Diet: - - . Food consistency, nectar thick liquids Discharge Activity: Return to Normal Activity Call your doctor if you observe: Shortness of breath, Dizziness, Fainting spells, Chest pain Home Medications: Medications to take at Discharge Allopurinol [Zyloprim] 300 mg PO DAILY 09/02/15 Acetaminophen [Tylenol Tablet] 650 mg PO TID tab 05/31/20 calcium citrate 315 mg calcium-vitamin D3 6.25 mcg (250 unit) tablet 1 tab PO DAILY 06/07/20 esomeprazole magnesium 20 mg capsule,delayed release 20 mg PO DAILY 06/07/20 lamotrigine 25 mg tablet 25 tab PO DAILY 06/07/20 levothyroxine 25 mcg tablet 25 mcg PO DAILY tab 06/07/20 memantine 10 mg tablet 10 tab PO DAILY 06/07/20 metoprolol tartrate 50 mg tablet 100 mg PO BID tab 06/07/20 prednisone 10 mg tablet 1 tab PO DAILY 06/07/20 ropinirole 0.25 mg tablet 0.5 mg PO QHS tab 06/07/20 warfarin 3 mg tablet 2.5 mg PO DAILY tab 06/07/20 Aspirin E.C. [Ecotrin] 81 mg PO DAILY@0800 #30 tab 07/07/20 Lisinopril [Zestril] 5 mg PO BID #60 tab 07/07/20 Following Prescriptions Were Given to Patient: Aspirin E.C. [Ecotrin] 81 mg PO DAILY@0800 #30 tab Transmission Status: Pending to [id number] Lisinopril [Zestril] 5 mg PO BID #60 tab Transmission Status: Pending to [facility] [id number] Primary Care Physician: Theodore Luna Chi, MD [Primary Care Provider] - Please follow up with your Primary Care Physician in: 3-5 Days Please Follow Up With: Jesus Gayle MD When: 2 Weeks Disposition: Home Minutes spent on discharge:: 35 Patient Condition:: Stable Medical Necessity - Tobacco Use Smoking Status: Never smoker Meaningful Use Info Meaningful Use Diagnoses (Choose all that apply): None applicable
[2020-07-07 14:06] VITALS: BP 126/70; PULSE 69; RESP 16; TEMP 36.6; O2SAT 99
== END 2020-07-07 11:52 | disposition home or self-care (01) ==
LOC: ED 09:40 → PCU 11:48
PROVIDERS: Nurse Practitioner Family; Admitting Provider Internal Medicine; Emergency Provider Emergency Medicine; PCP Family Medicine Geriatric Medicine; Visit Provider Internal Medicine
DX: R07.89 Other chest pain (principal); R74.8 Abnormal levels of other serum enzymes; R79.1 Abnormal coagulation profile; F03.90 Unspecified dementia, unspecified severity, without behavioral disturbance, psychotic disturbance, mood disturbance, and anxiety; I48.21 Permanent atrial fibrillation; K21.9 Gastro-esophageal reflux disease without esophagitis; I10 Essential (primary) hypertension; M10.9 Gout, unspecified; Z86.73 Personal history of transient ischemic attack (TIA), and cerebral infarction without residual deficits; Z79.01 Long term (current) use of anticoagulants; Z79.899 Other long term (current) drug therapy; Z85.46 Personal history of malignant neoplasm of prostate; Z95.0 Presence of cardiac pacemaker; D53.9 Nutritional anemia, unspecified; E03.9 Hypothyroidism, unspecified
CPT/HCPCS: 36415; 71045; 80048; 80053; 84484; 85025; 85027; 85610; 87426; 92610; 93005; 97162; 97166; 99218; 99285; A4216; G0378

== ENCOUNTER → 2020-07-08 12:56 | Outpatient (CLI) | payer MEDICARE, BC, OTHER, SELFPAY ==
[2020-06-18 11:32] VITALS: BMI 20.2
[2020-07-06 13:36] VITALS: BMI 23.3
--- NOTE | 2020-07-08 13:00 | ST.MBS ---
Modified Barium Swallow - Patient Information Study Date: 07/08/20 Study Time: 13:00 Direct Billable Minutes: 155 Total Minutes procedure & reportin Diagnosis: J69.0 PNA d/t inhalations of food & vomit; R13.10 Dysphagia Referring Physician: Theodore Luna Chi Reason for Referral: Assessment of swallow function under fluoroscopy following dysphagia intervention to objectively assess swallow function and determine if appropriate for diet texture/liquid consistency advancement. Medical History: Guillain [place] Syndrome, atrial fibrillation, aortic valve stenosis, abnormal cardiac enzyme level, compression fracture of L1 vertebrae, elevated INR, ischemic CVA, hx cardiac pacemaker, hx malignant neoplasm Prior MBS 12/05/18 regular textures/thin liquids recommended; 05/30/20 silent aspiration, pureed textures/mildly thick (nectar) liquids recommended Current Diet Ordered: pureed textures/mildly thick (nectar) liquids Mental Status: WNL Respiratory Status: Oxygenating on Room Air - Study Findings Consistencies: Thin Liquid, [place] Thick Liquid, Honey Thick Liquid, Pudding, Cookie - Penetration-Aspiration Scale Penetration-Aspiration Scale: OBJECTIVE ASSESSMENT OF SWALLOW FUNCTION (QUANTITATIVE ? PER TRIAL): PENETRATION / ASPIRATION SCALE (BARBOSA): 1 = does not enter airway 2 = enters airway/above vocal folds/ejected 3 = enters airway/above vocal folds/not ejected 4 = enters airway/contacts vocal folds/ejected 5 = enters airway/contacts vocal folds/not ejected 6 = enters airway/below vocal folds/ejected 7 = enters airway/below vocal folds/not ejected despite effort 8 = enters airway/below vocal folds/no effort VIDEOFLOROSCOPIC SCALE SCORE (BARBOSA): Grade I = aspiration of material that has penetrated into the laryngeal vestibule, intact cough reflex Grade II = aspiration < 10 % of the bolus, intact cough reflex Grade III = aspiration of < 10 % of the bolus, reduced cough reflex or aspiration of > 10 % of the bolus, intact cough reflex Grade IV = aspiration of > 10 % of the bolus, reduced cough reflex - Penetration-Aspiration Scale Score Thin Liquid via teaspoon Result: 1= does not enter airway Thin Liquid via teaspoon Trial 2 Result: 1= does not enter airway Thin Liquid via small single sip from cup Result: 1= does not enter airway Thin Liquid via small single sip from cup Trial 2 Result: 1= does not enter airway Thin Liquid via small single sip from cup Trial 3 Result: 1= does not enter airway [place] Thick Liquid via small single sip from cup Result: 1= does not enter airway [place] Thick Liquid via small single sip from cup Result: 1= does not enter airway Pudding via teaspoon Result: 1= does not enter airway Cookie Result: 1= does not enter airway Retrograde bolus flow through the PES into pyriforms after cookie/before thin liquid bolus w/ silent aspiration GRADE III Result: 8= enters airway/below vocal folds/no effort Thin Liquid via small single sip from cup Trial 4 Result: 1= does not enter airway Cued cough & re-swallow of residue trialed to eject aspirate Result: 1= does not enter airway Comment: retrograde bolus flow through PES into pyriform sinuses noted again following expectoration and deglutition of oropharyngeal residue w/out penetration/aspiration Thin Liquid via small single sip from cup Trial 5 Result: 2= enter airway/above vocal folds/ejected Thin Liquid via single sip from straw Result: 1= does not enter airway Pudding via teaspoon Trial 2 Result: 1= does not enter airway Thin Liquid via small single sip from cup Trial 6 Result: 1= does not enter airway - Oral Phase Labial Seal: Interlabial escape, no progression to anterior lip Tongue Control During Bolus Hold: Escape to lateral buccal cavity/floor of mouth Bolus Preparation/Mastication: Slow prolonged chewing/mashing with complete recollection Bolus Transport/Lingual Motion: Repetitive/disorganized tongue motion Oral Residue: Residue collection on oral structures - Pharyngeal Phase Initiation of Pharyngeal Swallow: Bolus head in pyriforms Soft Palate Elevation: No bolus between soft palate and pharyngeal wall Laryngeal Elevation: Comp. Superior move thyroid cart w/comp. apprx arytenoid cart-epig pet Anterior Hyoid Excursion: Partial anterior movement Epiglottic Movement: Partial inversion Laryngeal Vestibule Closure at Height of Swallow: Complete; no air/contrast in laryngeal vestibule Pharyngeal Stripping Wave: Present - complete Pharyngoesophageal Segment Opening: Parital distension and partial duration; parital obstruction of flow Tongue Base Retraction: Trace column of contrast between tongue base & post. pharyngeal wall Pharyngeal Residue: Collection of residue within or on pharyngeal structures - Esophageal Phase Esophageal Clearance: Esophageal retention w/ retrograde flow through pharyngoesophageal seg - resulting in silent aspiration of contrast - Diagnosis/Impression Diagnosis: moderate-severe oral dysphagia, mild-moderate pharyngoesophageal dysphagia Impression: Baseline: calcification of epiglottis, arytenoid cartilage and anterior tracheal wall evident Oral Phase: Poor denture fit. Impaired oral control w/ interlabial escape and spillage to floor of mouth. Disorganized oral prep w/ severely impaired A-P bolus transit. Pt utilized head tilt back to facilitate improved oral to pharyngeal clearance w/ difficulty transferring bolus (+20 seconds at times while attempting to initiate oral to pharyngeal bolus transfer) and piecemeal deglutition pattern utilized across many trials. Despite prolonged mastication and A-P transfer time, there was not a significant difference in oral clearance w/ pudding vs regular textures. Pharyngeal Phase: Delayed pharyngeal swallow onset. Spillage to the posterior laryngeal surface of the epiglottis w/ 1x spillage to pyriforms prior to swallow onset. Incomplete epiglottic inversion w/ contrast undercoating the tip of the epiglottis w/ out extension into the laryngeal vestibule. Excellent arytenoid to epiglottic petiole contact for sufficient laryngeal vestibule closure/airway protection during deglutition. Trance/transient penetration 1x w/ thin liquid w/ complete ejection. Intermittent collection of residue w/in the vallecula and contrast lining from the tip of the epiglottis to the posterior pharyngeal wall. Pharyngoesophageal swallow function is marked by significant cricopharyngeal hypertrophy w/ esophageal retention below the PES. Retrograde flow of contrast from the esophagus, through the PES and into the pyriform sinuses was noted w/ subsequent spillage into the laryngeal vestibule, w/ silent aspiration of contrast from the esophagus. Additionally, noted what appears to be anterior cervical webbing which impedes esophageal clearance. GI REFERRAL is HIGHLY RECOMMENDED to further assess esophageal function. Pharyngeal swallow function/airway protection has improved as a result of home health speech therapy intervention, but esophageal swallow function appears to have worsened since prior MBS 05/30/20. SILENT ASPIRATION identified under fluoroscopy this date w/ esophageal etiology highly suspected, warranting further assessment. - Recommendations Diet: Mechanical Soft Textures, Thin Liquids Comment: Continue pureed textures and mildly thick (nectar) liquids until next home health speech therapy visit. Soft, minced & moist texture/thin liquid trials to commence under direct AUTOMOTIVE DRIVABILITY TECHNICIAN supervision w/ advancement pending tolerance. AVOID mixed consistencies (i.e. cereal, soup) and moist/juicy solids (i.e. oranges, pineapple) d/t increased risk for premature pharyngeal entry and aspiration of liquids while attempting to orally prepare and transfer solids. Compensatory Strategies: Small Bites, Small Sips, Sitting upright, Remain sitting upright for 30 minutes after PO intake Recommend Repeat Modified Barium Swallow: TBD Need for Skilled Speech Therapy Services: Yes - to initiate advanced diet, assess tolerance Recommended Referrals: GI Consult - SEE IMPRESSION FOR DETAILS Education Completed: 1. Described result of evaluation., 2. Pt understands evaluation & agrees with goals and treatment plan., 4. Family/caregivers understand evaluation & agree w/ goals & tx plan., 7. Pt requires further education on strategies & risks. Comment: ~30 minutes spent following MBS completion providing education re: findings from MBS and recommendations for diet advancement under direct supervision of HH AUTOMOTIVE DRIVABILITY TECHNICIAN. Images were reviewed to improve patient/caregiver understanding of the improvement identified as a result of dysphagia intervention received as well as to improve awareness of esophageal findings and the importance of follow up w/ GI for further assessment. Discussed advancement of diet - agreeable to wait under next ST visit. Reinforced the need to avoid mixed consistencies. All education was well received, but patient and caregiver (daughter - Sonia) would benefit from reinforcement of findings and recommendations. - Status Active ST Patient: Active - Contact Information [facility] Speech Therapy:: Mikayla Suarez M.A., [facility]-AUTOMOTIVE DRIVABILITY TECHNICIAN Speech-Language Pathologist [phone]
== END ==
PROVIDERS: PCP Family Medicine Geriatric Medicine; Referring Provider Family Medicine Geriatric Medicine; Visit Provider Family Medicine Geriatric Medicine
DX: R13.10 Dysphagia, unspecified (principal); J69.0 Pneumonitis due to inhalation of food and vomit; G65.0 Sequelae of Guillain-Barre syndrome
CPT/HCPCS: 74230; 92611

== ENCOUNTER 2020-07-16 10:14 | Outpatient (RCR) | payer MEDICARE, BC, OTHER, SELFPAY ==
[2020-07-06 13:36] VITALS: BMI 23.3
[2020-07-09 13:13] LABS: International Normalized Ratio 1.8; Prothrombin Time (Protime)PT. 20.1 SECONDS (11.7-14.9)
[2020-07-11 16:13] LABS: International Normalized Ratio 1.4
[2020-07-16 10:57] LABS: International Normalized Ratio 1.1; Prothrombin Time (Protime)PT. 13.6 SECONDS (11.7-14.9)
== END 2020-07-16 18:00 | disposition home or self-care (01) ==
LOC: LAB 10:14
PROVIDERS: Family Provider Family Medicine Geriatric Medicine; PCP Family Medicine Geriatric Medicine; Referring Provider Family Medicine Geriatric Medicine; Visit Provider Family Medicine Geriatric Medicine
DX: I48.0 Paroxysmal atrial fibrillation (principal)
CPT/HCPCS: 36415; 85610

== ENCOUNTER → 2020-08-08 13:26 | Outpatient (CLI) | payer MEDICARE, BC, OTHER, SELFPAY ==
[2020-07-06 13:36] VITALS: BMI 23.3
[2020-08-08 15:37] LABS: Absolute Neutrophil Count 9.3 X10^3/uL (2.0-7.7); Basophil# 0.02 X10^3/uL; Basophil% 0.2 % (0-1); Eosinophil# 0.05 X10^3/uL; Eosinophils% 0.4 % (0-5); Hematocrit 34.4 % (40-54); Hemoglobin 10.8 g/dL (13.0-16.5); Lymphocyte % 10.5 % (19-41); Mean Corp Hgb Conc 31.4 g/dL (32-36); Mean Corpuscular Hgb 30.8 pg (27.0-32.0); Mean Platelet Vol. 9.4 fl (6.2-12.0); Monocyte# 0.85 X10^3/uL; Monocyte% 7.4 % (0-10); NRBC Flagged by Analyzer 0 % (0-5); Neutrophil # 9.26 X10^3/uL (2.7-7.7); Platelet Count 350 K/mm3 (150-450); RBC Distribution Width SD 58.2 fl (35.1-43.9); Red Blood Count 3.51 M/mm3 (4.6-6.2); White Blood Count 11.4 K/mm3 (4.4-11.0)
[2020-08-08 15:57] LABS: ALB/GLOB Ratio 0.9 RATIO (0.9-2.4); AST(SGOT) 22 U/L (15-37); Alanine Aminotransfer ALT/SGPT 27 U/L (16-61); Albumin, Serum 3.7 g/dL (3.2-5.0); Alkaline Phosphatase 104 U/L (45-117); Anion Gap 5 (5-15); BUN 31 mg/dL (7-18); BUN/Creat Ratio 27.4 RATIO (10-20); Chloride 104 mmol/L (98-107); Creatinine, Serum 1.13 mg/dL (0.70-1.30); EST Glomerular Filtration Rate 66 mL/min (>60); Est Glom Filt Rate - Afr Amer 79 mL/min (>60); Globulin 4.3 g/dL (2.2-4.2); Glucose 80 mg/dL (74-106); Potassium 4.6 mmol/L (3.5-5.1); Sodium Level 136 mmol/L (136-145); Thyroid Stim Hormone (TSH) 2.32 uIU/mL (0.358-3.74)
[2020-08-08 16:01] LABS: Vitamin D,25 Hydroxy 21.2 ng/mL
== END ==
PROVIDERS: PCP Family Medicine Geriatric Medicine; Visit Provider Family Medicine Geriatric Medicine
DX: I10 Essential (primary) hypertension (principal); E55.9 Vitamin D deficiency, unspecified
CPT/HCPCS: 36415; 80053; 82306; 84443; 85025

== ENCOUNTER 2020-09-06 11:21 | Inpatient (IN) | payer MEDICARE, BC, OTHER, SELFPAY ==
[2020-07-06 13:36] VITALS: BMI 23.3
[2020-09-06] VITALS (13 sets, daily range): BP systolic 89–172; BP diastolic 56–81; PULSE 70–76; RESP 14–24; TEMP 36.1–36.7; O2SAT 90–98; BMI 25.7; BMI 24.3
--- NOTE | 2020-09-06 11:49 | EKG12_ITS ---
Test Reason : Blood Pressure : / mmHG Vent. Rate : 070 BPM Atrial Rate : 066 BPM P-R Int : 000 ms QRS Dur : 158 ms QT Int : 478 ms P-R-T Axes : 000 -35 064 degrees QTc Int : 516 ms Ventricular-paced rhythm Abnormal ECG Confirmed by IESHA BENITEZ, HEDY ([id number]), pictures editor TAYLOR ZARATE ([id number]) on 09/09/2020 2:13:03 PM Referred By: LADY Confirmed By:HEDY JULIAN MD
--- NOTE | 2020-09-06 11:50 | CT_ITS ---
STUDY: CT BRAIN WITHOUT CONTRAST REASON FOR EXAM: Male, 85 years old. ALTERED MENTAL STATUS RADIATION DOSAGE (If Supplied By Facility): CTDIvol = ( 44.99 ) mGy, DLP = ( 812.98 ) mGycm TECHNIQUE: Transaxial CT imaging of the brain was performed without administration of intravenous contrast material. Individualized dose optimization techniques were used for this CT. COMPARISON: CT head 06/11/2020 FINDINGS: Normal soft tissue structures. Normal calvarium. There is moderate cerebral atrophy with widening of the extra-axial spaces and ventricular dilatation. There are areas of decreased attenuation within the white matter tracts of the supratentorial brain, consistent with microvascular disease changes. There is subacute to chronic infarct and encephalomalacia in the left occipital and lateral right temporal lobes with regions of hypodensity and mild encephalomalacia. Normal basal ganglia and thalami. Normal brainstem. Normal cerebellum. There is no intracranial hemorrhage. There are no findings of an acute ischemic infarction. Normal visualized paranasal sinuses. CT/Brain/Head without Contrast IMPRESSION: No acute intracranial pathology. There is subacute to chronic infarct and encephalomalacia in the left occipital and lateral right temporal lobes with regions of hypodensity and mild encephalomalacia. Electronically Signed: Kerrie Amado MD at 13:29 EST Tel , Service support ,
--- NOTE | 2020-09-06 11:51 | ED.VIS.GEN ---
History of Present Illness Chief Complaint: Confusion Informant: Patient, Family Onset: Yesterday Context: Onset with activity - eating dinner Timing: Continuous Quality: see below Current Severity: Moderate Maximum Severity: Moderate Worsened by: nothing in particular Relieved by: nothing Associated Symptoms: pt denies acute sx Narrative: Patient's brings him in for confusion. She states that last night during dinner, he was about to eat broccoli cheese soup and he was crushing up erik crackers to put in it and slicing up a banana to put in it. She said this is very unusual, not only do they not belong but he is usually sharp and knows better than to add those foods to the soup. This morning, home health nurse was there for routine visit, and said he was also seen in doing things that did not seem to make much sense. Patient denies any new symptoms. He has not had Covid, nor has he had any exposure to it that he knows of. He has had a minor cough, he denies any dyspnea or fever/chills, he does not remember how long it has been there but states he is also had some postnasal drip/congestion symptoms recently. 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 (5) Hx of malignant neoplasm of prostate Status: Chronic (6) ischemic stroke Status: Chronic (7) Compression fracture of L1 vertebra Status: Inactive Past Medical History - Allergies and Home Meds Allergies/Adverse Reactions: Allergies No Known Allergies Allergy (Verified 09/06/20 11:26) Primary Care Physician: Theodore Luna Chi, MD [Primary Care Provider] - Surgical History: - - Pacemaker Lives: Spouse/ Significant Other Smoking Status: Never smoker - Family History Paternal Family History: Reports: Heart Disease Maternal Family History: Reports: - - Denies known maternal medical history including cardiac history. Review of Systems General: Reports: Malaise - for a long time. Denies: Chills, Fever, Sweats Eyes: Denies: Visual changes - bilaterally, Diplopia ENT: Reports: - - Congestion. Denies: Bilateral ear pain, Rhinorrhea, Sore throat Cardiovascular: Denies: Chest pain, Palpitations Respiratory: Reports: Cough. Denies: Dyspnea, Sputum, Dyspnea on exertion Gastrointestinal: Reports: Constipation - off and on but better now. Denies: Abdominal pain, Nausea, Vomiting, Diarrhea, Melena, Hematochezia Genitourinary: Denies: Dysuria, Hematuria, Frequency Musculoskeletal: Denies: Myalgias, Neck pain, Back pain, Swelling, Extremity Pain Skin: Denies: Rash, Wounds Neurological: Reports: - - altered mental status - see HPI. Denies: Headache, Weakness, Numbness Physical Exam Vital Signs/Narrative: Vital Signs Temp Pulse Resp BP Pulse Ox 09/06/20 11:22 97.6 F L 74 18 89/56 L 98 Inital Vital Signs reviewed: Yes General: Well nourished, Well developed, No Acute Distress Head: Normocephalic, Atraumatic Eyes: Perrl, EOMI ENT: Moist mucous membranes, No rhinorrhea Neck: Supple, Nontender, No lymphadenopathy, No JVD Cardiovascular: Regular rate, Regular rhythm, Murmur - harsh systolic cresc-decresc 3/6 LLSB Respiratory: No distress, CTA bilaterally, Chest nontender Abdomen: Soft, Nontender, Nondistended, Normal bowel sounds Back: Nontender, Normal Inspection. Negative for: CVA tenderness Extremities: Nontender, No edema Skin: Normal color, No rash, No Trauma Neurological: Alert, Oriented x3 - including his age and the month, Cranial nerves II-XII grossly intact, Normal Strength, Normal Sensation, - - NIHSS - 0 Psychological: Normal affect, Normal Mood Diagnostic/Tx/Re-eval Chest X-Ray - ED: 1 View, Read by ED Physician, No Acute Disease Impressions Brain CT 09/06/20 11:50 IMPRESSION: No acute intracranial pathology. There is subacute to chronic infarct and encephalomalacia in the left occipital and lateral right temporal lobes with regions of hypodensity and mild encephalomalacia. Electronically Signed: Kerrie Amado MD at 13:29 EST Tel , Service support , Chest X-Ray 09/06/20 12:35 IMPRESSION: There are coarse lung markings in keeping with chronic lung disease.. Electronically Signed: Kerrie Amado MD at 13:15 EST Tel , Service support , 09/06/20 11:50 CT Brain [Brain/Head without Contrast] [CT] Stat 09/06/20 12:35 Chest 1 View (Portable) [RAD] Stat Laboratory Results 09/06/20 09/06/20 09/06/20 12:10 12:10 12:10 WBC 7.0 RBC 3.53 L Hgb 10.6 L Hct 32.6 L MCV 92.4 MCH 30.0 MCHC 32.5 RDW Std Deviation 48.7 H RDW Coeff of Radha 14.4 Plt Count 255 MPV 9.5 Immature Gran % (Auto) 0.300 Neut % (Auto) 67.6 Lymph % (Auto) 20.5 [place] % (Auto) 9.1 Eos % (Auto) 2.1 Baso % (Auto) 0.4 Absolute Neuts (auto) 4.8 Absolute Lymphs (auto) 1.44 Nucleated RBC % 0 PT 18.7 H INR 1.6 APTT 40.8 H Sodium 128 L Potassium 4.4 Chloride 95 L Carbon Dioxide 28.0 Anion Gap 5 BUN 15 Creatinine 0.95 Estim Creat Clear Calc 45.75 Est GFR (MDRD) Af Amer 97 Est GFR (MDRD) Non-Af 80 BUN/Creatinine Ratio 15.8 Glucose 101 Lactic Acid Calcium 8.7 Total Bilirubin 0.50 AST 24 ALT 16 Alkaline Phosphatase 116 Troponin I 0.019 Total Protein 7.5 Albumin 2.9 L Globulin 4.6 H Albumin/Globulin Ratio 0.6 L Urine Color Urine Clarity Urine pH Ur Specific [place] Urine Protein Urine Glucose (UA) Urine Ketones Urine Occult Blood Urine Nitrite Urine Bilirubin Urine Urobilinogen Ur Leukocyte Esterase Urine RBC Urine WBC Ur Squamous Epith Cells Urine Bacteria Urine Mucus 09/06/20 09/06/20 09/06/20 12:10 13:10 13:20 WBC RBC Hgb Hct MCV MCH MCHC RDW Std Deviation RDW Coeff of Radha Plt Count MPV Immature Gran % (Auto) Neut % (Auto) Lymph % (Auto) [place] % (Auto) Eos % (Auto) Baso % (Auto) Absolute Neuts (auto) Absolute Lymphs (auto) Nucleated RBC % PT INR APTT Sodium Potassium Chloride Carbon Dioxide Anion Gap BUN Creatinine Estim Creat Clear Calc Est GFR (MDRD) Af Amer Est GFR (MDRD) Non-Af BUN/Creatinine Ratio Glucose Lactic Acid Cancelled 1.1 Calcium Total Bilirubin AST ALT Alkaline Phosphatase Troponin I Total Protein Albumin Globulin Albumin/Globulin Ratio Urine Color Yellow Urine Clarity Clear Urine pH 8.0 Ur Specific [place] 1.010 Urine Protein Negative Urine Glucose (UA) Normal Urine Ketones Negative Urine Occult Blood Negative Urine Nitrite Negative Urine Bilirubin Negative Urine Urobilinogen Normal Ur Leukocyte Esterase Negative Urine RBC 0 SEEN Urine WBC 0 SEEN Ur Squamous Epith Cells 0 SEEN Urine Bacteria 0 SEEN Urine Mucus 0 SEEN - Rhythm Strip Rhythm Strip: paced Rate: 70 Ectopy: None - EKG Initial EKG Interpretation: No Acute Injury Pattern, Paced - Ventricular pacing and capture Prior: Unchanged - Medical Decision Making Patient initially presents mildly hypotensive. He was given a bolus of fluids, which helped and his blood pressure is now in the 150s and his other vital signs are normal. Septic work-up shows no sign of any obvious infection and he does not meet SIRS criteria. He did have an old stroke, however on his CT there are subacute findings. He states his old stroke was in 2000. He also has mild hyponatremia, which is new for him but not necessarily low enough to be responsible for his acute symptoms. Discussed with hospitalist for further work-up and evaluation and on inpatient observation. ED Disposition - Plan for ED Patient: Disposition: Acute Care Hospital [facility] Diagnosis: Acute alteration in mental status, Hyponatremia, Transient hypotension Referrals: Theodore Luna Chi, MD [Primary Care Provider] -
[2020-09-06] MEDS: 0.9% Normal Saline 1,000 ML 150 ML IV ×2 (12:20→17:50)
[2020-09-06 12:27] LABS: Absolute Lymphocyte Count 1.44 X10^3/uL (0.83-4.51); Absolute Neutrophil Count 4.8 X10^3/uL (2.0-7.7); Basophil# 0.03 X10^3/uL; Basophil% 0.4 % (0-1); Eosinophil# 0.15 X10^3/uL; Eosinophils% 2.1 % (0-5); Hematocrit 32.6 % (40-54); Hemoglobin 10.6 g/dL (13.0-16.5); Lymphocyte # 1.44 X10^3/ul (4.0); Lymphocyte % 20.5 % (19-41); Mean Corp Hgb Conc 32.5 g/dL (32-36); Mean Corpuscular Volume 92.4 fL (80-94); Mean Platelet Vol. 9.5 fl (6.2-12.0); Monocyte# 0.64 X10^3/uL; Monocyte% 9.1 % (0-10); NRBC Flagged by Analyzer 0 % (0-5); Neutrophil # 4.76 X10^3/uL (2.7-7.7); Neutrophil % 67.6 % (47-70); Platelet Count 255 K/mm3 (150-450); RBC Distribution Width CV 14.4 % (11.6-14.6); RBC Distribution Width SD 48.7 fl (35.1-43.9); Red Blood Count 3.53 M/mm3 (4.6-6.2)
--- NOTE | 2020-09-06 12:35 | RAD_ITS ---
STUDY: X-RAY CHEST REASON FOR EXAM: Male, 85 years old. Altered mental status TECHNIQUE: Single AP portable view of the chest. COMPARISON: 06/11/2020 FINDINGS: There is a left-sided dual-lead percutaneous pacemaker. There are coarse lung markings. There is no demonstrated pleural abnormality. There is mild cardiac enlargement. Normal mediastinum and jarod. Normal visualized pulmonary arteries. There is atherosclerotic calcification of the aortic arch with tortuosity. Normal visualized thoracic spine. Kyphoplasty of L1. Normal visualized ribs, clavicles, and shoulders. There is no demonstrated abnormality of the visualized soft tissue structures of the upper abdomen. RAD/Chest 1 View (Portable) IMPRESSION: There are coarse lung markings in keeping with chronic lung disease.. Electronically Signed: Kerrie Amado MD at 13:15 EST Tel , Service support ,
[2020-09-06 12:43] LABS: International Normalized Ratio 1.6; Prothrombin Time (Protime)PT. 18.7 SECONDS (11.7-14.9)
[2020-09-06 12:44] LABS: Partial Thromboplast Time 40.8 Seconds (24.1-36.2)
[2020-09-06 13:02] LABS: ALB/GLOB Ratio 0.6 RATIO (0.9-2.4); AST(SGOT) 24 U/L (15-37); Alanine Aminotransfer ALT/SGPT 16 U/L (16-61); Albumin, Serum 2.9 g/dL (3.2-5.0); Alkaline Phosphatase 116 U/L (45-117); Anion Gap 5 (5-15); BUN 15 mg/dL (7-18); BUN/Creat Ratio 15.8 RATIO (10-20); Calcium,Total 8.7 mg/dL (8.5-10.1); Chloride 95 mmol/L (98-107); Creatinine, Serum 0.95 mg/dL (0.70-1.30); EST Glomerular Filtration Rate 80 mL/min (>60); Est Glom Filt Rate - Afr Amer 97 mL/min (>60); Estimated Creatinine Clearance 45.75 ml/min; Globulin 4.6 g/dL (2.2-4.2); Glucose 101 mg/dL (74-106); Potassium 4.4 mmol/L (3.5-5.1); Protein, Total 7.5 g/dL (6.4-8.2); Sodium Level 128 mmol/L (136-145)
[2020-09-06 13:28] LABS: Bacteria 0 SEEN /hpf (None Seen); Mucous, Urine 0 SEEN /hpf (<or=2+); Red Blood Cells-Urine 0 SEEN /hpf (0-5); Squamous Epithelial Cells - UA 0 SEEN /hpf (0-5); White Blood Cells 0 SEEN /hpf (0-5)
[2020-09-06 13:30] LABS: Color, Urine Yellow (Yellow); Glucose, Dipstick Normal (Normal); Ketone-Dipstick Negative (Negative); Leukocyte Esterase-Dipstick Negative /ul (Negative); Nitrite-Dipstick Negative (Negative); Occult Blood-Urine Negative /ul (Negative); Protein-Dipstick Negative (Negative); Urine Bilirubin Dipstick Negative (Negative); Urine Clarity Clear (Clear); Urine Urobilinogen Normal (Normal)
[2020-09-06 13:49] LABS: Lactic Acid 1.1 mmol/L (0.4-1.9)
--- NOTE | 2020-09-06 15:27 | HP.PCM_ITS ---
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 She states that last night during dinner he was about to eat broccoli cheese soup and was crushing up erik cracker and slicing a banana to place in the soup. She states this is very unusual for him. She states also last night she went up to bed and found him on his knees and he crawled to bed and got himself up in the bed and did not change his clothes. He woke up this morning and the home health nurse was there for a routine visit and while getting his shower noted that he seemed to be out of sorts as compared to his baseline. His was unable to describe what he was doing that was not typical for him this morning. In the emergency department he was found to be acutely hypotensive with a blood pressure of 89/56 and was given IV fluids. His blood pressure has improved and he is now actually hypertensive. He has had no fever or chills, chest pain, shortness of breath, nausea, vomiting, diarrhea, he denies tingling and numbness. At this point his is at bedside since she states that he seems to be back to his baseline. His vital signs were otherwise unremarkable. His CBC shows a mild chronic anemia which is stable. His coagulation studies show a subtherapeutic INR at 1.6. His CMP shows mild hyponatremia at 128 which is slightly lower than his baseline. It appears his baseline is approximately 1 30-1 35. His renal function is normal, his LFTs are normal, and he has a negative troponin. A UA was performed and was completely normal. His chest x-ray shows coarse chronic stable lung markings. I reviewed his most recent echocardiogram was done in May of 2020 and this shows severe pulmonary artery hypertension with a pulmonary artery systolic pressure of 65 mmHg, severe aortic stenosis and an EF of 65%. Upon discussion with his they had been offered a TAVR but had declined as they were concerned about complications related to this procedure. Will be admitted to PCU for continued cardiac telemetry and further work-up. An MRI is not possible given his pacemaker. Past Medical History Past Medical History (Chronic Problems): Chronic Problems Murmur (Chronic) Aortic valve stenosis (Chronic) ischemic stroke (Chronic) Hx of cardiac pacemaker (Chronic) Hx of malignant neoplasm of prostate (Chronic) Guillain-Bristow syndrome (Chronic) Benign essential HTN (Chronic) Atrial fibrillation (Chronic) Allergies No Known Allergies Allergy (Verified 09/06/20 11:26) Home Medications: Ambulatory Orders Medication Instructions Recorded Allopurinol [Zyloprim] 300 mg PO DAILY 09/02/15 esomeprazole magnesium 20 mg 20 mg PO DAILY 06/07/20 capsule,delayed release lamotrigine 25 mg tablet 75 tab PO BID 06/07/20 levothyroxine 25 mcg tablet 25 mcg PO DAILY tab 06/07/20 memantine 10 mg tablet 10 tab PO BID 06/07/20 warfarin 3 mg tablet 3 mg PO DAILY tab 06/07/20 Calcium Crb,Cit/D3/Min34/[place] 1 ea PO BID 09/06/20 [Citracal + Bone Density Tablet] Ferrous Gluconate [Iron] 240 mg PO DAILY 09/06/20 Furosemide 40 mg PO DAILY 09/06/20 Ropinirole HCl [Requip] 0.5 mg PO QHS 09/06/20 Surgical History: - - Pacemaker Psychiatric History: No pertinent psych hx Lives: Spouse/ Significant Other Smoking Status: Never smoker Alcohol: None Drugs: None - *Family History Paternal History Items: Heart Disease Maternal History Items: - - Denies known maternal medical history including cardiac history. Review of Systems Constitutional: Reports: Weakness. Denies: Anorexia, Chills, Fever, Night Sweats, Malaise, Weight Change, Fatigue Eyes: Denies: Blurred vision, Cataracts, Conjunctivae Inflammation, Double vision, Drainage, Pain, Vision Change HEENT: Reports: Hard of Hearing. Denies: Difficulty Hearing, Difficulty Swallowing, Dysphasia, Ear Pain, Eye Pain, Hearing Changes, Nasal bleeding, Nasal Congestion, Post Nasal Drip, Sinus Congestion, Sinus Drainage, Sore Throat, Visual Changes Cardiovascular: Reports: Edema - Bilateral lower extremity Per this appears to be baseline at this time. Denies: Chest Pain, Claudication, Chest Pressure, Chest Tightness, Heaviness, Light Headedness, Orthopnea, Palpitations, Paroxysmal Noc. Dyspnea, Syncope Respiratory: Denies: Cough, Hemoptysis, Pleuritic Pain, Shortness of Breath, Shortness of breath at rest, Shortness of breath upon exertion, Sputum production, Wheezing Gastrointestinal: Denies: Abdominal Pain, Constipation, Diarrhea, Dyspepsia, Hematemesis, Hematochezia, Nausea, Melena, Vomiting Genitourinary: Reports: Frequency, Nocturia. Denies: Dysuria, Hematuria, Hesitancy, Incontinence, Retention, Urgency Musculoskeletal: Denies: Joint Pain, Joint stiffness, Joint swelling, Leg Pain, Muscle pain, Neck Pain Skin: Denies: Dryness, Jaundice, Lesions, Pruritis, Rash, Skin Changes Neurological: Reports: Balance problems, Confusion - Solved, Focal weakness - Bilateral lower extremities left greater than right secondary to Guillain-Driscoll? and chronic. Denies: Blurred vision, Double vision, Change in Speech, Slurred speech, Headaches, Incoordination, Numbness, Tingling, Tremor, Seizures Psychiatric: Denies: Anxiety, Depression Endocrine: Denies: Change in Body Habitus, Heat/ Cold Intolerance, Polydipsia, Polyuria Hematologic/ Lymphatic: Denies: Adenopathy, Anemia, Easy Bruising, Easy Bleeding, Petechiae, Purpura VTE Information - Inpt Only VTE Present on Admission: No VTE Mechan Device Prophylaxis: SCD's VTE Pharm Prophylaxis ordered?: Yes Patient Problems: Active and Suspected Problems Acute alteration in mental status (Acute) Hyponatremia (Acute) Transient hypotension (Acute) - Physical Exam Vitals/I&O's: Vital Signs Temp Pulse Resp BP Pulse Ox 97.2 F L 70 22 H 139/57 H 97 09/06/20 14:25 09/06/20 14:25 09/06/20 14:25 09/06/20 14:25 09/06/20 14:25 Oxygen Delivery Method Room Air Weight: 65.771 kg Body Mass Index (BMI) 25.7 Finger Stick Blood Glucose 124 Intake and Output for Last 24 Hours 09/04/20 09/05/20 09/06/20 23:59 23:59 23:59 Intake Total 502.5 / 502.5 Balance 502.5 / 502.5 General: Alert, Oriented x3, Cooperative, No apparent distress, Well developed, Well nourished, - - Elderly white male sitting up in bed, appears to be comfortable, at bedside HEENT: Atraumatic, PERRLA, EOMI, Normocephalic, EAC Clear Oral: Moist Mucosa, No Gingival or Mucosal Lesions/ Ulcerations, - - Poor dentition, Mallampati 2 Neck: Supple, No JVD, Negative Carotid Bruits, Negative Hepatojugular Reflux, No Nuchal Rigidity, Trachea Midline, Thyroid Normal Size and Texture Lungs: Clear to auscultation, Normal air movement, No rhonchi, No wheeze, No rales Cardiovascular: Regular rate, Regular Rhythm, Normal S1, No Ectopic Activity, Murmur - 4 out of 6 systolic murmur that radiates to bilateral carotids, No rub noted, No Gallop, - - Strongly soft S2 Abdomen: Bowel Sounds Present, Soft, Non Tender, Non-Distended Extremities: No clubbing, No cyanosis, Edema - Bilateral lower extremity pitting 2+-chronic per Skin: No rashes, No breakdown Musculoskeletal: No Tenderness to Palpation of Joints or Extremities, Arthritic Changes, Muscle Wasting - Lateral lower extremities Lymphatic: No Cervical, Supraclavicular, or Inguinal Adenopathy Neurological: Cranial nerves II-XII grossly intact, Deep Tendon Reflexes 2+/4 and Symmetrical, Coordination normal, - - 3 strength bilateral lower extremities left greater than right and chronic Psych/Mental Status: Normal Affect, Appropriate Laboratory Results 09/06/20 12:10: WBC 7.0, RBC 3.53 L, Hgb 10.6 L, Hct 32.6 L, MCV 92.4, MCH 30.0, MCHC 32.5, RDW Std Deviation 48.7 H, RDW Coeff of Radha 14.4, Plt Count 255, MPV 9.5, Immature Gran % (Auto) 0.300, Neut % (Auto) 67.6, Lymph % (Auto) 20.5, [place] % (Auto) 9.1, Eos % (Auto) 2.1, Baso % (Auto) 0.4, Absolute Neuts (auto) 4.8, Absolute Lymphs (auto) 1.44, Nucleated RBC % 0 09/06/20 12:10: PT 18.7 H, INR 1.6, APTT 40.8 H 09/06/20 12:10: Sodium 128 L, Potassium 4.4, Chloride 95 L, Carbon Dioxide 28.0, Anion Gap 5, BUN 15, Creatinine 0.95, Estim Creat Clear Calc 45.75, Est GFR (MDRD) Af Amer 97, Est GFR (MDRD) Non-Af 80, BUN/Creatinine Ratio 15.8, Glucose 101, Calcium 8.7, Total Bilirubin 0.50, AST 24, ALT 16, Alkaline Phosphatase 116, Troponin I 0.019, Total Protein 7.5, Albumin 2.9 L, Globulin 4.6 H, Albumin/Globulin Ratio 0.6 L 09/06/20 12:10: Lactic Acid Cancelled 09/06/20 13:10: Lactic Acid 1.1 09/06/20 13:20: Urine Color Yellow, Urine Clarity Clear, Urine pH 8.0, Ur Specific [place] 1.010, Urine Protein Negative, Urine Glucose (UA) Normal, Urine Ketones Negative, Urine Occult Blood Negative, Urine Nitrite Negative, Urine Bilirubin Negative, Urine Urobilinogen Normal, Ur Leukocyte Esterase Negative, Urine RBC 0 SEEN, Urine WBC 0 SEEN, Ur Squamous Epith Cells 0 SEEN, Urine Bacteria 0 SEEN, Urine Mucus 0 SEEN Current Medications Sodium Chloride () 1,000 mls @ 150 mls/hr IV .[id number] [facility] Last Infusion: 09/06/20 13:24 Dose: 150 mls/hr Documented by: Sodium Chloride (0.9% Saline Lock 10 Ml Syringe) 10 - 40 ml IV UD PRN PRN Reason: SALINE FLUSH Assessment/Plan All Active Problems Acute alteration in mental status (Acute) Hyponatremia (Acute) Transient hypotension (Acute) Abnormal cardiac enzyme level (Resolved) Chest pain (Resolved) Elevated INR (Resolved) Aspiration pneumonia (Resolved) Acute metabolic encephalopathy -Now resolved -May be related to severe aortic stenosis and hypotension as patient was markedly hypotensive in emergency department -We will check echocardiogram as he did have severe aortic stenosis with a gradient of 65 mmHg on his last echo -Unable to perform MRI secondary to pacer implantation -Cycle troponin -EKG shows V paced rhythm with no acute ST-T wave changes -Urine culture was sent although UA was unimpressive -Blood cultures were obtained are pending -Observe on telemetry -Symptoms now seems to be resolved Severe aortic stenosis -Repeat echocardiogram -Avoid afterload reduction -Patient was offered TAVR previously but have declined as they were concerned about complications related to the procedure -If aortic valve stenosis severity is worse consider cardiology consult Mild hyponatremia -This is slightly worse than his baseline -We will hydrate and repeat in a.m. Chronic anemia -Hemoglobin stable -Repeat CBC in a.m. -Sinew home iron supplementation PAF -Patient has permanent pacemaker -INR subtherapeutic on 3 mg of Coumadin daily -We will give 4 mg today -Daily INRs -Patient currently in normal sinus rhythm GERD -Continue PPI History of gout -Continue allopurinol Hypothyroidism -Continue levothyroxine -Check TSH Dementia -Continue memantine RLS -Continue Requip DVT prophylaxis -Continue subcu until INR therapeutic CODE STATUS -DNR CCA no intubation as discussed with patient and at bedside in emergency department Inpatient E&M: 05653 Init Hosp L3
--- NOTE | 2020-09-06 17:38 | ECHOD_ITS ---
Procedure This was a limited 2D transthoracic echocardiogram. For bubble only- previous full echo on 05/27/20. Patient was scanned in supine position during reflux assessment. Exam performed portable in patient room. Left Ventricle Normal left ventricle. Concentric left ventricular hypertrophy. The estimated ejection fraction is 55-60 %. No regional wall motion abnormalities noted. Right Ventricle There is a pacemaker lead in the right ventricle. Normal systolic function. Atria The left atrium is moderately enlarged. The right atrium is mildly enlarged. Normal atrial septum. Bubble contrast study negative for right to left interatrial shunt. Mitral Valve The mitral valve is structurally normal. No prolapse or stenosis seen. Tricuspid Valve Moderate (2+) tricuspid valve insufficiency. Aortic Valve Severe aortic stenosis. Mild-Moderate (1-2+) aortic valve insufficiency. Pulmonic Valve The pulmonic valve is not well visualized. Great Vessels Normal aortic root. No collapse of the inferior vena cava. Pericardium/Pleural No pericardial effusion. Medication Performed a rapid injection of agitated mix of 9 cc saline and 1cc air to assess for atrial septal defect. MMode/2D Measurements & Calculations LVIDd: 4.4 cm IVSd: 1.1 cm LVOT diam: 2.0 cm LVIDs: 2.8 cm LVPWd: 1.2 cm FS: 37.0 % LVOT area: 3.1 cm2 LAV(MOD-bp): 77.5 ml LA A4 area: 26.2 cm2 RA A4 area: 25.3 cm2 LAV(MOD-bp) Indexed: 46.9 ml/m2 LAV(MOD-sp2): 68.7 ml LAV(MOD-sp4): 88.4 ml Interpretation Summary The estimated ejection fraction is 55-60 %. Severe calcific AV stenosis BREANNA 0.74 CM2 Maxmium AV gradient 64 mmhg Pacemker lead noted in R.side/ RV Ordering Physician: Loida Beckham Referring Physician: ALEC CUENCA Performed By: Yasmin Ghosh RDCS, RVT
[2020-09-06] MEDS: lamoTRIgine 25 MG Tablet 75 MG PO (21:24)
[2020-09-06] MEDS: Memantine Hydrochloride 10 MG Tablet PO (21:25)
[2020-09-06] MEDS: Pramipexole Di-HCl 0.25 MG Tablet PO (21:25)
[2020-09-07] VITALS (8 sets, daily range): BP systolic 150–182; BP diastolic 71–84; PULSE 68–79; RESP 18; TEMP 36.9; O2SAT 89–98
[2020-09-07] MEDS: 0.9% Normal Saline 1,000 ML 75 ML IV (02:31)
[2020-09-07] MEDS: Levothyroxine 25 MCG TABLET PO (06:07)
--- NOTE | 2020-09-07 07:41 | PCM.PN.HOSP ---
Patient Problems: Active and Suspected Problems Acute alteration in mental status (Acute) Hyponatremia (Acute) Transient hypotension (Acute) Vitals/I&O's: Vital Signs Temp Pulse Resp BP Pulse Ox 98.4 F 71 18 152/71 H 92 09/07/20 03:00 09/07/20 03:00 09/07/20 03:00 09/07/20 03:00 09/07/20 03:00 Oxygen Delivery Method Room Air Weight: 62.6 kg Body Mass Index (BMI) 24.3 Finger Stick Blood Glucose 124 Intake and Output for Last 24 Hours 09/05/20 09/06/20 09/07/20 23:59 23:59 23:59 Intake Total 1907.5 / 1907.5 401.25 / 401.25 Balance 1907.5 / 1907.5 401.25 / 401.25 Laboratory Results 09/06/20 12:10: WBC 7.0, RBC 3.53 L, Hgb 10.6 L, Hct 32.6 L, MCV 92.4, MCH 30.0, MCHC 32.5, RDW Std Deviation 48.7 H, RDW Coeff of Radha 14.4, Plt Count 255, MPV 9.5, Immature Gran % (Auto) 0.300, Neut % (Auto) 67.6, Lymph % (Auto) 20.5, [place] % (Auto) 9.1, Eos % (Auto) 2.1, Baso % (Auto) 0.4, Absolute Neuts (auto) 4.8, Absolute Lymphs (auto) 1.44, Nucleated RBC % 0 09/06/20 12:10: PT 18.7 H, INR 1.6, APTT 40.8 H 09/06/20 12:10: Sodium 128 L, Potassium 4.4, Chloride 95 L, Carbon Dioxide 28.0, Anion Gap 5, BUN 15, Creatinine 0.95, Estim Creat Clear Calc 45.75, Est GFR (MDRD) Af Amer 97, Est GFR (MDRD) Non-Af 80, BUN/Creatinine Ratio 15.8, Glucose 101, Calcium 8.7, Total Bilirubin 0.50, AST 24, ALT 16, Alkaline Phosphatase 116, Troponin I 0.019, Total Protein 7.5, Albumin 2.9 L, Globulin 4.6 H, Albumin/Globulin Ratio 0.6 L 09/06/20 12:10: Lactic Acid Cancelled 09/06/20 13:10: Lactic Acid 1.1 09/06/20 13:20: Urine Color Yellow, Urine Clarity Clear, Urine pH 8.0, Ur Specific [place] 1.010, Urine Protein Negative, Urine Glucose (UA) Normal, Urine Ketones Negative, Urine Occult Blood Negative, Urine Nitrite Negative, Urine Bilirubin Negative, Urine Urobilinogen Normal, Ur Leukocyte Esterase Negative, Urine RBC 0 SEEN, Urine WBC 0 SEEN, Ur Squamous Epith Cells 0 SEEN, Urine Bacteria 0 SEEN, Urine Mucus 0 SEEN 09/06/20 18:06: Troponin I 0.025 09/06/20 21:05: Troponin I 0.030 Current Medications Acetaminophen (Acetaminophen 325 Mg Tablet) 650 mg PO Q6H PRN PRN PRN Reason: Pain Score 1-10/Temp > 100.7 F Al Hydroxide/Mg Hydroxide (Mag Hydrox/Al Hydrox/Simeth 30 Ml Udc) 30 ml PO Q6H PRN PRN PRN Reason: Gastric Burning Albuterol Sulfate (Albuterol 2.5 Mg/3 Ml Vial.Neb.) 2.5 mg INHALATION Q2H PRN PRN PRN Reason: SOB/Wheezing Allopurinol ([facility] 300 Mg Tablet) [facility] Enoxaparin Sodium (Enoxaparin 40 Mg/0.4 Ml Syringe) 40 mg SC DAILY [facility] Sodium Chloride () 1,000 mls @ 75 mls/hr IV .[id number] [facility] Last Admin: 09/07/20 02:31 Dose: 75 mls/hr Documented by: Lamotrigine (Lamotrigine 25 Mg Tablet) 75 mg PO BID [facility] Last Admin: 09/06/20 21:24 Dose: 75 mg Documented by: Levothyroxine Sodium (Levothyroxine 25 Mcg Tablet) 25 mcg PO DAILY@0600 [facility] Last Admin: 09/07/20 06:07 Dose: 25 mcg Documented by: Memantine (Memantine Hydrochloride 10 Mg Tablet) 10 mg PO BID [facility] Last Admin: 09/06/20 21:25 Dose: 10 mg Documented by: Ondansetron HCl (Ondansetron 4 Mg/2 Ml Vial) 4 mg IV Q8H PRN PRN PRN Reason: NAUSEA/VOMITING Pantoprazole Sodium (Pantoprazole Sodium 20 Mg Tablet) 20 mg PO DAILY [facility] Pramipexole Dihydrochloride (Pramipexole Di-Hcl 0.25 Mg Tablet) 0.25 mg PO QHS [facility] Last Admin: 09/06/20 21:25 Dose: 0.25 mg Documented by: Senna/Docusate Sodium (Senna/Docusate Sodium 1 Tablet) 2 tablet PO BID PRN PRN PRN Reason: Constipation Sodium Chloride (0.9% Saline Lock 10 Ml Syringe) 10 - 40 ml IV UD PRN PRN Reason: SALINE FLUSH Warfarin Sodium (Warfarin 4 Mg Tablet) 4 mg PO DAILY@1700 [facility] Medical Necessity - Tobacco Use Smoking Status: Never smoker Assessment/Plan All Active Problems Acute alteration in mental status (Acute) Hyponatremia (Acute) Transient hypotension (Acute) Abnormal cardiac enzyme level (Resolved) Chest pain (Resolved) Elevated INR (Resolved) Aspiration pneumonia (Resolved)
[2020-09-07 07:52] LABS: Absolute Lymphocyte Count 1.23 X10^3/uL (0.83-4.51); Absolute Neutrophil Count 4.5 X10^3/uL (2.0-7.7); Basophil# 0.02 X10^3/uL; Basophil% 0.3 % (0-1); Eosinophils% 3.1 % (0-5); Hematocrit 30.4 % (40-54); Hemoglobin 9.7 g/dL (13.0-16.5); Lymphocyte # 1.23 X10^3/ul (4.0); Lymphocyte % 19.3 % (19-41); Mean Corp Hgb Conc 31.9 g/dL (32-36); Mean Corpuscular Hgb 29.6 pg (27.0-32.0); Mean Corpuscular Volume 92.7 fL (80-94); Mean Platelet Vol. 9.5 fl (6.2-12.0); Monocyte# 0.46 X10^3/uL; Monocyte% 7.2 % (0-10); NRBC Flagged by Analyzer 0 % (0-5); Neutrophil # 4.45 X10^3/uL (2.7-7.7); Neutrophil % 69.8 % (47-70); Platelet Count 226 K/mm3 (150-450); RBC Distribution Width CV 14.6 % (11.6-14.6); RBC Distribution Width SD 50.2 fl (35.1-43.9); Red Blood Count 3.28 M/mm3 (4.6-6.2); White Blood Count 6.4 K/mm3 (4.4-11.0)
--- NOTE | 2020-09-07 07:58 | PCS.PANDOC ---
PANDEMIC DOCUMENTATION INITIATED: Date: 09/06/20 Time: 8484
[2020-09-07 08:21] LABS: International Normalized Ratio 1.7
[2020-09-07 08:41] LABS: ALB/GLOB Ratio 0.6 RATIO (0.9-2.4); AST(SGOT) 19 U/L (15-37); Alanine Aminotransfer ALT/SGPT 14 U/L (16-61); Albumin, Serum 2.6 g/dL (3.2-5.0); Alkaline Phosphatase 106 U/L (45-117); Anion Gap 8 (5-15); BUN 12 mg/dL (7-18); BUN/Creat Ratio 14.4 RATIO (10-20); Calcium,Total 8.5 mg/dL (8.5-10.1); Chloride 102 mmol/L (98-107); Creatinine, Serum 0.84 mg/dL (0.70-1.30); EST Glomerular Filtration Rate 93 mL/min (>60); Est Glom Filt Rate - Afr Amer 112 mL/min (>60); Estimated Creatinine Clearance 51.74 ml/min; Globulin 4.4 g/dL (2.2-4.2); Glucose 84 mg/dL (74-106); Magnesium 2.1 mg/dL (1.6-2.6); Phosphorus 2.8 mg/dL (2.5-4.9); Sodium Level 133 mmol/L (136-145); Thyroid Stim Hormone (TSH) 1.49 uIU/mL (0.358-3.74)
[2020-09-07] MEDS: Memantine Hydrochloride 10 MG Tablet PO ×2 (09:07→21:22)
[2020-09-07] MEDS: lamoTRIgine 25 MG Tablet 75 MG PO ×2 (09:07→21:22)
[2020-09-07] MEDS: Allopurinol 300 MG Tablet PO (09:07)
[2020-09-07] MEDS: Pantoprazole Sodium 20 MG Tablet PO (09:07)
[2020-09-07] MEDS: Enoxaparin 40 MG/0.4 ML Syringe SC (09:08)
[2020-09-07] MEDS: 0.9% Saline Lock 10 ML Syringe IV (09:45)
[2020-09-07] MEDS: Furosemide 40 MG/4 ML Vial IV (09:45)
--- NOTE | 2020-09-07 11:09 | TELEMED_ITS ---
SOC Telemed has confirmed receipt of a request for visit. This document confirms receipt of the order initiating the consult. To find the results of the consultation, please view the patient's reports for the scanned Telemed Consult.
--- NOTE | 2020-09-07 12:58 | PCM.PN.HOSP ---
<Maksim Daugherty - Last Filed: 09/07/20 12:58> Patient Problems: Active and Suspected Problems Acute alteration in mental status (Acute) Hyponatremia (Acute) Transient hypotension (Acute) Reason for Visit: altered mental status Subjective: no further confusion. pt resting comfortably in bed NAD. No KERN/Dizziness/LH, no slurred speech. Pt has chronic swallowing issue. No change in swallowing. Vitals/I&O's: Vital Signs Temp Pulse Resp BP Pulse Ox 98.4 F 73 18 182/73 H 94 09/07/20 09:00 09/07/20 09:00 09/07/20 09:00 09/07/20 09:00 09/07/20 09:00 Oxygen Flow Rate (L/min) 2 Oxygen Delivery Method Room Air Weight: 138 lb 0.15 oz Body Mass Index (BMI) 24.3 Finger Stick Blood Glucose 124 Intake and Output for Last 24 Hours 09/05/20 09/06/20 09/07/20 23:59 23:59 23:59 Intake Total 1907.5 / 1907.5 1166.25 / 1166.25 Balance 1907.5 / 1907.5 1166.25 / 1166.25 General: Alert, Oriented x3, Cooperative HEENT: Atraumatic, PERRLA, EOMI, Normocephalic Neck: Supple, No JVD, Negative Carotid Bruits Lungs: Clear to auscultation, Normal air movement Cardiovascular: Regular rate, No murmurs Abdomen: Bowel Sounds Present, Soft, Non Tender Extremities: No edema, Capillary Refill Less than 3 Seconds Skin: No rashes, No breakdown Musculoskeletal: No Tenderness to Palpation of Joints or Extremities Neurological: Cranial nerves II-XII grossly intact Psych/Mental Status: Normal Affect, Appropriate, Alert and oriented to time, place, person, mood and affect Microbiology Past 72 Hours 09/06/20 13:20 Urine, Clean Catch Urine Culture - Final Mixed Gram Pos & Gram Neg Org Laboratory Results 09/06/20 12:10: Sodium 128 L, Potassium 4.4, Chloride 95 L, Carbon Dioxide 28.0, Anion Gap 5, BUN 15, Creatinine 0.95, Estim Creat Clear Calc 45.75, Est GFR (MDRD) Af Amer 97, Est GFR (MDRD) Non-Af 80, BUN/Creatinine Ratio 15.8, Glucose 101, Calcium 8.7, Total Bilirubin 0.50, AST 24, ALT 16, Alkaline Phosphatase 116, Troponin I 0.019, Total Protein 7.5, Albumin 2.9 L, Globulin 4.6 H, Albumin/Globulin Ratio 0.6 L 09/06/20 13:10: Lactic Acid 1.1 09/06/20 13:20: Urine Color Yellow, Urine Clarity Clear, Urine pH 8.0, Ur Specific [place] 1.010, Urine Protein Negative, Urine Glucose (UA) Normal, Urine Ketones Negative, Urine Occult Blood Negative, Urine Nitrite Negative, Urine Bilirubin Negative, Urine Urobilinogen Normal, Ur Leukocyte Esterase Negative, Urine RBC 0 SEEN, Urine WBC 0 SEEN, Ur Squamous Epith Cells 0 SEEN, Urine Bacteria 0 SEEN, Urine Mucus 0 SEEN 09/06/20 18:06: Troponin I 0.025 09/06/20 21:05: Troponin I 0.030 09/07/20 06:46: WBC 6.4, RBC 3.28 L, Hgb 9.7 L, Hct 30.4 L, MCV 92.7, MCH 29.6, MCHC 31.9 L, RDW Std Deviation 50.2 H, RDW Coeff of Radha 14.6, Plt Count 226, MPV 9.5, Immature Gran % (Auto) 0.300, Neut % (Auto) 69.8, Lymph % (Auto) 19.3, [place] % (Auto) 7.2, Eos % (Auto) 3.1, Baso % (Auto) 0.3, Absolute Neuts (auto) 4.5, Absolute Lymphs (auto) 1.23, Nucleated RBC % 0 09/07/20 06:46: PT 19.0 H, INR 1.7 09/07/20 06:46: Sodium 133 L, Potassium 4.0, Chloride 102, Carbon Dioxide 23.0, Anion Gap 8, BUN 12, Creatinine 0.84, Estim Creat Clear Calc 51.74, Est GFR (MDRD) Af Amer 112, Est GFR (MDRD) Non-Af 93, BUN/Creatinine Ratio 14.4, Glucose 84, Calcium 8.5, Phosphorus 2.8, Magnesium 2.1, Total Bilirubin 0.50, AST 19, ALT 14 L, Alkaline Phosphatase 106, Total Protein 7.0, Albumin 2.6 L, Globulin 4.4 H, Albumin/Globulin Ratio 0.6 L, TSH 1.49 Current Medications Acetaminophen (Acetaminophen 325 Mg Tablet) 650 mg PO Q6H PRN PRN PRN Reason: Pain Score 1-10/Temp > 100.7 F Al Hydroxide/Mg Hydroxide (Mag Hydrox/Al Hydrox/Simeth 30 Ml Udc) 30 ml PO Q6H PRN PRN PRN Reason: Gastric Burning Albuterol Sulfate (Albuterol 2.5 Mg/3 Ml Vial.Neb.) 2.5 mg INHALATION Q2H PRN PRN PRN Reason: SOB/Wheezing Allopurinol (Allopurinol 300 Mg Tablet) [facility] Last Admin: 09/07/20 09:07 Dose: 300 mg Documented by: Enoxaparin Sodium (Enoxaparin 40 Mg/0.4 Ml Syringe) 40 mg SC DAILY [facility] Last Admin: 09/07/20 09:08 Dose: 40 mg Documented by: Lamotrigine (Lamotrigine 25 Mg Tablet) 75 mg PO BID [facility] Last Admin: 09/07/20 09:07 Dose: 75 mg Documented by: Levothyroxine Sodium (Levothyroxine 25 Mcg Tablet) 25 mcg PO DAILY@0600 [facility] Last Admin: 09/07/20 06:07 Dose: 25 mcg Documented by: Memantine (Memantine Hydrochloride 10 Mg Tablet) 10 mg PO BID [facility] Last Admin: 09/07/20 09:07 Dose: 10 mg Documented by: Ondansetron HCl (Ondansetron 4 Mg/2 Ml Vial) 4 mg IV Q8H PRN PRN PRN Reason: NAUSEA/VOMITING Pantoprazole Sodium (Pantoprazole Sodium 20 Mg Tablet) 20 mg PO DAILY [facility] Last Admin: 09/07/20 09:07 Dose: 20 mg Documented by: Pramipexole Dihydrochloride (Pramipexole Di-Hcl 0.25 Mg Tablet) 0.25 mg PO QHS [facility] Last Admin: 09/06/20 21:25 Dose: 0.25 mg Documented by: Senna/Docusate Sodium (Senna/Docusate Sodium 1 Tablet) 2 tablet PO BID PRN PRN PRN Reason: Constipation Sodium Chloride (0.9% Saline Lock 10 Ml Syringe) 10 - 40 ml IV UD PRN PRN Reason: SALINE FLUSH Last Admin: 09/07/20 09:45 Dose: 10 ml Documented by: Warfarin Sodium (Warfarin 4 Mg Tablet) 4 mg PO DAILY@1700 [facility] STROKE Vital Signs/Narrative: Vital Signs Temp Pulse Resp BP Pulse Ox 09/07/20 09:00 98.4 F 73 18 182/73 H 94 Medical Necessity - Tobacco Use Smoking Status: Never smoker Assessment/Plan All Active Problems Acute alteration in mental status (Acute) Hyponatremia (Acute) Transient hypotension (Acute) Abnormal cardiac enzyme level (Resolved) Chest pain (Resolved) Elevated INR (Resolved) Aspiration pneumonia (Resolved) 1. Encephalopathy, concerning for CVA - pacemaker is not MRI compatible. CT without acute stoke. Repeat CT brain 48 hours. Echo bubble study pending. -pafib and subtherapeutic INR. -neuro consult -hx prior stroke -hypotension resolved, how markedly hypertensive - permissive. 2. Severe - significant LE edema and rales. No SOB. Lasix IV x1. Resume home lasix 3. pAfib - warfarin, has pacemaker. 4. GERD - PPI 5. Dementia - memantine 6. Hx guillan [place] with chronic peripheral neuropathy - no new changes. DVT ppx: lovenox / warfarin bridge. DC planning: PT OT Evals. This patient was seen by Maksim Daugherty PA-C under the supervision of Dr. Ahmadi. <Lavinia Ahmadi - Last Filed: 09/07/20 17:46> Vitals/I&O's: Vital Signs Temp Pulse Resp BP Pulse Ox 98.4 F 68 18 171/84 H 97 09/07/20 15:00 09/07/20 15:00 09/07/20 15:00 09/07/20 15:00 09/07/20 15:00 Oxygen Flow Rate (L/min) 2 Oxygen Delivery Method Nasal Cannula Weight: 62.6 kg Body Mass Index (BMI) 24.3 Finger Stick Blood Glucose 124 Intake and Output for Last 24 Hours 09/05/20 09/06/20 09/07/20 23:59 23:59 23:59 Intake Total 1907.5 / 1907.5 1166.25 / 1166.25 Balance 1907.5 / 1907.5 1166.25 / 1166.25 Microbiology Past 72 Hours 09/06/20 13:20 Urine, Clean Catch Urine Culture - Final Mixed Gram Pos & Gram Neg Org Laboratory Results 09/06/20 18:06: Troponin I 0.025 09/06/20 21:05: Troponin I 0.030 09/07/20 06:46: WBC 6.4, RBC 3.28 L, Hgb 9.7 L, Hct 30.4 L, MCV 92.7, MCH 29.6, MCHC 31.9 L, RDW Std Deviation 50.2 H, RDW Coeff of Radha 14.6, Plt Count 226, MPV 9.5, Immature Gran % (Auto) 0.300, Neut % (Auto) 69.8, Lymph % (Auto) 19.3, [place] % (Auto) 7.2, Eos % (Auto) 3.1, Baso % (Auto) 0.3, Absolute Neuts (auto) 4.5, Absolute Lymphs (auto) 1.23, Nucleated RBC % 0 09/07/20 06:46: PT 19.0 H, INR 1.7 09/07/20 06:46: Sodium 133 L, Potassium 4.0, Chloride 102, Carbon Dioxide 23.0, Anion Gap 8, BUN 12, Creatinine 0.84, Estim Creat Clear Calc 51.74, Est GFR (MDRD) Af Amer 112, Est GFR (MDRD) Non-Af 93, BUN/Creatinine Ratio 14.4, Glucose 84, Calcium 8.5, Phosphorus 2.8, Magnesium 2.1, Total Bilirubin 0.50, AST 19, ALT 14 L, Alkaline Phosphatase 106, Total Protein 7.0, Albumin 2.6 L, Globulin 4.4 H, Albumin/Globulin Ratio 0.6 L, TSH 1.49 Current Medications Acetaminophen (Acetaminophen 325 Mg Tablet) 650 mg PO Q6H PRN PRN PRN Reason: Pain Score 1-10/Temp > 100.7 F Al Hydroxide/Mg Hydroxide (Mag Hydrox/Al Hydrox/Simeth 30 Ml Udc) 30 ml PO Q6H PRN PRN PRN Reason: Gastric Burning Albuterol Sulfate (Albuterol 2.5 Mg/3 Ml Vial.Neb.) 2.5 mg INHALATION Q2H PRN PRN PRN Reason: SOB/Wheezing Allopurinol (Allopurinol 300 Mg Tablet) 300 mg PO DAILYCM [facility] Last Admin: 09/07/20 09:07 Dose: 300 mg Documented by: Enoxaparin Sodium (Enoxaparin 40 Mg/0.4 Ml Syringe) 40 mg SC DAILY [facility] Last Admin: 09/07/20 09:08 Dose: 40 mg Documented by: Lamotrigine (Lamotrigine 25 Mg Tablet) 75 mg PO BID [facility] Last Admin: 09/07/20 09:07 Dose: 75 mg Documented by: Levothyroxine Sodium (Levothyroxine 25 Mcg Tablet) 25 mcg PO DAILY@0600 [facility] Last Admin: 09/07/20 06:07 Dose: 25 mcg Documented by: Memantine (Memantine Hydrochloride 10 Mg Tablet) 10 mg PO BID [facility] Last Admin: 09/07/20 09:07 Dose: 10 mg Documented by: Ondansetron HCl (Ondansetron 4 Mg/2 Ml Vial) 4 mg IV Q8H PRN PRN PRN Reason: NAUSEA/VOMITING Pantoprazole Sodium (Pantoprazole Sodium 20 Mg Tablet) 20 mg PO DAILY [facility] Last Admin: 09/07/20 09:07 Dose: 20 mg Documented by: Pramipexole Dihydrochloride (Pramipexole Di-Hcl 0.25 Mg Tablet) 0.25 mg PO QHS [facility] Last Admin: 09/06/20 21:25 Dose: 0.25 mg Documented by: Senna/Docusate Sodium (Senna/Docusate Sodium 1 Tablet) 2 tablet PO BID PRN PRN PRN Reason: Constipation Sodium Chloride (0.9% Saline Lock 10 Ml Syringe) 10 - 40 ml IV UD PRN PRN Reason: SALINE FLUSH Last Admin: 09/07/20 09:45 Dose: 10 ml Documented by: Warfarin Sodium (Warfarin 4 Mg Tablet) 4 mg PO DAILY@1700 [facility] STROKE Vital Signs/Narrative: Vital Signs Temp Pulse Resp BP Pulse Ox 09/07/20 15:00 98.4 F 68 18 171/84 H 97 09/07/20 11:08 89 Assessment/Plan This patient was seen in conjunction with ROMMEL Donnelly. I have independently interviewed and examined the patient and reviewed pertinent historical, laboratory, and other data. Please refer to ROMMEL Donnelly note for his patient's presentation, findings, and recommendations. I have reviewed and his note and concur with his documentation Physical Exam: Gen: Looks in some discomfort, not pale, not jaundiced CVS:HS I +II, regular, no murmurs RESP: Diminished at lung bases GI: BS present and normal, soft, nontender, no palpable organs EXT:No edema ASSESSMENT: 1. Plan: OBSV E&M: 53988 Subsequent observation care L3
--- NOTE | 2020-09-07 16:05 | CM.UR ---
SHERMAN form completed at this time. Copy given to patient's and original filled in chart. Parish Alvarenga RN, CCM.
--- NOTE | 2020-09-07 16:12 | CM.UR ---
Was alerted that patient needs referral to home health for Speech therapy. Per PT note, patient is baseline for that. Discussed with patient and . States [facility] and would like them for this. Referral sent at this time. Parish Alvarenga RN, CCM.
[2020-09-07] MEDS: Pramipexole Di-HCl 0.25 MG Tablet PO (21:23)
[2020-09-08] VITALS (10 sets, daily range): BP systolic 100–158; BP diastolic 66–86; PULSE 69–81; RESP 16; TEMP 36.3–37.1; O2SAT 96–99
[2020-09-08] MEDS: Levothyroxine 25 MCG TABLET PO (06:25)
--- NOTE | 2020-09-08 07:35 | CT_ITS ---
STUDY: CT BRAIN WITHOUT CONTRAST REASON FOR EXAM: Male, 85 years old. Confusion, CVA, acute encephalopathy, prostate cancer, afib, hypertension, [place]. RADIATION DOSAGE (If Supplied By Facility): CTDIvol = ( 44.00 ) mGy, DLP = ( 832.67 ) mGycm TECHNIQUE: Transaxial CT imaging of the brain was performed without administration of intravenous contrast material. Individualized dose optimization techniques were used for this CT. COMPARISON: FINDINGS: Normal soft tissue structures. Normal calvarium. There is severe cerebral atrophy with widening of the extra-axial spaces and ventricular dilatation. There are areas of decreased attenuation within the white matter tracts of the supratentorial brain, consistent with microvascular disease changes. Encephalomalacia within the right temporal lobe consistent with a chronic infarct. Normal basal ganglia and thalami. Normal brainstem. Normal cerebellum. There is no intracranial hemorrhage. There are no findings of an acute ischemic infarction. Normal visualized paranasal sinuses. CT/Brain/Head without Contrast IMPRESSION: Chronic involutional changes of the brain. Electronically Signed: Maximiliano Oneal MD at 8:22 EST Tel , Service support ,
[2020-09-08 08:08] LABS: International Normalized Ratio 1.7
--- NOTE | 2020-09-08 09:22 | PCM.PN.HOSP ---
Patient Problems: Active and Suspected Problems Acute alteration in mental status (Acute) Hyponatremia (Acute) Transient hypotension (Acute) Objective: Physical Exam: Gen: Frail, alert, oriented x 3, not pale, not jaundiced CVS:HS I +II, regular, no murmurs RESP: CTA GI: BS present and normal, soft, nontender, no palpable organs EXT:No edema Vitals/I&O's: Vital Signs Temp Pulse Resp BP Pulse Ox 98.8 F 70 16 150/66 H 98 09/08/20 06:22 09/08/20 06:48 09/08/20 06:22 09/08/20 06:22 09/08/20 08:04 Oxygen Flow Rate (L/min) 2 Oxygen Delivery Method Nasal Cannula Weight: 61.2 kg Body Mass Index (BMI) 24.3 Finger Stick Blood Glucose 124 Intake and Output for Last 24 Hours 09/06/20 09/07/20 09/08/20 23:59 23:59 23:59 Intake Total 1907.5 / 1907.5 1406.25 / 1606.25 400 / 400 Output Total 100 / 100 Balance 1907.5 / 1907.5 1306.25 / 1506.25 400 / 400 Microbiology Past 72 Hours 09/06/20 13:20 Urine, Clean Catch Urine Culture - Final Mixed Gram Pos & Gram Neg Org Laboratory Results 09/08/20 06:32: PT 19.0 H, INR 1.7 Current Medications Acetaminophen (Acetaminophen 325 Mg Tablet) 650 mg PO Q6H PRN PRN PRN Reason: Pain Score 1-10/Temp > 100.7 F Al Hydroxide/Mg Hydroxide (Mag Hydrox/Al Hydrox/Simeth 30 Ml Udc) 30 ml PO Q6H PRN PRN PRN Reason: Gastric Burning Albuterol Sulfate (Albuterol 2.5 Mg/3 Ml Vial.Neb.) 2.5 mg INHALATION Q2H PRN PRN PRN Reason: SOB/Wheezing Allopurinol (Allop[facility]ol 300 Mg Tablet) [facility] Last Admin: 09/07/20 09:07 Dose: 300 mg Documented by: Enoxaparin Sodium (Enoxaparin 40 Mg/0.4 Ml Syringe) 40 mg SC DAILY [facility] Last Admin: 09/07/20 09:08 Dose: 40 mg Documented by: Lamotrigine (Lamotrigine 25 Mg Tablet) 75 mg PO BID [facility] Last Admin: 09/07/20 21:22 Dose: 75 mg Documented by: Levothyroxine Sodium (Levothyroxine 25 Mcg Tablet) 25 mcg PO DAILY@0600 [facility] Last Admin: 09/08/20 06:25 Dose: 25 mcg Documented by: Memantine (Memantine Hydrochloride 10 Mg Tablet) 10 mg PO BID [facility] Last Admin: 09/07/20 21:22 Dose: 10 mg Documented by: Nystatin (Nystatin Ointment) 1 applic TOPICAL BID [facility]; Protocol Ondansetron HCl (Ondansetron 4 Mg/2 Ml Vial) 4 mg IV Q8H PRN PRN PRN Reason: NAUSEA/VOMITING Pantoprazole Sodium (Pantoprazole Sodium 20 Mg Tablet) 20 mg PO DAILY [facility] Last Admin: 09/07/20 09:07 Dose: 20 mg Documented by: Pramipexole Dihydrochloride (Pramipexole Di-Hcl 0.25 Mg Tablet) 0.25 mg PO QHS [facility] Last Admin: 09/07/20 21:23 Dose: 0.25 mg Documented by: Senna/Docusate Sodium (Senna/Docusate Sodium 1 Tablet) 2 tablet PO BID PRN PRN PRN Reason: Constipation Sodium Chloride (0.9% Saline Lock 10 Ml Syringe) 10 - 40 ml IV UD PRN PRN Reason: SALINE FLUSH Last Admin: 09/07/20 09:45 Dose: 10 ml Documented by: Warfarin Sodium (Warfarin 4 Mg Tablet) 4 mg PO DAILY@1700 [facility] Last Admin: 09/07/20 19:18 Dose: 4 mg Documented by: STROKE Vital Signs/Narrative: Vital Signs Temp Pulse Resp BP Pulse Ox 09/08/20 08:04 98 09/08/20 06:48 70 09/08/20 06:22 98.8 F 70 16 150/66 H 98 Medical Necessity - Tobacco Use Smoking Status: Never smoker Assessment/Plan All Active Problems Acute alteration in mental status (Acute) Hyponatremia (Acute) Transient hypotension (Acute) Abnormal cardiac enzyme level (Resolved) Chest pain (Resolved) Elevated INR (Resolved) Aspiration pneumonia (Resolved) 1. Acute encephalopathy, possible CVA - encephalopathy appears resolved; at baseline Repeat CT brain showed chronic involuntary changes. EEG was unremarkable SOC consulted. Continue on coumadin, trend INR 2. Chronic dysphagia, etiology suspicious for esophageal etiology from last modified barium swallow Barium swallow test ordered in am 3. Severe , seen on repeat 2D-ECHO, family does not want surgical evaluation 4. Paroxysmal A. fib, INR subtherapeutic at 1.7, continue to monitor 5. GERD/hypothyroidism all remain stable Continue on pantoprazole and levothyroxine 6. Dementia, continue Namenda 7. Guillan [place] with chronic peripheral neuropathy 8. DVT PPx - on coumadin and Lovenox SC overlap pending INR being therapeutic Inpatient E&M: [id number] Subs Hosp L2
[2020-09-08] MEDS: Enoxaparin 40 MG/0.4 ML Syringe SC (10:00)
[2020-09-08] MEDS: lamoTRIgine 25 MG Tablet 75 MG PO ×2 (10:00→21:16)
[2020-09-08] MEDS: Allopurinol 300 MG Tablet PO (10:01)
[2020-09-08] MEDS: Memantine Hydrochloride 10 MG Tablet PO ×2 (10:01→21:16)
[2020-09-08] MEDS: Nystatin Ointment 1 APPLIC TOPICAL ×2 (10:01→21:15)
[2020-09-08] MEDS: Pantoprazole Sodium 20 MG Tablet PO (10:01)
[2020-09-08] MEDS: Pramipexole Di-HCl 0.25 MG Tablet PO (21:16)
[2020-09-09] VITALS (7 sets, daily range): BP systolic 130–159; BP diastolic 66–88; PULSE 64–78; RESP 16–18; TEMP 36.6–37; O2SAT 95–98
[2020-09-09] MEDS: Levothyroxine 25 MCG TABLET PO (05:29)
[2020-09-09 06:33] LABS: Absolute Lymphocyte Count 1.39 X10^3/uL (0.83-4.51); Absolute Neutrophil Count 4.6 X10^3/uL (2.0-7.7); Basophil# 0.03 X10^3/uL; Basophil% 0.4 % (0-1); Eosinophil# 0.17 X10^3/uL; Eosinophils% 2.5 % (0-5); Hematocrit 31.3 % (40-54); Hemoglobin 10.1 g/dL (13.0-16.5); Lymphocyte # 1.39 X10^3/ul (4.0); Lymphocyte % 20.7 % (19-41); Mean Corp Hgb Conc 32.3 g/dL (32-36); Mean Corpuscular Hgb 30.1 pg (27.0-32.0); Mean Corpuscular Volume 93.2 fL (80-94); Mean Platelet Vol. 9.6 fl (6.2-12.0); Monocyte# 0.53 X10^3/uL; Monocyte% 7.9 % (0-10); NRBC Flagged by Analyzer 0 % (0-5); Neutrophil # 4.59 X10^3/uL (2.7-7.7); Neutrophil % 68.2 % (47-70); Platelet Count 263 K/mm3 (150-450); RBC Distribution Width CV 14.6 % (11.6-14.6); RBC Distribution Width SD 49.9 fl (35.1-43.9); Red Blood Count 3.36 M/mm3 (4.6-6.2); White Blood Count 6.7 K/mm3 (4.4-11.0)
[2020-09-09 07:05] LABS: ALB/GLOB Ratio 0.6 RATIO (0.9-2.4); AST(SGOT) 20 U/L (15-37); Alanine Aminotransfer ALT/SGPT 13 U/L (16-61); Albumin, Serum 2.7 g/dL (3.2-5.0); Alkaline Phosphatase 107 U/L (45-117); Anion Gap 7 (5-15); BUN 16 mg/dL (7-18); BUN/Creat Ratio 19.2 RATIO (10-20); Calcium,Total 8.9 mg/dL (8.5-10.1); Chloride 102 mmol/L (98-107); Creatinine, Serum 0.83 mg/dL (0.70-1.30); EST Glomerular Filtration Rate 93 mL/min (>60); Est Glom Filt Rate - Afr Amer 113 mL/min (>60); Estimated Creatinine Clearance 52.37 ml/min; Globulin 4.6 g/dL (2.2-4.2); Glucose 89 mg/dL (74-106); Protein, Total 7.3 g/dL (6.4-8.2); Sodium Level 135 mmol/L (136-145)
--- NOTE | 2020-09-09 08:50 | RAD_ITS ---
STUDY: AIR CONTRAST UPPER GI SERIES REASON FOR EXAM: Male, 85 years old. Recurrent aspiration, esophageal dysmotility FLUOROSCOPY TIME (if supplied): (0:36) minutes/seconds TECHNIQUE: SINGLE CONTRAST AND AIR CONTRAST FLUOROSCOPIC IMAGES. COMPARISON: None. FINDINGS: The cervical esophagus demonstrates normal motility without aspiration. There is no stricture or extrinsic mass effect. No intraluminal polypoid mass is identified. The thoracic esophagus distends well without stricture or mucosal fold thickening. No mucosal ulcerations are identified. There is no extrinsic mass effect. There are no diverticula. Large hiatal hernia. No evidence of gastroesophageal reflux. The stomach distends well without mucosal fold thickening or mucosal ulceration. There is no intraluminal mass. The duodenal bulb is freely distensible without deformity or ulceration. The duodenal sweep is normal in position and caliber. RAD/Upper GI w/BA Swallow IMPRESSION: Large hiatal hernia. No evidence of gastroesophageal reflux at this time. Electronically Signed: Ye Braswell MD at 9:25 EST , Service support ,
--- NOTE | 2020-09-09 09:12 | CASEMGMT ---
SW did not complete a PHQ 9 with patient as per SOC consult patient did not have a TIA or Stroke. Laurence ROBLERO MSW
[2020-09-09 09:35] LABS: Vitamin B12 405 pg/mL (211-911)
[2020-09-09] MEDS: Enoxaparin 40 MG/0.4 ML Syringe SC (10:10)
[2020-09-09] MEDS: Memantine Hydrochloride 10 MG Tablet PO (10:10)
[2020-09-09] MEDS: lamoTRIgine 25 MG Tablet 75 MG PO (10:10)
[2020-09-09] MEDS: Allopurinol 300 MG Tablet PO (10:11)
[2020-09-09] MEDS: Nystatin Ointment 1 APPLIC TOPICAL (10:11)
[2020-09-09] MEDS: Pantoprazole Sodium 20 MG Tablet PO (10:11)
--- NOTE | 2020-09-09 10:50 | CASEMGMT ---
RN BRIDGET assessment: Face to Face with patient for initial transition planning/care coordination assessment. RN BRIDGET introduced self and role at [facility], pt voices understanding and consents to assessment at this time. Pt is sitting up in bed in no distress at this time. Pt is A/Ox4 at this time and answers questions appropriately at this time. Pt's is at bedside and helps answer assessment questions at this time. Care providers, pharmacy, and demographics verified at this time. Presentation: Pt w/ confusion, started yesterday afternoon. Admitting dx: Acute encephalopathy PCP: Jeremy Specialists: Yamini Rose, cardio Preferred Pharmacy: [facility] Insurance: MCR A/B, [place], [employer] Prescription Benefit: Yes Living Will/HPOA: Pt states has LW/HPOA and is aware that they are on file at [facility] at this time. Pt states , Analy Tapia, is HPOA. LNOK: Analy Tapia, ; Sonia Aguilar, daughter; Marcia Walters, daughter Living Arrangements: Pt states lives with in 1 story home with 2 steps in and states no concerns at home at this time. states does assist pt with some ADL's and daughters help. Transportation: /daughter drive and states no transportation concerns at this time. DME/HHC: Pt has the following DME: cane, rollator, W/C, grab bars by toilet/shower, and shower chair. Pt states no need for any further DME. Per , pt has had [facility] in the past and has been to SNF. Pt was already set up with [facility] this visit for SN, Speech and this RN BRIDGET added PT/OT at this time. Per , 'he wants to go home' and declines need for SNF at this time. Pt states no concerns with going home at time of discharge. Pt is retired. Pt states does not smoke cigarettes or drink ETOH. Pt/ state no further concerns/needs at this time. CM to follow for any further discharge planning/needs. Advised pt to ask for CM if any further questions/concerns/needs arise, voices understanding. Pt Goal: Home Plan: Home w/ [facility]. SStaten DRAGAN GILL
--- NOTE | 2020-09-09 14:59 | CASEMGMT ---
Message left with Mansi at [facility] in regards to pt discharge and that PT/OT added to order at this time. Luís ARCHIBALD CM
--- NOTE | 2020-09-09 16:31 | PCM.DC ---
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) Benign essential HTN (Chronic) Atrial fibrillation (Chronic) You will use the following diet at home:: No restrictions Your food should be the consistency of: Regular Your liquids should be the consistency of: Regular/Thin Discharge Activity: Return to Normal Activity Weight Bearing Status: Weight bearing as tolerated Allergies/Adverse Reactions: Allergies No Known Allergies Allergy (Verified 09/06/20 11:26) Medications to take at Discharge Allopurinol [Zyloprim] 300 mg PO DAILY 09/02/15 esomeprazole magnesium 20 mg capsule,delayed release 20 mg PO DAILY 06/07/20 lamotrigine 25 mg tablet 75 tab PO BID 06/07/20 levothyroxine 25 mcg tablet 25 mcg PO DAILY tab 06/07/20 memantine 10 mg tablet 10 tab PO BID 06/07/20 Calcium Crb,Cit/D3/Min34/Paxton [Citracal Plus Bone Density Tab] 1 ea PO BID 09/06/20 Ferrous Gluconate [Iron] 240 mg PO DAILY 09/06/20 Furosemide 40 mg PO DAILY 09/06/20 Nystatin [Mycostatin] 1 applic TOPICAL BID tube 09/09/20 Ropinirole HCl [Requip] 0.25 mg PO QHS #1 tab 09/09/20 Warfarin [Coumadin] 4 mg PO DAILY #60 tab 09/09/20 The following prescriptions were given: Warfarin [Coumadin] 4 mg PO DAILY #60 tab Transmission Status: Received by [facility] Ropinirole HCl [Requip] 0.25 mg PO QHS #1 tab Primary Care Physician: Theodore Luna Chi, MD [Primary Care Provider] - Please follow up with your Primary Care Physician in: in 2 weeks Test Results: Test results from this visit will be discussed in further detail at your follow-up appointment, if applicable.
--- NOTE | 2020-09-10 11:45 | CASEMGMT ---
DRAGAN GILL DC PHONE CALL DC DATE: DC Disposition: HOME Diagnosis on Discharge: COVID-19 LACE/STRATA: 12 Call to [facility]. They spoke with today and start of care is set up for tomorrow. Winifred ROLONN RN AC
--- NOTE | 2020-09-10 17:47 | PCM.DC.SUM ---
Discharge Date and Diagnosis - Problem List Patient Problems: Active and Suspected Problems Acute alteration in mental status (Acute) Hyponatremia (Acute) Transient hypotension (Acute) Date of Admission: 09/06/20 Date of Discharge: 09/09/20 - Primary Discharge Diagnosis Acute Problems: Active Problems #1 acute encephalopathy possibly secondary to medications #2 chronic dysphagia #3 severe aortic stenosis #4 dementia #5 paroxysmal atrial fibrillation - Secondary Discharge Diagnosis Chronic Problems: Chronic Problems Murmur (Chronic) Aortic valve stenosis (Chronic) ischemic stroke (Chronic) Hx of cardiac pacemaker (Chronic) Hx of malignant neoplasm of prostate (Chronic) 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 Patient does have a history of dementia but according to the he became confused and was unable to eat. Work-up in the emergency room included an EKG which showed a paced rhythm, patient was mildly hypotensive was given IV fluids, work-up included a CBC which showed a normal white blood cell count, hemoglobin was slightly low at 10.6, T of the brain showed an old stroke. Patient was mildly hyponatremic. Patient was admitted to PCU, he was seen in consultation by teleneurology and an EEG was performed which was unremarkable. Patient's mental status returned to baseline, it was felt by the teleneurologist that the patient had a side effect to one of his medications causing increased confusion. On 09/09/2020, patient was seen and examined: On examination he appeared alert and answers simple questions appropriately. Vital signs as documented. Skin warm and dry and without overt rashes. Neck without JVD, neck was supple, trachea midline, thyroid was normal. Lungs clear bilaterally, normal air movement was noted. Heart exam notable for regular rhythm, normal sounds and absence of murmurs, rubs or gallops. Abdomen unremarkable and without evidence of organomegaly, masses, or abdominal aortic enlargement. Bowel sounds are present, abdomen is not distended. Extremities nonedematous, no cyanosis was noted, no clubbing was noted. Neuro: Cranial nerves II through XII are grossly intact, no focal motor deficits were noted, sensation to light touch and pinprick intact, motor exam 5/5 throughout. Psych: Patient is alert, his affect was flat On 09/09/2020, patient was seen and examined and felt to be in stable condition for discharge home Patient Problems: Active and Suspected Problems Acute alteration in mental status (Acute) Hyponatremia (Acute) Transient hypotension (Acute) - Physical Exam Vitals/I&O's: Vital Signs Temp Pulse Resp BP Pulse Ox 98.6 F 64 18 130/88 H 95 09/09/20 16:41 09/09/20 16:41 09/09/20 16:41 09/09/20 16:41 09/09/20 16:41 Oxygen Flow Rate (L/min) 2 Oxygen Delivery Method Room Air Weight: 59.3 kg Body Mass Index (BMI) 24.3 Finger Stick Blood Glucose 124 Intake and Output for Last 24 Hours 09/08/20 09/09/20 09/10/20 23:59 23:59 23:59 Intake Total 880 / 1120 540 / 540 Output Total 75 / 75 Balance 880 / 1045 465 / 465 Microbiology Past 72 Hours 09/06/20 12:10 Blood Culture (Wb) - Chest Blood Culture - Preliminary No growth in 48 hours. 09/06/20 12:00 Blood Culture (Wb) - Anticubital Right Blood Culture - Preliminary No growth in 48 hours. Discharge Activity: Return to Normal Activity Weight Bearing Status: Weight bearing as tolerated Home Medications: Medications to take at Discharge Allopurinol [Zyloprim] 300 mg PO DAILY 09/02/15 esomeprazole magnesium 20 mg capsule,delayed release 20 mg PO DAILY 06/07/20 lamotrigine 25 mg tablet 75 tab PO BID 06/07/20 levothyroxine 25 mcg tablet 25 mcg PO DAILY tab 06/07/20 memantine 10 mg tablet 10 tab PO BID 06/07/20 Calcium Crb,Cit/D3/Min34/Paxton [Citracal Plus Bone Density Tab] 1 ea PO BID 09/06/20 Ferrous Gluconate [Iron] 240 mg PO DAILY 09/06/20 Furosemide 40 mg PO DAILY 09/06/20 Nystatin [Mycostatin] 1 applic TOPICAL BID tube 09/09/20 Ropinirole HCl [Requip] 0.25 mg PO QHS #1 tab 09/09/20 Warfarin [Coumadin] 4 mg PO DAILY #60 tab 09/09/20 Following Prescriptions Were Given to Patient: Warfarin [Coumadin] 4 mg PO DAILY #60 tab Transmission Status: Received by [facility] Ropinirole HCl [Requip] 0.25 mg PO QHS #1 tab Primary Care Physician: Theodore Luna Chi, MD [Primary Care Provider] - Please follow up with your Primary Care Physician in: in 2 weeks Disposition: Home Minutes spent on discharge:: 32 Patient Condition:: Stable Medical Necessity - Tobacco Use Smoking Status: Never smoker Meaningful Use Info Meaningful Use Diagnoses (Choose all that apply): None applicable Inpatient E&M: 96685 Disch Hosp
== END 2020-09-09 17:10 | disposition home health service (06) | DRG 92 ==
LOC: ED 14:15 → PCU 16:47
PROVIDERS: Internal Medicine; Admitting Provider Internal Medicine; Emergency Provider Emergency Medicine; PCP Family Medicine Geriatric Medicine; Visit Provider Internal Medicine
DX: G92 Toxic encephalopathy (principal); G61.0 Guillain-Barre syndrome; R44.1 Visual hallucinations; I35.0 Nonrheumatic aortic (valve) stenosis; E87.1 Hypo-osmolality and hyponatremia; T50.1X5A Adverse effect of loop [high-ceiling] diuretics, initial encounter; I95.9 Hypotension, unspecified; I27.21 Secondary pulmonary arterial hypertension; I48.0 Paroxysmal atrial fibrillation; R13.10 Dysphagia, unspecified; I10 Essential (primary) hypertension; E03.9 Hypothyroidism, unspecified; D64.9 Anemia, unspecified; M10.9 Gout, unspecified; G25.81 Restless legs syndrome; K21.9 Gastro-esophageal reflux disease without esophagitis; F03.90 Unspecified dementia, unspecified severity, without behavioral disturbance, psychotic disturbance, mood disturbance, and anxiety; Y92.009 Unspecified place in unspecified non-institutional (private) residence as the place of occurrence of the external cause; Z79.01 Long term (current) use of anticoagulants; Z79.890 Hormone replacement therapy; Z79.899 Other long term (current) drug therapy; Z86.73 Personal history of transient ischemic attack (TIA), and cerebral infarction without residual deficits; Z85.46 Personal history of malignant neoplasm of prostate; Z95.0 Presence of cardiac pacemaker
CPT/HCPCS: 36415; 70450; 71045; 74246; 80053; 81001; 82607; 83605; 83735; 84100; 84443; 84484; 85025; 85610; 85730; 87040; 87086; 87088; 92507; 92526; 92610; 93005; 93306; 95819; 97110; 97116; 97162; 97166; 97530; 97535; 99251; 99285; J7030; A4216; G0463; J1940

== ENCOUNTER 2022-04-05 17:52 | Emergency (ER) | payer MEDICARE, BC, OTHER, SELFPAY ==
[2022-04-05 17:54] VITALS: BP 139/66; PULSE 69; RESP 17; TEMP 36.8; O2SAT 97; BMI 19.5
[2022-04-05] MEDS: TRANEXAMIC ACID 1,000 MG/10 ML ML OPERA.SITE (18:50)
--- NOTE | 2022-04-05 18:55 | EDS_ITS ---
HPI History of Present Illness Chief Complaint: Dental Informant: patient and family Narrative Narrative: 86-year-old male reports that on Wednesday he had dental extraction via Dr. Aguila. He states he had some bleeding afterwards but that resolved with use of ice water. Family restarted his Coumadin but has held it the last 2 nights because he started bleeding again. Today family notes that he continues to bleed and there is large clots and they are not stopping. They attempted to reach their surgeon had not yet heard back because of the continued bleeding came to the emergency room. [facility] Medical History Arrhythmia Dementia Pacemaker Home Medications allopurinol 300 mg tablet 300 mg PO DAILY gout 09/02/15 [History Last Taken 09/05/20] esomeprazole magnesium 20 mg capsule,delayed release (Nexium) 20 mg PO DAILY reflux 06/07/20 [History Last Taken 09/06/20] lamotrigine 25 mg tablet 75 tab PO BID seizures 06/07/20 [History Last Taken 09/05/20] levothyroxine 25 mcg tablet 25 mcg PO DAILY thyroid 06/07/20 [History Last Taken 09/05/20] memantine 10 mg tablet 10 tab PO BID memory 06/07/20 [History Last Taken 09/06/20] ferrous gluconate 240 mg (27 mg iron) tablet 240 mg PO DAILY supplement 09/06/20 [History Last Taken 09/06/20] furosemide 40 mg tablet 40 mg PO DAILY diuretic 09/06/20 [History Last Taken 09/05/20] nystatin 100,000 unit/gram topical ointment 1 applic topical BID 09/09/20 [Rx Last Taken Unknown] ropinirole 0.5 mg tablet 0.25 mg PO QHS restless legs #1 TAB 09/09/20 [Rx Last Taken Unknown] warfarin 2 mg tablet 4 mg PO DAILY #60 tabs 09/09/20 [Rx Last Taken Unknown] Allergy/AdvReac Type Severity Reaction Status Date / Time No Known Allergies Allergy Verified 04/05/22 18:05 Social History (Updated 04/05/22 @ 18:[address] Atul Keating DO) Smoking Status: Never smoker substance use type: does not use ROS ROS ED Constitutional Constitutional ED: Denies chills or weight loss Eyes Eyes: Denies change in vision or diplopia ENT ENT ED: Reports other Details: See history of present illness ; Denies ear pain, rhinorrhea or sore throat Cardiovascular Cardiovascular: Denies chest pain, orthopnea, palpitations or racing heartbeat Respiratory/Chest Respiratory/Chest: Denies cough, dyspnea or orthopnea Gastrointestinal Gastrointestinal: Denies abdominal pain, diarrhea, nausea or vomiting Genitourinary Genitourinary ED: Denies dysuria, hematuria or urinary frequency Musculoskeletal Musculoskeletal: Denies arthralgias or myalgias Integumentary Denies abscess or rash Neurologic Neurologic: Denies headache(s) or weakness Psychiatric Psychiatric: Denies anxiety, depression, suicidal ideation or suicidal thoughts Endocrine Endocrinology: Denies polydipsia, polyphagia or polyuria Allergic/Immunologic Allergic/Immunologic ED: Denies mouth swelling, tongue swelling or urticaria EXAM Physical Exam Const Vital Signs: 04/05/22 17:54 Temperature 98.2 F Temperature Source Temporal Pulse Rate 69 Respiratory Rate 17 Blood Pressure 139/66 H Blood Pressure Mean 90 Pulse Ox 97 Oxygen Delivery Method Room Air Positive well nourished and well developed General Appearance ED: well developed HEENT Reports normocephalic, head/scalp atraumatic and moist mucous membranes HEENT Narrative: There is a site located in the upper anterior gumline that is actively bleeding. The rest of the sites appear to have clotted and healing. Eyes PERRL and EOMs intact bilaterally Neck no lymphadenopathy, supple and no JVD Resp normal respiratory effort and clear to auscultation bilaterally Cardio regular rate, regular rhythm and no murmurs GI normal to inspection, nondistended, normoactive bowel sounds and non-tender Palpation: soft Back/Spine no CVA tenderness and normal ROM Extremity normal to inspection General Extremety ED: Negative for edema General Extremity: Negative for edema Neuro oriented x3 and CN's II-XII intact bilaterally Sensorium / Orientation: alert Motor Exam: strength 5/5 throughout Psych mental status grossly normal Mood & Affect: Negative for depressed or tearful Skin no rashes or lesions noted and no wounds MDM MDM MDM Narrative Medical decision making narrative: I had the patient bite down on a 4 x 4 did not stop the bleeding. therefore a TXA soaked cottonball was placed however when I came back the cottonball was off the site. I held direct pressure with a another 4 x 4 by myself. This seemed to slow the bleeding somewhat so I placed another cottonball with TXA on it and held in place for 15 minutes. No further bleeding was observed. He was then observed in the emergency department for about another hour and has not had return of bleeding. We talked about holding direct pressure at home. I was unable to contact the patient's surgeon. But at this point the patient can be discharged home. Of asked that he not resume his Coumadin tonight. Discharge Plan Triage Chief Complaint: Dental ED Provider: Atul Keating Dx/Rx/DC Orders Clinical Impression: Post-op bleeding, Anticoagulated on Coumadin Prescriptions: No Action lamotrigine 25 mg tablet 75 tab PO BID memantine 10 mg tablet 10 tab PO BID esomeprazole magnesium [Nexium] 20 mg capsule,delayed release(DR/EC) 20 mg PO DAILY levothyroxine 25 mcg tablet 25 mcg PO DAILY allopurinol 300 MG tablet 300 mg PO DAILY ferrous gluconate 240 MG tablet 240 mg PO DAILY furosemide 40 MG tablet 40 mg PO DAILY nystatin 1 APPLIC ointment 1 applic TOPICAL BID 0RF Protocol: *Topical Application Instructions APPLICATION INSTRUCTIONS: Groin warfarin 2 MG tablet 4 mg PO DAILY Qty: 60 0RF ropinirole 0.5 MG tablet 0.25 mg PO QHS Qty: 1 0RF Primary Care Provider: Theodore Luna Chi Referrals: Theodore Luna Chi, MD [Primary Care Provider] - As Needed Mario Aguila DDS [Med Staff - Active Staff] - As soon as possible Disposition Disposition: Home, Self Care
[2022-04-05 20:05] VITALS: BP 149/96
== END 2022-04-05 20:06 | disposition home or self-care (01) ==
PROVIDERS: Emergency Provider Emergency Medicine; PCP Family Medicine Geriatric Medicine; Visit Provider Emergency Medicine
DX: K91.840 Postprocedural hemorrhage of a digestive system organ or structure following a digestive system procedure (principal); F03.90 Unspecified dementia, unspecified severity, without behavioral disturbance, psychotic disturbance, mood disturbance, and anxiety; Z79.01 Long term (current) use of anticoagulants; Z79.899 Other long term (current) drug therapy; Z95.0 Presence of cardiac pacemaker
CPT/HCPCS: 99282

== ENCOUNTER 2022-05-23 17:45 | Emergency (ER) | payer MEDICARE, OTHER, SELFPAY ==
[2022-05-23 17:46] VITALS: BP 154/114; PULSE 88; RESP 18; TEMP 36.2; O2SAT 98; BMI 20.9
--- NOTE | 2022-05-23 18:24 | EX.ED.DYSGE1 ---
HPI History of Present Illness Chief Complaint: Nosebleed Informant: patient and spouse/S.O. Narrative Narrative: Right-sided epistaxis this afternoon. On warfarin for history of atrial fibrillation. Last INR this past Wednesday was 2.2. He is followed by hospice for the past year with his medical history initially by his PCP. He is had nosebleed in the past have not the significant denies having nasal packing. No lightheaded symptoms. Brought in by EMS. [facility] Medical History Arrhythmia Bleeding nose Dementia Pacemaker Home Medications allopurinol 300 mg tablet 300 mg PO DAILY gout 09/02/15 [History Last Taken 09/05/20] esomeprazole magnesium 20 mg capsule,delayed release (Nexium) 20 mg PO DAILY reflux 06/07/20 [History Last Taken 09/06/20] lamotrigine 25 mg tablet 75 tab PO BID seizures 06/07/20 [History Last Taken 09/05/20] levothyroxine 25 mcg tablet 25 mcg PO DAILY thyroid 06/07/20 [History Last Taken 09/05/20] memantine 10 mg tablet 10 tab PO BID memory 06/07/20 [History Last Taken 09/06/20] ferrous gluconate 240 mg (27 mg iron) tablet 240 mg PO DAILY supplement 09/06/20 [History Last Taken 09/06/20] furosemide 40 mg tablet 40 mg PO DAILY diuretic 09/06/20 [History Last Taken 09/05/20] nystatin 100,000 unit/gram topical ointment 1 applic topical BID 09/09/20 [Rx Last Taken Unknown] ropinirole 0.5 mg tablet 0.25 mg PO QHS restless legs #1 TAB 09/09/20 [Rx Last Taken Unknown] warfarin 2 mg tablet 4 mg PO DAILY #60 tabs 09/09/20 [Rx Last Taken Unknown] Allergy/AdvReac Type Severity Reaction Status Date / Time No Known Allergies Allergy Verified 05/23/22 17:46 Social History Smoking Status: Never smoker substance use type: does not use ROS ROS ED Constitutional Constitutional ED: Denies chills, fever(s) or sweats Eyes Eyes: Denies change in vision ENT ENT ED: Reports other Details: Right-sided epistaxis ; Denies dysphagia or sore throat Cardiovascular Cardiovascular: Denies chest pain, leg edema, palpitations or racing heartbeat Respiratory/Chest Respiratory/Chest: Denies cough, dyspnea or dyspnea on exertion Gastrointestinal Gastrointestinal: Denies abdominal pain, diarrhea, nausea or vomiting Genitourinary Genitourinary ED: Denies dysuria, hematuria or urinary frequency Musculoskeletal Musculoskeletal: Denies back pain, extremity pain or neck pain Integumentary Denies rash or wounds Neurologic Neurologic: Denies headache(s), paresthesias or weakness EXAM Physical Exam Const Vital Signs: 05/23/22 17:46 05/23/22 19:46 Temperature 97.1 F L Temperature Source Temporal Pulse Rate 88 Respiratory Rate 18 16 Blood Pressure 154/114 H Blood Pressure Mean 127 Pulse Ox 98 Oxygen Delivery Method Room Air Positive well nourished and well developed General Appearance ED: well developed and NAD HEENT Reports moist mucous membranes HEENT Narrative: Nasal clips on, there is slow dripping blood on right side there was clot in the left side. There is dried blood in his posterior pharynx. There is no active bleeding. normocephalic and atraumatic Eyes PERRL, EOMs intact bilaterally and conjunctivae normal General Eye ED: Yes normal appearance of both eyes Neck no lymphadenopathy and supple General: Negative for tenderness Chest Wall Chest: Negative for tenderness Resp normal respiratory effort and normal air movement Effort and Inspection: symmetric chest movement; Negative for respiratory distress Cardio regular rate, regular rhythm and no murmurs Peripheral Pulses: pulses 2+ throughout GI normal to inspection, nondistended, normoactive bowel sounds and non-tender Palpation: Negative for guarding or rebound tenderness present Back/Spine no CVA tenderness and no thoracic nor lumbar tenderness Extremity normal to inspection General Extremety ED: Negative for edema or tenderness General Extremity: Negative for edema Neuro oriented x3 and no sensory deficits noted Sensorium / Orientation: awake and alert Skin no rashes or lesions noted and no wounds MDM MDM MDM Narrative Medical decision making narrative: Patient right-sided epistaxis. Clots were removed. I placed Afrin on cotton, was placed on the right side. There is clots also removed the left side of there is no active bleeding. He will be monitored. INR ordered for evaluation. INR 3.3. After cotton was removed immediate rebleeding there was septal irritation anteriorly. Therefore 5.5 cm rapid pack was placed. Bleeding controlled he was monitored no rebleeding. Ambulated with his walker with no rebleeding. He is given follow-up with ENT for follow-up. Discussed packing removal in 3 days. He will hold his warfarin this evening. Per spouse asked if hospice nurse can remove, discussed if they are comfortable removing 3 days they can. Discussed if he cannot be seen by ENT in 3 days return to the ED. All questions were answered. Lab Data Labs: Laboratory Results - last 24 hr 05/23/22 18:30 PT 33.3 H INR 3.3 Discharge Plan Triage Chief Complaint: Nosebleed ED Provider: Beka Sanchez Dx/Rx/DC Orders Clinical Impression: Right-sided epistaxis, Anticoagulant long-term use, History of atrial fibrillation Instructions: ED Epistaxis (Adult) Prescriptions: No Action lamotrigine 25 mg tablet 75 tab PO BID memantine 10 mg tablet 10 tab PO BID esomeprazole magnesium [Nexium] 20 mg capsule,delayed release(DR/EC) 20 mg PO DAILY levothyroxine 25 mcg tablet 25 mcg PO DAILY allopurinol 300 MG tablet 300 mg PO DAILY ferrous gluconate 240 MG tablet 240 mg PO DAILY furosemide 40 MG tablet 40 mg PO DAILY nystatin 1 APPLIC ointment 1 applic TOPICAL BID 0RF Protocol: *Topical Application Instructions APPLICATION INSTRUCTIONS: Groin warfarin 2 MG tablet 4 mg PO DAILY Qty: 60 0RF ropinirole 0.5 MG tablet 0.25 mg PO QHS Qty: 1 0RF Primary Care Provider: Theodore Luna Chi Referrals: Noman Peralta MD [Med Staff - Active Staff] - 3-5 Days Theodore Luna Chi, MD [Primary Care Provider] - Activity Restrictions/Additional Instructions: Right sided rapid Rhino pack was placed. Bleeding controlled. Your INR level 3.3. Hold your warfarin today. Packing to be removed in 3 days by ENT or your hospice nurse or return to the ED if cannot get into ENT. Disposition Disposition: Home, Self Care
[2022-05-23 18:49] LABS: International Normalized Ratio 3.3; Prothrombin Time (Protime)PT. 33.3 SECONDS (11.7-14.9)
[2022-05-23 19:46] VITALS: RESP 16
[2022-05-23 20:01] VITALS: RESP 18
--- NOTE | 2022-05-23 20:19 | ED.RN ---
HOSPICE CALLED AND UPDATED ON PATIENT CONDITION AND DISCHARGE. HOSPICE TO FOLLOW UP WITH PATIENT IN THE NEXT DAY OR TWO PER NURSE REPORT.
== END 2022-05-23 20:30 | disposition home or self-care (01) ==
PROVIDERS: Emergency Provider Emergency Medicine; PCP Family Medicine Geriatric Medicine; Visit Provider Emergency Medicine
DX: R04.0 Epistaxis (principal); F03.90 Unspecified dementia, unspecified severity, without behavioral disturbance, psychotic disturbance, mood disturbance, and anxiety; I48.91 Unspecified atrial fibrillation; Z79.01 Long term (current) use of anticoagulants; Z79.899 Other long term (current) drug therapy; Z95.0 Presence of cardiac pacemaker
CPT/HCPCS: 30901; 85610; 99284

== ENCOUNTER 2023-02-14 18:46 | Emergency (ER) | payer MEDICARE, OTHER, BC, SELFPAY ==
[2023-02-14 18:48] VITALS: BP 169/93; PULSE 74; RESP 18; TEMP 36.5; O2SAT 92; BMI 20.2
--- NOTE | 2023-02-14 19:48 | CT_ITS ---
INDICATION: fall EXAMINATION: CT CERVICAL SPINE - CT Spine Cervical W/O Contrast Injection TECHNIQUE: Helically acquired images were obtained of the cervical spine. 2D reformatted images were reviewed. A radiation dose optimization technique was used for this scan. IV Contrast dosage and agent: None. COMPARISON: None. FINDINGS: VERTEBRAE: No fracture or traumatic subluxation. No discrete lytic or blastic abnormality. Normal alignment. Normal craniocervical junction and cervicothoracic junction. DISCS and SPINAL CANAL: Severe multilevel degenerative disc disease and spondylosis. No critical stenosis. NECK SOFT TISSUES: No prevertebral soft tissue swelling. There is no cervical adenopathy. LUNG APICES: Clear. CT/Spine Cervical without Contras IMPRESSION: No evidence of acute cervical spinal fracture or spondylolisthesis. Severe multilevel degenerative disc disease and spondylosis. Electronically Signed: Noman Fung MD at 20:33 EDT ,
--- NOTE | 2023-02-14 19:48 | CT_ITS ---
EXAMINATION : Head CT w/out contrast HISTORY : fall, head injury COMPARISON : 09/08/2020. TECHNIQUE : Multiple contiguous axial images were obtained from the skull base to the vertex without intravenous contrast. A radiation dose optimization technique was used for this scan. FINDINGS : There is no evidence for acute intracranial hemorrhage, mass effect, or midline shift. There is no extra-axial fluid collection. There are periventricular white matter changes consistent with chronic microvascular ischemic disease. There is sulcal widening and ventricular enlargement consistent with cerebral atrophy. Right parietal temporal encephalomalacia. There is normal casarez-white differentiation, without CT evidence of acute ischemia or infarct. The skull base and calvarium are unremarkable. The orbits are unremarkable. The paranasal sinuses are clear. The mastoid air cells are well-aerated. The soft tissues are unremarkable. CT/Brain/Head without Contrast IMPRESSION: No acute intracranial abnormality. Right parietal temporal encephalomalacia. Chronic involutional and ischemic changes of the brain. Electronically Signed: Noman Fung MD at 20:32 EDT ,
[2023-02-14 20:16] LABS: Bacteria 0 SEEN /hpf (None Seen); Mucous, Urine 0 SEEN /hpf (<or=2+); Red Blood Cells-Urine 0 SEEN /hpf (0-5); White Blood Cells 0 SEEN /hpf (0-5)
[2023-02-14 20:22] LABS: Absolute Lymphocyte Count 1.17 X10^3/uL (0.83-4.51); Basophil# 0.02 X10^3/uL; Basophil% 0.2 % (0-1); Eosinophil# 0.02 X10^3/uL; Eosinophils% 0.2 % (0-5); Hematocrit 37.8 % (40-54); Hemoglobin 11.8 g/dL (13.0-16.5); Lymphocyte # 1.17 X10^3/ul (0.83-4.51); Mean Corp Hgb Conc 31.2 g/dL (32-36); Mean Corpuscular Volume 96.2 fL (80-94); Mean Platelet Vol. 10.6 fl (6.2-12.0); Monocyte# 0.75 X10^3/uL; Monocyte% 8.3 % (0-10); NRBC Flagged by Analyzer 0 % (0-5); Platelet Count 215 K/mm3 (150-450); RBC Distribution Width CV 15.9 % (11.6-14.6); RBC Distribution Width SD 55.8 fl (35.1-43.9); Red Blood Count 3.93 M/mm3 (4.6-6.2)
[2023-02-14 20:26] LABS: Color, Urine Yellow (Yellow); Glucose, Dipstick Normal (Normal); Ketone-Dipstick Negative (Negative); Leukocyte Esterase-Dipstick Negative /ul (Negative); Nitrite-Dipstick Negative (Negative); Occult Blood-Urine Negative /ul (Negative); Protein-Dipstick Negative (Negative); Specific Gravity, Urine 1.005 (1.002-1.030); Urine Bilirubin Dipstick Negative (Negative); Urine Clarity Clear (Clear); Urine Urobilinogen Normal (Normal)
--- NOTE | 2023-02-14 20:32 | EX.ED.GENINJ ---
HPI <ROMMEL Dubose - Last Filed: 02/14/23 21:12> History of Present Illness Chief Complaint: Fall Narrative Narrative: Patient presenting today with his due to a fall that occurred this evening. He was trying to get up from the table and went to grab his walker when he fell backwards and hit his head on a cabinet. Patient does take blood thinners for atrial fibrillation. There was no loss of consciousness. Patient denies any injury. reports that he has been acting slightly confused today which normally happens when he is dehydrated. Reports that he has had little water to drink today. He denies any fever, chills, abdominal pain, nausea, vomiting, chest pain, and shortness of breath. PFS <ROMMEL Dubose - Last Filed: 02/14/23 21:12> [facility] Medical History Arrhythmia Bleeding nose Dementia Pacemaker Home Medications allopurinol 300 mg tablet 300 mg PO DAILY gout 09/02/15 [History Last Taken 09/05/20] esomeprazole magnesium 20 mg capsule,delayed release (Nexium) 20 mg PO DAILY reflux 06/07/20 [History Last Taken 09/06/20] lamotrigine 25 mg tablet 75 tab PO BID seizures 06/07/20 [History Last Taken 09/05/20] levothyroxine 25 mcg tablet 25 mcg PO DAILY thyroid 06/07/20 [History Last Taken 09/05/20] memantine 10 mg tablet 10 tab PO BID memory 06/07/20 [History Last Taken 09/06/20] ferrous gluconate 240 mg (27 mg iron) tablet 240 mg PO DAILY supplement 09/06/20 [History Last Taken 09/06/20] furosemide 40 mg tablet 40 mg PO DAILY diuretic 09/06/20 [History Last Taken 09/05/20] nystatin 100,000 unit/gram topical ointment 1 applic topical BID 09/09/20 [Rx Last Taken Unknown] ropinirole 0.5 mg tablet 0.25 mg (1/2 x 0.5 mg) PO QHS restless legs #1 TAB 09/09/20 [Rx Last Taken Unknown] warfarin 2 mg tablet 4 mg (2 x 2 mg) PO DAILY #60 tabs 09/09/20 [Rx Last Taken Unknown] Allergy/AdvReac Type Severity Reaction Status Date / Time No Known Allergies Allergy Verified 02/14/23 18:46 Social History Smoking Status: Never smoker substance use type: does not use ROS <ROMMEL Dubose - Last Filed: 02/14/23 21:12> ROS ED Constitutional Constitutional ED: Denies chills or fever(s) Cardiovascular Cardiovascular: Denies chest pain or palpitations Respiratory/Chest Respiratory/Chest: Denies cough or dyspnea Gastrointestinal Gastrointestinal: Denies abdominal pain, nausea or vomiting Genitourinary Genitourinary ED: Denies dysuria, hematuria or urinary urgency Musculoskeletal Musculoskeletal: Denies arthralgias or neck pain Integumentary Denies abscess, Abrasions or rash Neurologic Neurologic: Denies confusion, dizziness or paresthesias EXAM <ROMMEL Dubose - Last Filed: 02/14/23 21:12> Physical Exam Const Vital Signs: 02/14/23 18:48 02/14/23 18:53 02/14/23 20:46 Temperature 97.7 F L Temperature Source Temporal Pulse Rate 74 70 Respiratory Rate 18 18 Respiratory Effort Normal Non-Labored Respiratory Depth Normal Respiratory Pattern Normal Blood Pressure 169/93 H 121/90 H Blood Pressure Mean 118 100 Pulse Ox 92 95 Oxygen Delivery Method Room Air Room Air Room Air Positive well nourished, well developed and no apparent distress General Appearance ED: well developed HEENT Reports normocephalic and head/scalp atraumatic HEENT Narrative: Small 0.5 cm superficial abrasion to the back of the head. Mouth ED: Yes moist mucous membranes normal Eyes PERRL and EOMs intact bilaterally Neck full ROM and supple Chest Wall inspection of chest normal Resp normal respiratory effort and clear to auscultation bilaterally Cardio regular rate and regular rhythm GI soft to palpation, non-tender, non-distended and no masses Back/Spine normal ROM and normal to inspection Extremity normal to inspection and full ROM Neuro oriented x3, CN's II-XII intact bilaterally, moves all extremities, no focal motor deficits and no sensory deficits noted Sensorium / Orientation: awake and alert Psych mental status grossly normal and thought process normal Skin no rashes or lesions noted and no wounds <Dr. Harinder Stephens DO - Last Filed: 02/14/23 23:52> Physical Exam Const Vital Signs: 02/14/23 18:48 02/14/23 18:53 02/14/23 20:46 Temperature 97.7 F L Temperature Source Temporal Pulse Rate 74 70 Respiratory Rate 18 18 Respiratory Effort Normal Non-Labored Respiratory Depth Normal Respiratory Pattern Normal Blood Pressure 169/93 H 121/90 H Blood Pressure Mean 118 100 Pulse Ox 92 95 Oxygen Delivery Method Room Air Room Air Room Air [facility] <ROMMEL Dubose - Last Filed: 02/14/23 21:12> [facility] Narrative Medical decision making narrative: Patient presenting after a mechanical fall that occurred this evening. He is well-appearing and in no acute distress. Aside from being slightly hypertensive his vitals are unremarkable. He is A&O x3 but reports that he seems a little bit confused today and that normally happens when he is dehydrated. He has been given IV fluids and labs have been obtained to rule out leukocytosis, anemia, electrolyte abnormality, JAYANT, and UTI. Patient has a slightly elevated BUN, patient does have a history of anemia and his H&H appear to be close to baseline. INR will be obtained as patient is on Coumadin and has not had this checked recently. He does not have a UTI. Head and neck CT obtained to rule out intracranial bleed and cervical fracture and are negative for any acute findings. Lab Data Attestation: I reviewed the patient's lab results. Lab results narrative: H&H 11.8 and 37.8 BUN 25 UA negative for UTI Labs: Laboratory Results - last 24 hr 02/14/23 02/14/23 02/14/23 20:08 20:10 20:50 WBC 9.0 RBC 3.93 L Hgb 11.8 L Hct 37.8 L MCV 96.2 H MCH 30.0 MCHC 31.2 L RDW Std Deviation 55.8 H RDW Coeff of Radha 15.9 H Plt Count 215 MPV 10.6 Immature Gran % (Auto) 0.300 Neut % (Auto) 78.0 H Lymph % (Auto) 13.0 L Perkins % (Auto) 8.3 Eos % (Auto) 0.2 Baso % (Auto) 0.2 Absolute Neuts (auto) 7.0 Absolute Lymphs (auto) 1.17 Nucleated RBC % 0 PT Cancelled INR Cancelled Sodium 138 Potassium 4.5 Chloride 103 Carbon Dioxide 32.0 Anion Gap 3 L BUN 25 H Creatinine 1.15 Estim Creat Clear Calc 33.22 Est GFR (MDRD) Af Amer 77 Est GFR (MDRD) Non-Af 64 BUN/Creatinine Ratio 21.7 H Glucose 117 H Calcium 8.9 Urine Color Yellow Urine Clarity Clear Urine pH 7.0 Ur Specific [place] 1.005 Urine Protein Negative Urine Glucose (UA) Normal Urine Ketones Negative Urine Occult Blood Negative Urine Nitrite Negative Urine Bilirubin Negative Urine Urobilinogen Normal Ur Leukocyte Esterase Negative Urine RBC 0 SEEN Urine WBC 0 SEEN Ur Squamous Epith Cells 0-5 SEEN Urine Bacteria 0 SEEN Urine Mucus 0 SEEN 02/14/23 21:20 WBC RBC Hgb Hct MCV MCH MCHC RDW Std Deviation RDW Coeff of Radha Plt Count MPV Immature Gran % (Auto) Neut % (Auto) Lymph % (Auto) Perkins % (Auto) Eos % (Auto) Baso % (Auto) Absolute Neuts (auto) Absolute Lymphs (auto) Nucleated RBC % PT 20.1 H INR 1.7 Sodium Potassium Chloride Carbon Dioxide Anion Gap BUN Creatinine Estim Creat Clear Calc Est GFR (MDRD) Af Amer Est GFR (MDRD) Non-Af BUN/Creatinine Ratio Glucose Calcium Urine Color Urine Clarity Urine pH Ur Specific [place] Urine Protein Urine Glucose (UA) Urine Ketones Urine Occult Blood Urine Nitrite Urine Bilirubin Urine Urobilinogen Ur Leukocyte Esterase Urine RBC Urine WBC Ur Squamous Epith Cells Urine Bacteria Urine Mucus Radiography Diagnostic Testing: Clinical Impression(s) from Imaging Studies Brain CT 02/14/23 19:48 IMPRESSION: No acute intracranial abnormality. Right parietal temporal encephalomalacia. Chronic involutional and ischemic changes of the brain. Electronically Signed: Noman Fung MD at 20:32 EDT , Cervical Spine CT 02/14/23 19:48 IMPRESSION: No evidence of acute cervical spinal fracture or spondylolisthesis. Severe multilevel degenerative disc disease and spondylosis. Electronically Signed: Noman Fung MD at 20:33 EDT , <Dr. Harinder Stephens, DO - Last Filed: 02/14/23 23:52> [facility] Narrative Medical decision making narrative: Patient presenting after a mechanical fall that occurred this evening. He is well-appearing and in no acute distress. Aside from being slightly hypertensive his vitals are unremarkable. He is A&O x3 but reports that he seems a little bit confused today and that normally happens when he is dehydrated. He has been given IV fluids and labs have been obtained to rule out leukocytosis, anemia, electrolyte abnormality, JAYANT, and UTI. Patient has a slightly elevated BUN, patient does have a history of anemia and his H&H appear to be close to baseline. INR will be obtained as patient is on Coumadin and has not had this checked recently. He does not have a UTI. Head and neck CT obtained to rule out intracranial bleed and cervical fracture and are negative for any acute findings. This patient was seen with a PA/STAY CUTTER Individually assessed they patient including history and physical. I have reviewed everything on the chart that is available and agree with the documentation provided by the PA/STAY CUTTER including discussion about the assessment, treatment plan, discussion, and return precautions. Well-appearing 87-year-old male presenting with perceived confusion from his . She states he is normally alert and oriented but seems a little confused today. She feels that he may be dehydrated. CBC is essentially unremarkable. BMP shows slight prerenal azotemia. He was given a little bit of IV fluids. INR slightly subtherapeutic at 1.7. Urinalysis negative for infection. At this point I feel the patient stable for discharge. He is in hospice. Lab Data Labs: Laboratory Results - last 24 hr 02/14/23 02/14/23 02/14/23 20:08 20:10 20:50 WBC 9.0 RBC 3.93 L Hgb 11.8 L Hct 37.8 L MCV 96.2 H MCH 30.0 MCHC 31.2 L RDW Std Deviation 55.8 H RDW Coeff of Radha 15.9 H Plt Count 215 MPV 10.6 Immature Gran % (Auto) 0.300 Neut % (Auto) 78.0 H Lymph % (Auto) 13.0 L Perkins % (Auto) 8.3 Eos % (Auto) 0.2 Baso % (Auto) 0.2 Absolute Neuts (auto) 7.0 Absolute Lymphs (auto) 1.17 Nucleated RBC % 0 PT Cancelled INR Cancelled Sodium 138 Potassium 4.5 Chloride 103 Carbon Dioxide 32.0 Anion Gap 3 L BUN 25 H Creatinine 1.15 Estim Creat Clear Calc 33.22 Est GFR (MDRD) Af Amer 77 Est GFR (MDRD) Non-Af 64 BUN/Creatinine Ratio 21.7 H Glucose 117 H Calcium 8.9 Urine Color Yellow Urine Clarity Clear Urine pH 7.0 Ur Specific [place] 1.005 Urine Protein Negative Urine Glucose (UA) Normal Urine Ketones Negative Urine Occult Blood Negative Urine Nitrite Negative Urine Bilirubin Negative Urine Urobilinogen Normal Ur Leukocyte Esterase Negative Urine RBC 0 SEEN Urine WBC 0 SEEN Ur Squamous Epith Cells 0-5 SEEN Urine Bacteria 0 SEEN Urine Mucus 0 SEEN 02/14/23 21:20 WBC RBC Hgb Hct MCV MCH MCHC RDW Std Deviation RDW Coeff of Radha Plt Count MPV Immature Gran % (Auto) Neut % (Auto) Lymph % (Auto) Perkins % (Auto) Eos % (Auto) Baso % (Auto) Absolute Neuts (auto) Absolute Lymphs (auto) Nucleated RBC % PT 20.1 H INR 1.7 Sodium Potassium Chloride Carbon Dioxide Anion Gap BUN Creatinine Estim Creat Clear Calc Est GFR (MDRD) Af Amer Est GFR (MDRD) Non-Af BUN/Creatinine Ratio Glucose Calcium Urine Color Urine Clarity Urine pH Ur Specific [place] Urine Protein Urine Glucose (UA) Urine Ketones Urine Occult Blood Urine Nitrite Urine Bilirubin Urine Urobilinogen Ur Leukocyte Esterase Urine RBC Urine WBC Ur Squamous Epith Cells Urine Bacteria Urine Mucus Radiography Diagnostic Testing: Clinical Impression(s) from Imaging Studies Brain CT 02/14/23 19:48 IMPRESSION: No acute intracranial abnormality. Right parietal temporal encephalomalacia. Chronic involutional and ischemic changes of the brain. Electronically Signed: Noman Fung MD at 20:32 EDT , Cervical Spine CT 02/14/23 19:48 IMPRESSION: No evidence of acute cervical spinal fracture or spondylolisthesis. Severe multilevel degenerative disc disease and spondylosis. Electronically Signed: Noman Fung MD at 20:33 EDT , Discharge Plan Triage Chief Complaint: Fall ED Midlevel Provider: Joyce Jones ED Provider: Harinder Stephens Dx/Rx/DC Orders Clinical Impression: Head injury, Fall Instructions: ED Head Injury (Adult) Prescriptions: No Action lamotrigine 25 mg tablet 75 tab PO BID memantine 10 mg tablet 10 tab PO BID esomeprazole magnesium [Nexium] 20 mg capsule,delayed release(DR/EC) 20 mg PO DAILY levothyroxine 25 mcg tablet 25 mcg PO DAILY allopurinol 300 MG tablet 300 mg PO DAILY ferrous gluconate 240 MG tablet 240 mg PO DAILY furosemide 40 MG tablet 40 mg PO DAILY nystatin 1 APPLIC ointment 1 applic TOPICAL BID 0RF Protocol: *Topical Application Instructions APPLICATION INSTRUCTIONS: Groin warfarin 2 MG tablet 4 mg PO DAILY Qty: 60 0RF ropinirole 0.5 MG tablet 0.25 mg PO QHS Qty: 1 0RF Primary Care Provider: Theodore Luna Chi Referrals: Theodore Luna Chi, MD [Primary Care Provider] - 3-5 Days Activity Restrictions/Additional Instructions: Please follow-up with your PCP and return for any worsening of your symptoms. Disposition Disposition: Home, Self Care
[2023-02-14 20:35] LABS: Anion Gap 3 (5-15); BUN 25 mg/dL (7-18); BUN/Creat Ratio 21.7 RATIO (10-20); Calcium,Total 8.9 mg/dL (8.5-10.1); Chloride 103 mmol/L (98-107); Creatinine, Serum 1.15 mg/dL (0.70-1.30); EST Glomerular Filtration Rate 64 mL/min (>60); Est Glom Filt Rate - Afr Amer 77 mL/min (>60); Estimated Creatinine Clearance 33.22 ml/min; Glucose 117 mg/dL (74-106); Potassium 4.5 mmol/L (3.5-5.1); Sodium Level 138 mmol/L (136-145)
[2023-02-14 20:39] LABS: Squamous Epithelial Cells - UA 0-5 SEEN /hpf (0-5)
[2023-02-14 20:46] VITALS: BP 121/90; PULSE 70; RESP 18; O2SAT 95
[2023-02-14 21:36] LABS: International Normalized Ratio 1.7; Prothrombin Time (Protime)PT. 20.1 SECONDS (11.7-14.9)
[2023-02-15] VITALS: BP 124/80; PULSE 68; RESP 18; O2SAT 97
--- NOTE | 2023-02-15 00:15 | ED.RN ---
nicole @ [facility] updated on pt's d/c
== END 2023-02-15 00:16 | disposition home or self-care (01) ==
PROVIDERS: Physician Assistant; Emergency Provider Student in an Organized Health Care Education/Training Program; PCP Family Medicine Geriatric Medicine; Visit Provider Student in an Organized Health Care Education/Training Program
DX: S00.91XA Abrasion of unspecified part of head, initial encounter (principal); I48.91 Unspecified atrial fibrillation; W01.198A Fall on same level from slipping, tripping and stumbling with subsequent striking against other object, initial encounter; R79.89 Other specified abnormal findings of blood chemistry; R41.0 Disorientation, unspecified; Z51.5 Encounter for palliative care; Z79.01 Long term (current) use of anticoagulants; Z79.899 Other long term (current) drug therapy
CPT/HCPCS: 70450; 72125; 80048; 81001; 85025; 85610; 96360; 96361; 99284; J7030; J7040; A4216